=== PATIENT | female | born 1985 | race Caucasian/White ===

== ENCOUNTER 2020-10-04 19:51 | Inpatient (IN) | payer OTHER, SELFPAY ==
[2020-10-04 19:56] VITALS: BP 145/83; PULSE 101; RESP 18; TEMP 37.3; O2SAT 97; BMI 39.3
--- NOTE | 2020-10-04 22:40 | ED.ANIMALBIT ---
HPI - Animal Bite General Chief Complaint: Animal Bite Stated Complaint: cat scratch Time Seen by Provider: 10/04/20 22:01 History of Present Illness HPI narrative: 34-year-old female who presents emergency department for evaluation left hand swelling and redness after getting a cat bite. 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 She states that she was at work yesterday around 2:30 p.m. when a cat bit her left hand. She states that she immediately cleaned the wound with Hibiclens. She is then seen at an urgent care clinic and started on Ceftin 500 mg twice a day. The patient states she has taken 3 doses of Ceftin. She states that the redness over her left hand has spread outside of the marked area and is now traveling upper arm to her elbow. She also has systemic symptoms which include headache, shaking chills, weakness and fatigue. The patient states that she had a cat bite and August 2019 and required hospitalization for that cat bite. She states that her tetanus status is up-to-date. The cat's rabies shots are also up-to-date. Related Data Home Medications Medication Instructions Recorded Confirmed cetirizine 10 mg tablet 10 mg PO DAILY 10/03/20 10/03/20 lactobacillus combination no.8 PO DAILY 10/03/20 10/03/20 lisinopril PO DAILY 10/03/20 10/03/20 montelukast PO DAILY 10/03/20 10/03/20 multivitamin 1 tab PO DAILY 10/03/20 10/03/20 venlafaxine 150 mg 150 mg PO DAILY 10/03/20 10/03/20 capsule,extended release 24 hr Previous Rx's Medication Instructions Recorded cefuroxime axetil 500 mg tablet 500 mg PO BID 10 Days #20 tab 10/03/20 Allergies Allergy/AdvReac Type Severity Reaction Status Date / Time codeine [CODEINE] Allergy Unknown NAUSEA & Unverified 07/21/20 17:32 VOMITING fish derived [FISH] Allergy Unknown UNKNOWN Unverified 07/21/20 17:32 latex [LATEX] Allergy Unknown RASH Unverified 07/21/20 17:32 penicillin G Allergy Unknown Verified 01/27/20 00:00 Penicillins [PENICILLINS] Allergy Unknown AGITATION Unverified 07/21/20 17:32 shellfish derived Allergy Unknown UNKNOWN Unverified 07/21/20 17:32 [SHELLFISH DERIVED] Sulfa (Sulfonamide Allergy Unknown ANAPHYLAXIS Unverified 07/21/20 17:32 Antibiotics) [SULFA (SULFONAMIDE ANTIBIOTICS)] AVOCADO Allergy Unknown Uncoded 01/27/20 00:00 Codeine Sulfate Allergy Unknown Uncoded 01/27/20 00:00 ENVIROMENTAL/ TREE Allergy Unknown Uncoded 01/27/20 00:00 FISH Allergy Unknown Uncoded 01/27/20 00:00 KIWI Allergy Unknown Uncoded 01/27/20 00:00 LATEX Allergy Unknown Uncoded 01/27/20 00:00 Lisinopril Allergy Unknown Uncoded 01/27/20 00:00 SHELLFISH Allergy Unknown Uncoded 01/27/20 00:00 Review of Systems Review of Systems: Yes all other systems are reviewed and are negative Constitutional: Constitutional: Reports as per HPI Eyes: Eyes: Reports as per HPI ENT: Reports as per HPI Cardiovascular: Cardiovascular: Reports as per HPI Respiratory: Respiratory: Reports as per HPI Gastrointestinal: Gastrointestinal: Reports as per HPI Genitourinary: Genitourinary: Reports as per HPI Musculoskeletal: Musculoskeletal: Reports as per HPI Integumentary/Breasts: Skin/Breast: Reports as per HPI Neurologic: Reports as per HPI and Reports Abnormal speech present Psychiatric: Psychiatric: Reports as per HPI Allergic/Immunologic: Allergic/Immunologic: Reports as per HPI [facility] Social History Social History Alcohol intake: current Alcohol intake frequency: holidays/special occasions only Smoking Status: Never smoker Advance Directives: No Advance Directives Information Provided: Yes Physical Exam Vital Signs: Vital Signs: Last Vital Signs Temp 99.2 F 10/04/20 19:56 Pulse 86 10/05/20 00:23 Resp 16 10/05/20 00:23 BP 138/83 10/05/20 00:23 Pulse Ox 98 10/05/20 00:23 Body Mass Index 39.3 Const: General: cooperative, no acute distress, alert and awake Nutritional Appearance: overweight Orientation/consciousness: oriented to person and oriented to place Limitations: no limitations HENMT: Head: Yes normal to inspection, Yes normocephalic and Yes atraumatic Ears: external ears normal General nose exam: Normal external nose present Face and sinus: Yes normal facial exam Mouth: Normal oral and palatal mucosa present Throat: Yes posterior oropharynx normal Eyes: General: appearance normal, both eyes and all related structures Periorbital: periorbital findings normal Eyelids: Yes eyelids normal Conjunctivae: conjunctivae normal Sclerae: sclerae normal Corneas: corneas normal Pupils: Equal, round and reactive pupils present Direct Ophthalmoscopy: normal light reflex Neck: Neck: Yes normal visual inspection and Yes supple Lymphatic: no lymphadenopathy noted Chest: Chest palpation & inspection: normal inspection of the chest and normal palpation of entire chest wall Resp: Effort & Inspection: normal respiratory effort, abnormal respiratory pattern, no audible wheezes and no respiratory distress Auscultation: clear to auscultation bilaterally, no crackles, no rales, no rhonchi and no wheezes Cardio: Rate: regular rate Rhythm: regular rhythm Heart sounds: S1 normal heart sound present, S2 normal heart sound present and Murmur heart sound present GI: Inspection: No distended Palpation (GI): Soft to palpation, nontender, no guarding and No hepatosplenomegaly present Auscultation: normal bowel sounds : General: Yes no CVA tenderness Back/Spine/Pelvis: Back: no CVA tenderness Skin: General skin exam: turgor normal Lesions: no lesions Neuro: General: oriented to person and oriented to place Cranial nerves: Yes CN's II-XII intact bilaterally and Yes Equal, round and reactive pupils present Cognition (Neuro): normal cognition Speech: Abnormal speech present Motor exam (neuro): 5/5 motor strength present throughout Extrem: Other: The patient has a flocculent area over the left hand over the hypothenar eminence, there is healing puncture wounds noted over the mid lateral aspect of the 5th metacarpal area, there is erythema that extends from the base of the 5th finger involving the 4th and 5th metacarpal area extending up the patient's forearm to her elbow, there is tenderness to palpation over the hypothenar eminence, no purulent discharge noted Psych: Appearance: grossly normal Mental Status: mental status grossly normal Speech and movement: Clear speech present Affect: normal affect Thought process: Normal thought process present Course Course Course Narrative: 34-year-old female with history of hypertension asthma and penicillin allergy who presents to the emergency department for evaluation of cellulitis from a cat bite that occurred yesterday around 2:30 p.m. The patient has been on Ceftin is taking 3 doses with worsening of her cellulitis. She also has systemic symptoms which include fever, chills, headache and fatigue. I am concerned that the patient may be bacteremic. I am also concerned that the patient may have an abscess in the hypothenar region of her hand. I did discuss the patient's presentation with the physician assistant professor of radiology covering the orthopedic service. She stated that the hand surgeon, Dr. Amber Loomis is available to consult on the patient tomorrow. I did order a septic workup on this patient. Patient was also ordered to get ceftriaxone 2 g IV. The patient was given ibuprofen 600 mg orally for her headache. 0054: The patient had no improvement of her headache from the ibuprofen therefore she was ordered to get Dilaudid 0.5 mg IV and Zofran 4 mg IV. I also ordered a 2nd L of normal saline IV. The patient's laboratory evaluation was unremarkable with a normal lactic acid, therefore I do not think that she has sepsis however am still concerned that she is bacteremic. I will discuss the patient's presentation with the covering hospitalist. 0253: The patient was evaluated by the hospitalist and the patient will be admitted for further treatment and observation. The hospitalist requested that the patient get Flagyl as well to give her anaerobic coverage. MDM - Animal Bite Lab Data Result diagrams: 10/04/20 22:50 10/04/20 22:50 Labs: Lab Results 10/04/20 10/04/20 10/04/20 Range/Units 22:50 22:50 22:50 WBC 8.3 (4.8-10.8) X10*3/uL RBC 4.11 L (4.20-5.50) X10*6/uL Hgb 12.4 (12.0-16.0) g/dl Hct 35.9 L (37-47) % MCV 87.3 (80-98) fL MCH 30.2 (27.0-33.0) pg MCHC 34.5 (31.0-35.0) g/dl RDW 11.8 (11.0-16.0) % Plt Count 174 (160-400) X10*3/uL MPV 11.7 (9.4-12.3) fL Immature Gran % (Auto) 0.2 (0.0-0.4) % Neut % (Auto) 57.3 (45-73) % Lymph % (Auto) 32.9 (20-40) % [place] % (Auto) 6.7 (2-11) % Eos % (Auto) 2.5 (0-4) % Baso % (Auto) 0.4 (0-2) % Lymph # (Auto) 2.7 (1.2-4.9) X10*3/uL [place] # (Auto) 0.6 (0.1-1.2) X10*3/uL Eos # (Auto) 0.2 (0.0-0.4) X10*3/uL Baso # (Auto) 0.0 (0.0-0.2) X10*3/uL Abs Immat Gran (auto) 0.02 (0.00-0.03) X10*3/uL Absolute Neuts (auto) 4.8 (2.0-8.3) X10*3/uL Absolute Nucleated RBC 0.000 (0.0-0.012) X10*3/uL Nucleated RBC % (auto) 0.0 (0.0-0.2) /100WBC PT 12.2 (10.8-13.0) SEC INR 1.0 (0.9-1.1) APTT 29.2 (24.1-38.0) SEC Sodium 137 (135-145) mmol/L Potassium 4.7 (3.3-5.1) mmol/l Chloride 104 (96-108) mmol/L Carbon Dioxide 24 (22-29) mmol/L Anion Gap 14 (12-20) BUN 11 (9-16) mg/dL Creatinine 0.68 (0.5-1.4) mg/dL Estim Creat Clear Calc 125.9 Estimated GFR > 60 Random Glucose 97 (60-115) mg/dL Lactic Acid (0.5-2.0) mmol/L Calcium 8.6 (8.4-10.2) mg/dL 10/04/20 Range/Units 22:50 WBC (4.8-10.8) X10*3/uL RBC (4.20-5.50) X10*6/uL Hgb (12.0-16.0) g/dl Hct (37-47) % MCV (80-98) fL MCH (27.0-33.0) pg MCHC (31.0-35.0) g/dl RDW (11.0-16.0) % Plt Count (160-400) X10*3/uL MPV (9.4-12.3) fL Immature Gran % (Auto) (0.0-0.4) % Neut % (Auto) (45-73) % Lymph % (Auto) (20-40) % [place] % (Auto) (2-11) % Eos % (Auto) (0-4) % Baso % (Auto) (0-2) % Lymph # (Auto) (1.2-4.9) X10*3/uL [place] # (Auto) (0.1-1.2) X10*3/uL Eos # (Auto) (0.0-0.4) X10*3/uL Baso # (Auto) (0.0-0.2) X10*3/uL Abs Immat Gran (auto) (0.00-0.03) X10*3/uL Absolute Neuts (auto) (2.0-8.3) X10*3/uL Absolute Nucleated RBC (0.0-0.012) X10*3/uL Nucleated RBC % (auto) (0.0-0.2) /100WBC PT (10.8-13.0) SEC INR (0.9-1.1) APTT (24.1-38.0) SEC Sodium (135-145) mmol/L Potassium (3.3-5.1) mmol/l Chloride (96-108) mmol/L Carbon Dioxide (22-29) mmol/L Anion Gap (12-20) BUN (9-16) mg/dL Creatinine (0.5-1.4) mg/dL Estim Creat Clear Calc Estimated GFR Random Glucose (60-115) mg/dL Lactic Acid 1.0 (0.5-2.0) mmol/L Calcium (8.4-10.2) mg/dL Discharge Plan Discharge Prescriptions: No Action lisinopril PO DAILY RF: 0 venlafaxine [Effexor XR] 150 mg capsule,extended release 24hr 150 mg PO DAILY RF: 0 cetirizine [Zyrtec] 10 mg tablet 10 mg PO DAILY RF: 0 montelukast PO DAILY RF: 0 multivitamin [Daily Multi-Vitamin] Tablet 1 tab PO DAILY RF: 0 lactobacillus combination no.8 PO DAILY RF: 0 cefuroxime axetil 500 mg tablet 500 mg PO BID 10 Days Qty: 20 RF: 0
[2020-10-04 22:58] LABS: Basophils Percent Auto 0.4 % (0-2); Eosinophils Absolute Auto 0.2 X10*3/uL (0.0-0.4); Eosinophils Percent Auto 2.5 % (0-4); Hematocrit 35.9 % (37-47); Hemoglobin 12.4 g/dl (12.0-16.0); Imm Gran Abs Auto 0.02 X10*3/uL (0.00-0.03); Imm Gran Pct Auto 0.2 % (0.0-0.4); Lymphocytes Absolute Auto 2.7 X10*3/uL (1.2-4.9); Lymphocytes Percent Auto 32.9 % (20-40); MANUAL DIFF FLAG NO; Mean Corpuscular HGB Conc 34.5 g/dl (31.0-35.0); Mean Corpuscular Hemoglobin 30.2 pg (27.0-33.0); Mean Corpuscular Volume 87.3 fL (80-98); Mean Platelet Volume 11.7 fL (9.4-12.3); Monocytes Absolute Auto 0.6 X10*3/uL (0.1-1.2); Monocytes Percent Auto 6.7 % (2-11); Neutrophils Absolute Auto 4.8 X10*3/uL (2.0-8.3); Neutrophils Percent Auto 57.3 % (45-73); Platelet Count 174 X10*3/uL (160-400); Red Blood Count 4.11 X10*6/uL (4.20-5.50); Red Cell Distribution Width 11.8 % (11.0-16.0); White Blood Count 8.3 X10*3/uL (4.8-10.8)
[2020-10-04 23:06] LABS: Prothrombin Time 12.2 SEC (10.8-13.0)
[2020-10-04 23:09] LABS: Partial Thromboplastin Time 29.2 SEC (24.1-38.0)
[2020-10-04 23:23] VITALS: BP 140/82; PULSE 88; RESP 16; O2SAT 98
[2020-10-04 23:27] LABS: Anion Gap 14 (12-20); Blood Urea Nitrogen 11 mg/dL (9-16); Calcium 8.6 mg/dL (8.4-10.2); Carbon Dioxide 24 mmol/L (22-29); Chloride 104 mmol/L (96-108); Creatinine Clr Calc Pharmacy 125.9; Estimated Glomerular Filt Rate > 60; Glucose Random 97 mg/dL (60-115); Potassium 4.7 mmol/l (3.3-5.1); Sodium 137 mmol/L (135-145)
[2020-10-04] MEDS: cefTRIAXone sodium 2 GM in 0.9 % Sodium Chloride 50 ML IV (23:33)
[2020-10-04] MEDS: Ibuprofen 600 MG TABLET PO (23:33)
[2020-10-05] VITALS (13 sets, daily range): BP systolic 124–148; BP diastolic 7–91; PULSE 77–88; RESP 16–20; TEMP 35.9–36.8; O2SAT 97–100
[2020-10-05] MEDS: HYDROmorphone HCl 0.5 MG/0.5 ML SYRINGE IVPUSH (01:12)
[2020-10-05] MEDS: ondansetron HCL 4 MG/2 ML VIAL IVPUSH ×2 (01:12→09:29)
[2020-10-05] MEDS: 0.9 % Sodium Chloride 1,000 ML 999 ML IVCONT (01:13)
[2020-10-05] MEDS: metroNIDAZOLE/NS 500 MG/100 ML PIGGYBACK 100 MG IV ×4 (03:10→19:38)
--- NOTE | 2020-10-05 03:11 | PM.IMHP ---
History of Present Illness Date of Service: 10/05/20 Chief Complaint: left hand cat bite 34 y/o female with PMHX of HTN and Depression who presented to the ED due to left hand swelling. 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 Patient washed her hands carefully and went to the urgent care were was prescribed ceftin as anbibiotic therapy. Patient reports that since yesterday has noted a worsening swelling and erythema of the left hand progessing towards the left elbow. Denies any fever, chest pain, SOB, nausea, vomiting, diarrhea, sick contacts or recent travel. Patient reported to the ED that the cat has a complete immunization including rabies. Patient was given one dose of Rocephin given hx of penicillin allergy and decision for admission was given. Patient was seen and examined in the ED, laying down in bed in no acute distress. ROS as above otherwise negative. Physical exam showing 2 small superficial laceration in the left hand around the 4th and 5th phalanges. No drainage is evident. Swelling that occupies her entire left hand with erythema extending to the wrist. Tenderness extending to the left elbow. PMHX: HTN, Depression PSx: none Toxic habits: No hx of alcohol abuse, smoking or IVDA Review of Systems Musculoskeletal: Musculoskeletal: Reports other (left hand swelling / erythema ) Neurologic: Reports as per HPI and Reports Abnormal speech present PMFSH Functional capacity: independent ambulation Social History Alcohol intake: current Alcohol intake frequency: holidays/special occasions only Smoking Status: Never smoker Advance Directives: No Advance Directives Information Provided: Yes Meds Allergies Allergy/AdvReac Type Severity Reaction Status Date / Time codeine [CODEINE] Allergy Unknown NAUSEA & Unverified 07/21/20 17:32 VOMITING fish derived [FISH] Allergy Unknown UNKNOWN Unverified 07/21/20 17:32 latex [LATEX] Allergy Unknown RASH Unverified 07/21/20 17:32 penicillin G Allergy Unknown Verified 01/27/20 00:00 Penicillins [PENICILLINS] Allergy Unknown AGITATION Unverified 07/21/20 17:32 shellfish derived Allergy Unknown UNKNOWN Unverified 07/21/20 17:32 [SHELLFISH DERIVED] Sulfa (Sulfonamide Allergy Unknown ANAPHYLAXIS Unverified 07/21/20 17:32 Antibiotics) [SULFA (SULFONAMIDE ANTIBIOTICS)] AVOCADO Allergy Unknown Uncoded 01/27/20 00:00 Codeine Sulfate Allergy Unknown Uncoded 01/27/20 00:00 ENVIROMENTAL/ TREE Allergy Unknown Uncoded 01/27/20 00:00 FISH Allergy Unknown Uncoded 01/27/20 00:00 KIWI Allergy Unknown Uncoded 01/27/20 00:00 LATEX Allergy Unknown Uncoded 01/27/20 00:00 Lisinopril Allergy Unknown Uncoded 01/27/20 00:00 SHELLFISH Allergy Unknown Uncoded 01/27/20 00:00 Home Medications Medication Instructions Recorded Confirmed Type amlodipine 1 tab PO DAILY 10/05/20 10/05/20 History venlafaxine 1 cap PO DAILY 10/05/20 10/05/20 History Physical Exam Vital Signs and Narrative: Vital Signs: Last Vital Signs Temp 99.2 F 10/04/20 19:56 Pulse 86 10/05/20 00:23 Resp 16 10/05/20 00:23 BP 138/83 10/05/20 00:23 Pulse Ox 98 10/05/20 00:23 Body Mass Index 39.3 Const: General: cooperative, comfortable and no acute distress Orientation/consciousness: oriented to person, oriented to place and oriented to time HENMT: Head: Yes normal to inspection Eyes: General: appearance normal, both eyes and all related structures Neck: Yes normal visual inspection Chest: Chest palpation & inspection: normal inspection of the chest Resp: Effort & Inspection: normal respiratory effort Auscultation: clear to auscultation bilaterally Cardio: Jugular venous distension: no JVD Rate: regular rate Rhythm: regular rhythm Heart sounds: S1 normal heart sound present and S2 normal heart sound present GI: Inspection: Yes normal to inspection Skin: General skin exam: other (left hand 2 lacerations at the 4th and 5th phalanges ) Neuro: General: oriented to person, oriented to place and oriented to time Cognition (Neuro): normal cognition Speech: Abnormal speech present Extrem: General: Yes other (left hand edema, erythema, hot to touch and tenderness extending to elbow ) Psych: Appearance: grossly normal Affect: normal affect Results Labs CBC and Chem 7: 10/04/20 22:50 10/04/20 22:50 Labs: Laboratory Results - last 24 hr 10/04/20 10/04/2020 22:50 22:50 22:50 MCV 87.3 MCH 30.2 MCHC 34.5 RDW 11.8 Plt Count 174 MPV 11.7 Immature Gran % (Auto) 0.2 Neut % (Auto) 57.3 Lymph % (Auto) 32.9 [place] % (Auto) 6.7 Eos % (Auto) 2.5 Baso % (Auto) 0.4 Lymph # (Auto) 2.7 [place] # (Auto) 0.6 Eos # (Auto) 0.2 Baso # (Auto) 0.0 Abs Immat Gran (auto) 0.02 Absolute Neuts (auto) 4.8 Absolute Nucleated RBC 0.000 Nucleated RBC % (auto) 0.0 PT 12.2 INR 1.0 APTT 29.2 Anion Gap 14 Estim Creat Clear Calc 125.9 Estimated GFR > 60 Random Glucose 97 Lactic Acid Calcium 8.6 10/04/20 22:50 MCV MCH MCHC RDW Plt Count MPV Immature Gran % (Auto) Neut % (Auto) Lymph % (Auto) [place] % (Auto) Eos % (Auto) Baso % (Auto) Lymph # (Auto) [place] # (Auto) Eos # (Auto) Baso # (Auto) Abs Immat Gran (auto) Absolute Neuts (auto) Absolute Nucleated RBC Nucleated RBC % (auto) PT INR APTT Anion Gap Estim Creat Clear Calc Estimated GFR Random Glucose Lactic Acid 1.0 Calcium Assessment and Plan (1) Cellulitis of left hand: Status: Acute S/p one dose of Rocephin in the ED Continue with Rocephin and start flagyl for gram neg and anaerobic coverage given penicllin allergy Follow up Bcx collected in the ED Infectious disease consult in the am Hand surgery consulted per ED, to follow up in the am (2) Cat bite: Qualifiers: Encounter type: subsequent encounter Qualified Code(s): W55.01XD - Bitten by cat, subsequent encounter Status: Acute plan as above (3) Hypertension: Status: Acute continue with home BP med (4) Depression: Status: Acute continue with venlafaxine home dose
[2020-10-05] MEDS: Morphine Sulfate 2 MG/ML CARTRIDGE 1 MG IVPUSH (06:46)
--- NOTE | 2020-10-05 07:02 | PC.NURSE ---
PT CRYING IN PAIN. DR GRIDER AWARE AND PT MEDICATED PER EMAR FOR PAIN AND NAUSEA.
--- NOTE | 2020-10-05 07:15 | PC.NURSE ---
Report given to WILBERT Toscano
[2020-10-05 07:44] LABS: COVID-19 Test Negative (Negative); IDNOW Serial# 9DD0AD1C
[2020-10-05] MEDS: amLODIPine Besylate 5 MG TABLET PO (09:22)
[2020-10-05] MEDS: Acetaminophen 325 MG TABLET 650 MG PO ×2 (09:23→21:18)
[2020-10-05] MEDS: Venlafaxine HCl ER 150 MG CAP.ER.24H PO (09:24)
--- NOTE | 2020-10-05 09:44 | PC.NURSE ---
Report received from WILBERT Olivarez. Pt is alert, rr even, speaks in full sentences. She has a cat bite to her right hand, with noted redness. Pt denies c/o regarding the bite, but has nausea and a 9/10. Medicated with Zofran and Tylenol. Will monitor for efficacy. Plan is to admit for observation. Pt agrees. Awaiting bed assignment.
--- NOTE | 2020-10-05 12:11 | PM.EVENT ---
Event Note Date of Service: 10/05/20 Event Note: Patient already seen by hospitalist team this morning Cvs: rrr, [id number] , no murmur res: clear to auscultation ,no rhonchii or wheezing abd: no rebound or guarding ,nt, bs present. ext pulses present , no cyanosis , left hand seems cellulitis villeda improving, still has mild stiffness in 5th finger neuro: axo3 , nonfocal. Assessment and plan: Seen by Ortho: Cellulitis area improving, recommended to continue IV antibiotics Will continue to monitor, id Eval pending
--- NOTE | 2020-10-05 12:22 | PC.NURSE ---
Pt nausea now resolved. States h/a still present. Pt has hx of migraines. Lights dimmed and curtain closed for comfort. Pt offers no other c/o at this time. Seen by Dr Ferguson this morning. Awaiting bed placement.
[2020-10-05] MEDS: Heparin Sodium,Porcine 5,000 UNIT/ML VIAL 5000 UNIT SUBCUT ×2 (12:41→21:19)
--- NOTE | 2020-10-05 12:52 | PC.NURSE ---
Lunch provided. Pt has bed assignment. Awaiting inpt RN callback for report.
--- NOTE | 2020-10-05 13:48 | PC.NURSE ---
REPORT GIVEN TO WILBERT RIVERA.
[2020-10-05] MEDS: 0.9 % Sodium Chloride Flush 3 ML SYRINGE IVFLUSH ×3 (14:25→23:35)
--- NOTE | 2020-10-05 15:13 | PM.CNOR ---
History of Present Illness HPI Consult date: 10/05/20 Chief complaint: left hand pain/swelling Narrative: Ms. Edward is a 34-year-old female who presented to the emergency department with worsening pain and swelling of the left hand after sustaining a cat bite just a day prior. She states she initially went to urgent care and received antibiotic p.o. and was advised that if her symptoms begin to worsen to go to the emergency department. While in the emergency department she was started on IV antibiotics and admission was placed for the hospital service and Orthopedics was consulted for further evaluation. Review of Systems Review of Systems: Yes all other systems are reviewed and are negative Neurologic: Reports as per HPI and Reports Abnormal speech present PMFSH Past Medical History Functional capacity: independent ambulation Social History Social History Household Members: Spouse Housing: House Alcohol intake: current Alcohol intake frequency: does not drink Smoking Status: Never smoker Smoked in Last 30 Days: No Second Hand Smoke Exposure: No Use of substances other than those prescribed or required for medical reasons: No Currently Displaying Signs/Symptoms of Drug Intoxication Withdrawal: No Any prior treatment program specific to substance use: No Have you been hit, kicked, punched, or otherwise hurt by someone within the past year? If so, by whom?: No Do you feel safe in your current relationship?: No Is there a partner from a previous relationship who is making you feel unsafe now?: No Are you made to feel afraid or neglected: No Spiritual Healthcare Practices: none Evangelical Healthcare Practices: none Cultural Healthcare Practices: none Advance Directives: No Advance Directives Information Provided: Yes Advance Directives on File: Yes Do you have thoughts of harming others: None Do you have a plan to hurt others: No Plan Recently lost weight without trying: No Meds Allergies Allergy/AdvReac Type Severity Reaction Status Date / Time codeine [CODEINE] Allergy Unknown NAUSEA & Unverified 07/21/20 17:32 VOMITING fish derived [FISH] Allergy Unknown UNKNOWN Unverified 07/21/20 17:32 latex [LATEX] Allergy Unknown RASH Unverified 07/21/20 17:32 penicillin G Allergy Unknown Verified 01/27/20 00:00 Penicillins [PENICILLINS] Allergy Unknown AGITATION Unverified 07/21/20 17:32 shellfish derived Allergy Unknown UNKNOWN Unverified 07/21/20 17:32 [SHELLFISH DERIVED] Sulfa (Sulfonamide Allergy Unknown ANAPHYLAXIS Unverified 07/21/20 17:32 Antibiotics) [SULFA (SULFONAMIDE ANTIBIOTICS)] AVOCADO Allergy Unknown Uncoded 01/27/20 00:00 Codeine Sulfate Allergy Unknown Uncoded 01/27/20 00:00 ENVIROMENTAL/ TREE Allergy Unknown Uncoded 01/27/20 00:00 FISH Allergy Unknown Uncoded 01/27/20 00:00 KIWI Allergy Unknown Uncoded 01/27/20 00:00 LATEX Allergy Unknown Uncoded 01/27/20 00:00 Lisinopril Allergy Unknown Uncoded 01/27/20 00:00 SHELLFISH Allergy Unknown Uncoded 01/27/20 00:00 Home Medications Medication Instructions Recorded Confirmed Type amlodipine 1 tab PO DAILY 10/05/20 10/05/20 History cetirizine [Zyrtec] 5 mg 10/05/20 History montelukast [Singulair] 10 mg PO BEDTIME 10/05/20 10/05/20 History venlafaxine 1 cap PO DAILY 10/05/20 10/05/20 History Physical Exam Vital Signs: Vital Signs: Last Vital Signs Temp 97.3 F 10/05/20 14:40 Pulse 82 10/05/20 14:40 Resp 18 10/05/20 14:40 BP 139/91 H 10/05/20 14:40 Pulse Ox 97 10/05/20 14:40 Body Mass Index 39.3 Const: General: cooperative, healthy appearing, comfortable and no acute distress Neuro: Speech: Abnormal speech present Extrem: Other: Left hand cat bite present on the ulnar aspect of the hand along the lateral edge of the hand and the palmar aspect. Very minimal swelling no significant erythema. Minor tenderness but no fluctuance or abscess appreciable. She is able to make a full fist and fully extend the hands passively and actively. She has full radial median and ulnar nerve motor and sensory intact. Pulses present. Results Labs Result Diagrams: 10/04/20 22:50 10/04/20 22:50 Labs: Abnormal lab results 10/04/20 Range/Units 22:50 RBC 4.11 L (4.20-5.50) X10*6/uL Hct 35.9 L (37-47) % H & H 10/04/20 Range/Units 22:50 Hgb 12.4 (12.0-16.0) g/dl Hct 35.9 L (37-47) % Coagulation 10/04/20 Range/Units 22:50 INR 1.0 (0.9-1.1) All other labs normal. Assessment and Plan (1) Cellulitis of left hand: Status: Acute I discussed the case with Dr. Valladares. At this time I recommend she continue IV antibiotics to see the continues to improve. No further surgical intervention at this time. At this time we will continue to follow patient while she is in the hospital. It may be beneficial to do warm water soaks of the left hand for 20 minutes about 3 to 4 times a day.
[2020-10-05] MEDS: cefTRIAXone sodium 1 GM in 0.9 % Sodium Chloride 50 ML IV (17:21)
[2020-10-05] MEDS: Flu Vacc QS2020-21(6mos up)/PF 0.5 ML SYRINGE IM (18:46)
[2020-10-05] MEDS: Montelukast Sodium 10 MG TABLET PO (21:18)
[2020-10-06] VITALS: BP 129/79; PULSE 85; RESP 16; TEMP 36.4; O2SAT 96
[2020-10-06] MEDS: cefTRIAXone sodium 1 GM in 0.9 % Sodium Chloride 50 ML IV (03:14)
[2020-10-06 03:38] VITALS: BP 135/84; PULSE 78; RESP 16; TEMP 36.3; O2SAT 97
[2020-10-06] MEDS: metroNIDAZOLE/NS 500 MG/100 ML PIGGYBACK 100 MG IV ×2 (03:48→10:22)
[2020-10-06] MEDS: Heparin Sodium,Porcine 5,000 UNIT/ML VIAL 5000 UNIT SUBCUT ×2 (06:05→13:29)
[2020-10-06 06:23] LABS: MANUAL DIFF FLAG NO
[2020-10-06 06:28] LABS: Basophils Percent Auto 0.2 % (0-2); Eosinophils Absolute Auto 0.2 X10*3/uL (0.0-0.4); Eosinophils Percent Auto 3.3 % (0-4); Hematocrit 35.5 % (37-47); Hemoglobin 11.9 g/dl (12.0-16.0); Imm Gran Abs Auto 0.01 X10*3/uL (0.00-0.03); Imm Gran Pct Auto 0.2 % (0.0-0.4); Lymphocytes Absolute Auto 2.2 X10*3/uL (1.2-4.9); Lymphocytes Percent Auto 34.2 % (20-40); Mean Corpuscular HGB Conc 33.5 g/dl (31.0-35.0); Mean Corpuscular Hemoglobin 29.8 pg (27.0-33.0); Mean Platelet Volume 11.5 fL (9.4-12.3); Monocytes Absolute Auto 0.5 X10*3/uL (0.1-1.2); Monocytes Percent Auto 7.2 % (2-11); Neutrophils Absolute Auto 3.5 X10*3/uL (2.0-8.3); Neutrophils Percent Auto 54.9 % (45-73); Platelet Count 149 X10*3/uL (160-400); Red Blood Count 3.99 X10*6/uL (4.20-5.50); Red Cell Distribution Width 11.7 % (11.0-16.0); White Blood Count 6.3 X10*3/uL (4.8-10.8)
[2020-10-06 07:12] LABS: Anion Gap 9 (12-20); Blood Urea Nitrogen 11 mg/dL (9-16); Carbon Dioxide 26 mmol/L (22-29); Chloride 108 mmol/L (96-108); Creatinine Clr Calc Pharmacy 125.9; Estimated Glomerular Filt Rate > 60; Glucose Random 86 mg/dL (60-115); Potassium 4.2 mmol/l (3.3-5.1); Sodium 139 mmol/L (135-145)
[2020-10-06 07:13] VITALS: BP 144/76; PULSE 85; RESP 18; TEMP 36.7; O2SAT 96
[2020-10-06] MEDS: 0.9 % Sodium Chloride Flush 3 ML SYRINGE IVFLUSH ×2 (08:52→16:30)
[2020-10-06] MEDS: Venlafaxine HCl ER 150 MG CAP.ER.24H PO (08:52)
[2020-10-06] MEDS: amLODIPine Besylate 5 MG TABLET PO (08:52)
[2020-10-06] MEDS: Acetaminophen 325 MG TABLET 650 MG PO (10:21)
[2020-10-06 11:37] VITALS: BP 151/93; PULSE 109; RESP 18; TEMP 36.9; O2SAT 97
--- NOTE | 2020-10-06 12:32 | MHC.CM.PN ---
NURSE VAULT MAKER NOTE ELECTRONIC MEDICAL RECORD REVIEWED ALONG WITH CASE DISCUSSED WITH STAFF NURSE , MET WITH PATIENT AND EXPLAINED THE ROLE OF THE NURSE VAULT MAKER IN THE TRANSITION FROM HOSPITAL TO HOME, PATIENT LOVELY WITH SIGNIFICANT OTHER , SHE IS ACTIVE ,INDEPENDENT IN ALL ADLS AND MOBILITY WITH OUT ANY DEVICE . PATIENT IS EMPLOYED F[employer] TIME [employer] IN [facility] [place]. SHE HAS NO VNA /NO DM SERVICES IN THE HOME,AND AT THIS TIME DOES NT FWLWL THAT SHE WILL NEED ANY . DISCHARGE PLAN 1/ HOME WITH NO SERVICES PCP PATIENT TO CALL FOR POST HOSPITAL DISCHARGE FOLLOW UP TRANSP FAMILY
[2020-10-06] MEDS: Clindamycin Phosphate/D5W 600 MG/50 ML PIGGYBACK 100 MG IV ×2 (13:04→20:53)
[2020-10-06] MEDS: levoFLOXacin 750 MG TABLET PO (13:26)
--- NOTE | 2020-10-06 13:37 | HO.PM.IMPN ---
Subjective Subjective Date of Service: 10/06/20 Interval History: hand cellulitis Review of Systems Denies any chest pain or shortness of breath or abdominal pain or fever or chills Hand erythema area is improving Physical Exam Vital Signs: Vital Signs: Last Vital Signs Temp 98.4 F 10/06/20 11:37 Pulse 109 H 10/06/20 11:37 Resp 18 10/06/20 11:37 BP 151/93 H 10/06/20 11:37 Pulse Ox 97 10/06/20 11:37 Body Mass Index 39.3 Physical exam: Cvs: rrr, [id number] , no murmur res: clear to auscultation ,no rhonchii or wheezing abd: no rebound or guarding ,nt, bs present. ext pulses present , no cyanosis She able to be move both wrist more independently now, has still mild erythema affected hand area. neuro: axo3 , nonfocal. Objective Data Current Medications Generic Name Dose Route Start Last Admin Trade Name Freq PRN Reason Stop Dose Admin Acetaminophen 650 mg 10/06/20 10:14 10/06/20 10:21 Acetaminophen 325 Mg Tablet PO 650 mg Q6H PRN Administration Headache Amlodipine Besylate 5 mg 10/05/20 09:00 10/06/20 08:52 Amlodipine Besylate 5 Mg Tablet PO 5 mg DAILY MARILY Administration Protocol Heparin Sodium (Porcine) 5,000 unit 10/05/20 05:32 10/06/20 13:29 Heparin Sodium,Porcine 5,000 Unit/Ml Vial SUBCUT 5,000 unit Q8H MARILY Administration Clindamycin Phosphate 600 mg in 50 mls @ 100 mls/hr 10/06/20 12:15 10/06/20 13:31 Cleocin IV Infused Q8H MARILY Infusion Levofloxacin 750 mg 10/06/20 12:15 10/06/20 13:26 Levofloxacin 750 Mg Tablet PO 750 mg Q24H MARILY Administration Montelukast Sodium 10 mg 10/05/20 21:00 10/05/20 21:18 Montelukast Sodium 10 Mg Tablet PO 10 mg BEDTIME MARILY Administration Pharmacy Consult 1 each 10/05/20 02:56 Consult Rx Perform Med Rec MISCELLANE ONCE PRN Consult order Sodium Chloride 3 ml 10/05/20 14:11 10/06/20 08:52 0.9 % Sodium Chloride Flush 3 Ml Syringe IVFLUSH 3 ml QSHIFT MARILY Administration Venlafaxine HCl 150 mg 10/05/20 09:00 10/06/20 08:52 Venlafaxine Hcl Er 150 Mg Cap.Er.24h PO 150 mg DAILY MARILY Administration Labs CBC & Chem 7: 10/06/20 06:07 10/06/20 06:07 Microbiology Microbiology Results: Microbiology 10/04/20 22:50 Blood - Arterial Blood Culture - Preliminary No growth after 24 hours. 10/04/20 22:50 Blood - Arterial Blood Culture - Preliminary No growth after 24 hours. Assessment and Plan (1) Cellulitis of left hand: Status: Acute Assessment and Plan: Cellulitis of left hand: Continue with Rocephin and start flagyl day2. Follow up Bcx pending And movement and cellulitis area is improving Infectious disease consult pending Discuss surgery: Continue IV antibiotic
[2020-10-06 13:38] VITALS: BMI 39.3
[2020-10-06 15:11] VITALS: BP 137/83; PULSE 90; RESP 18; TEMP 36.1; O2SAT 100
[2020-10-06 19:28] VITALS: BP 153/87; PULSE 92; RESP 18; TEMP 36; O2SAT 100
[2020-10-06] MEDS: Montelukast Sodium 10 MG TABLET PO (20:53)
--- NOTE | 2020-10-06 21:43 | P.CNID_ITS ---
History of Present Illness Data of Consult Service Date: 10/06/20 Requesting physician: Jennifer Hartman Primary Care Provider: Xochitl Camargo MD HPI Reason for consult: left hand cat bite She presents to hospital with discomfort left hand. 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 She left work to go to walkin clinic and received antibiotics Area became more red and swollen and came to ER She was seen by Hand Surgery. She has streaking going up arm Review of Systems Musculoskeletal: Musculoskeletal: Reports limited range of motion Neurologic: Reports as per HPI and Reports Abnormal speech present [facility] Past Medical History Functional capacity: independent ambulation Social History Social History Household Members: Spouse Housing: House Alcohol intake: current Alcohol intake frequency: does not drink Smoking Status: Never smoker Smoked in Last 30 Days: No Second Hand Smoke Exposure: No Use of substances other than those prescribed or required for medical reasons: No Currently Displaying Signs/Symptoms of Drug Intoxication Withdrawal: No Any prior treatment program specific to substance use: No Have you been hit, kicked, punched, or otherwise hurt by someone within the past year? If so, by whom?: No Do you feel safe in your current relationship?: No Is there a partner from a previous relationship who is making you feel unsafe now?: No Are you made to feel afraid or neglected: No Spiritual Healthcare Practices: none Yazdanism Healthcare Practices: none Cultural Healthcare Practices: none Advance Directives: No Advance Directives Information Provided: Yes Advance Directives on File: Yes Do you have thoughts of harming others: None Do you have a plan to hurt others: No Plan Recently lost weight without trying: No service: No Current occupational status: employed Meds Allergies Allergy/AdvReac Type Severity Reaction Status Date / Time avocado Allergy Stomach Verified 10/05/20 19:59 Upset codeine Allergy Vomiting Verified 10/05/20 19:54 fish derived Allergy Anaphylaxis Verified 10/05/20 19:54 kiwi Allergy Rash Verified 10/05/20 20:01 Latex, Natural Rubber Allergy Rash Verified 10/05/20 19:55 penicillin G Allergy Hallucinati Verified 10/05/20 19:56 ons shellfish derived Allergy Anaphylaxis Verified 10/05/20 19:57 Sulfa (Sulfonamide Allergy Unknown Verified 10/05/20 19:58 Antibiotics) tree and shrub pollen Allergy Watery Eye Verified 10/05/20 20:05 SHELLFISH Allergy Unknown Anaphylaxis Uncoded 10/05/20 19:51 Home Medications Medication Instructions Recorded Confirmed Type amlodipine 1 tab PO DAILY 10/05/20 10/05/20 History cetirizine [Zyrtec] 5 mg 10/05/20 History montelukast [Singulair] 10 mg PO BEDTIME 10/05/20 10/05/20 History venlafaxine 1 cap PO DAILY 10/05/20 10/05/20 History Physical Exam Vital Signs: Vital Signs: Last Vital Signs Temp 96.8 F 10/06/20 19:28 Pulse 92 10/06/20 19:28 Resp 18 10/06/20 19:28 BP 153/87 H 10/06/20 19:28 Pulse Ox 100 10/06/20 19:28 Body Mass Index 39.3 Const: General: cooperative HENMT: Head: Yes normal to inspection Mouth: Normal oral and palatal mucosa present Resp: Effort & Inspection: normal respiratory effort Cardio: Rate: regular rate Rhythm: regular rhythm GI: Inspection: Yes normal to inspection Skin: General skin exam: no rashes or lesions noted Neuro: Speech: Abnormal speech present Extrem: Other: swelling/discomfort left hand in snuffbox area Assessment and Plan (1) Cat bite: Qualifiers: Encounter type: subsequent encounter Qualified Code(s): W55.01XD - Bitten by cat, subsequent encounter Problem details: She has possible Pasterella,possible staph aureus,possible anerobes Status: Acute Clindamycin 600 mg every 8 hours and Levaquin Po Clindamycin and Levaquin for total 7 days Continue Hand followup Results Labs CBC & Chem 7: 10/06/20 06:07 10/06/20 06:07 Labs: Short CBC 10/06/20 Range/Units 06:07 WBC 6.3 (4.8-10.8) X10*3/uL Hgb 11.9 L (12.0-16.0) g/dl Hct 35.5 L (37-47) % Plt Count 149 L (160-400) X10*3/uL BMP 10/06/20 06:07 Sodium 139 Potassium 4.2 Chloride 108 Carbon Dioxide 26 BUN 11 Creatinine 0.68 Calcium 8.0 L D Microbiology Microbiology Results: Microbiology 10/04/20 22:50 Blood - Arterial Blood Culture - Preliminary No growth after 24 hours. 10/04/20 22:50 Blood - Arterial Blood Culture - Preliminary No growth after 24 hours.
[2020-10-07] VITALS: BP 138/87; PULSE 86; RESP 18; TEMP 36.4; O2SAT 99
[2020-10-07] MEDS: 0.9 % Sodium Chloride Flush 3 ML SYRINGE IVFLUSH ×2 (00:44→08:25)
[2020-10-07 04:00] VITALS: BP 142/92; PULSE 65; RESP 18; TEMP 36.2; O2SAT 98
[2020-10-07] MEDS: Clindamycin Phosphate/D5W 600 MG/50 ML PIGGYBACK 100 MG IV ×2 (04:12→12:09)
[2020-10-07 06:45] VITALS: BP 117/58; PULSE 75; RESP 14; TEMP 36.6; O2SAT 96
[2020-10-07 06:49] LABS: Anion Gap 13 (12-20); Blood Urea Nitrogen 10 mg/dL (9-16); Calcium 8.3 mg/dL (8.4-10.2); Carbon Dioxide 24 mmol/L (22-29); Chloride 106 mmol/L (96-108); Estimated Glomerular Filt Rate > 60; Glucose Random 88 mg/dL (60-115); Potassium 3.8 mmol/l (3.3-5.1); Sodium 139 mmol/L (135-145)
[2020-10-07] MEDS: Venlafaxine HCl ER 150 MG CAP.ER.24H PO (08:24)
[2020-10-07] MEDS: amLODIPine Besylate 5 MG TABLET PO (08:24)
[2020-10-07 12:00] VITALS: BP 135/89; PULSE 104; RESP 18; TEMP 36.9; O2SAT 100
[2020-10-07] MEDS: levoFLOXacin 750 MG TABLET PO (12:09)
--- NOTE | 2020-10-07 14:52 | P.DS_ITS ---
DS: Providers Provider Date of admission: 10/05/20 03:50 Primary care physician: Xochitl Camargo MD Consults: 10/05/20 05:32 Consult to Infectious Diseases Routine Consulting Provider: Peyton Everett Reason for consultation: cat bite Has provider been notified: No DS: Diagnosis Discharge Diagnosis (1) Cat bite: Status: Acute Problem details: She has possible Pasterella,possible staph aureus,possible anerobes DS: Medications Discharge Medications Home Medications: Home Medications Medication Instructions Recorded Confirmed amlodipine 1 tab PO DAILY 10/05/20 10/05/20 cetirizine 5 mg 10/05/20 montelukast [Singulair] 10 mg PO BEDTIME 10/05/20 10/05/20 venlafaxine 1 cap PO DAILY 10/05/20 10/05/20 Previous Rx's Medication Instructions Recorded clindamycin HCl 600 mg PO TID 7 Days #42 cap 10/07/20 levofloxacin 500 mg PO DAILY 7 Days #7 tab 10/07/20 DS: Summary Hospital Course Hospital Course: HPI from admission 34 y/o female with PMHX of HTN and Depression who presented to the ED due to left hand swelling. 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 Patient washed her hands carefully and went to the urgent care were was prescribed ceftin as anbibiotic therapy. Patient reports that since yesterday has noted a worsening swelling and erythema of the left hand progessing towards the left elbow. Denies any fever, chest pain, SOB, nausea, vomiting, diarrhea, sick contacts or recent travel. Patient reported to the ED that the cat has a complete immunization including rabies. Patient was given one dose of Rocephin given hx of penicillin allergy and decision for admission was given. Patient was seen and examined in the ED, laying down in bed in no acute distress. ROS as above otherwise negative. Physical exam showing 2 small superficial laceration in the left hand around the 4th and 5th phalanges. No drainage is evident. Swelling that occupies her entire left hand with erythema extending to the wrist. Tenderness extending to the left elbow. hospital course 34 y old female admitted with cellulitis of the left hand after cat bite, patient was initially started on Rocephin and Flagyl given penicillin allergy, cultures were sent, patient was seen by Hand surgery recommended medical management and no surgical interventionl, cultures remain negative, , patient was seen by ID antibiotics were switched to Levaquin and clindamycin, erythema and swelling improved, patient was stable discharged home on p.o. Levaquin and clindamycin per ID Time Spent with Patient Time attestation: Total time spent providing and/or coordinating discharge services: Physical Exam Vital Signs: Vital Signs: Last Vital Signs Temp 98.5 F 10/07/20 12:00 Pulse 104 H 10/07/20 12:00 Resp 18 10/07/20 12:00 BP 135/89 10/07/20 12:00 Pulse Ox 100 10/07/20 12:00 Body Mass Index 39.3 Const: General: cooperative, comfortable and no acute distress Orientation/consciousness: oriented to person, oriented to place and oriented to time HENMT: Head: Yes normal to inspection Eyes: General: appearance normal, both eyes and all related structures Neck: Neck: Yes normal visual inspection Chest: Chest palpation & inspection: normal inspection of the chest Resp: Effort & Inspection: normal respiratory effort Auscultation: clear to auscultation bilaterally Cardio: Jugular venous distension: no JVD Rate: regular rate Rhythm: regular rhythm Heart sounds: S1 normal heart sound present and S2 normal heart sound present GI: Inspection: Yes normal to inspection Skin: General skin exam: other (left hand 2 lacerations at the 4th and 5th phalanges ) Neuro: General: oriented to person, oriented to place and oriented to time Cognition (Neuro): normal cognition Speech: Abnormal speech present Extrem: General: Yes other (left hand edema, erythema, hot to touch and tenderness extending to elbow ) Psych: Appearance: grossly normal Affect: normal affect DS: Data Data Completed and Pending Labs on day of discharge: 10/04/20 22:34 cefTRIAXone sodium [Rocephin] 2 gm 0.9 % Sodium Chloride [Ns] 50 ml IV ONCE 10/04/20 22:42 Ibuprofen [Motrin] 600 mg PO ONCE ONE cefTRIAXone sodium [Rocephin] 2 gm .ROUTE .STK-MED ONE 10/04/20 22:50 Basic Metabolic Panel Stat Complete Blood Count Auto Diff Stat Lactic Acid Stat Partial Thromboplastin Time Stat Prothrombin Time INR Stat 10/05/20 00:51 HYDROmorphone HCl [Dilaudid] 0.5 mg IVPUSH ONCE ONE ondansetron HCL [Zofran] 4 mg IVPUSH ONCE ONE 10/05/20 01:00 0.9 % Sodium Chloride [Ns] 1,000 ml IVCONT 999 mls/hr 10/05/20 02:53 metroNIDAZOLE/NS [Flagyl] 500 mg in 100 ml IV ONCE 10/05/20 03:00 metroNIDAZOLE/NS [Flagyl] 500 mg in 100 ml IV Q8H 10/05/20 03:47 Transfer Order Routine 10/05/20 06:32 Morphine Sulfate 1 mg IVPUSH ONCE ONE 10/05/20 06:36 Promethazine HCL [Phenergan] 6.25 mg 0.9 % Sodium Chloride [Ns] 50 ml IV ONCE 10/05/20 06:44 Promethazine HCL [Phenergan] 25 mg IV .STK-MED ONE 10/05/20 07:11 COVID-19 ID NOW (Clemente) Stat 10/05/20 09:16 Acetaminophen [Tylenol] 650 mg PO ONCE ONE 10/05/20 09:26 ondansetron HCL [Zofran] 4 mg IVPUSH ONCE ONE 10/05/20 Breakfast Low Sodium Diet 10/05/20 14:11 cefTRIAXone sodium [Rocephin] 1 gm 0.9 % Sodium Chloride [Ns] 50 ml IV Q12H 10/05/20 15:00 Flu Vacc [id number](6mos up)/PF [Fluarix Quad [id number]] 0.5 ml IM .ONCE ONE cefTRIAXone sodium [Rocephin] 1 gm 0.9 % Sodium Chloride [Ns] 50 ml IV Q12H 10/05/20 17:14 cefTRIAXone sodium [Rocephin] 1 gm .ROUTE .STK-MED ONE 10/05/20 21:07 Acetaminophen [Tylenol] 650 mg PO ONCE ONE 10/06/20 03:12 cefTRIAXone sodium [Rocephin] 1 gm .ROUTE .STK-MED ONE 10/06/20 06:07 Basic Metabolic Panel Routine Complete Blood Count Auto Diff Routine 10/07/20 05:55 Basic Metabolic Panel DAILY@0600 Laboratory Last Values WBC 6.3 X10*3/uL (4.8-10.8) 10/06/20 06:07 RBC 3.99 X10*6/uL (4.20-5.50) L 10/06/20 06:07 Hgb 11.9 g/dl (12.0-16.0) L 10/06/20 06:07 Hct 35.5 % (37-47) L 10/06/20 06:07 MCV 89.0 fL (80-98) 10/06/20 06:07 MCH 29.8 pg (27.0-33.0) 10/06/20 06:07 MCHC 33.5 g/dl (31.0-35.0) 10/06/20 06:07 RDW 11.7 % (11.0-16.0) 10/06/20 06:07 Plt Count 149 X10*3/uL (160-400) L 10/06/20 06:07 MPV 11.5 fL (9.4-12.3) 10/06/20 06:07 Immature Gran % (Auto) 0.2 % (0.0-0.4) 10/06/20 06:07 Neut % (Auto) 54.9 % (45-73) 10/06/20 06:07 Lymph % (Auto) 34.2 % (20-40) 10/06/20 06:07 [place] % (Auto) 7.2 % (2-11) 10/06/20 06:07 Eos % (Auto) 3.3 % (0-4) 10/06/20 06:07 Baso % (Auto) 0.2 % (0-2) 10/06/20 06:07 Lymph # (Auto) 2.2 X10*3/uL (1.2-4.9) 10/06/20 06:07 [place] # (Auto) 0.5 X10*3/uL (0.1-1.2) 10/06/20 06:07 Eos # (Auto) 0.2 X10*3/uL (0.0-0.4) 10/06/20 06:07 Baso # (Auto) 0.0 X10*3/uL (0.0-0.2) 10/06/20 06:07 Abs Immat Gran (auto) 0.01 X10*3/uL (0.00-0.03) 10/06/20 06:07 Absolute Neuts (auto) 3.5 X10*3/uL (2.0-8.3) 10/06/20 06:07 Absolute Nucleated RBC 0.000 X10*3/uL (0.0-0.012) 10/06/20 06:07 Nucleated RBC % (auto) 0.0 /100WBC (0.0-0.2) 10/06/20 06:07 PT 12.2 SEC (10.8-13.0) 10/04/20 22:50 INR 1.0 (0.9-1.1) 10/04/20 22:50 APTT 29.2 SEC (24.1-38.0) 10/04/20 22:50 Sodium 139 mmol/L (135-145) 10/07/20 05:55 Potassium 3.8 mmol/l (3.3-5.1) 10/07/20 05:55 Chloride 106 mmol/L (96-108) 10/07/20 05:55 Carbon Dioxide 24 mmol/L (22-29) 10/07/20 05:55 Anion Gap 13 (-20) 10/07/20 05:55 BUN 10 mg/dL (9-16) 10/07/20 05:55 Creatinine 0.69 mg/dL (0.5-1.4) 10/07/20 05:55 Estim Creat Clear Calc 124.0 10/07/20 05:55 Estimated GFR > 60 10/07/20 05:55 Random Glucose 88 mg/dL (60-115) 10/07/20 05:55 Lactic Acid 1.0 mmol/L (0.5-2.0) 10/04/20 22:50 Calcium 8.3 mg/dL (8.4-10.2) L 10/07/20 05:55 COVID-19 (LY) Negative (Negative) 10/05/20 07:11 COVID-19 Clin Com See Note 10/05/20 07:11 Preliminary micro results at discharge 10/04/20 22:50 Blood Culture - Preliminary Blood - Arterial No growth after 48 hours. 10/04/20 22:50 Blood Culture - Preliminary Blood - Arterial No growth after 48 hours. Discharge Plan Discharge Anticipated Discharge Date/Time: 10/07/20 14:44 Patient Disposition: Home, Self-Care Referrals: Xochitl Camargo MD [Primary Care Provider] - Discharge Medications: New levofloxacin 500 mg tablet 500 mg PO DAILY 7 Days Qty: 7 RF: 0 clindamycin HCl 300 mg capsule 600 mg PO TID 7 Days Qty: 42 RF: 0 Continued venlafaxine 150 mg capsule,extended release 24hr 1 cap PO DAILY RF: 0 amlodipine 5 mg tablet 1 tab PO DAILY RF: 0 cetirizine 5 mg Tablet 5 mg RF: 0 montelukast [Singulair] 10 mg Tablet 10 mg PO BEDTIME RF: 0 Discharge Orders: Discharge Order (Routine); Ordered 10/07/20 Ordered By: Antwan Erickson Activity on Discharge: As tolerated Discharge Date/Time: 10/07/20 15:45 Visit Report Forms: Patient Portal Discharge page Care Plan Goals: treat cat bite Health Concerns: cat bite Plan of Treatment: po antibiotics
== END 2020-10-07 15:45 | disposition home or self-care (01) | DRG 383 ==
LOC: HO.ED 10-05 02:55 → HO.S3 10-05 13:02
PROVIDERS: Internal Medicine; Admitting Provider Internal Medicine; Emergency Provider Emergency Medicine Emergency Medical Services; PCP Internal Medicine; Visit Provider Internal Medicine
DX: L03.114 Cellulitis of left upper limb (principal); S61.432A Puncture wound without foreign body of left hand, initial encounter; W55.01XA Bitten by cat, initial encounter; Y93.9 Activity, unspecified; Y92.239 Unspecified place in hospital as the place of occurrence of the external cause; Y99.0 Civilian activity done for income or pay; Z20.828 Contact with and (suspected) exposure to other viral communicable diseases; Z88.0 Allergy status to penicillin; Z23 Encounter for immunization; Z88.2 Allergy status to sulfonamides; Z88.5 Allergy status to narcotic agent
CPT/HCPCS: 36415; 80048; 83605; 85025; 85610; 85730; 87040; 87635; 90686; 96361; 96365; 96367; 96375; 99285; J0696; J1170; J2270; J2405

== ENCOUNTER 2021-11-28 09:13 | Outpatient (REF) | payer OTHER, SELFPAY ==
[2021-11-28 11:23] LABS: MANUAL DIFF FLAG NO
[2021-11-28 11:34] LABS: Basophils Percent Auto 0.4 % (0-2); Eosinophils Absolute Auto 0.2 X10*3/uL (0.0-0.4); Eosinophils Percent Auto 4.4 % (0-4); Hematocrit 37.8 % (37.0-47.0); Lymphocytes Percent Auto 37.5 % (20-40); Mean Corpuscular HGB Conc 34.4 g/dl (31.0-35.0); Mean Corpuscular Hemoglobin 29.7 pg (27.0-33.0); Mean Corpuscular Volume 86.3 fL (80.0-98.0); Mean Platelet Volume 11.9 fL (9.4-12.3); Monocytes Absolute Auto 0.4 X10*3/uL (0.1-1.2); Monocytes Percent Auto 7.3 % (2-11); Neutrophils Absolute Auto 2.6 x10*3/uL (2.0-8.3); Neutrophils Percent Auto 50.4 % (45-73); Platelet Count 187 X10*3/uL (160-400); Red Blood Count 4.38 X10*6/uL (4.20-5.50); Red Cell Distribution Width 11.8 % (11.0-16.0); White Blood Count 5.2 X10*3/uL (4.8-10.8)
[2021-11-28 11:57] LABS: Estimated Average Glucose 91 mg/dL; Hemoglobin A1c % 4.8 %
[2021-11-28 12:04] LABS: Alanine Aminotransferase 16 U/L (0-31); Albumin Level 4.3 g/dL (3.5-5.0); Alkaline Phosphatase 68 U/L (39-117); Anion Gap 10 (12-20); Aspartate Amino Transferase 14 U/L (5-31); Bilirubin Total 1.1 mg/dL (0.0-1.0); Blood Urea Nitrogen 9 mg/dL (9-16); Calcium 9.3 mg/dL (8.4-10.2); Carbon Dioxide 29 mmol/L (22-29); Chloride 105 mmol/L (96-108); Cholesterol 188 mg/dL; Estimated Glomerular Filt Rate > 60; Glucose Fasting 92 mg/dL (60-99); HDL Cholesterol 61 mg/dL; LDL Cholesterol Calculated 111 mg/dl; Potassium 4.1 mmol/L (3.3-5.1); Sodium 140 mmol/L (135-145); Total Protein 6.7 g/dL (6.5-8.0); Triglycerides 84 mg/dL
[2021-11-28 12:07] LABS: TSH reflex Free T4 0.63 uIU/mL (0.32-4.0)
== END 2021-11-28 09:14 | disposition home or self-care (01) ==
LOC: HO.HMGCLDS 09:13
PROVIDERS: Visit Provider Internal Medicine
DX: F33.9 Major depressive disorder, recurrent, unspecified (principal); I10 Essential (primary) hypertension; R53.1 Weakness; Z91.09 Other allergy status, other than to drugs and biological substances
CPT/HCPCS: 36415; 80053; 80061; 83036; 84443; 85025

== ENCOUNTER 2021-12-26 15:08 | Outpatient (REF) | payer OTHER, SELFPAY ==
--- NOTE | ~2021-12-26 | XR_ITS ---
EXAMINATION: XR HAND, RIGHT CLINICAL INFORMATION: Sprain COMPARISON: None TECHNIQUE: PA, lateral, and oblique views of the right hand. FINDINGS: The bones and soft tissues are normal. No fracture. Alignment is anatomic. Joint spaces are maintained. No erosions or soft tissue calcifications. XR/XR hand RT min 3V IMPRESSION: Normal right hand.
== END 2021-12-26 15:09 | disposition home or self-care (01) ==
LOC: HO.HMGCX 15:08
PROVIDERS: PCP Internal Medicine; Visit Provider Internal Medicine
DX: S63.91XD Sprain of unspecified part of right wrist and hand, subsequent encounter (principal)
CPT/HCPCS: 73130

== ENCOUNTER 2022-03-01 08:17 | Emergency (ER) | payer OTHER, SELFPAY ==
[2022-03-01 08:34] VITALS: BP 129/87; PULSE 90; RESP 20; TEMP 36.6; O2SAT 97; BMI 40.2
--- NOTE | 2022-03-01 08:56 | ED.GENADULT ---
HPI - General Adult General Chief complaint: Extremity Injury, Lower Stated complaint: back pain leg weakness in both legs spasms Time Seen by Provider: 03/01/22 08:56 Source: patient Mode of arrival: ambulatory Limitations: no limitations History of Present Illness HPI narrative: Patient is a 36 year old female presenting to the emergency department today with back pain. Patient states that she has a chronic low back injury that she has battled with for years. Patient states that this started like every other flare but now she is having spasms in her back. Patient denies any dizziness, lightheadedness, abdominal pain, nausea, vomiting, fever, chills, blurry vision, double vision, loss of vision, chest pain, difficulty breathing, shortness of breath, night sweats, pain with urination, increased urinary frequency, increased urinary urgency, blood in her urine or stool, syncope or a near syncopal episode, recent trauma or falls, bowel incontinence, bladder incontinence, bowel retention, bladder retention, or any other complaints at this time. Onset (ago): day(s) Location: back Severity: mild Severity scale (1-10): 3 Quality: dull Pain Consistency: intermittent Relieving factors: none Exacerbating factors: none Associated symptoms: denies other symptoms Treatments prior to arrival: none Related Data Home Medications Medication Instructions Recorded Confirmed cetirizine 5 mg tablet 5 mg 10/05/20 12/15/21 Lactobacillus acidophilus PO DAILY 11/07/21 12/15/21 [Probiotic] coenzyme Q10 10 mg capsule (Co 20 mg PO ONCE cap 11/07/21 12/15/21 Q-10) meclizine 25 mg tablet 25 mg PO DAILY PRN 11/07/21 12/15/21 multivitamin (Daily Multi-Vitamin) 1 tab PO DAILY 11/07/21 12/15/21 Previous Rx's Medication Instructions Recorded montelukast 10 mg tablet 10 mg PO DAILY 90 Days #90 tab 10/13/21 epinephrine 0.3 mg/0.3 mL 0.3 mg (0.3 mL) IM Q10M PRN 90 11/07/21 injection, auto-injector (EpiPen) Days #1 ea buspirone 5 mg tablet 5 mg PO TID PRN 90 Days #270 tab 11/29/21 meloxicam 15 mg tablet 15 mg PO DAILY #14 tab 12/29/21 amlodipine 10 mg tablet 10 mg PO DAILY 90 Days #90 tab 01/08/22 venlafaxine 150 mg 150 mg PO DAILY 90 Days #90 cap 01/08/22 capsule,extended release 24 hr cyclobenzaprine 10 mg tablet 10 mg PO TID PRN 7 Days #21 tab 03/01/22 Allergies Allergy/AdvReac Type Severity Reaction Status Date / Time lisinopril Allergy Unknown unknown Verified 12/26/21 14:45 avocado Allergy Stomach Verified 12/26/21 14:45 Upset codeine Allergy Vomiting Verified 12/26/21 14:45 fish derived Allergy Anaphylaxis Verified 12/26/21 14:45 kiwi Allergy Rash Verified 12/26/21 14:45 Latex, Natural Rubber Allergy Rash Verified 12/26/21 14:45 penicillin G Allergy Hallucinati Verified 12/26/21 14:45 ons shellfish derived Allergy Anaphylaxis Verified 12/26/21 14:45 Sulfa (Sulfonamide Allergy Unknown Verified 12/26/21 14:45 Antibiotics) tree and shrub pollen Allergy Watery Eye Verified 12/26/21 14:45 Review of Systems Constitutional: Constitutional: Reports no additional constitutional complaints, Denies chills, Denies fever(s) and Denies night sweats Eyes: Eyes: Reports no additional eye complaints, Denies blurry vision, Denies change in vision, Denies diplopia, Denies eye discharge, Denies loss of vision and Denies eye pain ENT: Denies dizziness Cardiovascular: Cardiovascular: Reports no additional cardiovascular complaints, Denies chest pain, Denies lightheadedness, Denies Loss of Consciousness and Denies dyspnea Respiratory: Respiratory: Reports no additional respiratory complaints and Denies dyspnea Gastrointestinal: Gastrointestinal: Reports no additional gastrointestinal complaints, Denies abdominal pain, Denies melena, Denies hematochezia, Denies change in bowel habits and Denies change in stool character Genitourinary: Genitourinary: Denies hematuria, Denies urinary frequency, Denies dysuria, Denies urinary incontinence, Denies urinary hesitancy and Denies urinary urgency Musculoskeletal: Musculoskeletal: Reports no additional musculoskeletal complaints, Reports back pain, Denies numbness and Denies tingling Neurologic: Denies dizziness, Denies loss of vision, Denies numbness and Denies tingling Psychiatric: Psychiatric: Reports no additional psychiatric complaints Endocrine: Endocrine: Reports no additional endocrine complaints Hematologic/Lymphatic: Hematologic/Lymphatic: Reports no additional hematologic/lymphatic complaints Allergic/Immunologic: Allergic/Immunologic: Reports no additional allergic/immunologic complaints PMFSH Past Medical History Attestation statement: The following information was validated with the patient. Source: old records reviewed Surgical History History of wisdom tooth extraction Family History Family History Father No problems noted. Mother No problems noted. Brother No problems noted. Sister No problems noted. Other Mental health disorder Substance use disorder Social History Social History Household Members: Spouse Housing: House Alcohol intake: current Alcohol intake frequency: does not drink Patient Tobacco Use Status: Never used Tobacco Second Hand Smoke Exposure: No Advance Directives: Yes Advance Directives Information Provided: Yes Advance Directives on File: No Advance Directives Date on File: 10/05/20 Patient : No service: No Current occupational status: employed Physical Exam ED Vital Signs: Vital Signs - 24 hr 03/01/22 08:34 Temperature 97.8 F Pulse Rate 90 Respiratory Rate 20 Blood Pressure 129/87 Pulse Oximetry 97 BMI result Body Mass Index 40.2 Const General: cooperative, no acute distress, alert and awake Nutritional Appearance: well nourished Orientation/consciousness: patient oriented x3 Limitations: no limitations HENWA Head: Yes normal to inspection and Yes atraumatic Ears: hearing grossly normal bilaterally and external ears normal General nose exam: Normal external nose present, no nasal discharge noted and no epistaxis Face and sinus: Yes normal facial exam, No abrasion and No laceration Mouth: Normal oral and palatal mucosa present, no drooling and no muffled voice Eyes General: appearance normal, both eyes and all related structures Periorbital: periorbital findings normal Eyelids: Yes eyelids normal Conjunctivae: conjunctivae normal Pupils: Equal, round and reactive pupils present EOM: EOMs intact bilaterally Neck Neck: Yes normal visual inspection, Yes full ROM and Yes no lymphadenopathy Chest Chest palpation & inspection: normal inspection of the chest Resp Effort & Inspection: normal respiratory effort and able to speak in complete sentences Auscultation: clear to auscultation bilaterally Cardio Rate: regular rate Rhythm: regular rhythm GI Inspection: Yes normal to inspection General: Yes no CVA tenderness Back/Spine/Pelvis Back: no CVA tenderness Cervical Spine: normal cervical lordosis and cervical ROM normal Thoracic/Lumbar Spine: thoracic and lumbar spine normal to inspection and thoraco-lumbar ROM normal Pelvis: no pain with anterior-posterior compression Neuro General: patient oriented x3 and moves all extremities Cranial nerves: Yes Equal, round and reactive pupils present Cognition (Neuro): normal cognition Motor exam (neuro): 5/5 motor strength present throughout Sensory Exam: Normal double simultaneous stimulation for sensation Coordination: [id number] test normal Extrem General: Yes normal to inspection, Yes full ROM and Yes capillary refill normal Psych Appearance: grossly normal Mental Status: mental status grossly normal Affect: normal affect Attitude: cooperative Thought process: Normal thought process present Thought content: Normal thought content present Insight: Good insight present (Psych) Medical Decision Making MDM Narrative Medical decision making narrative: Patient is a 36 year old female presenting to the emergency department today with low back pain. Patient's physical exam was unremarkable. I explained my physical exam findings to the patient. I answered all questions asked by the patient. Patient received IM Toradol and PO Flexeril which she stated helped her symptoms significantly. I stressed the importance of the patient taking her medication as prescribed. I stressed the importance of the patient following up with her primary care provider. I stressed the importance of the patient returning to the emergency department immediately if her symptoms were to worsen or if she were to develop any dizziness, shortness of breath, difficulty breathing, chest pain, blurry vision, loss of vision, nausea, vomiting, abdominal pain, fever, chills, back pain, or any other complaints. Patient verbalized agreement and understanding with this treatment plan and discharge. Differential Diagnosis Differential Diagnosis: low back pain, back spasm Medical Records Medical records reviewed: Yes I reviewed the patient's medical records. Discharge Plan Discharge Clinical Impression: Back spasm Patient Disposition: Home, Self-Care Instructions: Back Pain (ED) Additional Instructions: Follow up with your primary care provider. Return to the emergency department immediately if your symptoms worsen or if you develop any dizziness, shortness of breath, difficulty breathing, chest pain, blurry vision, loss of vision, nausea, vomiting, abdominal pain, fever, chills, back pain, or any other complaints. Prescriptions: New cyclobenzaprine 10 mg tablet 10 mg PO TID PRN (Reason: back pain) 7 Days Qty: 21 0RF No Action montelukast 10 mg tablet 10 mg PO DAILY 90 Days Qty: 90 2RF buspirone 5 mg tablet 5 mg PO TID PRN (Reason: anxiety) 90 Days Qty: 270 0RF meloxicam 15 mg tablet 15 mg PO DAILY Qty: 14 0RF venlafaxine 150 mg capsule,extended release 24hr 150 mg PO DAILY 90 Days Qty: 90 0RF amlodipine 10 mg tablet 10 mg PO DAILY 90 Days Qty: 90 0RF cetirizine 5 mg Tablet 5 mg 0RF multivitamin [Daily Multi-Vitamin] Tablet 1 tab PO DAILY 0RF coenzyme Q10 [Co Q-10] 10 mg capsule 20 mg PO ONCE 0RF Lactobacillus acidophilus [Probiotic] PO DAILY 0RF meclizine 25 mg tablet 25 mg PO DAILY PRN0RF epinephrine [EpiPen] 0.3 mg/0.3 mL auto-injector 0.3 mg IM Q10M PRN (Reason: anaphylaxis) 90 Days Qty: 1 0RF Referrals: [facility] [Provider Group] (Follow up with orthopedics if pain persists. ) Xochitl Camargo MD [Primary Care Provider] - (Follow up with your PCP. ) Stand Alone Forms: Work/School Release Print Language: Portuguese
[2022-03-01] MEDS: Ketorolac Tromethamine 15 MG/ML VIAL IM (09:43)
[2022-03-01] MEDS: Cyclobenzaprine HCl 10 MG TABLET PO (09:43)
== END 2022-03-01 09:52 | disposition home or self-care (01) ==
PROVIDERS: Emergency Provider Emergency Medicine; PCP Internal Medicine
DX: M62.830 Muscle spasm of back (principal)
CPT/HCPCS: 96372; 99283; 99284; J1885

== ENCOUNTER 2022-03-05 10:26 | Emergency (ER) | payer OTHER, SELFPAY ==
--- NOTE | ~2022-03-05 | XR_ITS ---
EXAMINATION: XR HIP, LEFT CLINICAL INFORMATION: Groin pain COMPARISON: None TECHNIQUE: Two views of the left hip. FINDINGS: Visualized portion of the proximal left femur demonstrate no fracture. Left femoral head is well-seated within the abdomen. Femoral acetabular joint space is maintained. There is a small osteophyte along the superolateral acetabular margin. The pelvic ring is intact. Small calcifications within the pelvis are likely vascular in nature. XR/XR hip LT w PEL1V IMPRESSION: Mild degenerative changes of the left hip.
[2022-03-05 10:58] VITALS: BP 148/92; PULSE 99; RESP 16; TEMP 36.4; O2SAT 100; BMI 40.2
[2022-03-05] MEDS: Ketorolac Tromethamine 30 MG/ML VIAL IM (12:33)
--- NOTE | 2022-03-05 12:50 | ED_ITS ---
HPI - Extremity Injury (Lower) General Chief Complaint: Extremity Injury, Lower Stated Complaint: no control of left leg Time Seen by Provider: 03/05/22 11:35 Source: patient Mode of arrival: ambulatory History of Present Illness HPI Narrative: 36-year-old female with a past medical history of chronic back pain presenting to the ED complaining of acute on chronic low back/left buttock pain radiating to left groin x 5 days. Reports left leg feels weaker than contralateral side secondary to pain with difficulty ambulating. Admits fell down flight of stairs today, denies head trauma or LOC. denies numbness, tingling, urinary incontin ence/retention, fever complaint: leg injury Onset (ago): day(s) Related Data Home Medications Medication Instructions Recorded Confirmed cetirizine 5 mg tablet 5 mg 10/05/20 12/15/21 Lactobacillus acidophilus PO DAILY 11/07/21 12/15/21 [Probiotic] coenzyme Q10 10 mg capsule (Co 20 mg PO ONCE cap 11/07/21 12/15/21 Q-10) meclizine 25 mg tablet 25 mg PO DAILY PRN 11/07/21 12/15/21 multivitamin (Daily Multi-Vitamin) 1 tab PO DAILY 11/07/21 12/15/21 Previous Rx's Medication Instructions Recorded montelukast 10 mg tablet 10 mg PO DAILY 90 Days #90 tab 10/13/21 epinephrine 0.3 mg/0.3 mL 0.3 mg (0.3 mL) IM Q10M PRN 90 11/07/21 injection, auto-injector (EpiPen) Days #1 ea buspirone 5 mg tablet 5 mg PO TID PRN 90 Days #270 tab 11/29/21 meloxicam 15 mg tablet 15 mg PO DAILY #14 tab 12/29/21 venlafaxine 150 mg 150 mg PO DAILY 90 Days #90 cap 01/08/22 capsule,extended release 24 hr amlodipine 10 mg tablet 10 mg PO DAILY 90 Days #90 tab 03/01/22 cyclobenzaprine 10 mg tablet 10 mg PO TID PRN 7 Days #21 tab 03/01/22 acetaminophen 500 mg capsule 500 mg PO Q6H PRN #14 cap 03/05/22 (Tylophen) ketorolac 10 mg tablet 10 mg PO TID PRN 5 Days #15 tab 03/05/22 lidocaine 5 % topical patch 1 patch TOPICAL DAILY PRN #30 ea 03/05/22 (Lidoderm) MDD remove after 12 hours Allergies Allergy/AdvReac Type Severity Reaction Status Date / Time lisinopril Allergy Unknown unknown Verified 12/26/21 14:45 avocado Allergy Stomach Verified 12/26/21 14:45 Upset codeine Allergy Vomiting Verified 12/26/21 14:45 fish derived Allergy Anaphylaxis Verified 12/26/21 14:45 kiwi Allergy Rash Verified 12/26/21 14:45 Latex, Natural Rubber Allergy Rash Verified 12/26/21 14:45 penicillin G Allergy Hallucinati Verified 12/26/21 14:45 ons shellfish derived Allergy Anaphylaxis Verified 12/26/21 14:45 Sulfa (Sulfonamide Allergy Unknown Verified 12/26/21 14:45 Antibiotics) tree and shrub pollen Allergy Watery Eye Verified 12/26/21 14:45 Review of Systems Review of Systems: Constitutional: No Fever, No Chills, No Night Sweats, No Fatigue, No Malaise ENT/Mouth: No Ear Pain, No Nasal Congestion, No sore throat, No Rhinorrhea, No Swallowing Difficulty Eyes: No Eye Pain, No Swelling, No Redness Cardiovascular: No Chest Pain, No SOB, No Edema, No Palpitations Respiratory: No Cough, No Sputum, No Dyspnea Gastrointestinal: No Nausea, No Vomiting, No Diarrhea, No Constipation, No Abdominal pain Genitourinary: No Dysuria, No Urinary Frequency, No Hematuria, No Urinary Incontinence/retention,No Flank Pain, No Urinary Flow Changes Musculoskeletal: + joint pain, No Myalgias, No Joint Swelling Skin: No Skin Lesions, No rash Neuro: + Weakness, No Numbness, No Paresthesias, No Headache Yes all other systems are reviewed and are negative Neurologic: Denies Sensory deficit (Neuro) [facility] Past Medical History Attestation statement: The following information was validated with the patient. Surgical History History of wisdom tooth extraction Family History Family History Father No problems noted. Mother No problems noted. Brother No problems noted. Sister No problems noted. Other Mental health disorder Substance use disorder Social History Social History Household Members: Spouse Housing: House Alcohol intake: current Alcohol intake frequency: does not drink Patient Tobacco Use Status: Never used Tobacco Second Hand Smoke Exposure: No Advance Directives: No Advance Directives Information Provided: No Advance Directives Date on File: 10/05/20 Patient : No service: No Current occupational status: employed Physical Exam Vital Signs: Vital Signs: Last Vital Signs Temp 97.5 F 03/05/22 10:58 Pulse 99 03/05/22 10:58 Resp 16 03/05/22 10:58 BP 148/92 H 03/05/22 10:58 Pulse Ox 100 03/05/22 10:58 BMI result Body Mass Index 40.2 Const: General: cooperative, healthy appearing and no acute distress Orientation/consciousness: patient oriented x3 Limitations: no limitations HEENT: Head: Yes normal to inspection and Yes atraumatic Ears: hearing grossly normal bilaterally General nose exam: Normal external nose present Face and sinus: Yes normal facial exam Eyes: General: appearance normal, both eyes and all related structures EOM: EOMs intact bilaterally Neck: Neck: Yes normal visual inspection and Yes no meningeal signs Resp: Effort & Inspection: normal respiratory effort and no respiratory distress Cardio: Rate: regular rate Heart sounds: S1 normal heart sound present and S2 normal heart sound present Peripheral pulses: dorsalis pedis present GI: Inspection: Yes normal to inspection Palpation (GI): Soft to palpation, nontender, no guarding and not rigid Back/Spine/Pelvis: Other: No midline thoracic/lumbar spinous tenderness/step-off or deformity Skin: Rashes: no rashes Wounds: no wounds Neuro: Other: No saddle anesthesia. Ambulating with limping gait General: patient oriented x3, tone normal, moves all extremities and no meningeal signs Sensory Exam: No Sensory deficit (Neuro) Extrem: Other: Left hip and groin with tenderness to palpation. No appreciable deformity/ecchymosis or erythema. Pain elicited on external rotation of hip. LLE decreased flexion secondary to pain. General: Yes normal to inspection Course Course Course Narrative: XR hip LT w PEL1V IMPRESSION: Mild degenerative changes of the left hip. > results discussed with patient including worrisome signs and symptoms and strict return precautions. 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 On exam vital signs stable, NAD/nontoxic appearing, physical exam as above, no red flag symptoms, ambulating with limping gait. No footdrop. No saddle anesthesia. No midline spinous tenderness throughout. Concern for groin strain vs hip or pelvic fracture. Low concern for demyelinating process, cauda equina or cord compression. Pain: X-rays Medical Records Attestation: I reviewed the patient's medical records. Lab Data Attestation: I reviewed the patient's lab results. Discharge Plan Discharge Clinical Impression: Groin strain Patient Disposition: Home, Self-Care Instructions: Groin Strain (ED) Additional Instructions: Your x-ray showed degenerative changes, no fracture Ketorolac is an anti-inflammatory/pain medication, please take with food. In addition take Tylenol and Lidoderm patches or numbing patches, apply to painful area Rest. Alternate heat and ice. Please follow-up with her doctor and Orthopedics. If symptoms persist or worsen/pain becomes unbearable you have urinary incontinence or retention please return to the ED Prescriptions: New ketorolac 10 mg tablet 10 mg PO TID PRN (Reason: pain) 5 Days Qty: 15 0RF acetaminophen [Tylophen] 500 mg capsule 500 mg PO Q6H PRN (Reason: fever) Qty: 14 0RF lidocaine [Lidoderm] 5 % adhesive patch,medicated 1 patch topical DAILY MDD remove after 12 hours PRN (Reason: pain) Qty: 30 0R F Rx Instructions: leave on most painful area for up to 12 hrs No Action montelukast 10 mg tablet 10 mg PO DAILY 90 Days Qty: 90 2RF buspirone 5 mg tablet 5 mg PO TID PRN (Reason: anxiety) 90 Days Qty: 270 0RF meloxicam 15 mg tablet 15 mg PO DAILY Qty: 14 0RF venlafaxine 150 mg capsule,extended release 24hr 150 mg PO DAILY 90 Days Qty: 90 0RF amlodipine 10 mg tablet 10 mg PO DAILY 90 Days Qty: 90 0RF cetirizine 5 mg Tablet 5 mg 0RF cyclobenzaprine 10 mg tablet 10 mg PO TID PRN (Reason: back pain) 7 Days Qty: 21 0RF multivitamin [Daily Multi-Vitamin] Tablet 1 tab PO DAILY 0RF coenzyme Q10 [Co Q-10] 10 mg capsule 20 mg PO ONCE 0RF Lactobacillus acidophilus [Probiotic] PO DAILY 0RF meclizine 25 mg tablet 25 mg PO DAILY PRN0RF epinephrine [EpiPen] 0.3 mg/0.3 mL auto-injector 0.3 mg IM Q10M PRN (Reason: anaphylaxis) 90 Days Qty: 1 0RF Referrals: Selvin Salcedo MD [Physician] - 1 week Stand Alone Forms: Work/School Release
== END 2022-03-05 14:04 | disposition home or self-care (01) ==
PROVIDERS: Emergency Provider Emergency Medicine; PCP Internal Medicine
DX: S39.011A Strain of muscle, fascia and tendon of abdomen, initial encounter (principal); M25.552 Pain in left hip; M54.50 Low back pain, unspecified; X58.XXXA Exposure to other specified factors, initial encounter; Y93.9 Activity, unspecified; Y92.9 Unspecified place or not applicable; Y99.9 Unspecified external cause status; Z79.899 Other long term (current) drug therapy
CPT/HCPCS: 73502; 96372; 99283; 99284; J1885

== ENCOUNTER 2022-08-31 10:32 | Outpatient (REF) | payer OTHER, SELFPAY ==
[2022-08-31 11:25] LABS: MANUAL DIFF FLAG NO
[2022-08-31 11:30] LABS: Basophils Percent Auto 0.4 % (0-2); Eosinophils Absolute Auto 0.2 X10*3/uL (0.0-0.4); Hematocrit 39.8 % (37.0-47.0); Hemoglobin 13.4 g/dl (12.0-16.0); Imm Gran Abs Auto 0.01 X10*3/uL (0.00-0.03); Imm Gran Pct Auto 0.1 % (0.0-0.4); Lymphocytes Absolute Auto 2.2 X10*3/uL (1.2-4.9); Lymphocytes Percent Auto 32.2 % (20-40); Mean Corpuscular HGB Conc 33.7 g/dl (31.0-35.0); Mean Corpuscular Volume 86.1 fL (80.0-98.0); Mean Platelet Volume 11.7 fL (9.4-12.3); Monocytes Absolute Auto 0.5 X10*3/uL (0.1-1.2); Monocytes Percent Auto 7.6 % (2-11); Neutrophils Absolute Auto 3.9 x10*3/uL (2.0-8.3); Neutrophils Percent Auto 56.7 % (45-73); Platelet Count 198 X10*3/uL (160-400); Red Blood Count 4.62 X10*6/uL (4.20-5.50); Red Cell Distribution Width 12.1 % (11.0-16.0); White Blood Count 6.9 X10*3/uL (4.8-10.8)
[2022-08-31 12:17] LABS: Alanine Aminotransferase 22 U/L (0-31); Albumin Level 4.7 g/dL (3.5-5.0); Alkaline Phosphatase 78 U/L (39-117); Anion Gap 14 (12-20); Aspartate Amino Transferase 20 U/L (5-31); Bilirubin Total 0.7 mg/dL (0.0-1.0); Blood Urea Nitrogen 8 mg/dL (9-16); Calcium 9.4 mg/dL (8.4-10.2); Carbon Dioxide 29 mmol/L (22-29); Chloride 101 mmol/L (96-108); Estimated Glomerular Filt Rate > 60; Glucose Random 76 mg/dL (60-115); Potassium 4.3 mmol/L (3.3-5.1); Sodium 140 mmol/L (135-145)
[2022-08-31 12:19] LABS: TSH reflex Free T4 0.75 uIU/mL (0.32-4.0)
== END 2022-08-31 10:33 | disposition home or self-care (01) ==
LOC: HO.HMGCLDS 10:32
PROVIDERS: PCP Internal Medicine; Visit Provider Internal Medicine
DX: F33.9 Major depressive disorder, recurrent, unspecified (principal); F41.1 Generalized anxiety disorder; I10 Essential (primary) hypertension; K58.9 Irritable bowel syndrome, unspecified; Z91.09 Other allergy status, other than to drugs and biological substances
CPT/HCPCS: 36415; 80053; 84443; 85025

== ENCOUNTER 2023-02-22 09:14 | Outpatient (REF) | payer OTHER, SELFPAY ==
--- NOTE | ~2023-02-22 | XR_ITS ---
EXAMINATION: XR SHOULDER, LEFT CLINICAL INFORMATION: Pain COMPARISON: None available. TECHNIQUE: Three views of the left shoulder. FINDINGS: No fracture or dislocation. Upper normal-size acromioclavicular joint. Small osteophyte or soft tissue calcification adjacent to the distal clavicle questionable for old trauma. Normal soft tissues. There are old left anterior lateral fourth and fifth healed rib fractures. XR/XR shoulder LT min 2V IMPRESSION: Upper normal-size left acromioclavicular joint. Weightbearing views could be performed if there is clinical suspicion of AC separation.
== END 2023-02-22 09:15 | disposition home or self-care (01) ==
LOC: HO.HOSX 09:14
PROVIDERS: Visit Provider Physician Assistant
DX: M75.102 Unspecified rotator cuff tear or rupture of left shoulder, not specified as traumatic (principal)
CPT/HCPCS: 73030; 99202

== ENCOUNTER 2023-03-26 07:11 | Outpatient (REF) | payer OTHER, SELFPAY ==
--- NOTE | ~2023-03-26 | MR_ITS ---
EXAMINATION: MRI LEFT SHOULDER WITHOUT CONTRAST CLINICAL INFORMATION: Left shoulder decreased range of motion. Constant pain. Weakness. Symptoms x6-7 years. COMPARISON: Radiographs dated 02/25/2023 TECHNIQUE: MR images of the shoulder were obtained on a 1.5 [employer] high-field strength scanner without intravenous contrast material. FINDINGS: ROTATOR CUFF: Intact. No muscle atrophy or fatty infiltration. BICEPS: Normal CORACOACROMIAL ARCH: The undersurface of the acromion is flat with no subacromial spur. The acromioclavicular joint is normal. No significant subacromial subdeltoid bursal fluid. LABRUM/CAPSULE: A type II tear of the superior labrum propagates from the anterosuperior 2 o'clock position through the posterosuperior 10 o'clock position without involvement of the biceps. Labrum is otherwise normal. Joint capsule is normal. GLENOHUMERAL JOINT/MARROW: Bone marrow signal is normal. No fracture. Mild posterior subluxation of the humeral head. MR/MR shoulder LT wo con IMPRESSION: 1. Type II SLAP tear. 2. Mild posterior subluxation of the humeral head. 3. Intact rotator cuff. Normal joint capsule.
== END 2023-03-26 07:12 | disposition home or self-care (01) ==
LOC: HO.MRI 07:11
PROVIDERS: PCP Internal Medicine; Visit Provider Physician Assistant
DX: M75.102 Unspecified rotator cuff tear or rupture of left shoulder, not specified as traumatic (principal)
CPT/HCPCS: 73221

== ENCOUNTER → 2023-04-29 10:30 | Outpatient (BNVA) | payer OTHER, SELFPAY | PROVIDERS: PCP Internal Medicine; Visit Provider Orthopaedic Surgery | DX: S43.439A Superior glenoid labrum lesion of unspecified shoulder, initial encounter (principal); M75.52 Bursitis of left shoulder | CPT/HCPCS: 20610; 99212; J1100 ==

== ENCOUNTER 2023-05-27 10:51 | Outpatient (RCR) | payer OTHER, SELFPAY ==
[2023-05-27 11:05] VITALS: BP 160/91; PULSE 95
--- NOTE | 2023-05-27 15:28 | MHC.PT.EP ---
[facility] [place] Office [place] Office [place] Office [address] [phone] F: [phone] F: [phone] F: [phone] F: [phone] Physical Therapy Plan of Care Date of Evaluation: Date of Surgery: NA Diagnosis: Bursitis of L shoulder, unspecified RTC tear of L shoulder, scapular stabilization Assessment: Sary is a 37 yo female referred to PT for Bursitis of L shoulder, unspecified RTC tear of L shoulder, scapular stabilization . On PT examination signs and symptoms suggestive of biceps tendinopathy, GH labral involvement, and general shoulder instability. Impairments include L shoulder weakness d/t pain, decreased L shoulder ROM, TTP/pain along pec major to anterior L shoulder, pins/needles traveling to L fingers, and hypermobile GH joint. 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 PT needed to address aforementioned impairments and functional limitations. PT to include L UE strengthening, scapular stabilization, gentle ROM, pt education, and HEP. Frequency and Duration: The patient will be seen 1x a week for 8 weeks Short Term Goals: In 4 weeks... 1. Pt will be I with HEP 2. 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 1. 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 Pt will improve L shoulder stability in order to decrease L shoulder subluxation while sleeping in order to sleep throughout the night Treatment Plan: Modalities to reduce pain, spasms and effusion. Manual therapy to restore motion and function. Therapeutic exercise to improve strength and flexibility. Neuromuscular re-education for posture and balance. Therapeutic activities to return to functional activities of daily living. Electronically signed by: Liane Freeman PT DPT Please sign and return to therapist. Thank you for your referral.
--- NOTE | 2023-06-21 14:03 | MHC.PT.DC ---
[facility] [place] [facility] [place] [facility] [place] [facility] [address] Louis Cannon [address] [phone] F: [phone] F: [phone] F: [phone] F: [phone] Physical Therapy Discharge Report Diagnosis: Bursitis of L shoulder, unspecified RTC tear of L shoulder, scapular stabilization Date of Surgery: NA Date of Evaluation: 05/27/23 Date of Discharge: 06/21/23 Treatments to Date: 1 Cancellations to Date: No Shows to Date: 2 Discharge Status: Visit Non-compliance Discharge Summary: Sary peres showed for 2 appointments after her evaluation. She is therefore being d/c from PT for non compliance. Electronically signed by: Liane Freeman PT DPT Please sign and return to therapist. Thank you for your referral.
== END 2023-06-21 14:04 | disposition home or self-care (01) ==
LOC: HO.PT 10:51
PROVIDERS: PCP Internal Medicine; Visit Provider Orthopaedic Surgery
DX: M75.52 Bursitis of left shoulder (principal); M75.102 Unspecified rotator cuff tear or rupture of left shoulder, not specified as traumatic
CPT/HCPCS: 97110; 97162

== ENCOUNTER 2023-06-03 11:24 | Outpatient (AMB) | payer OTHER, SELFPAY ==
--- NOTE | 2023-06-03 11:35 | A.OFFVIS_ITS ---
Intake Intake Visit Reasons: OV-Left shoulder pain Intake Note: Sary is a 37 year old hand dominant female who presents today for a follow up of her left shoulder pain. Patient reports that the last injection did not help, She has been working with PT and reports that her pain has gotten worse. Allergies lisinopril Allergy (Unknown, Verified 04/29/23 10:40) unknown avocado Allergy (Verified 04/29/23 10:40) Stomach Upset codeine Allergy (Verified 04/29/23 10:40) Vomiting fish derived Allergy (Verified 04/29/23 10:40) Anaphylaxis kiwi Allergy (Verified 04/29/23 10:40) Rash Latex, Natural Rubber Allergy (Verified 04/29/23 10:40) Rash penicillin G Allergy (Verified 04/29/23 10:40) Hallucinations shellfish derived Allergy (Verified 04/29/23 10:40) Anaphylaxis Sulfa (Sulfonamide Antibiotics) Allergy (Verified 04/29/23 10:40) Unknown tree and shrub pollen Allergy (Verified 04/29/23 10:40) Watery Eye HPI OV-Left shoulder pain HPI Details Sary is a 37 year old woman here for a follow-up of her left shoulder Bursitis & SLAP tear. She was last seen, and injected on 04/29/23 with no relief. She has been working with PT and doing at-home PT exercises. She says her pain has gotten worse since her last appointment. It is constant, and she has not slept through the night in years . 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 She takes Naproxen with some relief, and denies any other treatment. She says she has been experiencing shoulder subluxation occasionally since she was a child. She last dislocated several weeks go while washing her hair. The method of shoulder dislocation is always with overhead or behind reaching She has a hx of bilateral subluxing patella. [facility] Medical History (Updated 06/03/23 @ 12:37 by Justin Porter) SLAP (superior labrum from anterior to posterior) tear Surgical History History of wisdom tooth extraction Family History Father No problems noted. Mother No problems noted. Brother No problems noted. Sister No problems noted. 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 Type II SLAP tear. 2.? Mild posterior subluxation of the humeral head. 3.? Intact rotator cuff. Normal joint capsule. Assessment & Plan Assessment & Plan (1) Instability of left shoulder joint: Code(s): M25.312 - Other instability, left shoulder Plan: This is a 37 year old woman with an unstable left shoulder, with multiple subluxation events that occur regularly with daily activities. This has been occurring since she was a child. I had a long discussion about treatment options, including surgery. SHe likely has MDI and a SLAP tear. I recommend a capsular plication, with possible labral repair & possible biceps tenodesis. I explained there was a risk of multidirectional instability but clinically her exam and description of subluxations is consistent with anterior instability, and she feels her QOL is diminished. I discussed the risks, benefits, and alternatives including, but not limited to, the risk of pain, infection, sti ffness, need for further surgery as well as potential medical complications such as blood clots, pulmonary embolism and cardiac complications. I discussed the recovery timeline and process as well as the importance of PT. aSry is a good candidate for this surgery, and she wishes to proceed with this decision. She will speak with Esme to schedule this procedure. (2) Bursitis of left shoulder: Code(s): M75.52 - Bursitis of left shoulder (3) SLAP (superior labrum from anterior to posterior) tear: Code(s): S43.439A - Superior glenoid labrum lesion of unspecified shoulder, initial encounter Plan Scribed for Selvin Salcedo MD by Justin Porter, medical field representative, on 06/03/23 at 11:50 AM, EST. Coding Level of Care Code Est Pt Level 4 (72730) Diagnoses Instability of left shoulder joint M25.312 Bursitis of left shoulder M75.52 SLAP (superior labrum from anterior to posterior) tear S43.439A
== END 2023-06-03 12:05 | disposition home or self-care (01) ==
PROVIDERS: PCP Internal Medicine; Visit Provider Orthopaedic Surgery
DX: M25.312 Other instability, left shoulder (principal); M75.52 Bursitis of left shoulder; S43.432A Superior glenoid labrum lesion of left shoulder, initial encounter
CPT/HCPCS: 99214

== ENCOUNTER → 2023-06-03 11:24 | Outpatient (BNVA) | payer OTHER, SELFPAY | PROVIDERS: PCP Internal Medicine; Visit Provider Orthopaedic Surgery | DX: S43.439D Superior glenoid labrum lesion of unspecified shoulder, subsequent encounter (principal); M25.312 Other instability, left shoulder; M75.52 Bursitis of left shoulder | CPT/HCPCS: 99212 ==

== ENCOUNTER 2023-07-03 06:05 | Day surgery (SDC) | payer OTHER, SELFPAY ==
[2023-06-28 15:56] VITALS: BMI 42.7
--- NOTE | 2023-07-02 08:42 | P.CONAN_ITS ---
Documented by User: Manuela Laws NP 07/02/23 08:43 HPI - Anesthesia Eval Consult details Narrative: 37yo F for Left Shoulder Arthroscopy with capsular plication,poss bicep tenodesis,poss labral repair PMFSH Active Problems Active Problems: All Active Problems (Updated 06/03/23 @ 12:37 by Justin Porter) Instability of left shoulder joint (Acute) SLAP (superior labrum from anterior to posterior) tear (Acute) Bursitis of left shoulder (Acute) Painful arc syndrome of left shoulder (Acute) Shoulder pain, left (Acute) Encounter for general adult medical examination with abnormal findings (Acute) Morbid obesity due to excess calories (Acute) IBS (irritable bowel syndrome) (Acute) Anxiety, generalized (Acute) Sprain of hand, right (Acute) Obesity due to excess calories (Acute) Generalized anxiety disorder with panic attacks (Acute) Weakness (Acute) Major depression, recurrent (Acute) Environmental allergies (Acute) Hypertension, essential (Acute) Vertigo (Acute) Nausea & vomiting (Acute) Low grade fever (Acute) Earache, left (Acute) Depression (Acute) Hypertension (Acute) Cat bite (Acute) Past Medical History Medical History (Updated 07/03/23 @ 06:59 by Kathleen Banuelos RN) Anxiety, generalized Hypertension, essential IBS (irritable bowel syndrome) Medullary sponge kidney Morbid obesity due to excess calories SLAP (superior labrum from anterior to posterior) tear Vertigo Family History Family History Father No problems noted. Mother No problems noted. Brother No problems noted. Sister No problems noted. Other Mental health disorder Substance use disorder Surgical History Surgical History History of wisdom tooth extraction Social History Social History Household Members: Spouse Housing: House Alcohol intake: current Alcohol intake frequency: does not drink Patient Tobacco Use Status: Never used Tobacco e-Cigarette/Vaping Use: Never Used Second Hand Smoke Exposure: No Use of substances other than those prescribed or required for medical reasons: Yes Advance Directives: No Advance Directives Information Provided: Yes Advance Directives Date on File: 10/05/20 service: No Current occupational status: employed Current occupation: [employer]. rt hand Cognitive needs: No Hearing needs: No Vision needs: Yes (contacts) Meds Allergies Allergy/AdvReac Type Severity Reaction Status Date / Time lisinopril Allergy Unknown unknown Verified 04/29/23 10:40 avocado Allergy Stomach Verified 04/29/23 10:40 Upset codeine Allergy Vomiting Verified 04/29/23 10:40 fish derived Allergy Anaphylaxis Verified 04/29/23 10:40 kiwi Allergy Rash Verified 04/29/23 10:40 Latex, Natural Rubber Allergy Rash Verified 04/29/23 10:40 penicillin G Allergy Hallucinati Verified 04/29/23 10:40 ons shellfish derived Allergy Anaphylaxis Verified 04/29/23 10:40 Sulfa (Sulfonamide Allergy Unknown Verified 04/29/23 10:40 Antibiotics) tree and shrub pollen Allergy Watery Eye Verified 04/29/23 10:40 morphine AdvReac Nausea and Verified 07/03/23 06:54 Vomiting Home Medications Medication Instructions Recorded Confirmed Last Taken Type cetirizine 5 mg tablet 5 mg 10/05/20 01/18/23 Unknown History Lactobacillus acidophilus PO DAILY 11/07/21 01/18/23 Unknown History [Probiotic] coenzyme Q10 10 mg capsule (Co 20 mg PO ONCE 11/07/21 01/18/23 Unknown History Q-10) multivitamin (Daily Multi-Vitamin 1 tab PO DAILY 11/07/21 01/18/23 Unknown History tablet) CBD buccal 01/18/23 01/18/23 Unknown History bupropion HCl 150 mg tablet,12 hr 150 mg PO BID 07/03/23 07/03/23 Unknown History sustained-release (Wellbutrin SR) buspirone 5 mg tablet 5 mg PO TID PRN anxiety 07/03/23 Unknown History Exam Exam Date and Time: July 02, 2023 0842 Height,Weight and Vital Signs: Height 5 ft 2 in Weight 105.914 kg Assessment and Plan Assessment Anesthesia Assessment: Chart Reviewed Documented by User: Anthony Skinner MD 07/03/23 07:28 [facility] Past Medical History Medical History (Updated 07/03/23 @ 06:59 by Kathleen Banuelos RN) Anxiety, generalized Hypertension, essential IBS (irritable bowel syndrome) Medullary sponge kidney Morbid obesity due to excess calories SLAP (superior labrum from anterior to posterior) tear Vertigo Family History Family History Father No problems noted. Mother No problems noted. Brother No problems noted. Sister No problems noted. Other Mental health disorder Substance use disorder Surgical History Surgical History History of wisdom tooth extraction History of Problems with Anesthesia: No Social History Social History Household Members: Spouse Housing: House Alcohol intake: current Alcohol intake frequency: does not drink Patient Tobacco Use Status: Never used Tobacco e-Cigarette/Vaping Use: Never Used Second Hand Smoke Exposure: No Use of substances other than those prescribed or required for medical reasons: Yes Advance Directives: No Advance Directives Information Provided: Yes Advance Directives Date on File: 10/05/20 service: No Current occupational status: employed 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 Cognitive needs: No Hearing needs: No Vision needs: Yes (contacts) Meds Allergies Allergy/AdvReac Type Severity Reaction Status Date / Time lisinopril Allergy Unknown unknown Verified 04/29/23 10:40 avocado Allergy Stomach Verified 04/29/23 10:40 Upset codeine Allergy Vomiting Verified 04/29/23 10:40 fish derived Allergy Anaphylaxis Verified 04/29/23 10:40 kiwi Allergy Rash Verified 04/29/23 10:40 Latex, Natural Rubber Allergy Rash Verified 04/29/23 10:40 penicillin G Allergy Hallucinati Verified 04/29/23 10:40 ons shellfish derived Allergy Anaphylaxis Verified 04/29/23 10:40 Sulfa (Sulfonamide Allergy Unknown Verified 04/29/23 10:40 Antibiotics) tree and shrub pollen Allergy Watery Eye Verified 04/29/23 10:40 morphine AdvReac Nausea and Verified 07/03/23 06:54 Vomiting Home Medications Medication Instructions Recorded Confirmed Last Taken Type cetirizine 5 mg tablet 5 mg 12/02/20 03/17/23 Unknown History Lactobacillus acidophilus PO DAILY 11/07/21 01/18/23 Unknown History [Probiotic] coenzyme Q10 10 mg capsule (Co 20 mg PO ONCE 11/07/21 01/18/23 Unknown History Q-10) multivitamin (Daily Multi-Vitamin 1 tab PO DAILY 11/07/21 01/18/23 Unknown History tablet) CBD buccal 01/18/23 01/18/23 Unknown History bupropion HCl 150 mg tablet,12 hr 150 mg PO BID 07/03/23 07/03/23 Unknown History sustained-release (Wellbutrin SR) buspirone 5 mg tablet 5 mg PO TID PRN anxiety 07/03/23 Unknown History Exam Airway Mallampati Class: II TM Dist: >3cm Neck ROM: Limited Heart: rrr Lungs: cta Assessment and Plan Assessment Anesthesia Assessment: Anesthesia Plan Discussed Final Anesthetic Review History of Problems with Anesthesia: No NPO: Yes ASA Class: III Final Preanesthetic Review: No Changes in Pt Med Stat, Meds/Allgs Chart Reviewed, Consent Obtained/Reviewed and Anes Risks/Benef Reviewed Patient Risk: Intermediate Procedure Risk: Intermediate Anesthetic Plan Anesthetic Plan: GA and Regional Block Disposition: Standard PACU
[2023-07-03] VITALS (28 sets, daily range): BP systolic 94–135; BP diastolic 50–93; PULSE 84–107; RESP 14–18; TEMP 36.1–36.6; O2SAT 93–99
[2023-07-03] MEDS: Lactated Ringers 1,000 ML 100 ML IVCONT (07:19)
[2023-07-03 07:38] LABS: UPreg QC Valid YES; Urine Pregnancy NEGATIVE (NEGATIVE)
--- NOTE | 2023-07-03 08:19 | MHC.SHP ---
Pre-Procedural Eval Section A Date of Service: 07/03/23 The patient is an INPATIENT: No Changes since office visit: No Cold of Flu in the past 2 weeks, No New Medical Problems, No Changes in Medication and No Patient answered all questions The History & Physical has been completed within 30 days and I have reviewed it.: Yes Section B Chief Complaint: Other instability, left shoulder Allergies: Allergies Allergy/AdvReac Type Severity Reaction Status Date / Time lisinopril Allergy Unknown unknown Verified 04/29/23 10:40 avocado Allergy Stomach Verified 04/29/23 10:40 Upset codeine Allergy Vomiting Verified 04/29/23 10:40 fish derived Allergy Anaphylaxis Verified 04/29/23 10:40 kiwi Allergy Rash Verified 04/29/23 10:40 Latex, Natural Rubber Allergy Rash Verified 04/29/23 10:40 penicillin G Allergy Hallucinati Verified 04/29/23 10:40 ons shellfish derived Allergy Anaphylaxis Verified 04/29/23 10:40 Sulfa (Sulfonamide Allergy Unknown Verified 04/29/23 10:40 Antibiotics) tree and shrub pollen Allergy Watery Eye Verified 04/29/23 10:40 morphine AdvReac Nausea and Verified 07/03/23 06:54 Vomiting Plan I have reviewed the history and physical and performed a pertinent physical examination on my patient. No changes have occurred unless specified. Time Spent With Patient Time: Total time managing care of this patient today ____ minutes.
--- NOTE | 2023-07-03 10:18 | PM.OP ---
Brief Operative Note Date of Service: 07/03/23 Pre-op diagnosis: Left shoulder instability Post-op diagnosis: other (1) same 2) left shoulder SLAP tear) Procedure: Left shoulder capsular plication with sub pectoral biceps tenodesis Implants: Shelton and Nephew micro raptor x 2 Arthrex biceps suture button Surgeon: Selvin Salcedo MD Anesthesia: GETA and regional Was an Sole Conforming Machine Operator used for this Procedure?: Yes Sole Conforming Machine Operator: Amber Pan Estimated blood loss (mL): 25 IV fluids (mL): 800 Pathology: none sent Condition: stable Disposition: PACU
--- NOTE | 2023-07-03 10:24 | P.OP_ITS ---
Operative Note Operative Note Date of Service: 07/03/23 Narrative: Date of Service: 07/03/23 Pre-op diagnosis: Left shoulder instability Post-op diagnosis: other (1) same 2) left shoulder SLAP tear) Procedure: Left shoulder capsular plication with sub pectoral biceps tenodesis Implants: Shelton [employer] Nephew micro raptor x 2 Arthrex biceps suture button Surgeon: Selvin Salcedo MD Anesthesia: GETA and regional Was an Tar Kettle Runner used for this Procedure?: Yes Tar Kettle Runner: Amber Pan Estimated blood loss (mL): 25 IV fluids (mL): 800 Pathology: none sent Condition: stable Disposition: PACU Procedure in detail: Patient was brought to the operating room and placed the the beach chair p osition. All bony prominences were well padded and the limb was prepped and draped in standard sterile fashion. A time out was called to identify proper site, proper procedure and proper surgeon. IV antibiotics per weight were administered. I began by making a posterolateral stab incision with a 15 blade. A blunt trochar was placed into the glenohumeral joint and I insufflated the joint with saline and a 30 degree arthroscope was placed. I established an outside- in anterior portal just distal to the biceps tendon. I then began my inspection of the glenohumeral joint. There was min G 1 cartilage changes of the miguel-inferior glenoid. The subscapularis was intact and there was no under- surface RTC tearing. There was a large type 2 SLAP tear with degenerative tearing of the superior and anterior labrum. I tagged and cut the biceps. I debrided the labrum. Posteriorly the labrum was intact and the undersurface of the RTC was normal. I then passed 2 suture through the miguel-inferior capsule and labrum at the 6-7 o'clock position. I placed a 2.7 mm micro-raptor at the anterior glenoid rim and tightened the miguel-inferior capsule and labrum creating a nice bumper effect. I then repeated this process at 8 and 9 o'clock positions. I was satisfied with the plication. There was no longer a + drive though. I then removed all instrumentation and took my final pictures. i then made a 3 cm incision at the axillary crease and digitally dissected the tissue down the bicipital groove. I used a right-angle clamp to extract the biceps. I then whip stitched the biceps and drilles a bicortical beefpin at the base of the groove and over-drilled iwth a 6.5mm reamer. I then threaded the suture button and passed it through both cortices. I cinched down the biceps and was satisfied with the tension. I then tied and cut the suture. Portals were closed with nylon. Axillary incision with absorbable 3.0 Vicryl, skin glue and steri- strips. Patient was placed in an abduction sling, extubated and brought to the recovery room in stable condition. There were no known complications.
[2023-07-03] MEDS: fentaNYL citrate/PF 100 MCG/2 ML VIAL 25 MCG IVPUSH (11:51)
--- NOTE | 2023-07-03 17:57 | PC.NURSE ---
1740 OOB AMBULATED STEADY GAIT TO BATHROOM TO VOIDX1. NO REPORTS OF DIZZINESS OR NAUSEA WITH MOVEMENT OR POSITION CHANGES. ASSISTED TO DRESS AT BEDSIDE.
== END 2023-07-03 17:58 | disposition home or self-care (01) ==
PROVIDERS: Nurse Practitioner; PCP Internal Medicine; Visit Provider Orthopaedic Surgery
PROC: (CPT 29805; principal; 2023-07-03 08:30)
DX: M25.312 Other instability, left shoulder (principal); M25.512 Pain in left shoulder; M75.52 Bursitis of left shoulder; S43.439A Superior glenoid labrum lesion of unspecified shoulder, initial encounter; X58.XXXA Exposure to other specified factors, initial encounter; Y93.9 Activity, unspecified; Y92.9 Unspecified place or not applicable; Y99.8 Other external cause status; Z88.0 Allergy status to penicillin; Z88.2 Allergy status to sulfonamides; Z88.5 Allergy status to narcotic agent; Z91.040 Latex allergy status; Z79.1 Long term (current) use of non-steroidal anti-inflammatories (NSAID)
CPT/HCPCS: 29806; 29828; 81025; C1713; J0131; J0171; J2371; J2405; J2550; J3010

== ENCOUNTER → 2023-07-03 06:05 | Outpatient (BNV) | payer OTHER, SELFPAY | PROVIDERS: PCP Internal Medicine; Visit Provider Orthopaedic Surgery | DX: S43.432A Superior glenoid labrum lesion of left shoulder, initial encounter (principal); M25.312 Other instability, left shoulder | CPT/HCPCS: 29806; 29828; 29999 ==

== ENCOUNTER 2023-07-05 14:23 | Outpatient (AMB) | payer OTHER, SELFPAY ==
--- NOTE | 2023-07-05 14:23 | A.OFFPC_ITS ---
Vital Signs 07/05/23 14:40 Height 5 ft 2 in Weight 231 lb BMI 42.2 Intake Visit Reasons: Medications Allergies lisinopril Allergy (Unknown, Verified 07/05/23 14:24) unknown avocado Allergy (Verified 07/05/23 14:24) Stomach Upset codeine Allergy (Verified 07/05/23 14:24) Vomiting fish derived Allergy (Verified 07/05/23 14:24) Anaphylaxis kiwi Allergy (Verified 07/05/23 14:24) Rash Latex, Natural Rubber Allergy (Verified 07/05/23 14:24) Rash penicillin G Allergy (Verified 07/05/23 14:24) Hallucinations shellfish derived Allergy (Verified 07/05/23 14:24) Anaphylaxis Sulfa (Sulfonamide Antibiotics) Allergy (Verified 07/05/23 14:24) Unknown tree and shrub pollen Allergy (Verified 07/05/23 14:24) Watery Eye morphine Adverse Reaction (Verified 07/05/23 14:24) Nausea and Vomiting Medication List - Last Reconciled 07/05/23 by Xochitl Camargo MD acetaminophen (Tylophen) 500 mg PO Q6H PRN amlodipine 10 mg PO DAILY 90 days bupropion HCl (Wellbutrin SR) 150 mg PO BID buspirone 5 mg PO TID PRN [CBD buccal] cetirizine 5 mg coenzyme Q10 (Co Q-10) 20 mg PO ONCE epinephrine (EpiPen) 0.3 mg (0.3 mL) IM Q10M PRN 90 days Lactobacillus acidophilus (Probiotic) PO DAILY meclizine 25 mg PO DAILY PRN montelukast 10 mg PO DAILY 90 days multivitamin (Daily Multi-Vitamin tablet) 1 tab PO DAILY oxycodone-acetaminophen 5-325 mg (Percocet) 1 tab PO Q4-6H PRN 7 days venlafaxine ER 150 mg PO DAILY 90 days Tobacco use date assessed: 07/05/23 Dental Screening Dental Screen Date: 07/05/23 Did you have a dental visit in the last 12 months?: No Did you have a dental problem in the last 6 months where you did not have access to dental care?: No Was dental information given to patient?: No HPI Medications HPI Details Patient is 37-year-old female this is a telemedicine video conference Patient was last seen January of this year There was some misunderstanding patient said that she did not know she need to come in for follow-up She is taking venlafaxine 150 mg along with buspirone 5 mg up to 3 times a day for anxiety and depression controlled Patient is doing well with this regimen. Hypertension: Stable with amlodipine 10 mg daily patient is tolerating medication no side effects Patient says that she had labs done in January but I do not see it in the chart we will call the lab She recently had a shoulder surgery through Dr. Salcedo [facility] orthopedic and is recovering from it Morbid obesity: Patient's weight is 231 lb and her height is 5 ft 2 in BMI 42.3. Patient is trying to lose weight Follow-up 3 months [facility] Medical History Anxiety, generalized Hypertension, essential IBS (irritable bowel syndrome) Medullary sponge kidney Morbid obesity due to excess calories SLAP (superior labrum from anterior to posterior) tear Vertigo Surgical History History of wisdom tooth extraction Family History Father No problems noted. Mother No problems noted. Brother No problems noted. Sister No problems noted. 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 How often do you have a drink containing alcohol?: Monthly or less 2. How many drinks containing alcohol do you have on a typical day when you are drinking?: 1 or 2 3. How often do you have six or more drinks on one occasion?: Never Total Score: 1 YELENA-7 AMB Questionnaire YELENA-7 Date YELENA - 7 assessed: 03/17/23 Feeling nervous, anxious, or on edge: 3 = Nearly every day Not being able to stop or control worryin = More than half the days Worrying too much about different things: 1 = Several days Trouble relaxin = More than half the days Being so restless that it is hard to sit still: 1 = Several days Becoming easily annoyed or irritable: 3 = Nearly every day Feeling afraid as if something awful might happen: 1 = Several days Total YELENA-7 score (0-4 normal; 5-9 mild; 10-14 moderate; 15-21 severe): 13 Source: Developed by Drs. Dev Wylie, Asia Max, Bernard Cornelius and colleagues, with an educational angela from [employer]. YELENA-7 Assessment Billing YELENA-7 Assessment Tool: YELENA-7 Assessment 57592 Review of Systems Const Denies chills and Denies fever(s) ENT Denies epistaxis and Denies nasal discharge Card Denies chest pain Resp Denies chest congestion, Denies cough and Denies hemoptysis GI Denies diarrhea and Denies nausea Skin/Breast Denies rash Neuro Reports no additional complaints Psych Reports no additional complaints Endo Reports no additional complaints Physical exam (Primary Care) BMI result Body Mass Index 42.2 Tobacco/Smoking Status: Tobacco use Status Tobacco use date assessed 07/05/23 07/05/23 14:24 Patient Tobacco Use Status Never used Tobacco 07/05/23 14:24 e-Cigarette/Vaping Use Never Used 07/05/23 14:24 Thrive Assessment: Date of Thrive Assessment Date Thrive assessed 01/18/23 07/05/23 14:24 Const General: cooperative, comfortable and no acute distress Orientation/consciousness: patient oriented x3 HENMT Head: Yes normocephalic Eyes General: appearance normal, both eyes and all related structures Neck Neck: Yes supple Resp Effort & Inspection: normal respiratory effort, no cough and no stridor Cardio Rhythm: regular rhythm Heart sounds: S1 normal heart sound present and S2 normal heart sound present Skin General skin exam: turgor normal Neuro General: patient oriented x3, tone normal and moves all extremities Extrem Right lower extremity: no edema Left lower extremity: no edema Telehealth Telehealth Location of provider rendering services: practice address Location of patient: address on file Patient Identification confirmed using: Name, : Yes Telehealth method: video Patient verbally consented to treatment: Yes Patient verbally consented to billing insurance company: Yes Patient informed of any privacy concerns related to visit: Yes Minutes spent on Phone/Video with Pt.: 16 Assessment and Plan Assessment & Plan (1) Generalized anxiety disorder with panic attacks: Code(s): F41.1 - Generalized anxiety disorder; F41.0 - Panic disorder [episodic paroxysmal anxiety] (2) Morbid obesity due to excess calories: Code(s): E66.01 - Morbid (severe) obesity due to excess calories (3) Hypertension, essential: Code(s): I10 - Essential (primary) hypertension (4) Major depression, recurrent: Code(s): F33.9 - Major depressive disorder, recurrent, unspecified Qualifiers: Active/Remission status: in full remission Qualified Code(s): F33.42 - Major depressive disorder, recurrent, in full remission Plan Patient is 37-year-old female this is a telemedicine video conference Patient was last seen January of this year There was some misunderstanding patient said that she did not know she need to come in for follow-up She is taking venlafaxine 150 mg along with buspirone 5 mg up to 3 times a day for anxiety and depression controlled Patient is doing well with this regimen. Hypertension: Stable with amlodipine 10 mg daily patient is tolerating medication no side effects Patient says that she had labs done in January but I do not see it in the chart we will call the lab She recently had a shoulder surgery through Dr. Salcedo [facility] orthopedic and is recovering from it Morbid obesity: Patient's weight is 231 lb and her height is 5 ft 2 in BMI 42.3. Patient is trying to lose weight Follow-up 3 months Medications: Discontinued bupropion HCl 150 mg PO QAM 90 tabs 0RF buspirone 5 mg PO BID 90 days PRN 180 tabs 0RF anxiety Coding Level of Care Code Tele Est Pt Level 4 (81448) Diagnoses Generalized anxiety disorder with panic attacks F41.1; F41.0 Morbid obesity due to excess calories E66.01 Hypertension, essential I10 Major depression, recurrent F33.42 Active/Remission status: in full remission Additional Codes YELENA-7 Assessment Billing - YELENA-7 Assessment Tool: YELENA-7 Assessment 02786 ([id number])
[2023-07-05 14:40] VITALS: BMI 42.2
== END 2023-07-05 16:03 | disposition home or self-care (01) ==
LOC: HO.HMGC 14:23
PROVIDERS: PCP Internal Medicine; Visit Provider Internal Medicine
DX: I10 Essential (primary) hypertension (principal); E66.01 Morbid (severe) obesity due to excess calories; F33.42 Major depressive disorder, recurrent, in full remission; Z68.41 Body mass index [BMI] 40.0-44.9, adult; F41.1 Generalized anxiety disorder; F41.0 Panic disorder [episodic paroxysmal anxiety]
CPT/HCPCS: 99214

== ENCOUNTER 2023-07-11 10:38 | Outpatient (AMB) | payer OTHER, SELFPAY ==
--- NOTE | 2023-07-11 11:07 | A.OFFVIS_ITS ---
Intake Intake Visit Reasons: PO LT SHLD CAP.Plication 07/03/23NE Intake Note: Sary a 37 year old female who presents today for a post operative left shoulder capsular plication with sub pectoral biceps tenodesis. Patient reports that yesterday she fell forward on the stairs and is now having an increase in pain. Allergies lisinopril Allergy (Unknown, Verified 07/05/23 14:24) unknown avocado Allergy (Verified 07/05/23 14:24) Stomach Upset codeine Allergy (Verified 07/05/23 14:24) Vomiting fish derived Allergy (Verified 07/05/23 14:24) Anaphylaxis kiwi Allergy (Verified 07/05/23 14:24) Rash Latex, Natural Rubber Allergy (Verified 07/05/23 14:24) Rash penicillin G Allergy (Verified 07/05/23 14:24) Hallucinations shellfish derived Allergy (Verified 07/05/23 14:24) Anaphylaxis Sulfa (Sulfonamide Antibiotics) Allergy (Verified 07/05/23 14:24) Unknown tree and shrub pollen Allergy (Verified 07/05/23 14:24) Watery Eye morphine Adverse Reaction (Verified 07/05/23 14:24) Nausea and Vomiting HPI PO LT SHLD CAP.Plication 07/03/23NE HPI Details 37-year-old female who returns to the [facility] today for post-op left shoulder capsular plication with sub pectoral bicep tenodesis, 07/03/[address] Salcedo. She states she sustained a forward fall on the stairs yesterday which has worsened her pain. She is doing well otherwise and has no concerns today. She continues to use her sling and will begin PT on 07/12/23. [facility] Medical History Anxiety, generalized Hypertension, essential IBS (irritable bowel syndrome) Medullary sponge kidney Morbid obesity due to excess calories SLAP (superior labrum from anterior to posterior) tear Vertigo Surgical History History of wisdom tooth extraction Family History Father No problems noted. Mother No problems noted. Brother No problems noted. Sister No problems noted. 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 No erythema or drainage. Sensation intact. Assessment & Plan Assessment & Plan (1) Instability of left shoulder joint: Code(s): M25.312 - Other instability, left shoulder (2) Bursitis of left shoulder: Code(s): M75.52 - Bursitis of left shoulder Plan Sutures removed today, steri strips applied. I explained the use of the sling. She can remove it for hygiene and therapy exercises. She will begin a course of physical therapy to work on ROM and periscapular stabilization, no RTC strengthening at this time. She will see us back in 4 weeks for routine post-op appointment, sooner if needed. Patient Instructions: Scribed for Jennifer Hartman PA-C, by Maurice Mares medical lead, on 07/11/2023 at 10:45 AM EST. I, Jennifer Hartman PA-C, have personally reviewed and agree with the information entered by the scribe. Coding Level of Care Code Global (88698) Diagnoses Instability of left shoulder joint M25.312 Bursitis of left shoulder M75.52
== END 2023-07-11 12:20 | disposition home or self-care (01) ==
PROVIDERS: PCP Internal Medicine; Visit Provider Physician Assistant
DX: M25.312 Other instability, left shoulder (principal); M75.52 Bursitis of left shoulder
CPT/HCPCS: 99024

== ENCOUNTER → 2023-07-11 10:38 | Outpatient (BNVA) | payer OTHER, SELFPAY | PROVIDERS: PCP Internal Medicine; Visit Provider Physician Assistant ==

== ENCOUNTER 2023-08-08 13:51 | Outpatient (AMB) | payer OTHER, SELFPAY ==
--- NOTE | 2023-08-08 14:00 | MHC.OFFVIS ---
Intake Intake Visit Reasons: PO-LT SHLD CAP.Plication 07/03/23NE Intake Note: Sary a 37 year old female who presents today for a post operative left shoulder capsular plication with sub pectoral biceps tenodesis, DOS 07/03/23. Patient reports she is doing very well, her pain varies depending on PT. States having a lot of muscle spasms in shoulder and was suggested by PT to mention at todays visit. She has a rash in her armpit that she believes is a yeast infection and has been using an nystatin topical cream that is an old rx. Allergies lisinopril Allergy (Unknown, Verified 07/05/23 14:24) unknown avocado Allergy (Verified 07/05/23 14:24) Stomach Upset codeine Allergy (Verified 07/05/23 14:24) Vomiting fish derived Allergy (Verified 07/05/23 14:24) Anaphylaxis kiwi Allergy (Verified 07/05/23 14:24) Rash Latex, Natural Rubber Allergy (Verified 07/05/23 14:24) Rash penicillin G Allergy (Verified 07/05/23 14:24) Hallucinations shellfish derived Allergy (Verified 07/05/23 14:24) Anaphylaxis Sulfa (Sulfonamide Antibiotics) Allergy (Verified 07/05/23 14:24) Unknown tree and shrub pollen Allergy (Verified 07/05/23 14:24) Watery Eye morphine Adverse Reaction (Verified 07/05/23 14:24) Nausea and Vomiting HPI PO-LT SHLD CAP.Plication 07/03/23NE HPI Details 37-year-old female who returns to the office today for post-op left shoulder capsular plication with sub pectoral bicep tenodesis, 07/03/[address] Salcedo. She states she is doing well but continues to have pain which varies with physical therapy. She c/o muscle spasm in her shoulder with physical therapy. She also reports she has a rash in her armpit which she believes to be a yeast infection and has been using an nystatin topical cream. She has no other concerns today. [facility] Medical History Anxiety, generalized Hypertension, essential IBS (irritable bowel syndrome) Medullary sponge kidney Morbid obesity due to excess calories SLAP (superior labrum from anterior to posterior) tear Vertigo Surgical History History of wisdom tooth extraction Family History Father No problems noted. Mother No problems noted. Brother No problems noted. Sister No problems noted. 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 No erythema or drainage. Sensation intact. Assessment & Plan Assessment & Plan (1) Painful arc syndrome of left shoulder: Code(s): M75.102 - Unspecified rotator cuff tear or rupture of left shoulder, not specified as traumatic (2) Bursitis of left shoulder: Code(s): M75.52 - Bursitis of left shoulder (3) Instability of left shoulder joint: Code(s): M25.312 - Other instability, left shoulder Plan She will continue to work with physical therapy. She can begin weening from the sling once she reaches 6 weeks post-op. She will also begin driving once she is weaned from the sling. She is due to return to work on August 28. 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 I would anticipate her to return to work with no lifting of left upper extremity. She will see us back in 6 weeks. Patient Instructions: Scribed for Jennifer Hartman PA-C, by Maurice Mares medical payment poster, on 08/08/2023 at 2:00 PM EST. IJennifer PA-C, have personally reviewed and agree with the information entered by the scribe. Coding Level of Care Code Global (11515) Diagnoses Painful arc syndrome of left shoulder M75.102 Bursitis of left shoulder M75.52 Instability of left shoulder joint M25.312
== END 2023-08-08 14:49 | disposition home or self-care (01) ==
PROVIDERS: PCP Internal Medicine; Visit Provider Physician Assistant
DX: M75.102 Unspecified rotator cuff tear or rupture of left shoulder, not specified as traumatic (principal); M75.52 Bursitis of left shoulder; M25.312 Other instability, left shoulder
CPT/HCPCS: 99024

== ENCOUNTER → 2023-08-08 13:51 | Outpatient (BNVA) | payer OTHER, SELFPAY | PROVIDERS: PCP Internal Medicine; Visit Provider Physician Assistant ==

== ENCOUNTER 2023-09-05 11:19 | Outpatient (AMB) | payer OTHER, SELFPAY ==
--- NOTE | 2023-09-05 11:31 | MHC.OFFVIS ---
Intake Intake Visit Reasons: PO-LT SHLD CAP.Plication 07/03/23NE Intake Note: Sary is a 37 year old right hand dominant female who presents today for a post operative appointment s/p RT SHLD CAP.Plication 07/03/23.Patient reports that she is having significant increase of pain. She was doing very well after surgery, minimal pain and doing well in PT but particularly struggling with external rotation. She was working on her home exercises doing external rotation exercises and she felt & heard a pop in the shoulder which was followed by significant pain that made her nauseated. She expains that the shoulder feels extremely stiff and tight where it just wont relax. The pain she is now feeling more painful than it was post operatively. She has switched to taken Naproxen as Ibuprofen has upset her stomach. Allergies lisinopril Allergy (Unknown, Verified 07/05/23 14:24) unknown avocado Allergy (Verified 07/05/23 14:24) Stomach Upset codeine Allergy (Verified 07/05/23 14:24) Vomiting fish derived Allergy (Verified 07/05/23 14:24) Anaphylaxis kiwi Allergy (Verified 07/05/23 14:24) Rash Latex, Natural Rubber Allergy (Verified 07/05/23 14:24) Rash penicillin G Allergy (Verified 07/05/23 14:24) Hallucinations shellfish derived Allergy (Verified 07/05/23 14:24) Anaphylaxis Sulfa (Sulfonamide Antibiotics) Allergy (Verified 07/05/23 14:24) Unknown tree and shrub pollen Allergy (Verified 07/05/23 14:24) Watery Eye morphine Adverse Reaction (Verified 07/05/23 14:24) Nausea and Vomiting HPI PO-LT SHLD CAP.Plication 07/03/23NE HPI Details Sary is a 37 year old woman who presents ~2 months S/P left shoulder capsular plication with sub pectoral biceps tenodesis. She complains of increased pain in her shoulder since 08/31/23. She says she was doing very well post-operatively in regards to her shoulder, but when she was performing PT exercises at home, specifically working on ER, she felt & heard a painful pop in her shoulder, followed by pain. She now feels her pain is severe and she feels her shoulder is tight & stiff. She says her supposedly heard the pop from across the room. She has switched from Ibuprofen to naproxen due to GI upset. [facility] Medical History Anxiety, generalized Hypertension, essential IBS (irritable bowel syndrome) Medullary sponge kidney Morbid obesity due to excess calories SLAP (superior labrum from anterior to posterior) tear Vertigo Surgical History History of wisdom tooth extraction Family History Father No problems noted. Mother No problems noted. Brother No problems noted. Sister No problems noted. Other Mental health disorder Substance use disorder Social History Household Members: Spouse Housing: House Alcohol intake: current Alcohol intake frequency: does not drink Patient Tobacco Use Status: Never used Tobacco e-Cigarette/Vaping Use: Never Used Second Hand Smoke Exposure: No Advance Directives Date on File: 10/05/20 service: No Current occupational status: employed Current occupation: [employer]. rt hand Cognitive needs: No Hearing needs: No Vision needs: Yes (contacts) Review of Systems Const All systems reviewed & are unremarkable except as noted in HPI and below Physical Exam Const General: no acute distress, alert and awake Orientation/consciousness: patient oriented x3 HEENT Head: Yes normocephalic and Yes atraumatic Eyes EOM: EOMs intact bilaterally Resp Effort & Inspection: normal respiratory effort and able to speak in complete sentences Cardio Jugular venous distension: no JVD Skin General skin exam: turgor normal Rashes: no rashes Neuro General: patient oriented x3 Extrem Other: Left Shoulder: Well-healed portals ER to 10 degrees Psych Appearance: grossly normal Affect: normal affect Attitude: cooperative Assessment & Plan Assessment & Plan (1) Status post arthroscopy of left shoulder: Code(s): Z98.890 - Other specified postprocedural states Plan: This is a 37 year old woman S/P left shoulder capsular plication with sub pectoral biceps tenodesis, DOS: 07/03/23. She has increased shoulder pain and more limited ER ROM since 08/31/23, after performing ER exercises at home. Exam is benign and her ROM is limited by her worsening pain. I recommend she continue with PT, christiano-scapular strengthening exercises, and activity as tolerated. She should avoid any overhead or heavy lifting activities and be mindful to not push through pain. She will follow up 2 months. Plan Scribed for Selvin Salcedo MD by Justin Porter, medical records custodian, on 09/05/23 at 11:55 AM, EST. Coding Level of Care Code Global (97525) Diagnoses Status post arthroscopy of left shoulder Z98.890
== END 2023-09-05 12:03 | disposition home or self-care (01) ==
PROVIDERS: PCP Internal Medicine; Visit Provider Orthopaedic Surgery
DX: Z98.890 Other specified postprocedural states (principal)
CPT/HCPCS: 99024

== ENCOUNTER → 2023-09-05 11:19 | Outpatient (BNVA) | payer OTHER, SELFPAY | PROVIDERS: PCP Internal Medicine; Visit Provider Orthopaedic Surgery ==

== ENCOUNTER 2023-10-18 12:32 | Outpatient (AMB) | payer OTHER, SELFPAY ==
[2023-10-18 12:34] VITALS: BP 112/78; PULSE 105; TEMP 36.8; O2SAT 98
--- NOTE | 2023-10-18 12:34 | MHC.PC.OV ---
Vital Signs 10/18/23 12:34 Height 5 ft 2 in BP 112/78 Blood Pressure Location Rt brachial Position Sitting Pulse 105 H Pulse Source Pulse Oximeter Temp 98.3 F Temp Source Oral Pulse Oximetry (%) 98 Oxygen Delivery Method Room Air Intake Visit Reasons: 3 month follow up (Medications) Allergies banana Allergy (Mild, Verified 10/18/23 12:44) Anaphylaxis lisinopril Allergy (Unknown, Verified 10/18/23 12:34) unknown avocado Allergy (Verified 10/18/23 12:34) Stomach Upset codeine Allergy (Verified 10/18/23 12:34) Vomiting fish derived Allergy (Verified 10/18/23 12:34) Anaphylaxis kiwi Allergy (Verified 10/18/23 12:34) Rash Latex, Natural Rubber Allergy (Verified 10/18/23 12:34) Rash penicillin G Allergy (Verified 10/18/23 12:34) Hallucinations shellfish derived Allergy (Verified 10/18/23 12:34) Anaphylaxis Sulfa (Sulfonamide Antibiotics) Allergy (Verified 10/18/23 12:34) Unknown tree and shrub pollen Allergy (Verified 10/18/23 12:34) Watery Eye morphine Adverse Reaction (Verified 10/18/23 12:34) Nausea and Vomiting Medication List - Last Reconciled 10/18/23 by Xochitl Camargo MD acetaminophen (Tylophen) 500 mg PO Q6H PRN amlodipine 10 mg PO DAILY 90 days buspirone 5 mg PO TID PRN [CBD buccal] cetirizine 5 mg coenzyme Q10 (Co Q-10) 20 mg PO ONCE epinephrine (EpiPen) 0.3 mg (0.3 mL) IM Q10M PRN 90 days Lactobacillus acidophilus (Probiotic) PO DAILY meclizine 25 mg PO DAILY PRN montelukast 10 mg PO DAILY 90 days multivitamin (Daily Multi-Vitamin tablet) 1 tab PO DAILY venlafaxine ER 150 mg PO DAILY 90 days Tobacco use date assessed: 10/18/23 Dental Screening Dental Screen Date: 10/18/23 Did you have a dental visit in the last 12 months?: Yes Did you have a dental problem in the last 6 months where you did not have access to dental care?: No Was dental information given to patient?: Patient has dentist HPI 3 month follow up (Medications) HPI Details Patient is a 37-year-old female came in today for a sick visit Patient has been feeling sick the past few days with sore throat body aches and pains and feels as if glands are swollen Have taken strep test which is negative COVID RSV and flu test taken as well on Exam her left ear is inflamed, she is complaining of pain in left ear radiating to her neck [facility] Medical History Medullary sponge kidney SLAP (superior labrum from anterior to posterior) tear Morbid obesity due to excess calories IBS (irritable bowel syndrome) Anxiety, generalized Hypertension, essential Vertigo Surgical History History of wisdom tooth extraction Family History Father No problems noted. Mother No problems noted. Brother No problems noted. Sister No problems noted. 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 1. Little interest or pleasure in doing things: more than half the days 2. Feeling down, depressed, or hopeless: more than half the days 3. Trouble falling or staying asleep, or sleeping too much: nearly every day 4. Feeling tired or having little energy: more than half the days 5. Poor appetite or overeating: nearly every day 6. Feeling bad about yourself - or that you are a failure or have let yourself or your family down: more than half the days 7. Trouble concentrating on things, such as reading the newspaper or watching television: several days 8. Moving or speaking so slowly that other people could have noticed. Or the opposite - being so fidgety or restless that you have been moving around a lot more than usual: nearly every day 9. Thoughts that you would be better off or of hurting yourself in some way: not at all Total score: 18 Depression Screening Interpretation: Positive Depression Screening Done: Yes 44466 - PHQ-9 Billing: Yes Source: Developed by Drs. Dev Wylie, Bernard Chavez and colleagues, with an educational angela from [employer]. Thrive Questionnaire Date Thrive assessed: 01/18/23 YELENA-7 AMB Questionnaire YEELNA-7 Date YELENA - 7 assessed: 01/18/23 Source: Developed by Drs. Dev Wylie, Asia Max, Bernard Cornelius and colleagues, with an educational angela from [employer]. Review of Systems Const Denies chills and Denies fever(s) ENT Denies epistaxis and Denies nasal discharge Card Denies chest pain Resp Denies chest congestion, Denies cough and Denies hemoptysis GI Denies diarrhea and Denies nausea Skin/Breast Denies rash Neuro Reports no additional complaints Psych Reports no additional complaints Endo Reports no additional complaints Physical exam (Primary Care) Vital Signs: Last Vital Signs Temp 98.3 F 10/18/23 12:34 Pulse 105 H 10/18/23 12:34 BP 112/78 10/18/23 12:34 Pulse Ox 98 10/18/23 12:34 Oxygen Delivery Method Room Air 10/18/23 12:34 Tobacco/Smoking Status: Tobacco use Status Tobacco use date assessed 10/18/23 10/18/23 12:34 Patient Tobacco Use Status Never used Tobacco 10/18/23 12:34 e-Cigarette/Vaping Use Never Used 10/18/23 12:34 Depression Screening Interpretation: Positive Thrive Assessment: Date of Thrive Assessment Date Thrive assessed 01/18/23 10/18/23 12:34 Const General: cooperative, comfortable and no acute distress Orientation/consciousness: patient oriented x3 HENMT Other: Left ear erythematous ear canal dull light reflex Head: Yes normocephalic Eyes General: appearance normal, both eyes and all related structures Neck Neck: Yes supple Resp Effort & Inspection: normal respiratory effort, no cough and no stridor Skin General skin exam: turgor normal Neuro General: patient oriented x3, tone normal and moves all extremities Extrem Right lower extremity: no edema Left lower extremity: no edema Results AMB Rapid Strep AMB Rapid Strep Negative Last Edit by Josué Freeman CMA on 10/18/23 13:01 Assessment and Plan Assessment & Plan (1) Feeling sick: Code(s): R68.89 - Other general symptoms and signs (2) Infection of left ear: Code(s): H66.92 - Otitis media, unspecified, left ear Plan Patient is a 37-year-old female came in today for a sick visit Patient has been feeling sick the past few days with sore throat body aches and pains and feels as if glands are swollen Have taken strep test which is negative COVID RSV and flu test taken as well on Exam her left ear is inflamed, she is complaining of pain in left ear radiating to her neck Orders: Orders AMB Rapid Strep Screen Today Z13.9 - Encounter for screening, unspecified SARS-CoV2/FLU/RSV Today R09.89 - Other specified symptoms and signs involving the circulatory and respiratory systems Medications: New azithromycin Take 2 tablets today then 1 daily 250 mg PO ONCE 6 tabs 0RF 5 days J06.9 - Acute upper respiratory infection, unspecified Coding Level of Care Code Est Pt Level 3 (30465) Diagnoses Feeling sick R68.89 Infection of left ear H66.92
== END 2023-10-18 15:32 | disposition home or self-care (01) ==
PROVIDERS: PCP Internal Medicine; Visit Provider Internal Medicine
DX: R68.89 Other general symptoms and signs (principal); H66.92 Otitis media, unspecified, left ear; J02.9 Acute pharyngitis, unspecified
CPT/HCPCS: 87880; 99213

== ENCOUNTER 2023-10-18 18:19 | Outpatient (REF) | payer OTHER, SELFPAY ==
[2023-10-18 19:01] LABS: Influenza A PCR NEGATIVE (Negative); Influenza B PCR NEGATIVE (Negative); Resp Syncy Virus RNA Qual PCR NEGATIVE (Negative); SARS COV2 PCR INHOUSE NEGATIVE (Negative)
== END 2023-10-18 18:20 | disposition home or self-care (01) ==
LOC: HO.HMGCLNP 18:19
PROVIDERS: Visit Provider Internal Medicine
DX: Z11.52 Encounter for screening for COVID-19 (principal); Z20.822 Contact with and (suspected) exposure to COVID-19; R09.89 Other specified symptoms and signs involving the circulatory and respiratory systems
CPT/HCPCS: 0241U

== ENCOUNTER 2023-11-08 10:42 | Outpatient (AMB) | payer OTHER, SELFPAY ==
--- NOTE | 2023-11-08 10:43 | MHC.OFFVIS ---
Intake Vital Signs 11/08/23 10:45 Height 5 ft 2 in Weight 231 lb BMI 42.2 Intake Visit Reasons: OV S/p -LT SHLD CAP.Plication 07/03/23NE Intake Note: Sary is a 37 year old right hand dominant female who presents today for a post operative appointment s/p LT SHLD CAP.Plication 07/03/23 Patient reports that she feeling a burning at the anterior aspect of the shoulder. Currently she is back to work and avoiding any triggering movements. Allergies banana Allergy (Mild, Verified 11/08/23 10:53) Anaphylaxis lisinopril Allergy (Unknown, Verified 11/08/23 10:53) unknown avocado Allergy (Verified 11/08/23 10:53) Stomach Upset codeine Allergy (Verified 11/08/23 10:53) Vomiting fish derived Allergy (Verified 11/08/23 10:53) Anaphylaxis kiwi Allergy (Verified 11/08/23 10:53) Rash Latex, Natural Rubber Allergy (Verified 11/08/23 10:53) Rash penicillin G Allergy (Verified 11/08/23 10:53) Hallucinations shellfish derived Allergy (Verified 11/08/23 10:53) Anaphylaxis Sulfa (Sulfonamide Antibiotics) Allergy (Verified 11/08/23 10:53) Unknown tree and shrub pollen Allergy (Verified 11/08/23 10:53) Watery Eye morphine Adverse Reaction (Verified 11/08/23 10:53) Nausea and Vomiting HPI OV S/p -LT SHLD CAP.Plication 07/03/23NE HPI Details Sary is a 37 year old woman who presents ~4 months S/P left shoulder capsular plication with sub pectoral biceps tenodesis She reports feeling a burning sensation in the anterior of her shoulder, but her pain has improved since her last appointment. She has returned to work and has been modifying her activities & duties accordingly to not cause her pain. [facility] Medical History Medullary sponge kidney SLAP (superior labrum from anterior to posterior) tear Morbid obesity due to excess calories IBS (irritable bowel syndrome) Anxiety, generalized Hypertension, essential Vertigo Surgical History History of wisdom tooth extraction Family History Father No problems noted. Mother No problems noted. Brother No problems noted. Sister No problems noted. Other Mental health disorder Substance use disorder Social History Household Members: Spouse Housing: House Alcohol intake: current Alcohol intake frequency: does not drink Patient Tobacco Use Status: Never used Tobacco e-Cigarette/Vaping Use: Never Used Second Hand Smoke Exposure: No Advance Directives Date on File: 10/05/20 service: No Current occupational status: employed Current occupation: [employer]. rt hand Cognitive needs: No Hearing needs: No Vision needs: Yes (contacts) Review of Systems Const All systems reviewed & are unremarkable except as noted in HPI and below Physical Exam Vital Signs: BMI result Body Mass Index 42.2 Const General: no acute distress, alert and awake Orientation/consciousness: patient oriented x3 HEENT Head: Yes normocephalic and Yes atraumatic Eyes EOM: EOMs intact bilaterally Resp Effort & Inspection: normal respiratory effort and able to speak in complete sentences Cardio Jugular venous distension: no JVD Skin General skin exam: turgor normal Rashes: no rashes Neuro General: patient oriented x3 Extrem Other: ER to 35 vs 65 on c/l shoulder inc c/d/i Psych Appearance: grossly normal Affect: normal affect Attitude: cooperative Assessment & Plan Assessment & Plan (1) Status post arthroscopy of left shoulder: Code(s): Z98.890 - Other specified postprocedural states Plan: Capsular plication and sub pectoral tenodesis 4 months ago. Doing well. No restrictions. She should continue strengthening and caution with stretching type exercise. i.e. yoga... (2) Instability of left shoulder joint: Code(s): M25.312 - Other instability, left shoulder Plan Scribed for Selvin Salcedo MD by Justin Porter, medical sales associate, on 11/08/23 at 11:00 AM, EST. Coding Level of Care Code Est Pt Level 3 (95520) Diagnoses Status post arthroscopy of left shoulder Z98.890 Instability of left shoulder joint M25.312
[2023-11-08 10:45] VITALS: BMI 42.2
== END 2023-11-08 11:10 | disposition home or self-care (01) ==
PROVIDERS: PCP Internal Medicine; Visit Provider Orthopaedic Surgery
DX: M25.312 Other instability, left shoulder (principal)
CPT/HCPCS: 99213

== ENCOUNTER → 2023-11-08 10:42 | Outpatient (BNVA) | payer OTHER, SELFPAY | PROVIDERS: PCP Internal Medicine; Visit Provider Orthopaedic Surgery ==

== ENCOUNTER 2023-11-08 14:00 | Outpatient (RCR) | payer OTHER, SELFPAY ==
--- NOTE | 2023-07-12 15:05 | MHC.PT.EP ---
[facility] [place] Office [place] Office [place] Office [address] Louis Cannon [address] [phone] F: [phone] F: [phone] F: [phone] F: [phone] Physical Therapy Plan of Care Date of Evaluation: 07/12/23 Date of Surgery: 07/03/23 Diagnosis: L shoulder anterior plication w/ subpectoral biceps tenodesis (RL) Assessment: pt is a 37 y/o female presenting to physical therapy w/ referring diagnosis of L shoulder anterior plication and subpectoral biceps tenodesis on 07/03/23. Impairments include pain, decreased range of motion, decreased strength, impaired functional mobility, impaired postural awareness, and altered ambulation mechanics. pt is a good candidate for skilled PT due to age, potential remediation of impairments, typical disease/condition progression and prognosis, comorbidities, and motivation. pt would benefit from skilled PT intervention to provide a tailored strengthening and stretching exercise program, functional training, gait training, postural re-training, neuromuscular re-education, modalities as needed for pain, equipment safety demonstration. Frequency and Duration: The patient will be seen 2x/wk for 8 wks Short Term Goals: pt will be I w/ HEP to promote self-management of condition. pt will improve L shoulder flexion AAROM by at least 30 degrees to promote per protocol. pt will be I w/ donning/doffing the sling for protection of post-operative status. Java Web Developer Goals: pt will improve L shoulder flexion strength to at least 3+/5 to promote ease in elevation. pt will report a statistically significant improvement in self-reported outcome measure, SPADI, to promote return to PLOF. Treatment Plan: Modalities to reduce pain, spasms and effusion. Manual therapy to restore motion and function. Therapeutic exercise to improve strength and flexibility. Neuromuscular re-education for posture and balance. Therapeutic activities to return to functional activities of daily living. Electronically signed by: Jacque Jones PT, DPT Please sign and return to therapist. Thank you for your referral.
--- NOTE | 2023-12-03 11:15 | MHC.PT.DC ---
[facility] [place] Office [place] Office [place] [facility] [address] Louis Cannon [address] [phone] F: [phone] F: [phone] F: [phone] F: [phone] Physical Therapy Discharge Report Diagnosis: L shoulder anterior plication w/ subpectoral biceps tenodesis (RL) Date of Surgery: 07/03/23 Date of Evaluation: 07/12/23 Date of Discharge: 12/03/23 Treatments to Date: 24 Cancellations to Date: 5 No Shows to Date: 1 Discharge Status: Visit Non-compliance Discharge Summary: The patient has not been seen in over three weeks. She has not called to follow-up with any additional appointments at this time. When she was last seen she had returned to work but with restrictions. Her current status is unknown. She is discharged from this physical therapy plan of care. Electronically signed by: Jacque Jones PT, DPT Please sign and return to therapist. Thank you for your referral.
== END 2023-12-03 11:15 | disposition home or self-care (01) ==
LOC: HO.PT 14:00
PROVIDERS: PCP Internal Medicine; Visit Provider Physician Assistant
DX: M75.102 Unspecified rotator cuff tear or rupture of left shoulder, not specified as traumatic (principal); M75.52 Bursitis of left shoulder; S43.432D Superior glenoid labrum lesion of left shoulder, subsequent encounter
CPT/HCPCS: 97014; 97033; 97110; 97140; 97162; 97164; 97530

== ENCOUNTER 2024-02-20 08:42 | Outpatient (AMB) | payer OTHER, SELFPAY ==
[2024-02-20 09:10] VITALS: BP 130/80; PULSE 92; TEMP 36.4; O2SAT 98; BMI 43.7
--- NOTE | 2024-02-20 09:10 | MHC.OFFWIV ---
Intake Vital Signs 02/20/24 09:10 Height 5 ft 2 in Weight 239 lb BMI 43.7 BP 130/80 Blood Pressure Location Lt brachial Position Sitting Pulse 92 Pulse Source Pulse Oximeter Temp 97.6 F Temp Source Temporal Artery Scan Pulse Oximetry (%) 98 Oxygen Delivery Method Room Air Intake Visit Reasons: EP ?Injury to ring finger RT Intake Note: pt is here today for injury to ring finger rt started yesterday Patient Tobacco Use Status: Never used Tobacco Allergies banana Allergy (Mild, Verified 02/20/24 09:43) Anaphylaxis lisinopril Allergy (Unknown, Verified 02/20/24 09:43) unknown avocado Allergy (Verified 02/20/24 09:43) Stomach Upset codeine Allergy (Verified 02/20/24 09:43) Vomiting fish derived Allergy (Verified 02/20/24 09:43) Anaphylaxis kiwi Allergy (Verified 02/20/24 09:43) Rash Latex, Natural Rubber Allergy (Verified 02/20/24 09:43) Rash penicillin G Allergy (Verified 02/20/24 09:43) Hallucinations shellfish derived Allergy (Verified 02/20/24 09:43) Anaphylaxis Sulfa (Sulfonamide Antibiotics) Allergy (Verified 02/20/24 09:43) Unknown tree and shrub pollen Allergy (Verified 02/20/24 09:43) Watery Eye morphine Adverse Reaction (Verified 02/20/24 09:43) Nausea and Vomiting Do you need a note to return to daycare/school/sports/work: Yes HPI EP ?Injury to ring finger RT HPI Details 38 year old female patient who presents today with right ring finger injury. She reports that last night she was walking her three dogs and the leases were wrapped around that finger. The dogs pulled to one side, and she felt a pull and a pop in her finger. Today her finger is starting to bruise, and the swelling/pain is increasing. She has also noticed reduced ROM in that finger. [facility] Medical History Medullary sponge kidney SLAP (superior labrum from anterior to posterior) tear Morbid obesity due to excess calories IBS (irritable bowel syndrome) Anxiety, generalized Hypertension, essential Vertigo Surgical History History of wisdom tooth extraction Family History Father No problems noted. Mother No problems noted. Brother No problems noted. Sister No problems noted. 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 Cognitive needs: No Hearing needs: No Vision needs: Yes (contacts) Review of Systems Const All systems reviewed & are unremarkable except as noted in HPI and below Physical Exam Vital Signs: Last Vital Signs Temp 97.6 F 02/20/24 09:10 Pulse 92 02/20/24 09:10 BP 130/80 02/20/24 09:10 Pulse Ox 98 02/20/24 09:10 Oxygen Delivery Method Room Air 02/20/24 09:10 BMI result Body Mass Index 43.7 Const General: cooperative, healthy appearing and no acute distress Resp Effort & Inspection: normal respiratory effort Skin General skin exam: no rashes or lesions noted Extrem Right upper extremity: Extremity exam: right hand Details: abnormal to inspection (bruising), normal capillary refill, abnormal ROM of finger Details: pain with active ROM Location: of the 4th digit and unable to flex Location: of the 4th digit and swelling Location: of the 4th digit Location: at the MCP joint, at the distal phalanx and at the DIP joint Psych Appearance: grossly normal Mental Status: mental status grossly normal Speech and movement: Normal speech and movement present Assessment & Plan Assessment & Plan (1) Injury of right ring finger: Code(s): S69.91XA - Unspecified injury of right wrist, hand and finger(s), initial encounter Qualifiers: Encounter type: initial encounter Qualified Code(s): S69.91XA - Unspecified injury of right wrist, hand and finger(s), initial encounter Plan: XR obtained in the office did not reveal any fracture or dislocation. Finger splinted and wrapped today in the office. I advised Tylenol/Motrin and ice/elevation for any ongoing pain or swelling. Work note provided. All questions were answered and patient agrees to plan. She can f/u with us or PCP as needed. Coding Level of Care Code Est Pt Level 4 (07584) Diagnoses Injury of right ring finger, initial encounter S69.91XA Encounter type: initial encounter
== END 2024-02-20 10:27 | disposition home or self-care (01) ==
PROVIDERS: PCP Internal Medicine; Visit Provider Nurse Practitioner Family
DX: S69.91XA Unspecified injury of right wrist, hand and finger(s), initial encounter (principal)
CPT/HCPCS: 99214

== ENCOUNTER 2024-02-20 09:58 | Outpatient (REF) | payer OTHER, SELFPAY ==
--- NOTE | ~2024-02-20 | XR_ITS ---
EXAMINATION: XR FINGER, RIGHT CLINICAL INFORMATION: Fourth finger injury. COMPARISON: Right hand radiographs dated 12/26/2021. TECHNIQUE: PA view of the right hand as well as oblique and lateral views of the right ring finger. FINDINGS: No displaced fracture. No dislocation. No joint space narrowing or marginal osteophytes. No osseous erosion. No periarticular osteopenia. No abnormal soft tissue calcification. Fourth digit soft tissue swelling. XR/XR finger RT min 2V IMPRESSION: Fourth digit soft tissue swelling without displaced fracture.
== END 2024-02-20 09:59 | disposition home or self-care (01) ==
LOC: HO.HMGCX 09:58
PROVIDERS: PCP Internal Medicine; Visit Provider Nurse Practitioner Family
DX: S69.91XD Unspecified injury of right wrist, hand and finger(s), subsequent encounter (principal)
CPT/HCPCS: 73140

== ENCOUNTER 2024-04-07 08:25 | Outpatient (AMB) | payer OTHER, SELFPAY ==
[2024-04-07 08:29] VITALS: BP 130/82; PULSE 94; O2SAT 98; BMI 42.9
--- NOTE | 2024-04-07 08:29 | MHC.PC.OV ---
Vital Signs 04/07/24 08:29 Height 5 ft 2 in Weight 234 lb 8 oz BMI 42.9 BP 130/82 Blood Pressure Location Rt brachial Position Sitting Pulse 94 Pulse Source Pulse Oximeter Pulse Oximetry (%) 98 Oxygen Delivery Method Room Air Intake Visit Reasons: 9 month Follow up Allergies banana Allergy (Mild, Verified 04/07/24 08:31) Anaphylaxis lisinopril Allergy (Unknown, Verified 04/07/24 08:31) unknown avocado Allergy (Verified 04/07/24 08:31) Stomach Upset codeine Allergy (Verified 04/07/24 08:31) Vomiting fish derived Allergy (Verified 04/07/24 08:31) Anaphylaxis kiwi Allergy (Verified 04/07/24 08:31) Rash Latex, Natural Rubber Allergy (Verified 04/07/24 08:31) Rash penicillin G Allergy (Verified 04/07/24 08:31) Hallucinations shellfish derived Allergy (Verified 04/07/24 08:31) Anaphylaxis Sulfa (Sulfonamide Antibiotics) Allergy (Verified 04/07/24 08:31) Unknown tree and shrub pollen Allergy (Verified 04/07/24 08:31) Watery Eye morphine Adverse Reaction (Verified 04/07/24 08:31) Nausea and Vomiting Medication List - Last Reconciled 04/07/24 by Xochitl Camargo MD acetaminophen (Tylophen) 500 mg PO Q6H PRN amlodipine 10 mg PO DAILY 90 days buspirone 5 mg PO TID 90 days [CBD buccal] cetirizine 5 mg coenzyme Q10 (Co Q-10) 20 mg PO ONCE epinephrine (EpiPen) 0.3 mg (0.3 mL) IM Q10M PRN 90 days Lactobacillus acidophilus (Probiotic) PO DAILY meclizine 25 mg PO DAILY PRN montelukast 10 mg PO DAILY 90 days multivitamin (Daily Multi-Vitamin tablet) 1 tab PO DAILY venlafaxine ER 150 mg PO DAILY 90 days Tobacco use date assessed: 04/07/24 Dental Screening Dental Screen Date: 04/07/24 Did you have a dental visit in the last 12 months?: Yes Did you have a dental problem in the last 6 months where you did not have access to dental care?: No Was dental information given to patient?: Patient has dentist HPI 9 month Follow up HPI Details Patient is a 38-year-old female came in for regular follow-up last time seen was July of last year Patient is complaining of feeling heaviness in her legs and at time her ankle swells up She is questioning peripheral vascular disease. She does have a family history of peripheral vascular disease Her blood pressure is 130/82 At time it crosses over 140 as per patient with associated symptoms of pressure-like feeling in head and headache I am changing the medication to atenolol 25 mg Due to her leg symptoms and uncontrolled blood pressure. She will return in 3 weeks for follow-up Lab order placed Allergies are stable Anxiety stable Patient is morbidly obese need to lose weight that will also help with blood circulation in her legs. [facility] Medical History (Updated 04/07/24 @ 09:31 by Xochitl Camargo MD) Morbid obesity due to excess calories Medullary sponge kidney SLAP (superior labrum from anterior to posterior) tear IBS (irritable bowel syndrome) Anxiety, generalized Hypertension, essential Vertigo Surgical History History of wisdom tooth extraction Family History Father No problems noted. Mother No problems noted. Brother No problems noted. Sister No problems noted. 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 1. Little interest or pleasure in doing things: several days 2. Feeling down, depressed, or hopeless: several days 3. Trouble falling or staying asleep, or sleeping too much: nearly every day 4. Feeling tired or having little energy: more than half the days 5. Poor appetite or overeating: more than half the days 6. Feeling bad about yourself - or that you are a failure or have let yourself or your family down: several days 7. Trouble concentrating on things, such as reading the newspaper or watching television: several days 8. Moving or speaking so slowly that other people could have noticed. Or the opposite - being so fidgety or restless that you have been moving around a lot more than usual: several days 9. Thoughts that you would be better off or of hurting yourself in some way: not at all Total score: 12 Depression Screening Interpretation: Positive Depression Screening Follow-up: Existing condition and In treatment Depression Screening Done: Yes 02802 - PHQ-9 Billing: Yes Source: Developed by Drs. Dev Wylie, Asia Max, Bernard Cornelius and colleagues, with an educational angela from [employer]. Thrive Questionnaire Date Thrive assessed: 04/07/24 I am a: Patient What is your living situation today?: I have a steady place to live Within the past 12 months, did the food you bought not last and you didn't have the money to get more?: Never true Within the past 12 months, did you worry whether your food would run out before you got money to buy more?: Never true Do you have trouble paying for medicines?: No Do you have trouble getting transportation to medical appointments?: No Do you have trouble paying your heating and electricity bill?: No Do you have trouble taking care of your child, family member or friend?: No Do you have trouble with day-to-day activities such as bathing, preparing meals, shopping, managing finances, etc.?: No Are you currently unemployed and looking for a job?: No Are you interested in more education?: No Please select the resources that you would like help with: None Currently or been in a relationship where the following occur: no concerns reported THRIVE Score: 0 AUDIT C Alcohol Use Questionnaire (AUDIT-C) 1. How often do you have a drink containing alcohol?: Monthly or less 2. How many drinks containing alcohol do you have on a typical day when you are drinking?: 1 or 2 3. How often do you have six or more drinks on one occasion?: Never Total Score: 1 Score Reviewed/Action Taken: Yes YELENA-7 AMB Questionnaire YELENA-7 Date YELENA - 7 assessed: 04/07/24 Feeling nervous, anxious, or on edge: 2 = More than half the days Not being able to stop or control worryin = More than half the days Worrying too much about different things: 2 = More than half the days Trouble relaxin = More than half the days Being so restless that it is hard to sit still: 2 = More than half the days Becoming easily annoyed or irritable: 2 = More than half the days Feeling afraid as if something awful might happen: 1 = Several days Total YELENA-7 score (0-4 normal; 5-9 mild; 10-14 moderate; 15-21 severe): 13 Source: Developed by Drs. Dev Wylie, Asia Max, Bernard Cornelius and colleagues, with an educational angela from [employer]. YELENA-7 Assessment Billing YELENA-7 Assessment Tool: YELENA-7 Assessment 03745 Review of Systems Const Denies chills and Denies fever(s) ENT Denies epistaxis and Denies nasal discharge Card Denies chest pain Resp Denies chest congestion, Denies cough and Denies hemoptysis GI Denies diarrhea and Denies nausea Skin/Breast Denies rash Neuro Reports no additional complaints Psych Reports no additional complaints Endo Reports no additional complaints Physical exam (Primary Care) Vital Signs: Last Vital Signs Pulse 94 04/07/24 08:29 BP 130/82 04/07/24 08:29 Pulse Ox 98 04/07/24 08:29 Oxygen Delivery Method Room Air 04/07/24 08:29 BMI result Body Mass Index 42.9 Tobacco/Smoking Status: Tobacco use Status Tobacco use date assessed 04/07/24 04/07/24 08:32 Patient Tobacco Use Status Never used Tobacco 04/07/24 08:32 e-Cigarette/Vaping Use Never Used 04/07/24 08:32 PHQ-9: PHQ-9 Score PHQ-9: Total score 12 04/07/24 08:46 Depression Screening Interpretation: Positive Depression Screening Follow-up: Existing condition and In treatment Thrive Assessment: Date of Thrive Assessment Date Thrive assessed 04/07/24 04/07/24 08:35 Currently or been in a relationship where the following occur: no concerns reported Const General: cooperative, comfortable and no acute distress Orientation/consciousness: patient oriented x3 HENMT Head: Yes normocephalic Eyes General: appearance normal, both eyes and all related structures Neck Neck: Yes supple Resp Effort & Inspection: normal respiratory effort, no cough and no stridor Cardio Rhythm: regular rhythm Heart sounds: S1 normal heart sound present and S2 normal heart sound present Skin General skin exam: turgor normal Neuro General: patient oriented x3, tone normal and moves all extremities Extrem Right lower extremity: no edema Left lower extremity: no edema Assessment and Plan Assessment & Plan (1) Hypertension: Code(s): I10 - Essential (primary) hypertension Qualifiers: Hypertension type: primary hypertension Qualified Code(s): I10 - Essential (primary) hypertension (2) Environmental allergies: Code(s): Z91.09 - Other allergy status, other than to drugs and biological substances (3) Major depression, recurrent: Code(s): F33.9 - Major depressive disorder, recurrent, unspecified Qualifiers: Active/Remission status: in full remission Qualified Code(s): F33.42 - Major depressive disorder, recurrent, in full remission (4) Generalized anxiety disorder with panic attacks: Code(s): F41.1 - Generalized anxiety disorder; F41.0 - Panic disorder [episodic paroxysmal anxiety] (5) Morbid obesity due to excess calories: Comment: If your BMI is between 25 and 29.9, you are overweight. If your BMI is 30 or greater, you are obese. ___ Being obese is a problem, because it increases the risks of many different health problems. It can also make it hard for you to move, breathe, and do other things that people who are at a healthy weight can do easily. Plus, being obese can be hard emotionally. ___ What are the health risks of being obese? Being obese increases a persons risk of developing many health problems. Here are just a few examples: __ Diabetes High blood pressure, High cholesterol, Heart disease (including heart attacks) Stroke, Sleep apnea (a disorder in which you stop breathing for short periods while asleep) Asthma, Cancer __ Does being obese shorten a persons life? Yes. Studies show that people who are obese younger than people who are a healthy weight. They also show that the risk of goes up the heavier a person is. The degree of increased risk depends on how long the person has been obese, and on what other medical problems he or she has. , Reduce your carbohydrate intake and choose carbs that are complex. Remember as a general rule of thumb, avoid highly processed foods. If it's white and soft, it's probably been stripped of its nutritional value. Change white bread to whole wheat bread, white rice to brown rice, white potatoes to sweet potatoes, white pasta to whole wheat pasta. Monitor portion sizes too: protein should be no bigger than your fist. Limit your red meat intake to only once or twice a wk. Eat more white meat but make sure to avoid creamy sauces etc. Broiling, baking or grilling is best. Increase dark, green leafy vegetables and fruits. Code(s): E66.01 - Morbid (severe) obesity due to excess calories Plan Patient is a 38-year-old female came in for regular follow-up last time seen was July of last year Patient is complaining of feeling heaviness in her legs and at time her ankle swells up She is questioning peripheral vascular disease. She does have a family history of peripheral vascular disease Her blood pressure is 130/82 At time it crosses over 140 as per patient with associated symptoms of pressure-like feeling in head and headache I am changing the medication to atenolol 25 mg Due to her leg symptoms and uncontrolled blood pressure. She will return in 3 weeks for follow-up Lab order placed Allergies are stable Anxiety stable Patient is morbidly obese need to lose weight that will also help with blood circulation in her legs. Orders: Orders TSH reflex Free T4 Today E66.09 - Other obesity due to excess calories, F33.42 - Major depressive disorder, recurrent, in full remission, F41.0 - Panic disorder [episodic paroxysmal anxiety], F41.1 - Generalized anxiety disorder, I10 - Essential (primary) hypertension, Z91.09 - Other allergy status, other than to drugs and biological substances Lipid Panel Today E66.09 - Other obesity due to excess calories, F33.42 - Major depressive disorder, recurrent, in full remission, F41.0 - Panic disorder [episodic paroxysmal anxiety], F41.1 - Generalized anxiety disorder, I10 - Essential (primary) hypertension, Z91.09 - Other allergy status, other than to drugs and biological substances Complete Blood Count Auto Diff Today E66.09 - Other obesity due to excess calories, F33.42 - Major depressive disorder, recurrent, in full remission, F41.0 - Panic disorder [episodic paroxysmal anxiety], F41.1 - Generalized anxiety disorder, I10 - Essential (primary) hypertension, Z91.09 - Other allergy status, other than to drugs and biological substances Comprehensive [place]. Panel Fast Today E66.09 - Other obesity due to excess calories, F33.42 - Major depressive disorder, recurrent, in full remission, F41.0 - Panic disorder [episodic paroxysmal anxiety], F41.1 - Generalized anxiety disorder, I10 - Essential (primary) hypertension, Z91.09 - Other allergy status, other than to drugs and biological substances Medications: New atenolol 25 mg PO DAILY 30 tabs 0RF Refilled epinephrine (EpiPen) 0.3 mg (0.3 mL) IM Q10M PRN 1 ea 0RF anaphylaxis 90 days Discontinued amlodipine Discontinued Reason: Doctor's Order 10 mg PO DAILY 90 days 90 tabs 0RF Coding Level of Care Code Est Pt Level 4 (13605) Diagnoses Primary hypertension I10 Hypertension type: primary hypertension Environmental allergies Z91.09 Recurrent major depressive disorder, in full remission F33.42 Active/Remission status: in full remission Generalized anxiety disorder with panic attacks F41.1; F41.0 Morbid obesity due to excess calories E66.01 Additional Codes YELENA-7 Assessment Billing - YELENA-7 Assessment Tool: YELENA-7 Assessment 72072 ([id number])
== END 2024-04-07 08:52 | disposition home or self-care (01) ==
PROVIDERS: PCP Internal Medicine; Visit Provider Internal Medicine
DX: I10 Essential (primary) hypertension (principal); F33.42 Major depressive disorder, recurrent, in full remission; E66.01 Morbid (severe) obesity due to excess calories; Z68.41 Body mass index [BMI] 40.0-44.9, adult; Z91.09 Other allergy status, other than to drugs and biological substances; F41.1 Generalized anxiety disorder; F41.0 Panic disorder [episodic paroxysmal anxiety]
CPT/HCPCS: 99214

== ENCOUNTER 2024-04-07 08:52 | Outpatient (REF) | payer OTHER, SELFPAY ==
[2024-04-07 10:28] LABS: MANUAL DIFF FLAG NO
[2024-04-07 10:48] LABS: Basophils Percent Auto 0.5 % (0-2); Eosinophils Absolute Auto 0.2 X10*3/uL (0.0-0.4); Eosinophils Percent Auto 2.5 % (0-4); Hemoglobin 13.2 g/dl (12.0-16.0); Imm Gran Abs Auto 0.01 X10*3/uL (0.00-0.03); Imm Gran Pct Auto 0.2 % (0.0-0.4); Lymphocytes Absolute Auto 1.9 X10*3/uL (1.2-4.9); Lymphocytes Percent Auto 31.3 % (20-40); Mean Corpuscular HGB Conc 33.8 g/dl (31.0-35.0); Mean Corpuscular Hemoglobin 28.6 pg (27.0-33.0); Mean Corpuscular Volume 84.6 fL (80.0-98.0); Mean Platelet Volume 11.9 fL (9.4-12.3); Monocytes Absolute Auto 0.5 X10*3/uL (0.1-1.2); Monocytes Percent Auto 7.8 % (2-11); Neutrophils Absolute Auto 3.5 x10*3/uL (2.0-8.3); Neutrophils Percent Auto 57.7 % (45-73); Platelet Count 208 X10*3/uL (160-400); Red Blood Count 4.61 X10*6/uL (4.20-5.50); Red Cell Distribution Width 12.6 % (11.0-16.0)
[2024-04-07 11:36] LABS: Alanine Aminotransferase 14 U/L (0-31); Albumin Level 4.3 g/dL (3.5-5.0); Alkaline Phosphatase 78 U/L (39-117); Anion Gap 15 (12-20); Aspartate Amino Transferase 12 U/L (5-31); Bilirubin Total 0.7 mg/dL (0.0-1.0); Blood Urea Nitrogen 12 mg/dL (9-16); Calcium 9.1 mg/dL (8.4-10.2); Carbon Dioxide 25 mmol/L (22-29); Chloride 104 mmol/L (96-108); Cholesterol 182 mg/dL (<200); Estimated Glomerular Filt Rate > 60; Glucose Fasting 85 mg/dL (60-99); HDL Cholesterol 62 mg/dL (>40); LDL Cholesterol Calculated 89 mg/dL (<100); Potassium 3.5 mmol/L (3.3-5.1); Sodium 140 mmol/L (135-145); TSH reflex Free T4 0.58 uIU/mL (0.32-4.0); Total Protein 6.7 g/dL (6.5-8.0); Triglycerides 155 mg/dL (<150)
== END 2024-04-07 08:53 | disposition home or self-care (01) ==
LOC: HO.HMGCLDS 08:52
PROVIDERS: PCP Internal Medicine; Visit Provider Internal Medicine
DX: E66.09 Other obesity due to excess calories (principal); I10 Essential (primary) hypertension; F41.1 Generalized anxiety disorder; F41.0 Panic disorder [episodic paroxysmal anxiety]; F33.42 Major depressive disorder, recurrent, in full remission; Z91.09 Other allergy status, other than to drugs and biological substances
CPT/HCPCS: 36415; 80053; 80061; 84443; 85025

== ENCOUNTER 2024-04-10 09:58 | Emergency (ER) | payer OTHER, SELFPAY ==
[2024-04-10 10:29] VITALS: BP 162/107; PULSE 81; RESP 16; TEMP 36.8; O2SAT 99; BMI 43.2
[2024-04-10 11:12] LABS: COVID-19 Test Negative (Negative); IDNOW Serial# 08D9AD1C; IDNOW Serial# 152EDE1D; Influenza A Negative (Negative); Influenza B2 Negative (Negative)
== END 2024-04-10 15:13 | disposition left against medical advice (07) ==
PROVIDERS: Emergency Provider Emergency Medicine; PCP Internal Medicine
DX: R42 Dizziness and giddiness (principal); Z11.52 Encounter for screening for COVID-19
CPT/HCPCS: 87502; 87635; 99281; 99283

== ENCOUNTER 2024-04-16 08:51 | Outpatient (AMB) | payer OTHER, SELFPAY ==
--- NOTE | 2024-04-16 09:09 | A.OFFPC_ITS ---
Intake Visit Reasons: med reaction Allergies banana Allergy (Mild, Verified 04/16/24 09:10) Anaphylaxis lisinopril Allergy (Unknown, Verified 04/16/24 09:10) unknown atenolol Allergy (Verified 04/16/24 10:23) Dizziness avocado Allergy (Verified 04/16/24 09:10) Stomach Upset codeine Allergy (Verified 04/16/24 09:10) Vomiting fish derived Allergy (Verified 04/16/24 09:10) Anaphylaxis kiwi Allergy (Verified 04/16/24 09:10) Rash Latex, Natural Rubber Allergy (Verified 04/16/24 09:10) Rash penicillin G Allergy (Verified 04/16/24 09:10) Hallucinations shellfish derived Allergy (Verified 04/16/24 09:10) Anaphylaxis Sulfa (Sulfonamide Antibiotics) Allergy (Verified 04/16/24 09:10) Unknown tree and shrub pollen Allergy (Verified 04/16/24 09:10) Watery Eye morphine Adverse Reaction (Verified 04/16/24 09:10) Nausea and Vomiting Medication List - Last Reconciled 04/16/24 by Xochitl Camargo MD acetaminophen (Tylophen) 500 mg PO Q6H PRN buspirone 5 mg PO TID 90 days [CBD buccal] cetirizine 5 mg coenzyme Q10 (Co Q-10) 20 mg PO ONCE epinephrine (EpiPen) 0.3 mg (0.3 mL) IM Q10M PRN 90 days Lactobacillus acidophilus (Probiotic) PO DAILY meclizine 25 mg PO DAILY PRN montelukast 10 mg PO DAILY 90 days multivitamin (Daily Multi-Vitamin tablet) 1 tab PO DAILY venlafaxine ER 150 mg PO DAILY 90 days Tobacco use date assessed: 04/16/24 Dental Screening Dental Screen Date: 04/16/24 Did you have a dental visit in the last 12 months?: Yes Did you have a dental problem in the last 6 months where you did not have access to dental care?: No Was dental information given to patient?: Patient has dentist HPI med reaction HPI Details Patient is a 38-year-old female this is a telemedicine visit She was started on atenolol 25 mg, and amlodipine 10 mg was stopped Patient is having lower extremity pain and swelling I have created a referral for her to be seen by vascular specialist However patient could not tolerate atenolol as it started causing dizziness and lightheadedness. She had to stop the medication and she restarted taking amlodipine Our usual blood pressure runs around 130s systolic with the medicine. I am sending spironolactone 25 mg, she is to start taking that and stop amlodipine We will have a follow-up appointment in 2 weeks for blood pressure. Labs done recently reviewed with the patient as well. [facility] Medical History Morbid obesity due to excess calories Medullary sponge kidney SLAP (superior labrum from anterior to posterior) tear IBS (irritable bowel syndrome) Anxiety, generalized Hypertension, essential Vertigo Surgical History History of wisdom tooth extraction Family History Father No problems noted. Mother No problems noted. Brother No problems noted. Sister No problems noted. 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 How often do you have a drink containing alcohol?: Monthly or less 2. How many drinks containing alcohol do you have on a typical day when you are drinking?: 1 or 2 3. How often do you have six or more drinks on one occasion?: Never Total Score: 1 Score Reviewed/Action Taken: Yes YELENA-7 AMB Questionnaire YELENA-7 Date YELENA - 7 assessed: 04/07/24 Source: Developed by Drs. Dev Wylie, Asia Max, Bernard Cornelius and colleagues, with an educational angela from [employer]. Review of Systems Const Denies chills and Denies fever(s) ENT Denies epistaxis and Denies nasal discharge Card Denies chest pain Resp Denies chest congestion, Denies cough and Denies hemoptysis GI Denies diarrhea and Denies nausea Skin/Breast Denies rash Neuro Reports no additional complaints Psych Reports no additional complaints Endo Reports no additional complaints Physical exam (Primary Care) Tobacco/Smoking Status: Tobacco use Status Tobacco use date assessed 04/16/24 04/16/24 09:11 Patient Tobacco Use Status Never used Tobacco 04/16/24 09:11 e-Cigarette/Vaping Use Never Used 04/16/24 09:11 Thrive Assessment: Date of Thrive Assessment Date Thrive assessed 04/07/24 04/16/24 09:11 Telehealth Telehealth Telehealth Platform: [employer] Location of provider rendering services: practice address Location of patient: address on file Patient Identification confirmed using: Name, : Yes Telehealth method: voice only Patient verbally consented to treatment: Yes Patient verbally consented to billing insurance company: Yes Patient informed of any privacy concerns related to visit: Yes Minutes spent on Phone/Video with Pt.: 13 Assessment and Plan Assessment & Plan (1) Bilateral lower extremity pain: Code(s): M79.604 - Pain in right leg; M79.605 - Pain in left leg (2) Hypertension: Code(s): I10 - Essential (primary) hypertension Qualifiers: Hypertension type: primary hypertension Qualified Code(s): I10 - Essential (primary) hypertension Plan Patient is a 38-year-old female this is a telemedicine visit She was started on atenolol 25 mg, and amlodipine 10 mg was stopped Patient is having lower extremity pain and swelling I have created a referral for her to be seen by vascular specialist However patient could not tolerate atenolol as it started causing dizziness and lightheadedness. She had to stop the medication and she restarted taking amlodipine Our usual blood pressure runs around 130s systolic with the medicine. I am sending spironolactone 25 mg, she is to start taking that and stop amlodipine We will have a follow-up appointment in 2 weeks for blood pressure. Labs done recently reviewed with the patient as well. Orders: Referrals Vascular Surgery Referral M79.604 - Pain in right leg, M79.605 - Pain in left leg Medications: New spironolactone 25 mg PO DAILY 30 tabs 0RF Coding Level of Care Code Tele Est Pt Level 3 (15827) Diagnoses Bilateral lower extremity pain M79.604; M79.605 Primary hypertension I10 Hypertension type: primary hypertension
== END 2024-04-16 12:24 | disposition home or self-care (01) ==
LOC: HO.HMGC 08:51
PROVIDERS: PCP Internal Medicine; Visit Provider Internal Medicine
DX: M79.604 Pain in right leg (principal); M79.605 Pain in left leg; I10 Essential (primary) hypertension
CPT/HCPCS: 99213

== ENCOUNTER 2024-05-01 09:43 | Outpatient (AMB) | payer OTHER, SELFPAY ==
--- NOTE | 2024-05-01 09:45 | MHC.PC.OV ---
Vital Signs 05/01/24 09:47 Height 5 ft 2 in Weight 236 lb BMI 43.2 BP 118/76 Blood Pressure Location Lt brachial Position Sitting Pulse 84 Pulse Source Pulse Oximeter Pulse Oximetry (%) 97 Oxygen Delivery Method Room Air Intake Visit Reasons: 6WK F/U Allergies banana Allergy (Mild, Verified 05/01/24 09:47) Anaphylaxis lisinopril Allergy (Unknown, Verified 05/01/24 09:47) unknown atenolol Allergy (Verified 05/01/24 09:47) Dizziness avocado Allergy (Verified 05/01/24 09:47) Stomach Upset codeine Allergy (Verified 05/01/24 09:47) Vomiting fish derived Allergy (Verified 05/01/24 09:47) Anaphylaxis kiwi Allergy (Verified 05/01/24 09:47) Rash Latex, Natural Rubber Allergy (Verified 05/01/24 09:47) Rash penicillin G Allergy (Verified 05/01/24 09:47) Hallucinations shellfish derived Allergy (Verified 05/01/24 09:47) Anaphylaxis Sulfa (Sulfonamide Antibiotics) Allergy (Verified 05/01/24 09:47) Unknown tree and shrub pollen Allergy (Verified 05/01/24 09:47) Watery Eye morphine Adverse Reaction (Verified 05/01/24 09:47) Nausea and Vomiting Medication List - Last Reconciled 05/01/24 by Xochitl Camargo MD acetaminophen (Tylophen) 500 mg PO Q6H PRN buspirone 5 mg PO TID 90 days [CBD buccal] cetirizine 5 mg coenzyme Q10 (Co Q-10) 20 mg PO ONCE epinephrine (EpiPen) 0.3 mg (0.3 mL) IM Q10M PRN 90 days Lactobacillus acidophilus (Probiotic) PO DAILY meclizine 25 mg PO DAILY PRN montelukast 10 mg PO DAILY 90 days multivitamin (Daily Multi-Vitamin tablet) 1 tab PO DAILY spironolactone 25 mg PO DAILY venlafaxine ER 150 mg PO DAILY 90 days Tobacco use date assessed: 04/16/24 Dental Screening Dental Screen Date: 04/16/24 HPI 6WK F/U HPI Details Patient is a 38-year-old female came today to be evaluated for hypertension We have been trying different medication for her She could not take atenolol and amlodipine due to side effects Currently she is taking spironolactone 25 mg, patient says that she takes it in morning She is fine all day but in the evening her blood pressure started to get high again around 150 systolic I am increasing the dose to b.i.d., medication refills sent continued 25 mg tablets He is also complaining of paresthesia left foot which has been happening for a while I have ordered nerve conduction study to further evaluate that Anxiety stable patient is on buspirone up to 3 times a day , she is also on venlafaxine 150 mg daily Allergies are stable with cetirizine 5 mg and montelukast 10 mg She will return in 3 months for follow-up appointment labs are needed before visit Patient is also morbidly obese and in need to lose weight [facility] Medical History Morbid obesity due to excess calories Medullary sponge kidney SLAP (superior labrum from anterior to posterior) tear IBS (irritable bowel syndrome) Anxiety, generalized Hypertension, essential Vertigo Surgical History History of wisdom tooth extraction Family History Father No problems noted. Mother No problems noted. Brother No problems noted. Sister No problems noted. 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 Dev Wylie, Asia Max, Bernard Cornelius and colleagues, with an educational angela from [employer]. Review of Systems Const Denies chills and Denies fever(s) ENT Denies epistaxis and Denies nasal discharge Card Denies chest pain Resp Denies chest congestion, Denies cough and Denies hemoptysis GI Denies diarrhea and Denies nausea Skin/Breast Denies rash Neuro Reports no additional complaints Psych Reports no additional complaints Endo Reports no additional complaints Physical exam (Primary Care) Vital Signs: Last Vital Signs Pulse 84 05/01/24 09:47 BP 118/76 05/01/24 09:47 Pulse Ox 97 05/01/24 09:47 Oxygen Delivery Method Room Air 05/01/24 09:47 BMI result Body Mass Index 43.2 Tobacco/Smoking Status: Tobacco use Status Tobacco use date assessed 04/16/24 05/01/24 09:50 Patient Tobacco Use Status Never used Tobacco 05/01/24 09:50 e-Cigarette/Vaping Use Never Used 05/01/24 09:50 Thrive Assessment: Date of Thrive Assessment Date Thrive assessed 04/07/24 05/01/24 09:50 Const General: cooperative, comfortable and no acute distress Orientation/consciousness: patient oriented x3 HENMT Head: Yes normocephalic Eyes General: appearance normal, both eyes and all related structures Neck Neck: Yes supple Resp Effort & Inspection: normal respiratory effort, no cough and no stridor Cardio Rhythm: regular rhythm Heart sounds: S1 normal heart sound present and S2 normal heart sound present Skin General skin exam: turgor normal Neuro General: patient oriented x3, tone normal and moves all extremities Extrem Right lower extremity: no edema Left lower extremity: no edema Assessment and Plan Assessment & Plan (1) Hypertension: Code(s): I10 - Essential (primary) hypertension Qualifiers: Hypertension type: primary hypertension Qualified Code(s): I10 - Essential (primary) hypertension (2) Major depression, recurrent: Code(s): F33.9 - Major depressive disorder, recurrent, unspecified Qualifiers: Active/Remission status: in full remission Qualified Code(s): F33.42 - Major depressive disorder, recurrent, in full remission (3) Paresthesia of left foot: Code(s): R20.2 - Paresthesia of skin (4) Environmental allergies: Code(s): Z91.09 - Other allergy status, other than to drugs and biological substances (5) Generalized anxiety disorder with panic attacks: Code(s): F41.1 - Generalized anxiety disorder; F41.0 - Panic disorder [episodic paroxysmal anxiety] (6) Morbid obesity due to excess calories: Comment: If your BMI is between 25 and 29.9, you are overweight. If your BMI is 30 or greater, you are obese. ___ Being obese is a problem, because it increases the risks of many different health problems. It can also make it hard for you to move, breathe, and do other things that people who are at a healthy weight can do easily. Plus, being obese can be hard emotionally. ___ What are the health risks of being obese? Being obese increases a persons risk of developing many health problems. Here are just a few examples: __ Diabetes High blood pressure, High cholesterol, Heart disease (including heart attacks) Stroke, Sleep apnea (a disorder in which you stop breathing for short periods while asleep) Asthma, Cancer __ Does being obese shorten a persons life? Yes. Studies show that people who are obese younger than people who are a healthy weight. They also show that the risk of goes up the heavier a person is. The degree of increased risk depends on how long the person has been obese, and on what other medical problems he or she has. , Reduce your carbohydrate intake and choose carbs that are complex. Remember as a general rule of thumb, avoid highly processed foods. If it's white and soft, it's probably been stripped of its nutritional value. Change white bread to whole wheat bread, white rice to brown rice, white potatoes to sweet potatoes, white pasta to whole wheat pasta. Monitor portion sizes too: protein should be no bigger than your fist. Limit your red meat intake to only once or twice a wk. Eat more white meat but make sure to avoid creamy sauces etc. Broiling, baking or grilling is best. Increase dark, green leafy vegetables and fruits. Code(s): E66.01 - Morbid (severe) obesity due to excess calories Plan Patient is a 38-year-old female came today to be evaluated for hypertension We have been trying different medication for her She could not take atenolol and amlodipine due to side effects Currently she is taking spironolactone 25 mg, patient says that she takes it in morning She is fine all day but in the evening her blood pressure started to get high again around 150 systolic I am increasing the dose to b.i.d., medication refills sent continued 25 mg tablets He is also complaining of paresthesia left foot which has been happening for a while I have ordered nerve conduction study to further evaluate that Anxiety stable patient is on buspirone up to 3 times a day , she is also on venlafaxine 150 mg daily Allergies are stable with cetirizine 5 mg and montelukast 10 mg She will return in 3 months for follow-up appointment labs are needed before visit Patient is also morbidly obese and in need to lose weight She is still waiting for vascular appointment Orders: Orders Comprehensive Met. Panel Today F33.42 - Major depressive disorder, recurrent, in full remission, I10 - Essential (primary) hypertension LDL Cholesterol Direct Today F3.42 - Major depressive disorder, recurrent, in full remission, I10 - Essential (primary) hypertension Complete Blood Count Auto Diff Today F3.42 - Major depressive disorder, recurrent, in full remission, I10 - Essential (primary) hypertension NE nerve conduction velocity Today R20.2 - Paresthesia of skin NE electromyogram (EMG) Today R20.2 - Paresthesia of skin Medications: Changed From spironolactone 25 mg PO DAILY 30 tabs 0RF To spironolactone 25 mg PO BID 180 tabs 1RF 90 days Coding Level of Care Code Est Pt Level 4 (06657) Diagnoses Primary hypertension I10 Hypertension type: primary hypertension Recurrent major depressive disorder, in full remission F33.42 Active/Remission status: in full remission Paresthesia of left foot R20.2 Environmental allergies Z91.09 Generalized anxiety disorder with panic attacks F41.1; F41.0 Morbid obesity due to excess calories E66.01
[2024-05-01 09:47] VITALS: BP 118/76; PULSE 84; O2SAT 97; BMI 43.2
== END 2024-05-01 10:04 | disposition home or self-care (01) ==
PROVIDERS: PCP Internal Medicine; Visit Provider Internal Medicine
DX: I10 Essential (primary) hypertension (principal); F33.42 Major depressive disorder, recurrent, in full remission; E66.01 Morbid (severe) obesity due to excess calories; Z68.41 Body mass index [BMI] 40.0-44.9, adult; R20.2 Paresthesia of skin; Z91.09 Other allergy status, other than to drugs and biological substances; F41.1 Generalized anxiety disorder; F41.0 Panic disorder [episodic paroxysmal anxiety]
CPT/HCPCS: 99214

== ENCOUNTER 2024-05-04 09:53 | Outpatient (AMB) | payer OTHER, SELFPAY ==
--- NOTE | 2024-05-04 10:30 | AM.OFFWIN_ITS ---
Intake Vital Signs 05/04/24 10:31 Height 5 ft 2 in Weight 234 lb 5 oz BMI 42.9 BP 138/90 H Blood Pressure Location Rt brachial Position Sitting Pulse 94 Pulse Source Pulse Oximeter Temp 97.8 F Temp Source Oral Pulse Oximetry (%) 97 Oxygen Delivery Method Room Air Intake Visit Reasons: EP migraine 7 days Intake Note: pt is here for migraine for 7 days Patient Tobacco Use Status: Never used Tobacco Allergies banana Allergy (Mild, Verified 05/04/24 10:31) Anaphylaxis lisinopril Allergy (Unknown, Verified 05/04/24 10:31) unknown atenolol Allergy (Verified 05/04/24 10:31) Dizziness avocado Allergy (Verified 05/04/24 10:31) Stomach Upset codeine Allergy (Verified 05/04/24 10:31) Vomiting fish derived Allergy (Verified 05/04/24 10:31) Anaphylaxis kiwi Allergy (Verified 05/04/24 10:31) Rash Latex, Natural Rubber Allergy (Verified 05/04/24 10:31) Rash penicillin G Allergy (Verified 05/04/24 10:31) Hallucinations shellfish derived Allergy (Verified 05/04/24 10:31) Anaphylaxis Sulfa (Sulfonamide Antibiotics) Allergy (Verified 05/04/24 10:31) Unknown tree and shrub pollen Allergy (Verified 05/04/24 10:31) Watery Eye morphine Adverse Reaction (Verified 05/04/24 10:31) Nausea and Vomiting Do you need a note to return to daycare/school/sports/work: No HPI HPI Comments History of Present Illness Details Patient is a 38-year-old female complaining of 1 week of a migraine she describes as relentless. She states she has tried Tylenol, ibuprofen, Benadryl and staying hydrated. She states she was vomiting for the 1st 4 days but that has stopped. She states nothing seems to make it better, not rest not caffeine or any medications. She describes it as the ?worst headache of her life . She does endorse photophobia and phonophobia and denies fevers. [facility] Medical History Morbid obesity due to excess calories Medullary sponge kidney SLAP (superior labrum from anterior to posterior) tear IBS (irritable bowel syndrome) Anxiety, generalized Hypertension, essential Vertigo Surgical History History of wisdom tooth extraction Family History Father No problems noted. Mother No problems noted. Brother No problems noted. Sister No problems noted. 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 Cognitive needs: No Hearing needs: No Vision needs: Yes (contacts) Review of Systems Const All systems reviewed & are unremarkable except as noted in HPI and below Physical Exam Vital Signs: Last Vital Signs Temp 97.8 F 05/04/24 10:31 Pulse 94 05/04/24 10:31 BP 138/90 H 05/04/24 10:31 Pulse Ox 97 05/04/24 10:31 Oxygen Delivery Method Room Air 05/04/24 10:31 BMI result Body Mass Index 42.9 Const General: cooperative, healthy appearing, comfortable, no acute distress and well developed Orientation/consciousness: patient oriented x3 Limitations: no limitations HEENT Head: Yes normal to inspection, Yes No palpable skull fracture present and Yes normocephalic Ears: hearing grossly normal bilaterally General nose exam: Normal external nose present Face and sinus: Yes normal facial exam Mouth: Normal oral and palatal mucosa present Eyes General: appearance normal, both eyes and all related structures Pupils: Equal, round and reactive pupils present EOM: EOMs intact bilaterally Neck Neck: Yes normal visual inspection, Yes full ROM, Yes no lymphadenopathy, Yes no meningeal signs and Yes trachea midline Resp Effort & Inspection: normal respiratory effort and able to speak in complete sentences Back/Spine/Pelvis Cervical Spine: cervical ROM normal, No cervical muscular tenderness and No Cervical spine tenderness Skin General skin exam: no rashes or lesions noted Neuro General: patient oriented x3 and no meningeal signs Cranial nerves: Yes Equal, round and reactive pupils present Extrem General: Yes normal to inspection Assessment & Plan Assessment & Plan (1) Migraine: Code(s): G43.909 - Migraine, unspecified, not intractable, without status migrainosus Qualifiers: Intractability: intractable Migraine type: unspecified Status migrainosus presence: without status migrainosus Qualified Code(s): G43.919 - Migraine, unspecified, intractable, without status migrainosus Plan: As patient has 7 days of the ?worst headache of her life? that is not resolving with medications, hydration and rest, sent patient to emergency department, called expect had to [facility] ED. Plan see above Coding Level of Care Code Est Pt Level 5 (96112) Diagnoses Intractable migraine without status migrainosus, unspecified migraine type G43.919 Intractability: intractable Migraine type: unspecified Status migrainosus presence: without status migrainosus
[2024-05-04 10:31] VITALS: BP 138/90; PULSE 94; TEMP 36.6; O2SAT 97; BMI 42.9
== END 2024-05-04 12:34 | disposition home or self-care (01) ==
PROVIDERS: PCP Internal Medicine; Visit Provider Physician Assistant
DX: G43.919 Migraine, unspecified, intractable, without status migrainosus (principal)
CPT/HCPCS: 99215

== ENCOUNTER 2024-05-04 11:43 | Emergency (ER) | payer OTHER, SELFPAY ==
--- NOTE | ~2024-05-04 | CT_ITS ---
EXAMINATION: CT HEAD WITHOUT CONTRAST CLINICAL INFORMATION: Severe headache. COMPARISON: Head CT dated 05/27/2008. TECHNIQUE: Contiguous axial imaging was performed from the skullbase to vertex without intravenous administration of contrast. This CT examination was performed using dose optimization techniques as appropriate, variously including the following: *Automated exposure control *Adjustment of mA and/or kV according to patient size (this includes techniques or standardized protocols for targeted exams where dose is matched to indication/reason for exam; i.e. extremities or head) *Use of iterative reconstruction technique DLP: 584 mGy-cm. FINDINGS: There is no evidence of acute intracranial hemorrhage or territorial infarction. No abnormal mass effect or midline shift is seen. Hazel to white matter differentiation is well preserved. No extra-axial fluid collections are identified. The ventricles are normal in size. There is no abnormal attenuation within the brain parenchyma. The osseous structures and soft tissues are normal. The mastoid air cells and visualized portions of the paranasal sinuses are well aerated. CT/CT head/brain wo IV con IMPRESSION: No acute intracranial pathology.
[2024-05-04 11:57] VITALS: BP 153/102; PULSE 84; RESP 18; TEMP 36.4; O2SAT 100; BMI 43.0
--- NOTE | 2024-05-04 11:57 | ED.GENADULT ---
HPI - General Adult General Chief complaint: Headache Stated complaint: migraine Time Seen by Provider: 05/04/24 20:36 Related Data Home Medications ?Medication ?Instructions ?Recorded ?Confirmed cetirizine 5 mg tablet 5 mg 10/05/20 05/01/24 Lactobacillus acidophilus PO DAILY 11/07/21 05/01/24 [Probiotic] coenzyme Q10 10 mg capsule (Co 20 mg PO ONCE 11/07/21 05/01/24 Q-10) multivitamin (Daily Multi-Vitamin 1 tab PO DAILY 11/07/21 05/01/24 tablet) CBD buccal 01/18/23 05/01/24 Previous Rx's ?Medication ?Instructions ?Recorded acetaminophen 500 mg capsule 500 mg PO Q6H PRN fever #14 caps 03/05/22 (Tylophen) meclizine 25 mg tablet 25 mg PO DAILY PRN dizziness #90 07/10/23 tabs montelukast 10 mg tablet 10 mg PO DAILY 90 days #90 tabs 07/28/23 venlafaxine 150 mg 150 mg PO DAILY 90 days #90 caps 01/29/24 capsule,extended release 24 hr epinephrine 0.3 mg/0.3 mL 0.3 mg (0.3 mL) IM Q10M PRN 04/07/24 injection, auto-injector (EpiPen) anaphylaxis 90 days #1 ea buspirone 5 mg tablet 5 mg PO TID anxiety 90 days #270 04/17/24 tabs spironolactone 25 mg tablet 25 mg PO BID 90 days #180 tabs 05/01/24 [id number]-vfpqxeklxsoze-[id number] 1 tab PO Q6H PRN haeadace #20 tabs 05/04/24 50 mg-325 mg-40 mg tablet ondansetron 4 mg disintegrating 4 mg PO Q6-8H PRN nausea and 05/04/24 tablet vomiting #7 tabs sumatriptan succinate 50 mg tablet 50 mg PO Q2H PRN migraine headache 05/04/24 (Imitrex) #10 tabs Allergies Allergy/AdvReac Type Severity Reaction Status Date / Time banana Allergy Mild Anaphylaxis Verified 05/04/24 11:59 lisinopril Allergy Unknown unknown Verified 05/04/24 11:59 atenolol Allergy Dizziness Verified 05/04/24 11:59 avocado Allergy Stomach Verified 05/04/24 11:59 Upset codeine Allergy Vomiting Verified 05/04/24 11:59 fish derived Allergy Anaphylaxis Verified 05/04/24 11:59 kiwi Allergy Rash Verified 05/04/24 11:59 Latex, Natural Rubber Allergy Rash Verified 05/04/24 11:59 penicillin G Allergy Hallucinati Verified 05/04/24 11:59 ons shellfish derived Allergy Anaphylaxis Verified 05/04/24 11:59 Sulfa (Sulfonamide Allergy Unknown Verified 05/04/24 11:59 Antibiotics) tree and shrub pollen Allergy Watery Eye Verified 05/04/24 11:59 morphine AdvReac Nausea and Verified 05/04/24 11:59 Vomiting PMFSH Past Medical History Medical History Morbid obesity due to excess calories Medullary sponge kidney SLAP (superior labrum from anterior to posterior) tear IBS (irritable bowel syndrome) Anxiety, generalized Hypertension, essential Vertigo Surgical History History of wisdom tooth extraction Family History Family History Father No problems noted. Mother No problems noted. Brother No problems noted. Sister No problems noted. Other Mental health disorder Substance use disorder Social History Social History Household Members: Spouse Housing: House Alcohol intake: current Alcohol intake frequency: does not drink Patient Tobacco Use Status: Never used Tobacco Smoked in Last 30 Days: No e-Cigarette/Vaping Use: Never Used Second Hand Smoke Exposure: No Use of substances other than those prescribed or required for medical reasons: No Advance Directives: No Advance Directives Information Provided: No Advance Directives Date on File: 10/05/20 Do you have a plan to hurt others: No Plan Patient : No service: No Current occupational status: employed 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 Patient is a 38 year old assigned female at presenting to the emergency department with a week long intractable headache. Patient states she has had a headache for 7 days that has not gotten better and nothing is helping with it. Patient describes it as the worst headache she's ever had. Detailed physical exam and review of systems are deferred to the rn ante partum. Labs and imaging ordered. Patient placed back in the waiting room pending room availability and results. Patient seen and evaluated and discharged by Dr. Saini. Please see his note from 05/04/2024. Medications Administered Discontinued Medications Generic Name Dose Route Start Last Admin Trade Name Lilibeth PRN Reason Stop Dose Admin Acetaminophen/Butalbital/Caffeine 1 tab 05/04/24 23:40 05/04/24 23:50 Butalb/Acetamin/Caff 50/325/40 Tablet PO 05/04/24 23:41 1 tab ONCE ONE Administration Dexamethasone Sodium Phosphate 10 mg 05/04/24 22:11 05/04/24 22:31 Dexamethasone Sod Phosphate 10 Mg/Ml Vial IVPUSH 05/04/24 22:12 10 mg ONCE ONE Administration Diphenhydramine HCl 25 mg 05/04/24 22:11 05/04/24 22:28 Diphenhydramine Hcl 50 Mg/Ml Vial IVPUSH 05/04/24 22:12 25 mg ONCE ONE Administration Sodium Chloride 1,000 mls @ 999 mls/hr 05/04/24 22:11 05/04/24 23:45 Ns IV 05/04/24 23:11 Infused .Q1H1M ONE Infusion Ketorolac Tromethamine 30 mg 05/04/24 22:11 05/04/24 22:26 Ketorolac Tromethamine 30 Mg/Ml Vial IVPUSH 05/04/24 22:12 30 mg ONCE ONE Administration Ondansetron HCl 4 mg 05/04/24 20:57 05/04/24 21:06 Ondansetron Odt 4 Mg Tab.Rapdis TRANSLINGU 05/04/24 20:58 4 mg ONCE ONE Administration Sumatriptan Succinate 6 mg 05/04/24 20:57 05/04/24 21:06 Sumatriptan Succinate 6 Mg/0.5 Ml Vial SUBCUT 05/04/24 20:58 6 mg ONCE ONE Administration Medical Decision Making Lab Data 05/04/24 12:09 05/04/24 12:09 Labs: Lab Results 07/01/24 Range/Units 12:09 WBC 6.3 (4.8-10.8) X10*3/uL RBC 4.56 (4.20-5.50) X10*6/uL Hgb 13.2 (12.0-16.0) g/dl Hct 39.3 (37.0-47.0) % MCV 86.2 (80.0-98.0) fL MCH 28.9 (27.0-33.0) pg MCHC 33.6 (31.0-35.0) g/dl RDW 12.4 (11.0-16.0) % Plt Count 170 (160-400) X10*3/uL MPV 11.3 (9.4-12.3) fL Immature Gran % (Auto) 0.3 (0.0-0.4) % Neut % (Auto) 59.9 (45-73) % Lymph % (Auto) 30.8 (20-40) % [place] % (Auto) 6.0 (2-11) % Eos % (Auto) 2.4 (0-4) % Baso % (Auto) 0.6 (0-2) % Lymph # (Auto) 2.0 (1.2-4.9) X10*3/uL [place] # (Auto) 0.4 (0.1-1.2) X10*3/uL Eos # (Auto) 0.2 (0.0-0.4) X10*3/uL Baso # (Auto) 0.0 (0.0-0.2) X10*3/uL Abs Immat Gran (auto) 0.02 (0.00-0.03) X10*3/uL Absolute Neuts (auto) 3.8 (2.0-8.3) x10*3/uL Absolute Nucleated RBC 0.000 (0.0-0.012) X10*3/uL Nucleated RBC % (auto) 0.0 (0.0-0.2) /100WBC Sodium 138 (135-145) mmol/L Potassium 4.3 D (3.3-5.1) mmol/L Chloride 106 (96-108) mmol/L Carbon Dioxide 25 (22-29) mmol/L Anion Gap 11 L (12-20) BUN 11 (9-16) mg/dL Creatinine 0.84 (0.5-1.4) mg/dL Estim Creat Clear Calc 103.2 Estimated GFR > 60 Random Glucose 116 H (60-115) mg/dL Calcium 9.3 (8.4-10.2) mg/dL Magnesium 2.1 (1.6-2.6) mg/dL Total Bilirubin 0.8 (0.0-1.0) mg/dL AST 13 (5-31) U/L ALT 13 (0-31) U/L Alkaline Phosphatase 74 (39-117) U/L Total Protein 6.8 (6.5-8.0) g/dL Albumin 4.3 (3.5-5.0) g/dL Beta HCG, Quant < 2 mIU/mL Influenza Type A (PCR) NEGATIVE (Negative) Influenza Type B (PCR) NEGATIVE (Negative) RSV RNA Qual (PCR) NEGATIVE (Negative) SARS-CoV-2 RNA (RT-PCR) NEGATIVE (Negative) Discharge Plan Discharge Clinical Impression: Migraine Patient Disposition: Home, Self-Care Instructions: Migraine Headache (ED) Additional Instructions: Drink plenty of fluids Medication as advised Prescriptions: New sumatriptan succinate [Imitrex] 50 mg tablet 50 mg PO Q2H PRN (Reason: migraine headache) Qty: 10 0RF Rx Instructions: do not exceed 2 doses per 24 hrs [id number]-[id number]-kamt 50-325-40 mg tablet 1 tab PO Q6H PRN (Reason: haeadace) Qty: 20 0RF ondansetron 4 mg tablet,disintegrating 4 mg PO Q6-8H PRN (Reason: nausea and vomiting) Qty: 7 0RF No Action meclizine 25 mg tablet 25 mg PO DAILY PRN (Reason: dizziness) Qty: 90 1RF montelukast 10 mg tablet 10 mg PO DAILY 90 Days Qty: 90 2RF venlafaxine 150 mg capsule,extended release 24hr 150 mg PO DAILY 90 Days Qty: 90 1RF buspirone 5 mg tablet 5 mg PO TID 90 Days Qty: 270 0RF cetirizine 5 mg Tablet 5 mg acetaminophen [Tylophen] 500 mg capsule 500 mg PO Q6H PRN (Reason: fever) Qty: 14 0RF multivitamin [Daily Multi-Vitamin] Tablet 1 tab PO DAILY coenzyme Q10 [Co Q-10] 10 mg capsule 20 mg PO ONCE Lactobacillus acidophilus [Probiotic] PO DAILY CBD buccal epinephrine [EpiPen] 0.3 mg/0.3 mL auto-injector 0.3 mg IM Q10M PRN (Reason: anaphylaxis) 90 Days Qty: 1 0RF spironolactone 25 mg tablet 25 mg PO BID 90 Days Qty: 180 1RF Stand Alone Forms: Work/School Release Interventions: ED Discharge Assessment Last Done: 05/04/24 23:55 Discharge Date/Time: 05/04/24 23:57 Print Language: Lithuanian
[2024-05-04 12:13] LABS: MANUAL DIFF FLAG NO
[2024-05-04 12:16] LABS: Basophils Percent Auto 0.6 % (0-2); Eosinophils Absolute Auto 0.2 X10*3/uL (0.0-0.4); Eosinophils Percent Auto 2.4 % (0-4); Hematocrit 39.3 % (37.0-47.0); Hemoglobin 13.2 g/dl (12.0-16.0); Imm Gran Abs Auto 0.02 X10*3/uL (0.00-0.03); Imm Gran Pct Auto 0.3 % (0.0-0.4); Lymphocytes Percent Auto 30.8 % (20-40); Mean Corpuscular HGB Conc 33.6 g/dl (31.0-35.0); Mean Corpuscular Hemoglobin 28.9 pg (27.0-33.0); Mean Corpuscular Volume 86.2 fL (80.0-98.0); Mean Platelet Volume 11.3 fL (9.4-12.3); Monocytes Absolute Auto 0.4 X10*3/uL (0.1-1.2); Neutrophils Absolute Auto 3.8 x10*3/uL (2.0-8.3); Neutrophils Percent Auto 59.9 % (45-73); Platelet Count 170 X10*3/uL (160-400); Red Blood Count 4.56 X10*6/uL (4.20-5.50); Red Cell Distribution Width 12.4 % (11.0-16.0); White Blood Count 6.3 X10*3/uL (4.8-10.8)
[2024-05-04 12:37] LABS: Alanine Aminotransferase 13 U/L (0-31); Albumin Level 4.3 g/dL (3.5-5.0); Alkaline Phosphatase 74 U/L (39-117); Anion Gap 11 (12-20); Aspartate Amino Transferase 13 U/L (5-31); Bilirubin Total 0.8 mg/dL (0.0-1.0); Blood Urea Nitrogen 11 mg/dL (9-16); Calcium 9.3 mg/dL (8.4-10.2); Carbon Dioxide 25 mmol/L (22-29); Chloride 106 mmol/L (96-108); Creatinine Clr Calc Pharmacy 103.2; Estimated Glomerular Filt Rate > 60; Glucose Random 116 mg/dL (60-115); HCG Quantitative < 2 mIU/mL; Magnesium 2.1 mg/dL (1.6-2.6); Potassium 4.3 mmol/L (3.3-5.1); Sodium 138 mmol/L (135-145); Total Protein 6.8 g/dL (6.5-8.0)
[2024-05-04 13:27] LABS: Influenza A PCR NEGATIVE (Negative); Influenza B PCR NEGATIVE (Negative); Resp Syncy Virus RNA Qual PCR NEGATIVE (Negative); SARS COV2 PCR INHOUSE NEGATIVE (Negative)
[2024-05-04 17:02] VITALS: BP 158/100; PULSE 89; RESP 16; TEMP 37; O2SAT 100
[2024-05-04 20:27] VITALS: BP 164/109; PULSE 81; RESP 16; TEMP 36.6; O2SAT 100
--- NOTE | 2024-05-04 20:58 | ED.HA ---
HPI - Headache General Chief Complaint: Headache Stated Complaint: migraine Time Seen by Provider: 05/04/24 20:36 Source: patient Mode of arrival: ambulatory Limitations: no limitations History of Present Illness ED Provider: angely DAVIS Narrative: Patient with history of migraine headaches complaining of 1 week of left-sided headache with photosensitivity and nausea no fever no chills patient usually does get migraine chest time and she had migraine couple of years ago usually stable this time headache is not going away in spite of taking ibuprofen and Tylenol Related Data Home Medications ?Medication ?Instructions ?Recorded ?Confirmed cetirizine 5 mg tablet 5 mg 10/05/20 05/01/24 Lactobacillus acidophilus PO DAILY 11/07/21 05/01/24 [Probiotic] coenzyme Q10 10 mg capsule (Co 20 mg PO ONCE 11/07/21 05/01/24 Q-10) multivitamin (Daily Multi-Vitamin 1 tab PO DAILY 11/07/21 05/01/24 tablet) CBD buccal 01/18/23 05/01/24 Previous Rx's ?Medication ?Instructions ?Recorded acetaminophen 500 mg capsule 500 mg PO Q6H PRN fever #14 caps 03/05/22 (Tylophen) meclizine 25 mg tablet 25 mg PO DAILY PRN dizziness #90 07/10/23 tabs montelukast 10 mg tablet 10 mg PO DAILY 90 days #90 tabs 07/28/23 venlafaxine 150 mg 150 mg PO DAILY 90 days #90 caps 01/29/24 capsule,extended release 24 hr epinephrine 0.3 mg/0.3 mL 0.3 mg (0.3 mL) IM Q10M PRN 04/07/24 injection, auto-injector (EpiPen) anaphylaxis 90 days #1 ea buspirone 5 mg tablet 5 mg PO TID anxiety 90 days #270 04/17/24 tabs spironolactone 25 mg tablet 25 mg PO BID 90 days #180 tabs 05/01/24 ngfianufrm-ctrsbxsgougje-[id number] 1 tab PO Q6H PRN haeadace #20 tabs 05/04/24 50 mg-325 mg-40 mg tablet ondansetron 4 mg disintegrating 4 mg PO Q6-8H PRN nausea and 05/04/24 tablet vomiting #7 tabs sumatriptan succinate 50 mg tablet 50 mg PO Q2H PRN migraine headache 05/04/24 (Imitrex) #10 tabs Allergies Allergy/AdvReac Type Severity Reaction Status Date / Time banana Allergy Mild Anaphylaxis Verified 05/04/24 11:59 lisinopril Allergy Unknown unknown Verified 05/04/24 11:59 atenolol Allergy Dizziness Verified 05/04/24 11:59 avocado Allergy Stomach Verified 05/04/24 11:59 Upset codeine Allergy Vomiting Verified 05/04/24 11:59 fish derived Allergy Anaphylaxis Verified 05/04/24 11:59 kiwi Allergy Rash Verified 05/04/24 11:59 Latex, Natural Rubber Allergy Rash Verified 05/04/24 11:59 penicillin G Allergy Hallucinati Verified 05/04/24 11:59 ons shellfish derived Allergy Anaphylaxis Verified 05/04/24 11:59 Sulfa (Sulfonamide Allergy Unknown Verified 05/04/24 11:59 Antibiotics) tree and shrub pollen Allergy Watery Eye Verified 05/04/24 11:59 morphine AdvReac Nausea and Verified 05/04/24 11:59 Vomiting Review of Systems Review of Systems: Yes all other systems are reviewed and are negative PMFSH Past Medical History Medical History Morbid obesity due to excess calories Medullary sponge kidney SLAP (superior labrum from anterior to posterior) tear IBS (irritable bowel syndrome) Anxiety, generalized Hypertension, essential Vertigo Surgical History History of wisdom tooth extraction Family History Family History Father No problems noted. Mother No problems noted. Brother No problems noted. Sister No problems noted. Other Mental health disorder Substance use disorder Social History Social History Household Members: Spouse Housing: House Alcohol intake: current Alcohol intake frequency: does not drink Patient Tobacco Use Status: Never used Tobacco Smoked in Last 30 Days: No e-Cigarette/Vaping Use: Never Used Second Hand Smoke Exposure: No Use of substances other than those prescribed or required for medical reasons: No Advance Directives: No Advance Directives Information Provided: No Advance Directives Date on File: 12/02/20 Do you have a plan to hurt others: No Plan Patient : No service: No Current occupational status: employed 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 Oriented X3. No acute distress. Eyes: PERRLA, No Nystagmus ENT: Pharynx normal. Oral Mucosa moist nontender temporal artery Neck: Normal inspection. Neck supple. CVS: Normal heart rate and rhythm. Pulses normal. Respiratory: No respiratory distress. Equal air entry bilateral, no wheezing/rales/rhonchi Abdomen: Soft and nontender. Bowel sounds are present, Skin: Skin warm and dry. Normal skin color. Normal skin turgor. Extremities: No lower extremity edema. No calf tenderness Neuro: Oriented X 3. No motor deficit. No sensory deficit.No cerebellar signs , cranial nerves II-XII intact Medications Administered Discontinued Medications Generic Name Dose Route Start Last Admin Trade Name Lilibeth PRN Reason Stop Dose Admin Acetaminophen/Butalbital/Caffeine 1 tab 05/04/24 23:40 05/04/24 23:50 Butalb/Acetamin/Caff 50/325/40 Tablet PO 05/04/24 23:41 1 tab ONCE ONE Administration Dexamethasone Sodium Phosphate 10 mg 05/04/24 22:11 05/04/24 22:31 Dexamethasone Sod Phosphate 10 Mg/Ml Vial IVPUSH 05/04/24 22:12 10 mg ONCE ONE Administration Diphenhydramine HCl 25 mg 05/04/24 22:11 05/04/24 22:28 Diphenhydramine Hcl 50 Mg/Ml Vial IVPUSH 05/04/24 22:12 25 mg ONCE ONE Administration Sodium Chloride 1,000 mls @ 999 mls/hr 05/04/24 22:11 05/04/24 23:45 Ns IV 05/04/24 23:11 Infused .Q1H1M ONE Infusion Ketorolac Tromethamine 30 mg 05/04/24 22:11 05/04/24 22:26 Ketorolac Tromethamine 30 Mg/Ml Vial IVPUSH 05/04/24 22:12 30 mg ONCE ONE Administration Ondansetron HCl 4 mg 05/04/24 20:57 05/04/24 21:06 Ondansetron Odt 4 Mg Tab.Rapdis TRANSLINGU 05/04/24 20:58 4 mg ONCE ONE Administration Sumatriptan Succinate 6 mg 05/04/24 20:57 05/04/24 21:06 Sumatriptan Succinate 6 Mg/0.5 Ml Vial SUBCUT 05/04/24 20:58 6 mg ONCE ONE Administration Medical Decision Making Medical Decision Making [facility] Narrative: Patient clinically with a complex migraine did not respond to Imitrex responded to IV Benadryl and Toradol CT scan negative for acute will discharge patient home Differential Diagnosis Differential Diagnoses: The differential diagnosis associated with the presentation includes Complex migraine/tension headache/brain lesion Admission/Observation Consideration of admission/observation: Escalation of care including admission/observation considered Lab Data [facility] Lab Attestation statement: I reviewed the patient's lab results. 05/04/24 12:09 05/04/24 12:09 Labs: Lab Results 05/04/24 Range/Units 12:09 WBC 6.3 (4.8-10.8) X10*3/uL RBC 4.56 (4.20-5.50) X10*6/uL Hgb 13.2 (12.0-16.0) g/dl Hct 39.3 (37.0-47.0) % MCV 86.2 (80.0-98.0) fL MCH 28.9 (27.0-33.0) pg MCHC 33.6 (31.0-35.0) g/dl RDW 12.4 (11.0-16.0) % Plt Count 170 (160-400) X10*3/uL MPV 11.3 (9.4-12.3) fL Immature Gran % (Auto) 0.3 (0.0-0.4) % Neut % (Auto) 59.9 (45-73) % Lymph % (Auto) 30.8 (20-40) % [place] % (Auto) 6.0 (2-11) % Eos % (Auto) 2.4 (0-4) % Baso % (Auto) 0.6 (0-2) % Lymph # (Auto) 2.0 (1.2-4.9) X10*3/uL [place] # (Auto) 0.4 (0.1-1.2) X10*3/uL Eos # (Auto) 0.2 (0.0-0.4) X10*3/uL Baso # (Auto) 0.0 (0.0-0.2) X10*3/uL Abs Immat Gran (auto) 0.02 (0.00-0.03) X10*3/uL Absolute Neuts (auto) 3.8 (2.0-8.3) x10*3/uL Absolute Nucleated RBC 0.000 (0.0-0.012) X10*3/uL Nucleated RBC % (auto) 0.0 (0.0-0.2) /100WBC Sodium 138 (135-145) mmol/L Potassium 4.3 D (3.3-5.1) mmol/L Chloride 106 (96-108) mmol/L Carbon Dioxide 25 (22-29) mmol/L Anion Gap 11 L (12-20) BUN 11 (9-16) mg/dL Creatinine 0.84 (0.5-1.4) mg/dL Estim Creat Clear Calc 103.2 Estimated GFR > 60 Random Glucose 116 H (60-115) mg/dL Calcium 9.3 (8.4-10.2) mg/dL Magnesium 2.1 (1.6-2.6) mg/dL Total Bilirubin 0.8 (0.0-1.0) mg/dL AST 13 (5-31) U/L ALT 13 (0-31) U/L Alkaline Phosphatase 74 (39-117) U/L Total Protein 6.8 (6.5-8.0) g/dL Albumin 4.3 (3.5-5.0) g/dL Beta HCG, Quant < 2 mIU/mL Influenza Type A (PCR) NEGATIVE (Negative) Influenza Type B (PCR) NEGATIVE (Negative) RSV RNA Qual (PCR) NEGATIVE (Negative) SARS-CoV-2 RNA (RT-PCR) NEGATIVE (Negative) Independent Interpretation I performed an independent interpretation of an: CT Scan Radiology Impression Discussion of test interpretation with radiology: I have reviewed the radiologist's reading. Discharge Plan Discharge Clinical Impression: Migraine Qualifiers: Migraine type: unspecified Status migrainosus presence: without status migrainosus Intractability: intractable Qualified Code(s): G43.919 - Migraine, unspecified, intractable, without status migrainosus Patient Disposition: Home, Self-Care Instructions: Migraine Headache (ED) Additional Instructions: Drink plenty of fluids Medication as advised Prescriptions: New sumatriptan succinate [Imitrex] 50 mg tablet 50 mg PO Q2H PRN (Reason: migraine headache) Qty: 10 0RF Rx Instructions: do not exceed 2 doses per 24 hrs gmbdsjfjjd-tknfftjmglzuu-oiik 50-325-40 mg tablet 1 tab PO Q6H PRN (Reason: haeadace) Qty: 20 0RF ondansetron 4 mg tablet,disintegrating 4 mg PO Q6-8H PRN (Reason: nausea and vomiting) Qty: 7 0RF No Action meclizine 25 mg tablet 25 mg PO DAILY PRN (Reason: dizziness) Qty: 90 1RF montelukast 10 mg tablet 10 mg PO DAILY 90 Days Qty: 90 2RF venlafaxine 150 mg capsule,extended release 24hr 150 mg PO DAILY 90 Days Qty: 90 1RF buspirone 5 mg tablet 5 mg PO TID 90 Days Qty: 270 0RF cetirizine 5 mg Tablet 5 mg acetaminophen [Tylophen] 500 mg capsule 500 mg PO Q6H PRN (Reason: fever) Qty: 14 0RF multivitamin [Daily Multi-Vitamin] Tablet 1 tab PO DAILY coenzyme Q10 [Co Q-10] 10 mg capsule 20 mg PO ONCE Lactobacillus acidophilus [Probiotic] PO DAILY CBD buccal epinephrine [EpiPen] 0.3 mg/0.3 mL auto-injector 0.3 mg IM Q10M PRN (Reason: anaphylaxis) 90 Days Qty: 1 0RF spironolactone 25 mg tablet 25 mg PO BID 90 Days Qty: 180 1RF Stand Alone Forms: Work/School Release Interventions: ED Discharge Assessment Last Done: 05/04/24 23:55 Discharge Date/Time: 05/04/24 23:57 Print Language: Luxembourgish
[2024-05-04] MEDS: SUMAtriptan succinate 6 MG/0.5 ML VIAL SUBCUT (21:06)
[2024-05-04] MEDS: Ondansetron ODT 4 MG TAB.RAPDIS TRANSLINGU (21:06)
[2024-05-04] MEDS: Ketorolac Tromethamine 30 MG/ML VIAL IVPUSH (22:26)
[2024-05-04] MEDS: diphenhydrAMINE HCL 50 MG/ML VIAL 25 MG IVPUSH (22:28)
[2024-05-04] MEDS: 0.9 % Sodium Chloride 1,000 ML 999 ML IV (22:31)
[2024-05-04] MEDS: dexAMETHasone sod phosphate 10 MG/ML VIAL IVPUSH (22:31)
[2024-05-04 22:52] VITALS: BP 171/105; PULSE 74; RESP 16; TEMP 36.9; O2SAT 100
[2024-05-04] MEDS: Butalb/Acetamin/Caff 50/325/40 TABLET 1 TAB PO (23:50)
[2024-05-04 23:55] VITALS: BP 164/98; PULSE 70; RESP 16; TEMP 36.8; O2SAT 100
== END 2024-05-04 23:57 | disposition home or self-care (01) ==
PROVIDERS: Physician Assistant Medical; Emergency Provider Internal Medicine; PCP Internal Medicine
DX: G43.919 Migraine, unspecified, intractable, without status migrainosus (principal); R11.2 Nausea with vomiting, unspecified; R10.2 Pelvic and perineal pain; L56.8 Other specified acute skin changes due to ultraviolet radiation; Z03.818 Encounter for observation for suspected exposure to other biological agents ruled out; Z79.899 Other long term (current) drug therapy
CPT/HCPCS: 0241U; 70450; 80053; 83735; 84702; 85025; 96361; 96372; 96374; 96375; 99284; 99285; J1100; J1200; J1885; J3030

== ENCOUNTER 2024-05-08 14:41 | Outpatient (AMB) | payer OTHER, SELFPAY ==
--- NOTE | 2024-05-08 14:43 | MHC.PC.OV ---
Vital Signs 05/08/24 14:44 Height 5 ft 2 in Weight 234 lb BMI 42.8 BP 128/80 Blood Pressure Location Rt brachial Position Sitting Pulse 97 Pulse Source Pulse Oximeter Pulse Oximetry (%) 97 Oxygen Delivery Method Room Air Intake Visit Reasons: Migraine Allergies banana Allergy (Mild, Verified 05/08/24 14:44) Anaphylaxis lisinopril Allergy (Unknown, Verified 05/08/24 14:44) unknown atenolol Allergy (Verified 05/08/24 14:44) Dizziness avocado Allergy (Verified 05/08/24 14:44) Stomach Upset codeine Allergy (Verified 05/08/24 14:44) Vomiting fish derived Allergy (Verified 05/08/24 14:44) Anaphylaxis kiwi Allergy (Verified 05/08/24 14:44) Rash Latex, Natural Rubber Allergy (Verified 05/08/24 14:44) Rash penicillin G Allergy (Verified 05/08/24 14:44) Hallucinations shellfish derived Allergy (Verified 05/08/24 14:44) Anaphylaxis Sulfa (Sulfonamide Antibiotics) Allergy (Verified 05/08/24 14:44) Unknown tree and shrub pollen Allergy (Verified 05/08/24 14:44) Watery Eye morphine Adverse Reaction (Verified 05/08/24 14:44) Nausea and Vomiting Medication List - Last Reconciled 05/08/24 by Xochitl Camargo MD acetaminophen (Tylophen) 500 mg PO Q6H PRN buspirone 5 mg PO TID 90 days bcioukehsr-cnothbehtggdv-hbrw 50-325-40 mg 1 tab PO Q6H PRN [CBD buccal] cetirizine 5 mg coenzyme Q10 (Co Q-10) 20 mg PO ONCE epinephrine (EpiPen) 0.3 mg (0.3 mL) IM Q10M PRN 90 days Lactobacillus acidophilus (Probiotic) PO DAILY meclizine 25 mg PO DAILY PRN montelukast 10 mg PO DAILY 90 days multivitamin (Daily Multi-Vitamin tablet) 1 tab PO DAILY ondansetron 4 mg PO Q6-8H PRN spironolactone 25 mg PO BID 90 days sumatriptan succinate (Imitrex) 50 mg PO Q2H PRN venlafaxine ER 150 mg PO DAILY 90 days Tobacco use date assessed: 04/16/24 Dental Screening Dental Screen Date: 04/16/24 HPI Migraine HPI Details Patient is a 38-year-old female with a history of migraine But was doing well for years until recently she started having headaches again She was seen in our walk-in clinic when she presented with severe headache Patient was in emergency room to rule out subarachnoid hemorrhage CT scan of head done which was within normal limit In emergency room patient was given script for Imitrex and Fioricet Patient says that both medication taken together does help but does not relieve the headache She is taking Fioricet 2 times a day she was given 20 tablets I have sent more Imitrex for the patient Years ago she used to take amitriptyline at night as a prevention I have sent 25 mg tablets, patient is to start with half a tablet and then full tablet. Referral placed to Neurology She does not have any neurological deficit Light is bothering but not do much anymore, no nausea We talked about certain foods as triggers, patient is to keep a food diary for that Also to keep herself hydrated and stay away from heat. [facility] Medical History Morbid obesity due to excess calories Medullary sponge kidney SLAP (superior labrum from anterior to posterior) tear IBS (irritable bowel syndrome) Anxiety, generalized Hypertension, essential Vertigo Surgical History History of wisdom tooth extraction Family History Father No problems noted. Mother No problems noted. Brother No problems noted. Sister No problems noted. 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 Dev Wylie, Asia Max, Bernard Cornelius and colleagues, with an educational angela from [employer]. Review of Systems Const Denies chills and Denies fever(s) ENT Denies epistaxis and Denies nasal discharge Card Denies chest pain Resp Denies chest congestion, Denies cough and Denies hemoptysis GI Denies diarrhea and Denies nausea Skin/Breast Denies rash Neuro Reports no additional complaints Psych Reports no additional complaints Endo Reports no additional complaints Physical exam (Primary Care) Vital Signs: Last Vital Signs Pulse 97 05/08/24 14:44 BP 128/80 05/08/24 14:44 Pulse Ox 97 05/08/24 14:44 Oxygen Delivery Method Room Air 05/08/24 14:44 BMI result Body Mass Index 42.8 Tobacco/Smoking Status: Tobacco use Status Tobacco use date assessed 04/16/24 05/08/24 14:43 Patient Tobacco Use Status Never used Tobacco 05/08/24 14:43 e-Cigarette/Vaping Use Never Used 05/08/24 14:43 Thrive Assessment: Date of Thrive Assessment Date Thrive assessed 04/07/24 05/08/24 14:43 Const General: cooperative, comfortable and no acute distress Orientation/consciousness: patient oriented x3 HENMT Head: Yes normocephalic Eyes General: appearance normal, both eyes and all related structures Neck Neck: Yes supple Resp Effort & Inspection: normal respiratory effort, no cough and no stridor Cardio Rhythm: regular rhythm Heart sounds: S1 normal heart sound present and S2 normal heart sound present Skin General skin exam: turgor normal Neuro General: patient oriented x3, tone normal and moves all extremities Extrem Right lower extremity: no edema Left lower extremity: no edema Assessment and Plan Assessment & Plan (1) Migraine: Code(s): G43.909 - Migraine, unspecified, not intractable, without status migrainosus Qualifiers: Intractability: intractable Migraine type: unspecified Status migrainosus presence: with status migrainosus Qualified Code(s): G43.911 - Migraine, unspecified, intractable, with status migrainosus Plan Patient is a 38-year-old female with a history of migraine But was doing well for years until recently she started having headaches again She was seen in our walk-in clinic when she presented with severe headache Patient was in emergency room to rule out subarachnoid hemorrhage CT scan of head done which was within normal limit In emergency room patient was given script for Imitrex and Fioricet Patient says that both medication taken together does help but does not relieve the headache She is taking Fioricet 2 times a day she was given 20 tablets I have sent more Imitrex for the patient Years ago she used to take amitriptyline at night as a prevention I have sent 25 mg tablets, patient is to start with half a tablet and then full tablet. Referral placed to Neurology She does not have any neurological deficit Light is bothering but not do much anymore, no nausea We talked about certain foods as triggers, patient is to keep a food diary for that Also to keep herself hydrated and stay away from heat. Orders: Referrals Neurology Referral G43.919 - Migraine, unspecified, intractable, without status migrainosus Medications: New amitriptyline 25 mg PO BEDTIME 30 tabs 0RF 30 days Changed From sumatriptan succinate (Imitrex) do not exceed 2 doses per 24 hrs 50 mg PO Q2H PRN 10 tabs 0RF migraine headache To sumatriptan succinate (Imitrex) 50 mg PO ONCE PRN 14 tabs 0RF migraine headache 30 days Coding Level of Care Code Est Pt Level 4 (59565) Diagnoses Intractable migraine with status migrainosus, unspecified migraine type G43.911 Intractability: intractable Migraine type: unspecified Status migrainosus presence: with status migrainosus
[2024-05-08 14:44] VITALS: BP 128/80; PULSE 97; O2SAT 97; BMI 42.8
== END 2024-05-08 15:38 | disposition home or self-care (01) ==
PROVIDERS: PCP Internal Medicine; Visit Provider Internal Medicine
DX: G43.911 Migraine, unspecified, intractable, with status migrainosus (principal)
CPT/HCPCS: 99214

== ENCOUNTER 2024-06-30 15:04 | Outpatient (AMB) | payer OTHER, SELFPAY ==
[2024-06-30 15:06] VITALS: BP 128/82; PULSE 93; O2SAT 97; BMI 43.4
--- NOTE | 2024-06-30 15:06 | MHC.PC.OV ---
Vital Signs 06/30/24 15:06 Height 5 ft 2 in Weight 237 lb 8 oz BMI 43.4 BP 128/82 Blood Pressure Location Rt brachial Position Sitting Pulse 93 Pulse Source Pulse Oximeter Pulse Oximetry (%) 97 Oxygen Delivery Method Room Air Intake Visit Reasons: Neck pain Allergies banana Allergy (Mild, Verified 06/30/24 15:06) Anaphylaxis lisinopril Allergy (Unknown, Verified 06/30/24 15:06) unknown atenolol Allergy (Verified 06/30/24 15:06) Dizziness avocado Allergy (Verified 06/30/24 15:06) Stomach Upset codeine Allergy (Verified 06/30/24 15:06) Vomiting fish derived Allergy (Verified 06/30/24 15:06) Anaphylaxis kiwi Allergy (Verified 06/30/24 15:06) Rash Latex, Natural Rubber Allergy (Verified 06/30/24 15:06) Rash penicillin G Allergy (Verified 06/30/24 15:06) Hallucinations shellfish derived Allergy (Verified 06/30/24 15:06) Anaphylaxis Sulfa (Sulfonamide Antibiotics) Allergy (Verified 06/30/24 15:06) Unknown tree and shrub pollen Allergy (Verified 06/30/24 15:06) Watery Eye morphine Adverse Reaction (Verified 06/30/24 15:06) Nausea and Vomiting Medication List - Last Reconciled 06/30/24 by Xochitl Camargo MD acetaminophen (Tylophen) 500 mg PO Q6H PRN buspirone 5 mg PO TID 90 days ylvzbmsinl-bubosezxkznsf-xsmn 50-325-40 mg 1 tab PO Q6H PRN [CBD buccal] cetirizine 5 mg coenzyme Q10 (Co Q-10) 20 mg PO ONCE epinephrine (EpiPen) 0.3 mg (0.3 mL) IM Q10M PRN 90 days Lactobacillus acidophilus (Probiotic) PO DAILY meclizine 25 mg PO DAILY PRN montelukast 10 mg PO DAILY 90 days multivitamin (Daily Multi-Vitamin tablet) 1 tab PO DAILY ondansetron 4 mg PO Q6-8H PRN spironolactone 25 mg PO BID 90 days sumatriptan succinate (Imitrex) 50 mg PO ONCE PRN 30 days venlafaxine ER 150 mg PO DAILY 90 days Tobacco use date assessed: 06/30/24 Dental Screening Dental Screen Date: 06/30/24 Did you have a dental visit in the last 12 months?: Yes Did you have a dental problem in the last 6 months where you did not have access to dental care?: No Was dental information given to patient?: Patient has dentist HPI Neck pain HPI Details Patient is a 38-year-old female came in today to be evaluated for acute neck pain Patient says that she was taking a shower the other day and she had to sneeze suddenly She felt sharp pain left side upper back neck area but it was not that bad But in the morning she woke up and she could not move her neck On examination she is tender over left trapezius muscle There is no radiation of pain to arms there is no paresthesia or weakness in hands I am treating her with muscle relaxer Note given to be off work for today and tomorrow [facility] Medical History Morbid obesity due to excess calories Medullary sponge kidney SLAP (superior labrum from anterior to posterior) tear IBS (irritable bowel syndrome) Anxiety, generalized Hypertension, essential Vertigo Surgical History History of wisdom tooth extraction Family History Father No problems noted. Mother No problems noted. Brother No problems noted. Sister No problems noted. 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 Cognitive needs: No Hearing needs: No Vision needs: Yes (contacts) Questionnaire Thrive Questionnaire Date Thrive assessed: 04/07/24 I am a: Patient What is your living situation today?: I have a steady place to live Within the past 12 months, did the food you bought not last and you didn't have the money to get more?: Never true Within the past 12 months, did you worry whether your food would run out before you got money to buy more?: Never true Do you have trouble paying for medicines?: No Do you have trouble getting transportation to medical appointments?: No Do you have trouble paying your heating and electricity bill?: No Do you have trouble taking care of your child, family member or friend?: No Do you have trouble with day-to-day activities such as bathing, preparing meals, shopping, managing finances, etc.?: No Are you currently unemployed and looking for a job?: No Are you interested in more education?: No Please select the resources that you would like help with: None Currently or been in a relationship where the following occur: No concerns reported THRIVE Score: 0 AUDIT C Alcohol Use Questionnaire (AUDIT-C) 1. How often do you have a drink containing alcohol?: Monthly or less 2. How many drinks containing alcohol do you have on a typical day when you are drinking?: 1 or 2 3. How often do you have six or more drinks on one occasion?: Never Total Score: 1 YELENA-7 AMB Questionnaire YELENA-7 Date YELENA - 7 assessed: 04/07/24 Feeling nervous, anxious, or on edge: 3 = Nearly every day Not being able to stop or control worryin = Nearly every day Worrying too much about different things: 3 = Nearly every day Trouble relaxin = Nearly every day Being so restless that it is hard to sit still: 3 = Nearly every day Becoming easily annoyed or irritable: 3 = Nearly every day Feeling afraid as if something awful might happen: 1 = Several days Total YELENA-7 score (0-4 normal; 5-9 mild; 10-14 moderate; 15-21 severe): 19 Source: Developed by Drs. Dev Wylie, Asia Max, Bernard Cornelius and colleagues, with an educational angela from [employer]. Review of Systems Const Denies chills and Denies fever(s) ENT Denies epistaxis and Denies nasal discharge Card Denies chest pain Resp Denies chest congestion, Denies cough and Denies hemoptysis GI Denies diarrhea and Denies nausea Skin/Breast Denies rash Neuro Reports no additional complaints Psych Reports no additional complaints Endo Reports no additional complaints Physical exam (Primary Care) Vital Signs: Last Vital Signs Pulse 93 06/30/24 15:06 BP 128/82 06/30/24 15:06 Pulse Ox 97 06/30/24 15:06 Oxygen Delivery Method Room Air 06/30/24 15:06 BMI result Body Mass Index 43.4 Tobacco/Smoking Status: Tobacco use Status Tobacco use date assessed 06/30/24 06/30/24 15:12 Patient Tobacco Use Status Never used Tobacco 06/30/24 15:12 e-Cigarette/Vaping Use Never Used 06/30/24 15:12 Thrive Assessment: Date of Thrive Assessment Date Thrive assessed 04/07/24 06/30/24 15:12 Currently or been in a relationship where the following occur: No concerns reported Const General: cooperative, comfortable and no acute distress Orientation/consciousness: patient oriented x3 HENMT Head: Yes normocephalic Eyes General: appearance normal, both eyes and all related structures Neck Neck images: 1. Tender to palpation with limited range of motion neck Resp Effort & Inspection: normal respiratory effort, no cough and no stridor Skin General skin exam: turgor normal Neuro General: patient oriented x3, tone normal and moves all extremities Extrem Right lower extremity: no edema Left lower extremity: no edema Assessment and Plan Assessment & Plan (1) Strain of left trapezius muscle: Code(s): S46.812A - Strain of other muscles, fascia and tendons at shoulder and upper arm level, left arm, initial encounter Qualifiers: Encounter type: initial encounter Qualified Code(s): S46.812A - Strain of other muscles, fascia and tendons at shoulder and upper arm level, left arm, initial encounter Plan Patient is a 38-year-old female came in today to be evaluated for acute neck pain Patient says that she was taking a shower the other day and she had to sneeze suddenly She felt sharp pain left side upper back neck area but it was not that bad But in the morning she woke up and she could not move her neck On examination she is tender over left trapezius muscle There is no radiation of pain to arms there is no paresthesia or weakness in hands I am treating her with muscle relaxer Note given to be off work for today and tomorro Medications: New baclofen 10 mg PO BEDTIME 14 tabs 0RF Muscle spasm Coding Level of Care Code Est Pt Level 3 (04460) Diagnoses Strain of left trapezius muscle, initial encounter S46.210G Encounter type: initial encounter
== END 2024-06-30 15:25 | disposition home or self-care (01) ==
PROVIDERS: PCP Internal Medicine; Visit Provider Internal Medicine
DX: S46.812A Strain of other muscles, fascia and tendons at shoulder and upper arm level, left arm, initial encounter (principal)
CPT/HCPCS: 99213

== ENCOUNTER 2024-08-20 09:28 | Outpatient (AMB) | payer OTHER, SELFPAY ==
--- NOTE | 2024-08-20 09:32 | A.OFFVIS_ITS ---
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 States it has been happening for about 2 years. Diagnosed with Lyme Disease and thought that was the reason for the swelling. States she has discoloration of her legs. Accompanied by: Self / Same As Patient Allergies banana Allergy (Mild, Verified 08/20/24 09:35) Anaphylaxis lisinopril Allergy (Unknown, Verified 08/20/24 09:35) unknown atenolol Allergy (Verified 08/20/24 09:35) Dizziness avocado Allergy (Verified 08/20/24 09:35) Stomach Upset codeine Allergy (Verified 08/20/24 09:35) Vomiting fish derived Allergy (Verified 08/20/24 09:35) Anaphylaxis kiwi Allergy (Verified 08/20/24 09:35) Rash Latex, Natural Rubber Allergy (Verified 08/20/24 09:35) Rash penicillin G Allergy (Verified 08/20/24 09:35) Hallucinations shellfish derived Allergy (Verified 08/20/24 09:35) Anaphylaxis Sulfa (Sulfonamide Antibiotics) Allergy (Verified 08/20/24 09:35) Unknown tree and shrub pollen Allergy (Verified 08/20/24 09:35) Watery Eye morphine Adverse Reaction (Verified 08/20/24 09:35) Nausea and Vomiting HPI HPI 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 She has been having intermittent swelling as well as pain and discomfort and discoloration. She states she was diagnosed with Lyme disease 2 years ago and that is when extremity swelling started; she states that the swelling has persisted however. She also has a history of fibromyalgia, which may be contributing to some of the pain as well. 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 She denies any recent animal bites. She denies any recent travel. There is no hx of DVT. She is a nonsmoker and does not have diabetes. There is a significant family history on the maternal side with varicose vein issues, including phlebectomies and other procedures. She was trialed on Amlodipine for blood pressure and the swelling worsened, so her PCP discontinued it. She states the discoloration has been most recent. She states the pain is worse when her legs are most swollen. She is active, using the treadmill most nights and riding horses. [facility] Medical History Morbid obesity due to excess calories Medullary sponge kidney SLAP (superior labrum from anterior to posterior) tear IBS (irritable bowel syndrome) Anxiety, generalized Hypertension, essential Vertigo Surgical History History of wisdom tooth extraction Family History Father No problems noted. Mother No problems noted. Brother No problems noted. Sister No problems noted. Other Mental health disorder Substance use disorder Social History Household Members: Spouse Housing: House Alcohol intake: current Alcohol intake frequency: does not drink Patient Tobacco Use Status: Never used Tobacco e-Cigarette/Vaping Use: Never Used Second Hand Smoke Exposure: No Advance Directives Date on File: 10/05/20 service: No Current occupational status: employed Current occupation: [employer]. rt hand Cognitive needs: No Hearing needs: No Vision needs: Yes (contacts) Review of Systems Const Reports as per HPI and Denies weakness ENT Reports Normal hearing present and Denies dizziness Card Reports as per HPI, Denies chest pain, Denies chest pain at rest, Denies chest pain with activity, Denies dyspnea and Denies dyspnea on exertion Resp Reports as per HPI, Denies cough, Denies dyspnea and Denies dyspnea on exertion GI Reports as per HPI, Denies abdominal pain, Denies nausea and Denies vomiting Musc Denies numbness Skin/Breast Reports as per HPI, Denies erythema and Denies wounds Neuro Reports Normal hearing present, Denies dizziness, Denies numbness, Denies Sensory deficit (Neuro) and Denies weakness Psych Reports no additional complaints Endo Reports no additional complaints Physical Exam Const General: healthy appearing and no acute distress Orientation/consciousness: patient oriented x3 HEENT Head: Yes normal to inspection Ears: hearing grossly normal bilaterally Mouth: Normal oral and palatal mucosa present Resp Effort & Inspection: normal respiratory effort and able to speak in complete sentences Auscultation: clear to auscultation bilaterally Cardio Jugular venous distension: no JVD Rate: regular rate Rhythm: regular rhythm Heart sounds: S1 normal heart sound present and S2 normal heart sound present Bruits: no abdominal aortic bruits, no carotid bruits, no femoral bruits and no renal bruits Peripheral pulses: Peripheral pulses 2+ throughout GI Inspection: Yes normal to inspection Palpation (GI): No Abdominal aortic bruit present Skin Other: Bilateral lower extremity nonpitting edema. Slight darker discoloration bilaterally in the ankle area. Positive palpable DP and PT pulses. Several telangiectasias noted around the knee area posteriorly, not tender to palpation CEAP C: 3 edema E: primary etiology A: superficial veins P: reflux General skin exam: no rashes or lesions noted Wounds: no wounds Hair: normal Neuro General: patient oriented x3 Cranial nerves: Yes Normal hearing present Cognition (Neuro): normal cognition Gait exam (Neuro): Normal gait present Motor exam (neuro): 5/5 motor strength present throughout Sensory Exam: No Sensory deficit (Neuro) Extrem General: Yes normal to inspection, Yes full ROM, Yes capillary refill normal and Yes normal gait Assessment & Plan Assessment & Plan (1) Varicose veins of both lower extremities with inflammation: Code(s): I83.11 - Varicose veins of right lower extremity with inflammation; I83.12 - Varicose veins of left lower extremity with inflammation Category: Medical Plan: Sary presents today with an approximate 2 year history total of bilateral lower extremity swelling. She does have discomfort when the swelling is i ncreased. She has been using conservative measures with continued swelling. She states the compression stockings help when she is at work with the swelling but she does note that the swelling continues. In short, the patient has evidence of venous insufficiency, due to the length of time if symptoms and trials of conservative management. We also discussed the possibility of a lymphedema; I discussed with her that we will r/o venous insufficiency first with the US. I have discussed the pathophysiology with the patient. In addition I have provided informational material regarding venous disease to the patient. We have discussed continuing conservative measures including compression, elevation, and exercise. I have taken the liberty of ordering venous insufficiency testing with the patient. They will follow up with me after testing. The patient had an opportunity to ask questions regarding the treatment plan. All questions were answered. No major barriers to understanding were identified. The patient expressed understanding and agreement with the above treatment plan. The patient is aware they should contact our office by phone for worsening of the current condition or the appearance of new symptoms. Thank you for allowing me to participate in the vascular care of this patient. If you have any questions or concerns regarding the treatment for the above condition please do not hesitate to contact me. The office telephone contact is [phone]. This note is constructed using voice recognition software. While every effort has been made to ensure accuracy, air director errors may have been included. Thank you for allowing me to participate in the care of your patient. Yours sincerely, ARNOLDO Boo Orders: Orders US venous duplex LE BI 1 Week I83.11 - Varicose veins of right lower extremity with inflammation, I83.12 - Varicose veins of left lower extremity with inflammation Coding Level of Care Code New Pt New Pt Level 4 (67076) Patient Type New Diagnoses Varicose veins of both lower extremities with inflammation I83.11; I83.12
== END 2024-08-20 09:52 | disposition home or self-care (01) ==
PROVIDERS: PCP Internal Medicine; Visit Provider Physician Assistant Surgical
DX: I83.11 Varicose veins of right lower extremity with inflammation (principal); I83.12 Varicose veins of left lower extremity with inflammation
CPT/HCPCS: 99204

== ENCOUNTER → 2024-08-20 09:28 | Outpatient (BNVA) | payer OTHER, SELFPAY | PROVIDERS: PCP Internal Medicine; Visit Provider Physician Assistant Surgical ==

== ENCOUNTER 2024-10-09 15:18 | Outpatient (AMB) | payer OTHER, SELFPAY ==
--- NOTE | 2024-10-09 15:31 | A.OFFPC_ITS ---
Vital Signs 10/09/24 15:33 Height 5 ft 2 in Weight 239 lb BMI 43.7 BP 132/92 H Blood Pressure Location Lt brachial Position Sitting Pulse 99 Pulse Source Pulse Oximeter Pulse Oximetry (%) 97 Oxygen Delivery Method Room Air Intake Visit Reasons: Annual PE Allergies banana Allergy (Mild, Verified 10/09/24 15:31) Anaphylaxis lisinopril Allergy (Unknown, Verified 10/09/24 15:31) unknown atenolol Allergy (Verified 10/09/24 15:31) Dizziness avocado Allergy (Verified 10/09/24 15:31) Stomach Upset codeine Allergy (Verified 10/09/24 15:31) Vomiting fish derived Allergy (Verified 10/09/24 15:31) Anaphylaxis kiwi Allergy (Verified 10/09/24 15:31) Rash Latex, Natural Rubber Allergy (Verified 10/09/24 15:31) Rash penicillin G Allergy (Verified 10/09/24 15:31) Hallucinations shellfish derived Allergy (Verified 10/09/24 15:31) Anaphylaxis Sulfa (Sulfonamide Antibiotics) Allergy (Verified 10/09/24 15:31) Unknown tree and shrub pollen Allergy (Verified 10/09/24 15:31) Watery Eye morphine Adverse Reaction (Verified 10/09/24 15:31) Nausea and Vomiting Medication List - Last Reconciled 10/09/24 by Xochitl Camargo MD acetaminophen (Tylophen) 500 mg PO Q6H PRN buspirone 5 mg PO TID 90 days pydelrbsjh-umtjkqiburkzs-uuge 50-325-40 mg 1 tab PO Q6H PRN cetirizine 5 mg coenzyme Q10 (Co Q-10) 20 mg PO ONCE epinephrine (EpiPen) 0.3 mg (0.3 mL) IM Q10M PRN 90 days Lactobacillus acidophilus (Probiotic) PO DAILY meclizine 25 mg PO DAILY PRN montelukast 10 mg PO DAILY 90 days multivitamin (Daily Multi-Vitamin tablet) 1 tab PO DAILY spironolactone 25 mg PO BID 90 days sumatriptan succinate (Imitrex) 50 mg PO ONCE PRN 30 days venlafaxine ER 150 mg PO DAILY 90 days Tobacco use date assessed: 10/09/24 Dental Screening Dental Screen Date: 10/09/24 Did you have a dental visit in the last 12 months?: No Did you have a dental problem in the last 6 months where you did not have access to dental care?: No Was dental information given to patient?: Patient has dentist HPI Annual PE HPI Details Physical exam appointment Assessment and Plan 38-year-old female with a history of hyp ertension and anxiety presenting with a persistent cough and elevated blood pressure. The patient reports a three-week history of upper respiratory symptoms, primarily manifesting as postnasal drip and nocturnal coughing, which has shown slight improvement during daytime. The patient has noticed elevated blood pressure readings correlated with her sick state and noted the use of wapi-idf-zfdjuwj medications, which may be contributing factors. The patient also reports chronic nerve pain in her left foot, anxiety treatment management, and ongoing migraine headaches controlled by current medications. 1. Migraine Headaches Managed with sumatriptan as needed, verapamil for preventive control. No recent changes in frequency or severity reported. Current management appears effective. Treatment through Dr. Kobe Camargo neurology 2. Anxiety Disorder Managed with buspirone and venlafaxine. Encouraged continued engagement with current therapy regimen and monitoring for any changes in anxiety levels, especially related to her current health concerns. 3. Allergic Rhinitis The patient has been managing symptoms with cetirizine for allergies. Continued postnasal drip and nocturnal cough suggest ongoing rhinitis that may benefit from a review of allergy management strategies. Discussed the importance of monitoring symptoms and advised continuation of cetirizine. 4. Peripheral Neuropathy Chronic nerve pain in left foot managed with gabapentin, taken as 600 mg nightly. The medication appeared effective with the patient reporting reduced pain at night. No additional intervention needed currently but will monitor for effectiveness and need for dosage adjustments. Managed by nylon machine operator Karla cristina 6. Hypertension Patient reports elevated blood pressure since onset of current illness, possibly due to medication such as Sudafed. Regular antihypertensive medication includes spironolactone, with verapamil prescribed by a neurologist, though the precise dose was clarified as 40 mg twice daily. Advised the patient to continue monitoring blood pressure at home and review after resolution of the acute illness. Diagnostic results - Labs (May results): - CBC: Normal - Metabolic Profile: Normal electrolytes , kidney functions form - Liver function: Normal enzymes - Lipid Profile: LDL 89 - TSH: Normal [place] [facility] - Neurologist: Dr. Solomon - Director Of Web Marketing: Krala Cristina - OBGYN: Based at [facility] [place], standing order for mammogram - Counselor (not a psychiatrist) Psychiatric medications and blood pressure medication through PCP office Only along with montelukast for allergies Patient Instructions - Continue current allergy and hypertens ion medications. - Monitor blood pressure regularly and r eport any significant changes. - Follow up with a lab test tomorrow, en suring a fasting state. - Pursue dermatological consultation for skin changes on the face. - Book a yearly dermatology check-up due to fair skin. - Return for scheduled follow-up in four months or sooner if symptoms worsen. - Maintain counseling for anxiety and re port any changes in symptoms. - Annual checks with specialists involve d in ongoing care. Follow-up 4 months physical exam 1 year Referral placed to Dermatology for skin cancer screening [facility] Medical History (Updated 10/09/24 @ 16:02 by Xochitl Camargo MD) Hypertension, essential Morbid obesity due to excess calories Medullary sponge kidney SLAP (superior labrum from anterior to posterior) tear IBS (irritable bowel syndrome) Anxiety, generalized Vertigo Surgical History History of wisdom tooth extraction Family History Father No problems noted. Mother No problems noted. Brother No problems noted. Sister No problems noted. 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 1. Little interest or pleasure in doing things: several days 2. Feeling down, depressed, or hopeless: several days 3. Trouble falling or staying asleep, or sleeping too much: nearly every day 4. Feeling tired or having little energy: more than half the days 5. Poor appetite or overeating: more than half the days 6. Feeling bad about yourself - or that you are a failure or have let yourself or your family down: several days 7. Trouble concentrating on things, such as reading the newspaper or watching television: several days 8. Moving or speaking so slowly that other people could have noticed. Or the opposite - being so fidgety or restless that you have been moving around a lot more than usual: several days 9. Thoughts that you would be better off or of hurting yourself in some way: not at all Total score: 12 Depression Screening Interpretation: Positive Depression Screening Follow-up: Existing condition and In treatment Depression Screening Done: Yes 03026 - PHQ-9 Billing: Yes Source: Developed by Drs. Dev Wylie, Asia Max, Bernard Cornelius and colleagues, with an educational angela from [employer]. Thrive Questionnaire Date Thrive assessed: 06/30/24 I am a: Patient What is your living situation today?: I have a steady place to live Within the past 12 months, did the food you bought not last and you didn't have the money to get more?: Never true Within the past 12 months, did you worry whether your food would run out before you got money to buy more?: Never true Do you have trouble paying for medicines?: No Do you have trouble getting transportation to medical appointments?: No Do you have trouble paying your heating and electricity bill?: No Do you have trouble taking care of your child, family member or friend?: No Do you have trouble with day-to-day activities such as bathing, preparing meals, shopping, managing finances, etc.?: No Are you currently unemployed and looking for a job?: No Are you interested in more education?: No Please select the resources that you would like help with: None Currently or been in a relationship where the following occur: No concerns reported THRIVE Score: 0 YELENA-7 AMB Questionnaire YELENA-7 Date YELENA - 7 assessed: 04/07/24 Source: Developed by Drs. Dev Wylie, Asia Max, Bernard Cornelius and colleagues, with an educational angela from [employer]. Review of Systems Const Denies chills, Denies fever(s) and Denies headache(s) Eyes Denies blurry vision ENT Denies headache(s), Denies nasal obstruction and Denies odynophagia Card Denies chest pain at rest and Denies chest pain with activity Resp Denies hemoptysis GI Denies diarrhea, Denies odynophagia, Denies vomiting and Denies hematemesis Reports as per HPI Musc Denies abnormal gait Skin/Breast Reports as per HPI Neuro Denies Neuro-related abnormal movements, Denies Abnormal speech present, Denies abnormal gait, Denies headache(s) and Denies Sensory deficit (Neuro) Psych Denies mood swings and Denies paranoia Endo Reports as per HPI Renaldo/Lymph Reports as per HPI Aller/Immun Reports as per HPI Physical exam (Primary Care) Vital Signs: Last Vital Signs Pulse 99 10/09/24 15:33 BP 132/92 H 10/09/24 15:33 Pulse Ox 97 10/09/24 15:33 Oxygen Delivery Method Room Air 10/09/24 15:33 BMI result Body Mass Index 43.7 Tobacco/Smoking Status: Tobacco use Status Tobacco use date assessed 10/09/24 10/09/24 15:35 Patient Tobacco Use Status Never used Tobacco 10/09/24 15:35 e-Cigarette/Vaping Use Never Used 10/09/24 15:35 Depression Screening Interpretation: Positive Depression Screening Follow-up: Existing condition and In treatment Thrive Assessment: Date of Thrive Assessment Date Thrive assessed 06/30/24 10/09/24 15:35 Currently or been in a relationship where the following occur: No concerns reported Const General: cooperative, comfortable and no acute distress Orientation/consciousness: patient oriented x3 HENMT Other: Ears slight inflammation without any infection Head: Yes normocephalic and Yes atraumatic Eyes General: appearance normal, both eyes and all related structures Pupils: Equal, round and reactive pupils present EOM: EOMs intact bilaterally Neck Neck: Yes supple and No lymphadenopathy Thyroid: Thyroid normal Lymphatic: no lymphadenopathy noted Resp Effort & Inspection: normal respiratory effort and able to speak in complete sentences Auscultation: clear to auscultation bilaterally Cardio Heart sounds: S1 normal heart sound present and S2 normal heart sound present GI Palpation (GI): Soft to palpation and nontender Auscultation: normal bowel sounds General: Yes no CVA tenderness Back/Spine/Pelvis Back: no CVA tenderness Skin General skin exam: elasticity normal and turgor normal Neuro General: patient oriented x3 and gait normal Cranial nerves: Yes Equal, round and reactive pupils present Speech: No Abnormal speech present Sensory Exam: No Sensory deficit (Neuro) Coordination: tandem gait normal and Romberg test negative Extrem General: Yes normal exam except as noted and No edema Coding Level of Care Code Est Pt Level 3 (46519) Est Pt Prev Care 18-39y(19751) Diagnoses Encounter for general adult medical examination with abnormal findings Z00.01 Generalized anxiety disorder with panic attacks F41.1; F41.0 Class 3 severe obesity due to excess calories with serious comorbidity and body mass index (BMI) of 40.0 to 44.9 in adult E66.813; E66.01; Z68.41 Obesity classification: adult class 3 (BMI >= 40) Serious obesity comorbidity presence: with serious comorbidity Body mass index: BMI 40.0-44.9 Environmental allergies Z91.09 Hypertension, essential I10 Migraine without aura and without status migrainosus, not intractable G43.009 Status migrainosus presence: without status migrainosus Intractability: not intractable 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 Laterality: left Skin cancer screening Z12.83 Additional Codes PHQ-9 - 35854 - PHQ-9 Billing: Yes ([id number]) Assessment & Plan Assessment & Plan (1) Encounter for general adult medical examination with abnormal findings: Code(s): Z00.01 - Encounter for general adult medical examination with abnormal findings Category: Medical (2) Generalized anxiety disorder with panic attacks: Code(s): F41.1 - Generalized anxiety disorder; F41.0 - Panic disorder [episodic paroxysmal anxiety] Category: Medical (3) Obesity due to excess calories: Code(s): E66.09 - Other obesity due to excess calories Category: Medical Qualifiers: Obesity classification: adult class 3 (BMI >= 40) Serious obesity comorbidity presence: with serious comorbidity Body mass index: BMI 40.0-44.9 Qualified Code(s): E66.813 - Obesity, class 3; E66.01 - Morbid (severe) obesity due to excess calories; Z68.41 - Body mass index [BMI] 40.0-44.9, adult (4) Environmental allergies: Code(s): Z91.09 - Other allergy status, other than to drugs and biological substances Category: Medical (5) Hypertension, essential: Code(s): I10 - Essential (primary) hypertension Category: Medical (6) Migraine headache without aura: Code(s): G43.009 - Migraine without aura, not intractable, without status migrainosus Category: Medical Qualifiers: Status migrainosus presence: without status migrainosus Intractability: not intractable Qualified Code(s): G43.009 - Migraine without aura, not intractable, without status migrainosus (7) Neuropathy of foot: Code(s): G57.90 - Unspecified mononeuropathy of unspecified lower limb Category: Medical Qualifiers: Laterality: left Qualified Code(s): G57.92 - Unspecified mononeuropathy of left lower limb (8) Skin cancer screening: Code(s): Z12.83 - Encounter for screening for malignant neoplasm of skin Category: Medical Plan Physical exam appointment Assessment and Plan 38-year-old female with a history of hypertension and anxiety presenting with a persistent cough and elevated blood pressure. The patient reports a three-week history of upper respiratory symptoms, primarily manifesting as postnasal drip and nocturnal coughing, which has shown slight improvement during daytime. The patient has noticed elevated blood pressure readings correlated with her sick state and noted the use of mjqv-osj-ghaxbvs medications, which may be contributing factors. The patient also reports chronic nerve pain in her left foot, anxiety treatment management, and ongoing migraine headaches controlled by current medications. 1. Migraine Headaches Managed with sumatriptan as needed, verapamil for preventive control. No recent changes in frequency or severity reported. Current management appears effective. Treatment through Dr. Kobe Camargo neurology 2. Anxiety Disorder Managed with buspirone and venlafaxine. Encouraged continued engagement with current therapy regimen and monitoring for any changes in anxiety levels, especially related to her current health concerns. 3. Allergic Rhinitis The patient has been managing symptoms with cetirizine for allergies. Continued postnasal drip and nocturnal cough suggest ongoing rhinitis that may benefit from a review of allergy management strategies. Discussed the importance of monitoring symptoms and advised continuation of cetirizine. 4. Peripheral Neuropathy Chronic nerve pain in left foot managed with gabapentin, taken as 600 mg nightly. The medication appeared effective with the patient reporting reduced pain at night. No additional intervention needed currently but will monitor for effectiveness and need for dosage adjustments. Managed by nylon machine operator Karla cristina 6. Hypertension Patient reports elevated blood pressure since onset of current illness, possibly due to medication such as Sudafed. Regular antihypertensive medication includes spironolactone, with verapamil prescribed by a neurologist, though the precise dose was clarified as 40 mg twice daily. Advised the patient to continue monitoring blood pressure at home and review after resolution of the acute illness. Diagnostic results - Labs (May results): - CBC: Normal - Metabolic Profile: Normal electrolytes, kidney functions form - Liver function: Normal enzymes - Lipid Profile: LDL 89 - TSH: Normal [place] - Neurologist: Dr. Solomon - Director Of Web Marketing: Karla Cristina - OBGYN: Based at [facility], standing order for mammogram - Counselor (not a psychiatrist) Psychiatric medications and blood pressure medication through PCP office Only along with montelukast for allergies Patient Instructions - Continue current allergy and hypertension medications. - Monitor blood pressure regularly and report any significant changes. - Follow up with a lab test tomorrow, ensuring a fasting state. - Pursue dermatological consultation for skin changes on the face. - Book a yearly dermatology check-up due to fair skin. - Return for scheduled follow-up in four months or sooner if symptoms worsen. - Maintain counseling for anxiety and report any changes in symptoms. - Annual checks with specialists involved in ongoing care. Follow-up 4 months physical exam 1 year Referral placed to Dermatology for skin cancer screening Orders: Orders Complete Blood Count Auto Diff Today E66.01 - Morbid (severe) obesity due to excess calories, E66.813 - Obesity, class 3, F41.0 - Panic disorder [episodic paroxysmal anxiety], F41.1 - Generalized anxiety disorder, G43.009 - Migraine without aura, not intractable, without status migrainosus, G57.92 - Unspecified mononeuropathy of left lower limb, I10 - Essential (primary) hypertension, Z68.41 - Body mass index [BMI] 40.0-44.9, adult Comprehensive [place]. Panel Fast Today E66.01 - Morbid (severe) obesity due to excess calories, E66.813 - Obesity, class 3, F41.0 - Panic disorder [episodic paroxysmal anxiety], F41.1 - Generalized anxiety disorder, G43.009 - Migraine without aura, not intractable, without status migrainosus, G57.92 - Unspecified mononeuropathy of left lower limb, I10 - Essential (primary) hypertension, Z68.41 - Body mass index [BMI] 40.0-44.9, adult Lipid Panel Today E66.01 - Morbid (severe) obesity due to excess calories, E66.813 - Obesity, class 3, F41.0 - Panic disorder [episodic paroxysmal anxiety], F41.1 - Generalized anxiety disorder, G43.009 - Migraine without aura, not intractable, without status migrainosus, G57.92 - Unspecified mononeuropathy of left lower limb, I10 - Essential (primary) hypertension, Z68.41 - Body mass index [BMI] 40.0-44.9, adult Referrals Dermatology Referral Z12.83 - Encounter for screening for malignant neoplasm of skin Medications: New verapamil 40 mg PO BID gabapentin 300 mg PO BEDTIME
[2024-10-09 15:33] VITALS: BP 132/92; PULSE 99; O2SAT 97; BMI 43.7
== END 2024-10-09 15:57 | disposition home or self-care (01) ==
PROVIDERS: PCP Internal Medicine; Visit Provider Internal Medicine
DX: Z00.00 Encounter for general adult medical examination without abnormal findings (principal); F41.1 Generalized anxiety disorder; E66.01 Morbid (severe) obesity due to excess calories; Z68.41 Body mass index [BMI] 40.0-44.9, adult; F41.0 Panic disorder [episodic paroxysmal anxiety]; Z91.09 Other allergy status, other than to drugs and biological substances; I10 Essential (primary) hypertension; G43.009 Migraine without aura, not intractable, without status migrainosus; G57.92 Unspecified mononeuropathy of left lower limb; Z12.83 Encounter for screening for malignant neoplasm of skin

== ENCOUNTER → 2024-10-09 15:18 | Outpatient (BNVA) | payer OTHER, SELFPAY | PROVIDERS: PCP Internal Medicine; Visit Provider Internal Medicine | DX: Z00.01 Encounter for general adult medical examination with abnormal findings (principal); F41.1 Generalized anxiety disorder; F41.0 Panic disorder [episodic paroxysmal anxiety]; E66.813 Obesity, class 3; Z68.41 Body mass index [BMI] 40.0-44.9, adult; I10 Essential (primary) hypertension; G43.009 Migraine without aura, not intractable, without status migrainosus; G57.92 Unspecified mononeuropathy of left lower limb; J30.9 Allergic rhinitis, unspecified; Z91.09 Other allergy status, other than to drugs and biological substances | CPT/HCPCS: 96127 ==

== ENCOUNTER 2024-12-28 15:03 | Outpatient (AMB) | payer OTHER, SELFPAY ==
--- NOTE | 2024-12-28 15:09 | MHC.OFFVIS ---
Vital Signs 12/28/24 15:13 Height 5 ft 2 in Weight 239 lb BMI 43.7 Intake Visit Reasons: OV - LT RTC pain, caps plication 07/03/23 NE Intake Note: Sary is a 39 year old right hand dominant female who presents today for a follow up of left shoulder, s/p capsular plication with sub pectoral biceps tenodesis, DOS 07/03/23. Patient reports ongoing pain after her surgery that has been getting worse. Limited ROM. Discomfort with sleeping. Numbness and tingling. States having muscle spams causing her left side to lock up and making it difficult to move her arm. States dx with an ulcer earlier this year from taking too many NSAID's to cope with her pain. Allergies banana Allergy (Mild, Verified 12/28/24 15:09) Anaphylaxis lisinopril Allergy (Unknown, Verified 12/28/24 15:09) unknown atenolol Allergy (Verified 12/28/24 15:09) Dizziness avocado Allergy (Verified 12/28/24 15:09) Stomach Upset codeine Allergy (Verified 12/28/24 15:09) Vomiting fish derived Allergy (Verified 12/28/24 15:09) Anaphylaxis kiwi Allergy (Verified 12/28/24 15:09) Rash Latex, Natural Rubber Allergy (Verified 12/28/24 15:09) Rash penicillin G Allergy (Verified 12/28/24 15:09) Hallucinations shellfish derived Allergy (Verified 12/28/24 15:09) Anaphylaxis Sulfa (Sulfonamide Antibiotics) Allergy (Verified 12/28/24 15:09) Unknown tree and shrub pollen Allergy (Verified 12/28/24 15:09) Watery Eye morphine Adverse Reaction (Verified 12/28/24 15:09) Nausea and Vomiting HPI HPI OV - LT RTC pain, caps plication 07/03/23 NE: Details: 39-year-old female returns to the office today for continued left shoulder pain and stiffness status post left shoulder capsular plication on 07/03/[address] Salcedo. She was doing well however there are times when she feels her shoulder is worsening with pain and stiffness. She does recall an episode soon after her surgery when she felt a snap and a pain deep in the joint of the shoulder. She feels as though she never fully recovered from that incident. She is mainly doing sedentary work only at work. PFS Medical History (Updated 10/09/24 @ 16:02 by Xochitl Camargo MD) Hypertension, essential Morbid obesity due to excess calories Medullary sponge kidney SLAP (superior labrum from anterior to posterior) tear IBS (irritable bowel syndrome) Anxiety, generalized Vertigo Surgical History History of wisdom tooth extraction Family History Father No problems noted. Mother No problems noted. Brother No problems noted. Sister No problems noted. Other Mental health disorder Substance use disorder Social History Household Members: Spouse Housing: House Alcohol intake: current Alcohol intake frequency: does not drink Patient Tobacco Use Status: Never used Tobacco e-Cigarette/Vaping Use: Never Used Second Hand Smoke Exposure: No Advance Directives Date on File: 10/05/20 service: No Current occupational status: employed Current occupation: [employer]. rt hand Cognitive needs: No Hearing needs: No Vision needs: Yes (contacts) Review of Systems Const All systems reviewed & are unremarkable except as noted in HPI and below Physical Exam Vital Signs: BMI result Body Mass Index 43.7 Extrem Other: Left shoulder normal to inspection. Forward flexion to 90 degrees. External rotation to 40 degrees. Internal rotation to back pocket. Assessment & Plan Assessment & Plan (1) Instability of left shoulder joint: Code(s): M25.312 - Other instability, left shoulder Category: Medical (2) Status post arthroscopy of left shoulder: Code(s): Z98.890 - Other specified postprocedural states Category: Surgical Plan We discussed options which include returning to physical therapy which she is hesitant to proceed with due to her significant pain and limitations with motion. An MRI arthrogram of the left shoulder has been ordered to further evaluate the repair and if this has been injured since her surgery. Once the scan is complete I will contact her to discuss the next step in her treatment. Orders: Orders MR shoulder LT w con Today M25.312 - Other instability, left shoulder FL Guided Asp Inj Major Jt LT Today M25.312 - Other instability, left shoulder, Z98.890 - Other specified postprocedural states Coding Level of Care Code Est Pt Level 3 (73415) Complex EM visit Add On G2211 Diagnoses Instability of left shoulder joint M25.312 Status post arthroscopy of left shoulder Z98.890
[2024-12-28 15:13] VITALS: BMI 43.7
== END 2024-12-28 15:37 | disposition home or self-care (01) ==
PROVIDERS: PCP Internal Medicine; Visit Provider Physician Assistant
DX: M25.312 Other instability, left shoulder (principal)
CPT/HCPCS: 99213; G2211

== ENCOUNTER 2025-02-03 06:58 | Outpatient (REF) | payer OTHER, SELFPAY ==
[2025-02-03 10:18] LABS: MANUAL DIFF FLAG NO
[2025-02-03 10:24] LABS: Basophils Percent Auto 0.6 % (0-2); Eosinophils Absolute Auto 0.2 X10*3/uL (0.0-0.4); Eosinophils Percent Auto 3.1 % (0-4); Hematocrit 37.2 % (37.0-47.0); Hemoglobin 12.6 g/dl (12.0-16.0); Imm Gran Abs Auto 0.02 X10*3/uL (0.00-0.03); Imm Gran Pct Auto 0.3 % (0.0-0.4); Lymphocytes Absolute Auto 1.9 X10*3/uL (1.2-4.9); Lymphocytes Percent Auto 29.4 % (20-40); Mean Corpuscular HGB Conc 33.9 g/dl (31.0-35.0); Mean Corpuscular Hemoglobin 29.4 pg (27.0-33.0); Mean Corpuscular Volume 86.9 fL (80.0-98.0); Mean Platelet Volume 11.9 fL (9.4-12.3); Monocytes Absolute Auto 0.5 X10*3/uL (0.1-1.2); Monocytes Percent Auto 7.3 % (2-11); Neutrophils Absolute Auto 3.8 x10*3/uL (2.0-8.3); Neutrophils Percent Auto 59.3 % (45-73); Platelet Count 180 X10*3/uL (160-400); Red Blood Count 4.28 X10*6/uL (4.20-5.50); Red Cell Distribution Width 12.1 % (11.0-16.0); White Blood Count 6.4 X10*3/uL (4.8-10.8)
[2025-02-03 11:25] LABS: Alanine Aminotransferase 15 U/L (0-31); Albumin Level 4.2 g/dL (3.5-5.0); Alkaline Phosphatase 56 U/L (39-117); Anion Gap 9 (12-20); Aspartate Amino Transferase 17 U/L (5-31); Blood Urea Nitrogen 13 mg/dL (9-16); Carbon Dioxide 26 mmol/L (22-29); Chloride 108 mmol/L (96-108); Cholesterol 176 mg/dL (<200); Estimated Glomerular Filt Rate > 60; Glucose Fasting 83 mg/dL (60-99); HDL Cholesterol 53 mg/dL (>40); LDL Cholesterol Calculated 101 mg/dL (<100); Potassium 4.4 mmol/L (3.3-5.1); Sodium 139 mmol/L (135-145); Total Protein 6.6 g/dL (6.5-8.0); Triglycerides 113 mg/dL (<150)
[2025-02-04 08:13] LABS: LDL Cholesterol Direct 117 mg/dL (<100)
== END 2025-02-03 06:59 | disposition home or self-care (01) ==
LOC: HO.HMGCLDS 06:58
PROVIDERS: PCP Internal Medicine; Visit Provider Internal Medicine
DX: G57.92 Unspecified mononeuropathy of left lower limb (principal); G43.009 Migraine without aura, not intractable, without status migrainosus; I10 Essential (primary) hypertension; E66.813 Obesity, class 3; E66.01 Morbid (severe) obesity due to excess calories; Z68.41 Body mass index [BMI] 40.0-44.9, adult; F41.1 Generalized anxiety disorder; F41.0 Panic disorder [episodic paroxysmal anxiety]; F33.42 Major depressive disorder, recurrent, in full remission
CPT/HCPCS: 36415; 80053; 80061; 83721; 85025

== ENCOUNTER 2025-02-05 15:30 | Outpatient (AMB) | payer OTHER, SELFPAY ==
[2025-02-05 15:31] VITALS: BP 134/96; BMI 43.1
--- NOTE | 2025-02-05 15:31 | A.OFFPC_ITS ---
Vital Signs 02/05/25 15:31 Height 5 ft 2 in Weight 235 lb 8 oz BMI 43.1 BP 134/96 H Blood Pressure Location Rt brachial Position Sitting Intake Visit Reasons: 4m follow up Allergies banana Allergy (Mild, Verified 02/05/25 15:31) Anaphylaxis lisinopril Allergy (Unknown, Verified 02/05/25 15:31) unknown atenolol Allergy (Verified 02/05/25 15:31) Dizziness avocado Allergy (Verified 02/05/25 15:31) Stomach Upset codeine Allergy (Verified 02/05/25 15:31) Vomiting fish derived Allergy (Verified 02/05/25 15:31) Anaphylaxis kiwi Allergy (Verified 02/05/25 15:31) Rash Latex, Natural Rubber Allergy (Verified 02/05/25 15:31) Rash penicillin G Allergy (Verified 02/05/25 15:31) Hallucinations shellfish derived Allergy (Verified 02/05/25 15:31) Anaphylaxis Sulfa (Sulfonamide Antibiotics) Allergy (Verified 02/05/25 15:31) Unknown tree and shrub pollen Allergy (Verified 02/05/25 15:31) Watery Eye morphine Adverse Reaction (Verified 02/05/25 15:31) Nausea and Vomiting Medication List - Last Reconciled 02/05/25 by Xochitl Camargo MD acetaminophen (Tylophen) 500 mg PO Q6H PRN buspirone 5 mg PO TID 90 days gsiimsppwu-iaangenoqvkij-nofl 50-325-40 mg 1 tab PO Q6H PRN cetirizine 5 mg coenzyme Q10 (Co Q-10) 20 mg PO ONCE epinephrine (EpiPen) 0.3 mg (0.3 mL) IM Q10M PRN 90 days gabapentin 300 mg PO BEDTIME Lactobacillus acidophilus (Probiotic) PO DAILY meclizine 25 mg PO DAILY PRN montelukast 10 mg PO DAILY 90 days multivitamin (Daily Multi-Vitamin tablet) 1 tab PO DAILY spironolactone 25 mg PO BID 90 days sumatriptan succinate (Imitrex) 50 mg PO ONCE PRN 30 days venlafaxine ER 150 mg PO DAILY 90 days verapamil 40 mg PO BID Tobacco use date assessed: 02/05/25 Dental Screening Dental Screen Date: 02/05/25 Did you have a dental visit in the last 12 months?: No Did you have a dental problem in the last 6 months where you did not have access to dental care?: No Was dental information given to patient?: Patient has dentist HPI 4m follow up HPI Details History - The patient is a 39 year old female pr esenting with anxiety management and medication adjustment. - Reports that anxiety is negatively imp acting her job performance and has been under the care of a therapist. - She currently takes buspirone 5 mg thr ice daily and is considering an increase in dosage. - She has a history of migraines, treate d with sumatriptan and verapamil, but notes poor control over her headaches. Through neurology She is requesting a new referral to Neurology as her current neurologist does not work on Saturday and patient is off on Fridays - For allergic rhinitis, she switched fr om cetirizine to fexofenadine, experiencing improved symptom control. - Gabapentin is used for suspected restl ess legs syndrome, improving her sleep. Prescribed by her quality assurance project manager - Occasional vertigo is managed with mec lizine as needed. - Spironolactone addresses hypertension . Providers patient is seeing Therapist Urologist Fixed Income Manager Problem List - Anxiety - Hypertension - Migraine - Allergic Rhinitis - Restless Legs Syndrome/foot pain - Vertigo Patient Instructions - Increase buspirone to 10 mg, taken thr ee times a day, starting with the current supply by taking 2 tablets as per the doctor's guidance. - Continue taking gabapentin at bedtime and monitor for increased drowsiness if taken in the morning. - If anxiety persists, consider an addit ional dose of gabapentin in the morning. - Ensure prescriptions are aligned with preferred pharmacy arrangements ([facility] and mail order). - Continue attending therapy sessions at least once a week. Review of Systems - General: No fever no chills - Neurological: No headaches no dizziness - Ear nose throat: No sore throat no hearing difficulty no ear pain - Cardiovascular: No syncope, no chest pain, no palpitations - Gastrointestinal: No nausea vomiting or diarrhea - Endocrine: No polyuria polydipsia no heat intolerance - Genitourinary: No dysuria , no blood in urine Physical Exam General: No acute distress HEENT: No acute findings Neck: Supple Respiratory system: Able to talk in full sentences, no audible wheeze Cardiovascular: S1-S2 regular in rate and rhythm, blood pressure is slightly high Gastrointestinal: No pain Extremities: No new findings THIOKOL OPERATOR: Alert awake oriented x3 motor sensory intact Skin: Normal turgor PFSH Medical History Hypertension, essential Morbid obesity due to excess calories Medullary sponge kidney SLAP (superior labrum from anterior to posterior) tear IBS (irritable bowel syndrome) Anxiety, generalized Vertigo Surgical History History of wisdom tooth extraction Family History Father No problems noted. Mother No problems noted. Brother No problems noted. Sister No problems noted. Other Mental health disorder Substance use disorder Social History Household Members: Spouse Housing: House Alcohol intake: current Alcohol intake frequency: does not drink Patient Tobacco Use Status: Never used Tobacco e-Cigarette/Vaping Use: Never Used Second Hand Smoke Exposure: No Advance Directives Date on File: 10/05/20 service: No Current occupational status: employed Current occupation: [employer] Cognitive needs: No Hearing needs: No Vision needs: Yes (contacts) Questionnaire PHQ-9 Over the last 2 weeks, how often have you been bothered by any of the following problems? 1. Little interest or pleasure in doing things: more than half the days 2. Feeling down, depressed, or hopeless: more than half the days 3. Trouble falling or staying asleep, or sleeping too much: nearly every day 4. Feeling tired or having little energy: nearly every day 5. Poor appetite or overeating: more than half the days 6. Feeling bad about yourself - or that you are a failure or have let yourself or your family down: more than half the days 7. Trouble concentrating on things, such as reading the newspaper or watching television: nearly every day 8. Moving or speaking so slowly that other people could have noticed. Or the o pposite - being so fidgety or restless that you have been moving around a lot more than usual: more than half the days 9. Thoughts that you would be better off or of hurting yourself in some way: not at all Total score: 19 Depression Screening Interpretation: Positive Depression Screening Done: Yes 17192 - PHQ-9 Billing: Yes Source: Developed by Drs. Dev Wylie, Asia Max, Bernard Cornelius and colleagues, with an educational angela from [employer]. Thrive Questionnaire Date Thrive assessed: 02/05/25 I am a: Patient What is your living situation today?: I have a steady place to live Within the past 12 months, did the food you bought not last and you didn't have the money to get more?: Never true Within the past 12 months, did you worry whether your food would run out before you got money to buy more?: Never true Do you have trouble paying for medicines?: No Do you have trouble getting transportation to medical appointments?: No Do you have trouble paying your heating and electricity bill?: No Do you have trouble taking care of your child, family member or friend?: No Do you have trouble with day-to-day activities such as bathing, preparing meals, shopping, managing finances, etc.?: Yes Are you currently unemployed and looking for a job?: No Are you interested in more education?: No Please select the resources that you would like help with: None Currently or been in a relationship where the following occur: No concerns reported THRIVE Score: 0 AUDIT C Alcohol Use Questionnaire (AUDIT-C) 1. How often do you have a drink containing alcohol?: Monthly or less 2. How many drinks containing alcohol do you have on a typical day when you are drinking?: 1 or 2 3. How often do you have six or more drinks on one occasion?: Never Total Score: 1 Score Reviewed/Action Taken: Yes YELENA-7 AMB Questionnaire YELENA-7 Date YELENA - 7 assessed: 02/05/25 Feeling nervous, anxious, or on edge: 3 = Nearly every day Not being able to stop or control worryin = Nearly every day Worrying too much about different things: 3 = Nearly every day Trouble relaxin = Nearly every day Being so restless that it is hard to sit still: 3 = Nearly every day Becoming easily annoyed or irritable: 3 = Nearly every day Feeling afraid as if something awful might happen: 3 = Nearly every day Total YELENA-7 score (0-4 normal; 5-9 mild; 10-14 moderate; 15-21 severe): 21 Source: Developed by Drs. Dev Wylie, Asia Max, Bernard Cornelius and colleagues, with an educational angela from [employer] YELENA-7 Assessment Billing YELENA-7 Assessment Tool: YELENA-7 Assessment 88833 Physical exam (Primary Care) Vital Signs: Last Vital Signs BP 134/96 H 02/05/25 15:31 BMI result Body Mass Index 43.1 Tobacco/Smoking Status: Tobacco use Status Tobacco use date assessed 02/05/25 02/05/25 15:36 Patient Tobacco Use Status Never used Tobacco 02/05/25 15:36 e-Cigarette/Vaping Use Never Used 02/05/25 15:36 PHQ-9: PHQ-9 Score PHQ-9: Total score 19 02/05/25 15:36 Depression Screening Interpretation: Positive Thrive Assessment: Date of Thrive Assessment Date Thrive assessed 02/05/25 02/05/25 15:36 Currently or been in a relationship where the following occur: No concerns repo rted Coding Level of Care Code Est Pt Level 4 (83833) Diagnoses Generalized anxiety disorder with panic attacks F41.1; F41.0 Recurrent major depressive disorder, in full remission F33.42 Active/Remission status: in full remission Environmental allergies Z91.09 Hypertension, essential I10 Migraine without aura and without status migrainosus, not intractable G43.009 Status migrainosus presence: without status migrainosus Intractability: not intractable 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 Laterality: left Morbid obesity due to excess calories E66.01 Additional Codes YELENA-7 Assessment Billing - YELENA-7 Assessment Tool: YELENA-7 Assessment 48703 ([id number]) PHQ-9 - 44639 - PHQ-9 Billing: Yes ([id number]) Assessment & Plan Assessment & Plan (1) Generalized anxiety disorder with panic attacks: Code(s): F41.1 - Generalized anxiety disorder; F41.0 - Panic disorder [episodic paroxysmal anxiety] Category: Medical (2) Major depression, recurrent: Code(s): F33.9 - Major depressive disorder, recurrent, unspecified Category: Medical Qualifiers: Active/Remission status: in full remission Qualified Code(s): F33.42 - Major depressive disorder, recurrent, in full remission (3) Environmental allergies: Code(s): Z91.09 - Other allergy status, other than to drugs and biological substances Category: Medical (4) Hypertension, essential: Code(s): I10 - Essential (primary) hypertension Category: Medical (5) Migraine headache without aura: Code(s): G43.009 - Migraine without aura, not intractable, without status migrainosus Category: Medical Qualifiers: Status migrainosus presence: without status migrainosus Intractability: not intractable Qualified Code(s): G43.009 - Migraine without aura, not int ractable, without status migrainosus (6) Neuropathy of foot: Code(s): G57.90 - Unspecified mononeuropathy of unspecified lower limb Category: Medical Qualifiers: Laterality: left Qualified Code(s): G57.92 - Unspecified mononeuropathy of left lower limb (7) Morbid obesity due to excess calories: Comment: If your BMI is between 25 and 29.9, you are overweight. If your BMI is 30 or greater, you are obese. ___ Being obese is a problem, because it increases the risks of many different health problems. It can also make it hard for you to move, breathe, and do other things that people who are at a healthy weight can do easily. Plus, being obese can be hard emotionally. ___ What are the health risks of being obese? Being obese increases a persons risk of developing many health problems. Here are just a few examples: __ Diabetes High blood pressure, High cholesterol, Heart disease (including heart attacks) Stroke, Sleep apnea (a disorder in which you stop breathing for short periods while asleep) Asthma, Cancer __ Does being obese shorten a persons life? Yes. Studies show that people who are obese younger than people who are a healthy weight. They also show that the risk of goes up the heavier a person is. The degree of increased risk depends on how long the person has been obese, and on what other medical problems he or she has. , Reduce your carbohydrate intake and choose carbs that are complex. Remember as a general rule of thumb, avoid highly processed foods. If it's white and soft, it's probably been stripped of its nutritional value. Change white bread to whole wheat bread, white rice to brown rice, white potatoes to sweet potatoes, white pasta to whole wheat pasta. Monitor portion sizes too: protein should be no bigger than your fist. Limit your red meat intake to only once or twice a wk. Eat more white meat but make sure to avoid creamy sauces etc. Broiling, baking or grilling is best. Increase dark, green leafy vegetables and fruits. Code(s): E66.01 - Morbid (severe) obesity due to excess calories Category: Medical Plan History - The patient is a 39 year old female presenting with anxiety management and medication adjustment. - Reports that anxiety is negatively impacting her job performance and has been under the care of a therapist. - She currently takes buspirone 5 mg thrice daily and is considering an increase in dosage. - She has a history of migraines, treated with sumatriptan and verapamil, but notes poor control over her headaches. Through neurology She is requesting a new referral to Neurology as her current neurologist does not work on Saturday and patient is off on Fridays - For allergic rhinitis, she switched from cetirizine to fexofenadine, experiencing improved symptom control. - Gabapentin is used for suspected restless legs syndrome, improving her sleep. Prescribed by her quality assurance project manager - Occasional vertigo is managed with meclizine as needed. - Spironolactone addresses hypertension . Problem List - Anxiety - Hypertension - Migraine - Allergic Rhinitis - Restless Legs Syndrome/foot pain - Vertigo Patient Instructions - Increase buspirone to 10 mg, taken three times a day, starting with the current supply by taking 2 tablets as per the doctor's guidance. - Continue taking gabapentin at bedtime and monitor for increased drowsiness if taken in the morning. - If anxiety persists, consider an additional dose of gabapentin in the morning. - Ensure prescriptions are aligned with preferred pharmacy arrangements ([facility]). - Continue attending therapy sessions at least once a week. Medications: Changed From buspirone 5 mg PO TID 90 days 270 tabs 0RF anxiety To buspirone 10 mg PO TID 90 days 270 tabs 0RF anxiety
== END 2025-02-05 15:53 | disposition home or self-care (01) ==
LOC: HO.HMCC 15:30
PROVIDERS: PCP Internal Medicine; Visit Provider Internal Medicine
DX: F41.1 Generalized anxiety disorder (principal); F41.0 Panic disorder [episodic paroxysmal anxiety]; F33.42 Major depressive disorder, recurrent, in full remission; Z91.09 Other allergy status, other than to drugs and biological substances; I10 Essential (primary) hypertension; G43.009 Migraine without aura, not intractable, without status migrainosus; G57.92 Unspecified mononeuropathy of left lower limb; E66.01 Morbid (severe) obesity due to excess calories

== ENCOUNTER → 2025-02-05 15:30 | Outpatient (BNVA) | payer OTHER, SELFPAY | PROVIDERS: PCP Internal Medicine; Visit Provider Internal Medicine | DX: F41.1 Generalized anxiety disorder (principal); F41.0 Panic disorder [episodic paroxysmal anxiety]; F33.42 Major depressive disorder, recurrent, in full remission; I10 Essential (primary) hypertension; G43.009 Migraine without aura, not intractable, without status migrainosus; G57.92 Unspecified mononeuropathy of left lower limb; E66.01 Morbid (severe) obesity due to excess calories; Z68.41 Body mass index [BMI] 40.0-44.9, adult; Z79.899 Other long term (current) drug therapy; Z91.09 Other allergy status, other than to drugs and biological substances | CPT/HCPCS: 96127 ==

== ENCOUNTER 2025-02-23 12:48 | Outpatient (REF) | payer OTHER, SELFPAY ==
--- NOTE | ~2025-02-23 | MR_ITS ---
EXAMINATION: MR SHOULDER ARTHROGRAM, LEFT CLINICAL INFORMATION: Other instability left shoulder, MR arthrogram. Left shoulder pain, frequent muscle spasms and shooting nerve pain, decreased range of motion. Rotator cuff tear repair 2 years ago. COMPARISON: MRI left shoulder 03/26/2023. RF arthrogram shoulder left 02/23/2025. TECHNIQUE: Multiplanar multisequence MR imaging of the left shoulder was done after the demonstration of dilute intra-articular gadolinium contrast. Examination performed on a 1.5 [employer] Siemens unit utilizing standard sequences. FINDINGS: Rotator Cuff and Biceps Tendon: Supraspinatus: Contrast undermines approximately 50% of the supraspinatus tendon within the critical zone, suggesting partial undersurface tear. This does appear to involve approximately 30% of the medial footplate attachment, measuring 2 mm (series 8, image 13). Remainder of the tendon appears intact there is no atrophy of the muscle belly. Infraspinatus: Tendon appears intact without definite tear. Normal muscle belly. Subscapularis: Tendon appears intact without definite tear. Normal muscle belly. Teres Minor: Intact without definite tear. Normal muscle belly. Biceps Long Head: There is a prior repair of the long head of the biceps tendon, which is anchored into the anterior metaphysis of the proximal humerus. AC Joint and Acromiohumeral Arch: Type IV acromion. No significant undersurface spurring. The AC joint demonstrates minimal superior surface capsular distention and minimal superior spurring. No significant undersurface spurring. Glenohumeral Joint and Labrum: There appears to have been a prior labral repair superior and anterior labrum. Contrast undermines the superior labrum consistent, most likely on the basis of SLAP tear. This could be recurrent. The posterior and inferior labrum appear intact. The anterior labrum is has a somewhat frayed appearance likely torn. There may be a degree of overlap with postsurgical appearance. (Series 5, images 12-14). The glenohumeral joint streaks normal alignment and essentially normal cartilage. No cartilaginous defects evident. Minimal degenerative changes noted. Osseous Structures: There is no bone contusion, gross bone marrow edema, or abnormal bone marrow signal. Spino-glenoid Notch: Normal. Quadrilateral Space: Normal. Other: Minimal hyperintensity in the subacromial/subdeltoid bursa, likely mild bursitis. MR/MR shoulder LT w con IMPRESSION: 1. Prior long head of biceps tendinous repair, which is now anchored into the humeral metaphysis. 2. Suspect prior superior and anterior labral repair. Contrast undermines the entire superior labrum, which may be on the basis of recurrent tear. In addition, there is an irregular appearance to the anterior labrum, which could also represent recurrent tearing and fraying. There is likely some degree of overlap with expected postoperative appearance. 3. There is approximately 50% undersurface tear of the supraspinatus tendon within the critical zone. This extends to the medial footplate attachment. 4. There is no definite infraspinatus or subscapularis tear. 5. There is minimal glenohumeral joint osteoarthritis. 6. There is very mild subacromial/subdeltoid bursitis. Electronically signed by: Marquis Asencio MD 02/24/2025 02:54 PM EDT
--- NOTE | ~2025-02-23 | FL_ITS ---
EXAMINATION: XR ARTHROGRAM SHOULDER, LEFT CLINICAL INFORMATION: S43.439A - Superior glenoid labrum lesion of unspecified shoulder, initi... COMPARISON: None available. TECHNIQUE: Following explaining fluoroscopy guided left shoulder arthrogram arthrogram procedure, benefits and risk, a written consent was obtained. Patient was placed supine on fluoroscopy table and anterior aspect of the left shoulder was cleaned and draped in usual sterile manner. 1 initially a marker was placed along the left ventricular glenohumeral joint space. 1% lidocaine was injected at marked skin site. 20-gauge spinal needle was then inserted from the skin into the joint space and 2 mL of nonionic contrast injected. A single image was obtained. Subsequently 0.1 mL of gadolinium diluted with 8 mL of saline and 2 mL of 1% lidocaine was injected and needle withdrawn. Complete hemostasis achieved at puncture site. Simple Band-Aid was applied postprocedure. Patient tolerated procedure extremely well. Patient was sent to MRI for further imaging. FINDINGS: On images obtained there is contrast opacifying the glenohumeral joint space. The glenohumeral and AC joint space is maintained normal. No fracture, lytic or sclerotic process seen. The soft tissues are normal. FLUOROSCOPY TIME: 18 seconds. DOSE AREA PRODUCT: 509.2 uGy-m2 (microgray-meter squared) FL/FL arthrogram shoulder LT IMPRESSION: Successful fluoroscopy-guided left shoulder arthrogram was performed. Electronically signed by: Jace Gonzalez MD 02/24/2025 01:03 PM EDT
[2025-02-23] MEDS: Lidocaine HCl 1 % MPF 30 ML VIAL 10 ML INTRAARTIC (13:58)
[2025-02-23] MEDS: iohexoL 300 MG/ML 50 ML INFUS..BTL 10 ML INTRAARTIC (13:59)
[2025-02-23] MEDS: gadobutroL 2 ML VIAL IVPUSH (14:33)
== END 2025-02-23 12:49 | disposition home or self-care (01) ==
LOC: HO.XRAY 12:48
PROVIDERS: PCP Internal Medicine; Visit Provider Physician Assistant
DX: S43.439A Superior glenoid labrum lesion of unspecified shoulder, initial encounter (principal); M25.312 Other instability, left shoulder
CPT/HCPCS: 23350; 73040; 73222; A9585; J2003; Q9967

== ENCOUNTER → 2025-02-23 12:54 | Outpatient (BNV) | payer OTHER, SELFPAY | PROVIDERS: PCP Internal Medicine; Visit Provider Radiology Diagnostic Radiology | DX: S43.432A Superior glenoid labrum lesion of left shoulder, initial encounter (principal) | CPT/HCPCS: 23350; 73040; 73222 ==

== ENCOUNTER 2025-03-26 11:07 | Outpatient (AMB) | payer OTHER, SELFPAY ==
--- NOTE | 2025-03-26 11:19 | MHC.OFFVIS ---
Intake Visit Reasons: OV- Left shoulder MRI review Intake Note: Sary is a 39 year old right hand dominant female who presents today for an MRI review of her left shoulder. Hx of Left capsular plication with sub pectoral biceps tenodesis 07/03/23 - She reports ongoing pain since surgery that has not responded to home exercise program Allergies banana Allergy (Mild, Verified 02/05/25 15:31) Anaphylaxis lisinopril Allergy (Unknown, Verified 02/05/25 15:31) unknown atenolol Allergy (Verified 02/05/25 15:31) Dizziness avocado Allergy (Verified 02/05/25 15:31) Stomach Upset codeine Allergy (Verified 02/05/25 15:31) Vomiting fish derived Allergy (Verified 02/05/25 15:31) Anaphylaxis kiwi Allergy (Verified 02/05/25 15:31) Rash Latex, Natural Rubber Allergy (Verified 02/05/25 15:31) Rash penicillin G Allergy (Verified 02/05/25 15:31) Hallucinations shellfish derived Allergy (Verified 02/05/25 15:31) Anaphylaxis Sulfa (Sulfonamide Antibiotics) Allergy (Verified 02/05/25 15:31) Unknown tree and shrub pollen Allergy (Verified 02/05/25 15:31) Watery Eye morphine Adverse Reaction (Verified 02/05/25 15:31) Nausea and Vomiting HPI HPI OV- Left shoulder MRI review: Details: Sary is a 39 year old right hand dominant female who presents today for an MRI review of her left shoulder. Hx of Left capsular plication with sub pectoral biceps tenodesis 07/03/23 - She reports ongoing pain since surgery that has not responded to home exercise program. She had surgery almost 2 years ago. Basically she states that she has had pain for years and thinks it started soon after her prior surgery. She had a capsular plication and she feels the surgery was successful in stabilizing the shoulder joint. She no longer has sensation of dislocation or any actual dislocation events. Now her pain is subdeltoid radiating pain at night and with overhead activity. She has done physical therapy and feels like she can not move on with daily activities and her both employment and personal life have suffered as a result. [facility] Medical History Hypertension, essential Morbid obesity due to excess calories Medullary sponge kidney SLAP (superior labrum from anterior to posterior) tear IBS (irritable bowel syndrome) Anxiety, generalized Vertigo Surgical History History of wisdom tooth extraction Family History Father No problems noted. Mother No problems noted. Brother No problems noted. Sister No problems noted. 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 She does have a 4+/5 empty can and an otherwise unremarkable exam. Negative apprehension. She has some superficial tenderness over the subpectoral tenodesis incision site. Results Reviewed Results Reviewed: IMPRESSION: 1. Prior long head of biceps tendinous repair, which is now anchored into the humeral metaphysis. 2. Suspect prior superior and anterior labral repair. Contrast undermines the entire superior labrum, which may be on the basis of recurrent tear. In addition, there is an irregular appearance to the anterior labrum, which could also represent recurrent tearing and fraying. There is likely some degree of overlap with expected postoperative appearance. 3. There is approximately 50% undersurface tear of the supraspinatus tendon within the critical zone. This extends to the medial footplate attachment. 4. There is no definite infraspinatus or subscapularis tear. 5. There is minimal glenohumeral joint osteoarthritis. 6. There is very mild subacromial/subdeltoid bursitis. Assessment & Plan Assessment & Plan (1) Rotator cuff tear, left: Code(s): M75.102 - Unspecified rotator cuff tear or rupture of left shoulder, not specified as traumatic Category: Medical Plan: This is a 39-year-old woman with a high-grade partial articular surface tear of the supraspinatus. She has done physical therapy and feels like her strength and pain at not improve. I reviewed her MRI with her and her exam and I recommend rotator cuff repair. I have explained the risks, benefits and alternatives of surgery including, but not limited to, the risk of stiffness, infection, continued pain, need for additional surgery, re-injury as well as medical complications associated with surgery. She expressed understanding and we will proceed forward accordingly. Coding Level of Care Code Est Pt Level 4 (85615) Diagnoses Rotator cuff tear, left M75.102
== END 2025-03-26 11:45 | disposition home or self-care (01) ==
LOC: HO.HOS 11:07
PROVIDERS: PCP Internal Medicine; Visit Provider Orthopaedic Surgery
DX: M75.102 Unspecified rotator cuff tear or rupture of left shoulder, not specified as traumatic (principal)
CPT/HCPCS: 99214

== ENCOUNTER → 2025-03-26 11:07 | Outpatient (BNVA) | payer OTHER, SELFPAY | PROVIDERS: PCP Internal Medicine; Visit Provider Orthopaedic Surgery ==

== ENCOUNTER 2025-04-28 08:09 | Day surgery (SDC) | payer OTHER, SELFPAY ==
[2025-04-26 09:50] VITALS: BMI 43.7
--- NOTE | 2025-04-27 08:23 | P.CONAN_ITS ---
Documented by User: Manuela Laws NP 04/27/25 08:24 HPI - Anesthesia Eval Consult details Narrative: 39yo F for Left Arthroscopic Rotator Cuff Repair PMFSH Active Problems Active Problems: All Active Problems Rotator cuff tear, left (Acute) Skin cancer screening (Acute) Neuropathy of foot (Acute) Migraine headache without aura (Acute) Varicose veins of both lower extremities with inflammation (Acute) Strain of left trapezius muscle (Acute) Migraine (Acute) Paresthesia of left foot (Acute) Bilateral lower extremity pain (Acute) Infection of left ear (Acute) Acute pharyngitis (Acute) Feeling sick (Acute) Status post arthroscopy of left shoulder (Acute) Instability of left shoulder joint (Acute) Bursitis of left shoulder (Acute) Painful arc syndrome of left shoulder (Acute) Shoulder pain, left (Acute) Encounter for general adult medical examination with abnormal findings (Acute) Sprain of hand, right (Acute) Obesity due to excess calories (Acute) Generalized anxiety disorder with panic attacks (Acute) Weakness (Acute) Major depression, recurrent (Acute) Environmental allergies (Acute) Nausea & vomiting (Acute) Low grade fever (Acute) Earache, left (Acute) Depression (Acute) Hypertension (Acute) Cat bite (Acute) Hypertension, essential (Acute) Morbid obesity due to excess calories (Acute) SLAP (superior labrum from anterior to posterior) tear (Acute) Past Medical History Medical History Hypertension, essential Morbid obesity due to excess calories Medullary sponge kidney SLAP (superior labrum from anterior to posterior) tear IBS (irritable bowel syndrome) Anxiety, generalized Vertigo Family History Family History Father No problems noted. Mother No problems noted. Brother No problems noted. Sister No problems noted. Other Mental health disorder Substance use disorder Surgical History Surgical History Hx of shoulder surgery History of wisdom tooth extraction History of Problems with Anesthesia: No Social History Social History Household Members: Spouse Housing: House Alcohol intake: current Alcohol intake frequency: holidays/special occasions only Patient Tobacco Use Status: Never used Tobacco e-Cigarette/Vaping Use: Never Used Second Hand Smoke Exposure: No Substance Use Type Other:: gummies Have you been hit, kicked, punched, or otherwise hurt by someone within the past year? 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 Cognitive needs: No Hearing needs: No Vision needs: Yes (contacts) Meds Allergies Allergy/AdvReac Type Severity Reaction Status Date / Time banana Allergy Mild Anaphylaxis Verified 02/05/25 15:31 lisinopril Allergy Unknown unknown Verified 02/05/25 15:31 atenolol Allergy Dizziness Verified 02/05/25 15:31 avocado Allergy Stomach Verified 02/05/25 15:31 Upset codeine Allergy Vomiting Verified 02/05/25 15:31 fish derived Allergy Anaphylaxis Verified 02/05/25 15:31 kiwi Allergy Rash Verified 02/05/25 15:31 Latex, Natural Rubber Allergy Rash Verified 02/05/25 15:31 penicillin G Allergy Hallucinati Verified 02/05/25 15:31 ons shellfish derived Allergy Anaphylaxis Verified 02/05/25 15:31 Sulfa (Sulfonamide Allergy Unknown Verified 02/05/25 15:31 Antibiotics) tree and shrub pollen Allergy Watery Eye Verified 02/05/25 15:31 morphine AdvReac Nausea and Verified 02/05/25 15:31 Vomiting Home Medications ?Medication ?Instructions ?Recorded ?Confirmed ?Last Taken ?Type Lactobacillus acidophilus PO DAILY 11/07/21 02/05/25 U nknown History [Probiotic] coenzyme Q10 10 mg capsule (Co 20 mg PO ONCE 11/07/21 04/26/25 Unknown History Q-10) multivitamin (Daily Multi-Vitamin 1 tab PO DAILY 11/0704/26/25 Unknown History tablet) gabapentin 300 mg capsule 300 mg PO BEDTIME 10/09/24 0 04/26/25 04/28/25 History fluoxetine 10 mg capsule 10 mg PO DAILY 04/28/25 06/2 03/2804/28/25 History Exam Height,Weight and Vital Signs: Height 5 ft 2 in Weight 108.409 kg Pertinent Lab Results Pertinent Lab Results: Laboratory Tests 02/03/25 07:09 WBC 6.4 Hgb 12.6 Hct 37.2 Plt Count 180 Sodium 139 Potassium 4.4 Chloride 108 Carbon Dioxide 26 BUN 13 Creatinine 0.73 Assessment and Plan Assessment Anesthesia Assessment: Chart Reviewed Final Anesthetic Review History of Problems with Anesthesia: No Documented by User: Amando Hall MD 04/28/25 09:29 [facility] Past Medical History Medical History Hypertension, essential Morbid obesity due to excess calories Medullary sponge kidney SLAP (superior labrum from anterior to posterior) tear IBS (irritable bowel syndrome) Anxiety, generalized Vertigo Cognitive capacity: normal cognitive capabilities and oriented Functional capacity: independent ambulation Family History Family History Father No problems noted. Mother No problems noted. Brother No problems noted. Sister No problems noted. Other Mental health disorder Substance use disorder Family history of problems with anesthesia: No Surgical History Surgical History Hx of shoulder surgery History of wisdom tooth extraction Social History Social History Household Members: Spouse Housing: House Alcohol intake: current Alcohol intake frequency: holidays/special occasions only Patient Tobacco Use Status: Never used Tobacco e-Cigarette/Vaping Use: Never Used Second Hand Smoke Exposure: No Substance Use Type Other:: gummies Have you been hit, kicked, punched, or otherwise hurt by someone within the past year? 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 Cognitive needs: No Hearing needs: No Vision needs: Yes (contacts) Meds Allergies Allergy/AdvReac Type Severity Reaction Status Date / Time banana Allergy Mild Anaphylaxis Verified 02/05/25 15:31 lisinopril Allergy Unknown unknown Verified 02/05/25 15:31 atenolol Allergy Dizziness Verified 02/05/25 15:31 avocado Allergy Stomach Verified 02/05/25 15:31 Upset codeine Allergy Vomiting Verified 02/05/25 15:31 fish derived Allergy Anaphylaxis Verified 02/05/25 15:31 kiwi Allergy Rash Verified 02/05/25 15:31 Latex, Natural Rubber Allergy Rash Verified 02/05/25 15:31 penicillin G Allergy Hallucinati Verified 02/05/25 15:31 ons shellfish derived Allergy Anaphylaxis Verified 02/05/25 15:31 Sulfa (Sulfonamide Allergy Unknown Verified 02/05/25 15:31 Antibiotics) tree and shrub pollen Allergy Watery Eye Verified 02/05/25 15:31 morphine AdvReac Nausea and Verified 02/05/25 15:31 Vomiting Home Medications ?Medication ?Instructions ?Recorded ?Confirmed ?Last Taken ?Type Lactobacillus acidophilus PO DAILY 11/07/21 02/05/25 U nknown History [Probiotic] coenzyme Q10 10 mg capsule (Co 20 mg PO ONCE 11/07/21 04/26/25 Unknown History Q-10) multivitamin (Daily Multi-Vitamin 1 tab PO DAILY 11/0704/26/25 Unknown History tablet) gabapentin 300 mg capsule 300 mg PO BEDTIME 10/09/24 0 04/26/25 04/28/25 History fluoxetine 10 mg capsule 10 mg PO DAILY 04/28/25 06/03/2804/28/25 History Exam Exam Date and Time: 04/28/2025 Airway Mallampati Class: I TM Dist: >3cm Neck ROM: Full Heart: rrr Lungs: cta Other: normal Assessment and Plan Assessment Anesthesia Assessment: Anesthesia Plan Discussed Final Anesthetic Review Family History of Problems with Anesthesia: No NPO: Yes ASA Class: II Final Preanesthetic Review: No Changes in Pt Med Stat, Meds/Allgs Chart Reviewed, Consent Obtained/Reviewed and Anes Risks/Benef Reviewed Patient Risk: Intermediate Procedure Risk: Intermediate Anesthetic Plan Anesthetic Plan: GA and Regional Block Disposition: Standard PACU
[2025-04-28] VITALS (8 sets, daily range): BP systolic 119–166; BP diastolic 78–93; PULSE 76–91; RESP 12–20; TEMP 36.4–36.9; O2SAT 93–99; BMI 43.7
--- NOTE | 2025-04-28 08:23 | MHC.SHP ---
Pre-Procedural Eval Section A - 24 Hr Update-Section A only Date of Service: 04/28/25 The patient is an INPATIENT: No Changes since office visit: No Cold of Flu in the past 2 weeks, No New Medical Problems, No Changes in Medication and No Patient answered all questions The patient has been examined within 24 hours of the surgical procedure. The History & Physical has been completed within 30 days and I have reviewed it.: Yes Section B - Complete if H&P > 30 days Chief Complaint: Complete rotator cuff tear or rupture of left shou Allergies: Allergies Allergy/AdvReac Type Severity Reaction Status Date / Time banana Allergy Mild Anaphylaxis Verified 02/05/25 15:31 lisinopril Allergy Unknown unknown Verified 02/05/25 15:31 atenolol Allergy Dizziness Verified 02/05/25 15:31 avocado Allergy Stomach Verified 02/05/25 15:31 Upset codeine Allergy Vomiting Verified 02/05/25 15:31 fish derived Allergy Anaphylaxis Verified 02/05/25 15:31 kiwi Allergy Rash Verified 02/05/25 15:31 Latex, Natural Rubber Allergy Rash Verified 02/05/25 15:31 penicillin G Allergy Hallucinati Verified 02/05/25 15:31 ons shellfish derived Allergy Anaphylaxis Verified 02/05/25 15:31 Sulfa (Sulfonamide Allergy Unknown Verified 02/05/25 15:31 Antibiotics) tree and shrub pollen Allergy Watery Eye Verified 02/05/25 15:31 morphine AdvReac Nausea and Verified 02/05/25 15:31 Vomiting Plan I have reviewed the history and physical and performed a pertinent physical examination on my patient. No changes have occurred unless specified. Time Spent With Patient Time: Total time managing care of this patient today ____ minutes.
[2025-04-28 08:44] LABS: Urine Pregnancy NEGATIVE (NEGATIVE)
[2025-04-28 08:45] LABS: UPreg QC Valid YES
--- NOTE | 2025-04-28 09:29 | HO.ANESPROP2 ---
[facility] Active Problems Active Problems: All Active Problems Rotator cuff tear, left (Acute) Skin cancer screening (Acute) Neuropathy of foot (Acute) Migraine headache without aura (Acute) Varicose veins of both lower extremities with inflammation (Acute) Strain of left trapezius muscle (Acute) Migraine (Acute) Paresthesia of left foot (Acute) Bilateral lower extremity pain (Acute) Infection of left ear (Acute) Acute pharyngitis (Acute) Feeling sick (Acute) Status post arthroscopy of left shoulder (Acute) Instability of left shoulder joint (Acute) Bursitis of left shoulder (Acute) Painful arc syndrome of left shoulder (Acute) Shoulder pain, left (Acute) Encounter for general adult medical examination with abnormal findings (Acute) Sprain of hand, right (Acute) Obesity due to excess calories (Acute) Generalized anxiety disorder with panic attacks (Acute) Weakness (Acute) Major depression, recurrent (Acute) Environmental allergies (Acute) Nausea & vomiting (Acute) Low grade fever (Acute) Earache, left (Acute) Depression (Acute) Hypertension (Acute) Cat bite (Acute) Hypertension, essential (Acute) Morbid obesity due to excess calories (Acute) SLAP (superior labrum from anterior to posterior) tear (Acute) Past Medical History Medical History Hypertension, essential Morbid obesity due to excess calories Medullary sponge kidney SLAP (superior labrum from anterior to posterior) tear IBS (irritable bowel syndrome) Anxiety, generalized Vertigo Functional capacity: independent ambulation Family History Family History Father No problems noted. Mother No problems noted. Brother No problems noted. Sister No problems noted. Other Mental health disorder Substance use disorder Family history of problems with anesthesia: No Surgical History Surgical History Hx of shoulder surgery History of wisdom tooth extraction History of Problems with Anesthesia: No Social History Social History Household Members: Spouse Housing: House Alcohol intake: current Alcohol intake frequency: holidays/special occasions only Patient Tobacco Use Status: Never used Tobacco e-Cigarette/Vaping Use: Never Used Second Hand Smoke Exposure: No Substance Use Type Other:: gummies Have you been hit, kicked, punched, or otherwise hurt by someone within the past year? 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 Cognitive needs: No Hearing needs: No Vision needs: Yes (contacts) Meds Allergies Allergy/AdvReac Type Severity Reaction Status Date / Time banana Allergy Mild Anaphylaxis Verified 02/05/25 15:31 lisinopril Allergy Unknown unknown Verified 02/05/25 15:31 atenolol Allergy Dizziness Verified 02/05/25 15:31 avocado Allergy Stomach Verified 02/05/25 15:31 Upset codeine Allergy Vomiting Verified 02/05/25 15:31 fish derived Allergy Anaphylaxis Verified 02/05/25 15:31 kiwi Allergy Rash Verified 02/05/25 15:31 Latex, Natural Rubber Allergy Rash Verified 02/05/25 15:31 penicillin G Allergy Hallucinati Verified 02/05/25 15:31 ons shellfish derived Allergy Anaphylaxis Verified 02/05/25 15:31 Sulfa (Sulfonamide Allergy Unknown Verified 02/05/25 15:31 Antibiotics) tree and shrub pollen Allergy Watery Eye Verified 02/05/25 15:31 morphine AdvReac Nausea and Verified 02/05/25 15:31 Vomiting Active Medications: Current Medications Lactated Ringer's (Lr) 1,000 mls @ 100 mls/hr IVCONT .Q10H MARILY Home Medications ?Medication ?Instructions ?Recorded ?Confirmed ?Last Taken ?Type Lactobacillus acidophilus PO DAILY 11/07/21 02/05/25 Unknown History [Probiotic] coenzyme Q10 10 mg capsule (Co 20 mg PO ONCE 11/07/21 04/26/25 Unknown History Q-10) multivitamin (Daily Multi-Vitamin 1 tab PO DAILY 11/07/21 04/26/25 Unknown History tablet) gabapentin 300 mg capsule 300 mg PO BEDTIME 10/09/24 04/26/25 04/28/25 History fluoxetine 10 mg capsule 10 mg PO DAILY 04/28/25 04/28/25 04/28/25 History Exam Height,Weight and Vital Signs: Height 5 ft 2 in Weight 108.3 kg Last Vital Signs Temp 98.5 F 04/28/25 08:30 Pulse 87 04/28/25 08:30 Resp 20 04/28/25 08:30 BP 166/93 H 04/28/25 08:30 Pulse Ox 96 04/28/25 08:30 O2 Del Method Room Air 04/28/25 08:30 Pertinent Lab Results Pertinent Lab Results: Laboratory Tests 04/28/25 08:25 Urine Test NEGATIVE Assessment and Plan Final Anesthetic Review Family History of Problems with Anesthesia: No History of Problems with Anesthesia: No
[2025-04-28] MEDS: Clindamycin Phosphate/D5W 600 MG/50 ML PIGGYBACK 100 MG IV (11:35)
[2025-04-28] MEDS: Acetaminophen 1,000 MG/100 ML PIGGYBACK 400 MG IV (11:46)
--- NOTE | 2025-04-28 12:52 | PM.OP ---
Brief Operative Note Date of Service: 04/28/25 Pre-op diagnosis: Left RTC tear Procedure: Left RTC repair and labral debridement Implants: Large Regeneten bioinductive patch Surgeon: Selvin Salcedo MD Anesthesia: GETA and regional Was an Biological Plant Operator used for this Procedure?: Yes Biological Plant Operator: Amber Pan Estimated blood loss (mL): 25 IV fluids (mL): 750 Pathology: none sent Condition: stable Disposition: PACU
[2025-04-28] MEDS: ondansetron HCL 4 MG/2 ML VIAL IVPUSH (13:20)
[2025-04-28] MEDS: SUMAtriptan succinate 50 MG TABLET 150 MG PO (14:01)
--- NOTE | 2025-04-30 11:23 | W.PM.OPN ---
Operative Note Operative Note Date of Service: 04/28/25 Narrative: Date of Service: 04/28/25 Pre-op diagnosis: Left RTC tear Procedure: Left RTC repair and labral debridement Implants: Large Regeneten bioinductive patch Surgeon: Selvin Salcedo MD Anesthesia: GETA and regional Was an Nylon Operator used for this Procedure?: Yes Nylon Operator: Amber Pan Estimated blood loss (mL): 25 IV fluids (mL): 750 Pathology: none sent Condition: stable Disposition: PACU Procedure in detail: Patient was brought to the operating room and placed the the beach chair position. All bony prominences were well padded and the limb was prepped and draped in standard sterile fashion. A time out was called to identify proper site, proper procedure and proper surgeon. IV antibiotics per weight were administered. I began by making a posterolateral stab incision with a 15 blade. A blunt trochar was placed into the glenohumeral joint and I insufflated the joint with saline and a 30 degree arthroscope was placed. I established an outside- in anterior portal just distal to the biceps tendon. I then began my inspection of the glenohumeral joint. Patient had a prior capsular plication in the anterior labrum and capsule continued to be providing an anterior impediment to humeral head translation. The subscapularis was intact. There was fibrotic and scarred tissue in the anterior interval which I did debride. The biceps had previously been tenotomized. The superior labrum was ragged and with degenerative tearing and this was burred debrided from 10:00 to 2 o'clock position. There was thinning of the central portion of the glenoid but otherwise cartilage surfaces appear normal and intact. I debrided some of the anterior labrum but there was nothing to repair or to debride at this point. The glenohumeral joint appeared stable with no evidence of recurrent instability. I then turned to the undersurface of the rotator cuff and this was examined in great detail. There was no full-thickness tearing or evidence of partial-thickness tearing. Images were captured and I turned my attention to the subacromial space. A direct lateral portal was established and I performed a bursectomy. The cuff was then examined. A shaver was used to debride the supraspinatus and infraspinatus and there was moderate grade partial-thickness tearing of the bursal side of the supraspinatus and infraspinatus. There was no full-thickness tearing. I 5 mm subacromial decompression was performed using an oval bur via the lateral portal. Given the patient's complaints and her bursal sided partial-thickness tearing of approximately 50% I elected to place a large Regeneten collagen bio inductive patch ([employer]). I established a 2nd lateral portal and via this portal I shuttled in the patch. This was provisionally kept in place with my trocar and then I placed for soft tissue peek amaris and 2 bone amaris laterally. I covered both the supra and infraspinatus fully and was satisfied with the position of the patch. The final images were captured and I removed all instrumentation. Portals were closed with nylon. Patient was placed in an abduction sling, extubated and brought to the recovery room in stable condition. There were no known complications.
== END 2025-04-28 14:40 | disposition home or self-care (01) ==
LOC: HO.SSS 08:10
PROVIDERS: Nurse Practitioner; PCP Internal Medicine; Visit Provider Orthopaedic Surgery
PROC: (CPT 29827; principal; 2025-04-28 11:30)
DX: M75.102 Unspecified rotator cuff tear or rupture of left shoulder, not specified as traumatic (principal); M25.512 Pain in left shoulder; M25.312 Other instability, left shoulder; Z98.890 Other specified postprocedural states; I10 Essential (primary) hypertension; E66.01 Morbid (severe) obesity due to excess calories; F41.1 Generalized anxiety disorder; R42 Dizziness and giddiness; Q61.5 Medullary cystic kidney; Z79.899 Other long term (current) drug therapy; Z88.0 Allergy status to penicillin; Z88.2 Allergy status to sulfonamides; Z88.8 Allergy status to other drugs, medicaments and biological substances; Z88.5 Allergy status to narcotic agent; Z91.040 Latex allergy status
CPT/HCPCS: 29827; 29823; 29826; 81025; C1713; C1763; J0131; J0171; J0665; J0736; J1100; J2003; J2250; J2405; J2704; J3010

== ENCOUNTER → 2025-04-28 08:09 | Outpatient (BNV) | payer OTHER, SELFPAY | PROVIDERS: PCP Internal Medicine; Visit Provider Orthopaedic Surgery | DX: S46.812A Strain of other muscles, fascia and tendons at shoulder and upper arm level, left arm, initial encounter (principal) | CPT/HCPCS: 29823; 29827 ==

== ENCOUNTER 2025-05-03 13:54 | Outpatient (AMB) | payer OTHER, SELFPAY ==
--- NOTE | 2025-05-03 13:58 | A.OFFVIS_ITS ---
Intake Visit Reasons: PO LT RTC repair 04/28/25 NE Intake Note: Sary is a 39 year old female who presents post operatively after undergoing a left rotator cuff repain on 04/28/[address] Salcedo. Today patient reports she is doing well, having no pain, however she complains of having muscle spasm in her bicep and tricep area. Allergies banana Allergy (Mild, Verified 05/03/25 14:01) Anaphylaxis lisinopril Allergy (Unknown, Verified 05/03/25 14:01) unknown atenolol Allergy (Verified 05/03/25 14:01) Dizziness avocado Allergy (Verified 05/03/25 14:01) Stomach Upset codeine Allergy (Verified 05/03/25 14:01) Vomiting fish derived Allergy (Verified 05/03/25 14:01) Anaphylaxis kiwi Allergy (Verified 05/03/25 14:01) Rash Latex, Natural Rubber Allergy (Verified 05/03/25 14:01) Rash penicillin G Allergy (Verified 05/03/25 14:01) Hallucinations shellfish derived Allergy (Verified 05/03/25 14:01) Anaphylaxis Sulfa (Sulfonamide Antibiotics) Allergy (Verified 05/03/25 14:01) Unknown tree and shrub pollen Allergy (Verified 05/03/25 14:01) Watery Eye morphine Adverse Reaction (Verified 05/03/25 14:01) Nausea and Vomiting HPI HPI PO LT RTC repair 04/28/25 NE: Details: 39-year-old female returns to the office today status post left shoulder rotator cuff repair with a bio inductive patch on 04/28/[address] Salcedo. Patient presents today in a sling and she has been managing her pain well and she has no concerns today. [facility] Medical History Hypertension, essential Morbid obesity due to excess calories Medullary sponge kidney SLAP (superior labrum from anterior to posterior) tear IBS (irritable bowel syndrome) Anxiety, generalized Vertigo Surgical History Hx of shoulder surgery History of wisdom tooth extraction Family History Father No problems noted. Mother No problems noted. Brother No problems noted. Sister No problems noted. Other Mental health disorder Substance use disorder Social History Household Members: Spouse Housing: House Alcohol intake: current Alcohol intake frequency: holidays/special occasions only Comment: medicated Patient Tobacco Use Status: Never used Tobacco e-Cigarette/Vaping Use: Never Used Second Hand Smoke Exposure: No Advance Directives Date on File: 10/05/20 service: No Current occupational status: employed Current occupation: [employer]. rt hand Cognitive needs: No Hearing needs: No Vision needs: Yes (contacts) Review of Systems Const All systems reviewed & are unremarkable except as noted in HPI and below Physical Exam Extrem Other: Left shoulder incisions are clean dry and intact. Forward flexion to 95 degrees. Externally rotates to 40 degrees. Results Reviewed Results Reviewed: Brief Operative Note Date of Service: 04/28/25 Pre-op diagnosis: Left RTC tear Procedure: Left RTC repair and labral debridement Implants: Large Regeneten bioinductive patch Surgeon: Selvin Salcedo MD Assessment & Plan Assessment & Plan (1) Rotator cuff tear, left: Code(s): M75.102 - Unspecified rotator cuff tear or rupture of left shoulder, not specified as traumatic Category: Medical Plan: Sutures removed today Steri-Strips applied. She can discontinue the use of the sling. I did demonstrate some stretching exercises along with pendulums to maintain her motion until she is in with physical therapy. If physical therapy order was placed today to work on range of motion and strengthening exercises along with periscapular stabilization. She will remain out of work until seen back in [address] Salcedo, sooner if needed. Orders: Orders PT Evaluation and Treatment Today M75.102 - Unspecified rotator cuff tear or rupture of left shoulder, not specified as traumatic Coding Level of Care Code Global (24840) Diagnoses Rotator cuff tear, left M75.102
--- OUTSIDE RECORDS SUMMARY | 2025-05-03 14:29 | XMS_ITS | Patient Health Record ---
Author Organization [facility] Address [address] [place] [address] Care Team Providers Care Fund Accounting Manager Name Role Phone Marquita Gonzalez Primary Care Provider Unavailab daniela Phyllis Edwards Unavailable [phone] Allergies Allergen (clinical drug ingredient) Drug/Non Drug Allergy documented on EMR Reaction Allergy Type Onset Date Status amoxicillin Amoxicillin hallucinations, rash Drug Allergy Active sulfamethoxazole / trimethoprim Bactrim rash Drug Allergy Active Lisinopril cough Drug Allergy Active codeine Codeine vomiting Drug Allergy Active morphine Morphine vomiting Drug Allergy Active adhesive tape rash Drug Allergy Act leandro Shrimp/Shell Fish anaphylaxis Drug Allergy Active Latex rash Drug Allergy Active Reason For Referral No Information Medications Medication SIG (Take, Route, Frequency, Duration) Notes Start Date End Date Status Melatonin Not-Taking Acti ve Prednisone Not-Takin g Singulair Active Omeprazole Not-Takin g Ranitidine Active ZyrTEC Not-Taking Albuterol Sulfate (2.5 MG/3ML) 0.083% 3 ml as needed Inhalation Three times a day Active Gabapentin 100 MG 1 capsule Orally Thr ee times a day; Duration: 30 day(s) 03/24/[address]-100 100-100 MG-UNIT as directed Orally Active Nystatin 410005 UNIT/GM 1 application to affected area Externally Twice a day Not-Takin g Qvar Active Effexor Not-Taking Calcium Active Peak Flow Meter Acti ve Cyclobenzaprine HCl Active Effexor XR Active Social History Tobacco Use: Social History Observation Description Date Details (start date - stop date) Never Smoker NA - NA Tobacco Use/Smoking Question Answer Notes Are you a: nonsmoker Additional Findings: Tobacco Non-User Current no n-smoker Alcohol Screen Question Answer Notes Did you have a drink contain ing alcohol in the past year? Yes How often did you have a dri nk containing alcohol in the past year? Monthly or less (1 point) Points 1 Interpretation Negative Tobacco use other than smoking: Question Answer Notes Are you an other tobacco user? 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) Active confirmed Problem Acquired hammer toe of right foot (45676848577804 05) Other hammer toe(s) (acquired), right foot (M20.41) Active confirmed Problem Acquired hammer toe of left foot (55369859772550 03) Other hammer toe(s) (acquired), left foot (M20.42) Active confirmed Problem Neuropathy (654386805) Neuropathy (G62.9) Active confirmed Problem Plantar nerve lesion (634625232) Lesion of plantar nerve, 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
== END 2025-05-03 14:31 | disposition home or self-care (01) ==
LOC: HO.HOS 13:55
PROVIDERS: PCP Internal Medicine; Visit Provider Physician Assistant
DX: M75.102 Unspecified rotator cuff tear or rupture of left shoulder, not specified as traumatic (principal)
CPT/HCPCS: 99024

== ENCOUNTER 2025-06-10 12:44 | Outpatient (AMB) | payer OTHER, SELFPAY ==
--- OUTSIDE RECORDS SUMMARY | 2025-06-10 12:47 | XMS_ITS | Encounter Summary ---
Author Organization [facility] Address [address] [facility] [address] [place] [address] Phone Care Team Providers Care Machine Operator Hop Worker Name Role Phone Donna Lizarraga MD Primary Care Provider + Curt Banks MD Unavailable + Antonella Hinds NP Unavailable [phone] Arlette Gil MD Unavailable Suma Mcdonnell MD Unavailable [phone] Radha Campbell MANAGER MANUFACTURING Unavailable Donna Lizarraga MD Unavailable Xochitl Camargo MD Primary Care Provider Encounter Details Date Type Department Care Team (Late st Contact Info) Description 11/26/2017 Ancillary Orders Virtual Department [address] [place] [address] Magayls Li PA-C [address] [place] [address] [email or web address] Left lower quadrant pain Social History Tobacco Use Types Packs/Day Years Used Date Smoking Tobacco: Never Assessed Comments Unknown Sex and Gender Information Value Date Recorded Sex Assigned at Female 12/01/2017 1:36 PM EST Legal Sex Female 9:15 PM EDT Gender Identity Female 12/01/2017 1:36 PM EST Sexual Orientation Bisexual 12/01/2017 1: 36 PM EST documented as of this encounter Plan of Treatment Not on file documented as of this encounter Results * US PELVIS TRANSABDOMINAL PLUS TRANSVAGINAL (11/28/2017 3:51 PM EST) Anatomical Region Laterality Modality Pelvis, Uterus/Adnexa Ultrasound 11/28/2017 3:52 PM EST Impressions 11/28/2017 4:41 PM EST Pelvic ultrasound is within normal limits. No source of the left-sided pain is detected. POS: [id number] Edited by: Iliana Alegre on 11/28/2017 3:59 PM Narrative 11/28/2017 4:41 PM EST HISTORY: Left pelvic pain. COMPARISON: CT pelvis 11/24/2013. Ultrasonic examination of the pelvis is performed transabdominally and endovaginally. Multiple static images obtained. FINDINGS: Uterus: Uterus measured at 7.4 cm in length with a depth at the fundus of 2.5 cm and a width of 2.9 cm. It is anteverted and near the midline. No fibroids are identified. Endometrial echo complex is within the range of normal at 5 mm. Ovaries: Ovaries are within the range of normal. Right measures 3.2 x 2.1 x 1.9 cm for a volume of 6.7 cc and the left 2.0 x 1.0 x 2.0 cm for a volume of 2.1 cc. Follicular cysts noted. Other: No free fluid. Procedure Note Abby Jean MD - 11/28/2017 HISTORY: Left pelvic pain. COMPARISON: CT pelvis 11/24/2013. Ultrasonic examination of the pelvis is performed transabdominally andendovaginally. Multiple static images obtained. FINDINGS: Uterus: Uterus measured at 7.4 cm in length with a depth at the fundus of2.5 cm and a width of 2.9 cm. It is anteverted and near the midline. Nofibroids are identified. Endometrial echo complex is within the range ofnormal at 5 mm. Ovaries: Ovaries are within the range of normal. Right measures 3.2 x 2.1x 1.9 cm for a volume of 6.7 cc and the left 2.0 x 1.0 x 2.0 cm for avolume of 2.1 cc. Follicular cysts noted. Other: No free fluid. IMPRESSION: Pelvic ultrasound is within normal limits. No source of the left-sidedpain is detected. POS: [id number] Edited by: Iliana Alegre on 11/28/2017 3:59 PM us Hope Guillermo PERDOMO IMG US PELVIS Final Result documented in this encounter Visit Diagnoses Diagnosis Left lower quadrant pain Abdominal pain, left lower quadrant Left lower quadrant pain Abdominal pain, left lower quadrant documented in this encounter Care Teams Machine Operator Hop Worker Relationship Specialty Start Date End Date Donna Lizarraga MD [address] [place] [address] [email or web address] PCP - General 08/19/17 04/20/21 Xochitl Camargo MD [facility] [place] [address] PCP - General Internal Medicine 04/21/21 Curt Banks MD [address] [place] [address] [email or web address] Historical LMR Provider 08/24/17 11/11/21 Antonella Hinds NP [address] [place] [address] Historical LMR Provider 08/24/17 11/11/21 Arlette Gil MD [address] [place] [address] Historical LMR Provider 08/24/17 2 Suma Mcdonnell MD [address] [place] [address] Historical LMR Provider 08/24/17 2 Radha Campbell FNP [address] [place] [address] [email or web address] Historical LMR Provider 08/24/17 11/11/21 Donna Lizarraga MD [address] [place] [address] [email or web address] Insurance Assigned Provider 03/07/19 08/15/19 documented as of this encounter Additional Source Comments The information contained in this document represents components of the legal health record. It is not the complete legal health record.[facility]
--- OUTSIDE RECORDS SUMMARY | 2025-06-10 12:47 | XMS_ITS | Patient Health Record ---
Author Organization [facility] Address [address] [place] [address] Care Team Providers Care Metallurgical Technician Name Role Phone Marquita Gonzalez Primary Care Provider Unavailab daniela Phyllis Edwards Unavailable [phone] Allergies Allergen (clinical drug ingredient) Drug/Non Drug Allergy documented on EMR Reaction Allergy Type Onset Date Status amoxicillin Amoxicillin hallucinations, rash Drug Allergy Active sulfamethoxazole / trimethoprim Bactrim rash Drug Allergy Active lisinopril Lisinopril cough Drug Allergy Activ e codeine Codeine vomiting Drug Allergy Active morphine [...] 100-100 MG-UNIT as directed Orally Active Nystatin 302393 UNIT/GM 1 application to affected area Externally [...] Problem Acquired deformity of right foot (disorder) (185887557) 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) Active confirmed Problem Acquired hammer toe of right foot (99542749939374 05) Other hammer toe(s) (acquired), right foot (M20.41) Active confirmed Problem Acquired hammer toe of left foot (53387987670410 03) Other hammer toe(s) (acquired), left foot (M20.42) Active confirmed Problem Neuropathy (957195835) Neuropathy (G62.9) Active confirmed Problem Plantar nerve lesion (247651503) Lesion of plantar nerve, 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
--- NOTE | 2025-06-10 12:50 | A.OFFVIS_ITS ---
Intake Visit Reasons: PO- Left RTC repair w patch 04/28/25 Intake Note: Sary is a 39 year old right hand dominant female who presents today for a post operative appointment s/p eft rotator cuff repair on 04/28/25. She remains out of work at this time. Patient reports that she is doing well. She is having cramping/royer horse in the bicep at the end of the day, mostly happening on days that she is having physical therapy. She also explains that she has had pain in the posterior aspect of the left shoulder - this was present prior to surgery and had remained present post operatively. This pain is increased with physical therapy and tends to limit anterior and lateral midrange ROM. Mild numbness and tingling that was present prior to surgery ut worsened after PT - this numbness is intermittant. Allergies banana Allergy (Mild, Verified 06/10/25 12:54) Anaphylaxis lisinopril Allergy (Unknown, Verified 06/10/25 12:54) unknown atenolol Allergy (Verified 06/10/25 12:54) Dizziness avocado Allergy (Verified 06/10/25 12:54) Stomach Upset codeine Allergy (Verified 06/10/25 12:54) Vomiting fish derived Allergy (Verified 06/10/25 12:54) Anaphylaxis kiwi Allergy (Verified 06/10/25 12:54) Rash Latex, Natural Rubber Allergy (Verified 06/10/25 12:54) Rash penicillin G Allergy (Verified 06/10/25 12:54) Hallucinations shellfish derived Allergy (Verified 06/10/25 12:54) Anaphylaxis Sulfa (Sulfonamide Antibiotics) Allergy (Verified 06/10/25 12:54) Unknown tree and shrub pollen Allergy (Verified 06/10/25 12:54) Watery Eye morphine Adverse Reaction (Verified 06/10/25 12:54) Nausea and Vomiting HPI HPI PO- Left RTC repair w patch 04/28/25: Details: Sary is a 39 year old right hand dominant female who presents today for a post operative appointment s/p eft rotator cuff repair on 04/28/25. She remains out of work at this time. Patient reports that she is doing well. She is having cramping/royer horse in the bicep at the end of the day, mostly happening on days that she is having physical therapy. She also explains that she has had pain in the posterior aspect of the left shoulder - this was present prior to surgery and had remained present post operatively. This pain is increased with physical therapy and tends to limit anterior and lateral midrange ROM. Mild numbness and tingling that was present prior to surgery ut worsened after PT - this numbness is intermittant. PENDING SALE TO [facility] Medical History Hypertension, essential Morbid obesity due to excess calories Medullary sponge kidney SLAP (superior labrum from anterior to posterior) tear IBS (irritable bowel syndrome) Anxiety, generalized Vertigo Surgical History Hx of shoulder surgery History of wisdom tooth extraction Family History Father No problems noted. Mother No problems noted. Brother No problems noted. Sister No problems noted. 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 She is doing well. Continue PT exercises. No need for improving her range of motion is that is quite good at this point. We will see her back in 6 weeks' time. Coding Level of Care Code Global (78982) Diagnoses S/P left rotator cuff repair Z98.890
== END 2025-06-10 13:30 | disposition home or self-care (01) ==
LOC: HO.HOS 12:45
PROVIDERS: PCP Internal Medicine; Visit Provider Orthopaedic Surgery
DX: Z98.890 Other specified postprocedural states (principal)
CPT/HCPCS: 99024

== ENCOUNTER 2025-06-11 09:00 | Outpatient (RCR) | payer OTHER, SELFPAY ==
--- NOTE | 2025-05-12 09:54 | MHC.PT.EP ---
[employer] [place] Office [place] Office [place] Office [address] Louis Cannon [address] [phone] F: [phone] F: [phone] F: [phone] F: [phone] Physical Therapy Plan of Care Date of Evaluation: 05/12/25 Date of Surgery: 04/28/2025 Diagnosis: s/p L RTC 04/28 Assessment: Patient is a 39 year old female presenting to PT s/p L RTC repair on 04/28/2025. She presents today with impairments in pain, ROM, shoulder strength, posture. 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 Pt expresses continuous churn buttermaker goal of returning to PLOF, and is motivated to work towards this in PT. Clinical presentation today is most consistent with signs and sx associated with s/p L RTC on 04/28/2025 and pt will benefit from skilled PT 2 x week x 6 weeks to address the following problems and impairments noted upon evaluation: pain, ROM, shoulder strength, posture. These problems limit the patient with the following functional activities: pain, ROM, shoulder strength, posture. The prescribed treatment plan of care is medically necessary. Co-morbidities of hx L biceps tenodesis 2 years ago were identified and taken into considerations of plan of care. Pt was educated on HEP, role of PT, prognosis, POC. Frequency and Duration: The patient will be seen 2 x week x 6 weeks Short Term Goals: Pt will demonstrate L shoulder ROM to 130 of flex and abd, 40 of ER in 3 weeks. Pt will demonstrate L shoulder MMT strength at least 3/5 in 3 weeks. Shelter Goals: Pt will demonstrate improved SPADI score by 13 points in 6 weeks for improved functional mobility. Pt will demonstrate improved L shoulder strength to at least 4/5 in 6 weeks for prepare for return to work. Pt will demonstrate ability to reach with no limitations in 6 weeks for return to PLOF. Treatment Plan: Modalities to reduce pain, spasms and effusion. Manual therapy to restore motion and function. Therapeutic exercise to improve strength and flexibility. Neuromuscular re-education for posture and balance. Therapeutic activities to return to functional activities of daily living. Electronically signed by: Maryse Chou, PT, DPT, ATC Please sign and return to therapist. Thank you for your referral.
--- NOTE | 2025-07-20 07:51 | MHC.PT.DC ---
[facility] [place] [facility] [place] [facility] [place] [facility] [address] Louis Cannon [address] [phone] F: [phone] F: [phone] F: [phone] F: [phone] Physical Therapy Discharge Report Diagnosis: s/p L RTC 04/28 Date of Surgery: 04/28/2025 Date of Evaluation: 05/12/25 Date of Discharge: 07/20/25 Treatments to Date: 9 Cancellations to Date: 3 No Shows to Date: 2 Discharge Status: Discharge Summary: Pt has not attended skilled PT in > 30 days. Pt had cancelled an appointment due to blood pressure issues and has not returned since. We will d/c per 30 day policy. Electronically signed by: Maryse Chou, PT, DPT, ATC Please sign and return to therapist. Thank you for your referral.
== END 2025-07-20 07:51 | disposition home or self-care (01) ==
LOC: HO.PTCHIC 09:00
PROVIDERS: PCP Internal Medicine; Visit Provider Physician Assistant
DX: M75.102 Unspecified rotator cuff tear or rupture of left shoulder, not specified as traumatic (principal)
CPT/HCPCS: 97110; 97140; 97161

== ENCOUNTER 2025-06-18 09:23 | Emergency (ER) | payer OTHER, SELFPAY ==
--- NOTE | ~2025-06-18 | XR_ITS ---
EXAMINATION: XR CHEST 2 VIEWS HISTORY: chest tightness sob COMPARISON: Comparison is made with the prior examination dated 04/04/2017. FINDINGS: PA and lateral views of the chest are submitted. The lungs are expanded and clear. There is no pleural effusion, pneumothorax, or pulmonary vascular congestion. The heart is normal in size. The bones are intact. XR/XR chest 2V IMPRESSION: No acute cardiopulmonary abnormality. Electronically signed by: Dev Hurt MD 06/18/2025 10:14 AM EDT
--- NOTE | ~2025-06-18 | CT_ITS ---
EXAMINATION: CT HEAD WITHOUT CONTRAST CLINICAL INFORMATION: dizziness COMPARISON: May 04, 2024. TECHNIQUE: Contiguous axial imaging was performed from the skull base to vertex without intravenous administration of contrast. This CT examination was performed using dose optimization techniques as appropriate, variously including the following: *Automated exposure control *Adjustment of mA and/or kV according to patient size (this includes techniques or standardized protocols for targeted exams where dose is matched to indication/reason for exam; i.e. extremities or head) *Use of iterative reconstruction technique DLP: 615 mGy-cm FINDINGS: No acute intracranial hemorrhage, mass effect, midline shift, hydrocephalus or herniation. Hazel-white matter differentiation is normal. Posterior cranial fossa contents demonstrated no acute hemorrhage or mass effect. Normal position of the cerebellar tonsils. Sellar/percent region demonstrated no gross masses. No acute cortical disruption in the bony calvarium. No air-fluid levels in the paranasal sinuses. Tympanic cavities and mastoid cells are aerated. Metallic piercing in the left nostril and the ears. CT/CT head/brain wo IV con IMPRESSION: No acute or structural brain abnormality by CT. Electronically signed by: Bryan Pelaez MD 06/18/2025 12:47 PM EDT
[2025-06-18 09:28] VITALS: BP 149/85; PULSE 96; RESP 16; TEMP 36.7; O2SAT 100; BMI 43.0
--- NOTE | 2025-06-18 09:34 | ECG_ITS ---
Test Reason : sob,chest tightness Blood Pressure : */* mmHG Vent. Rate : 92 BPM Atrial Rate : 92 BPM P-R Int : 156 ms QRS Dur : 92 ms QT Int : 392 ms P-R-T Axes : 46 6 31 degrees QTcB Int : 484 ms Normal sinus rhythm Possible Inferior infarct , age undetermined Cannot rule out Anterior infarct , age undetermined Abnormal ECG When compared with ECG of 30-Sep-2019 09:38, No significant change was found Referred By: Juventino Adames Electronically Signed By: Silverio Oliver
[2025-06-18 09:56] LABS: MANUAL DIFF FLAG NO
[2025-06-18 09:58] LABS: Hematocrit 38.2 % (37.0-47.0); Hemoglobin 12.8 g/dl (12.0-16.0); Imm Gran Abs Auto 0.01 X10*3/uL (0.00-0.03); Imm Gran Pct Auto 0.2 % (0.0-0.4); Lymphocytes Absolute Auto 1.8 X10*3/uL (1.2-4.9); Mean Corpuscular HGB Conc 33.5 g/dl (31.0-35.0); Mean Corpuscular Hemoglobin 29.8 pg (27.0-33.0); Mean Corpuscular Volume 88.8 fL (80.0-98.0); NRBC Abs Auto 0.000 X10*3/uL (0.0-0.012); NRBC Pct Auto 0.0 /100WBC (0.0-0.2); Platelet Count 175 X10*3/uL (160-400); Red Blood Count 4.30 X10*6/uL (4.20-5.50); White Blood Count 5.5 X10*3/uL (4.8-10.8)
[2025-06-18 10:10] LABS: Anion Gap 13 (12-20); Blood Urea Nitrogen 11 mg/dL (9-16); Calcium 9.3 mg/dL (8.4-10.2); Carbon Dioxide 25 mmol/L (22-29); Chloride 107 mmol/L (96-108); Creatinine Clr Calc Pharmacy 117.6; Estimated Glomerular Filt Rate > 60; Potassium 4.1 mmol/L (3.3-5.1); Sodium 141 mmol/L (135-145)
[2025-06-18 10:18] LABS: D Dimer High Sensitivity < 150 NG/ML
--- OUTSIDE RECORDS SUMMARY | 2025-06-18 10:18 | XMS_ITS | Encounter Summary ---
Author Organization [facility] Address [address] [facility] [address] [place] [address] Phone Care Team Providers Care Home Health Scheduler Name Role Phone Donna Lizarraga MD Primary Care Provider + Curt Banks MD Unavailable + Antonella Hinds NP Unavailable [phone] Arlette Gil MD Unavailable Suma Mcdonnell MD Unavailable [phone] Radha Campbell SNAG GRINDER Unavailable Donna Lizarraga MD Unavailable Xochitl Camargo MD Primary Care Provider Encounter Details Date Type Department Care Team (Late st Contact Info) Description 11/26/2017 Ancillary Orders Virtual Department [address] [place] [address] Magalys Li PA-C [address] [place] [address] [email or web address] Left lower quadrant pain Social History Tobacco [...] of the left-sided pain is detected. POS: [id number] Edited by: Iliana Alegre on 11/28/2017 3:59 [...] source of the left-sidedpain is detected. POS: [id number] Edited by: Iliana Alegre on 11/28/2017 3:59 PM us Hope Guillermo PERDOMO IMG US PELVIS Final Result documented in this encounter Visit Diagnoses Diagnosis Left lower quadrant pain Abdominal pain, left lower quadrant Left lower quadrant pain Abdominal pain, left lower quadrant documented in this encounter Care Teams Home Health Scheduler Relationship Specialty Start Date End Date Donna Lizarraga MD [address] [place] [address] [email or web address] PCP - General 08/19/17 04/20/21 Xochitl Camargo MD [facility] [place] [address] PCP - General Internal Medicine 04/21/21 Curt Banks MD [address] [place] [address] [email or web address] Historical LMR Provider 08/24/17 11/11/21 Antonella Hinds NP [address] [place] [address] Historical LMR Provider 08/24/17 11/11/21 Arlette Gil MD [address] [place] [address] Historical LMR Provider 08/24/17 2 Suma Mcdonnell MD [address] [place] [address] Historical LMR Provider 08/24/17 2 Radha Campbell FNP [address] [place] [address] [email or web address] Historical LMR Provider 08/24/17 11/11/21 Donna Lizarraga MD [address] [place] [address] [email or web address] Insurance Assigned Provider 03/07/19 08/15/19 documented as of this encounter Additional Source Comments The information contained in this document represents components of the legal health record. It is not the complete legal health record.[facility]
[2025-06-18 10:19] LABS: B Type Natriuretic Peptide < 10 pg/mL (<100)
--- OUTSIDE RECORDS SUMMARY | 2025-06-18 10:19 | XMS_ITS | Patient Health Record ---
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) Active confirmed Problem Acquired hammer toe of right foot (38583184530910 05) Other hammer toe(s) (acquired), right foot (M20.41) Active confirmed Problem Acquired hammer toe of left foot (89411252766321 03) Other hammer toe(s) (acquired), left foot (M20.42) Active confirmed Problem Neuropathy (445586120) Neuropathy (G62.9) Active confirmed Problem Plantar nerve lesion (887527294) Lesion of plantar nerve, 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
[2025-06-18 10:20] LABS: Troponin-I High Sensitivity < 2.7 ng/L (<3.5-17.0)
[2025-06-18 10:34] LABS: Resp Syncy Virus RNA Qual PCR NEGATIVE (Negative); SARS COV2 PCR INHOUSE NEGATIVE (Negative)
--- NOTE | 2025-06-18 10:57 | ED.GENADULT ---
HPI - General Adult General Chief complaint: General Medical Stated complaint: elevated BP, tightness on chest, sob Time Seen by Provider: 06/18/25 10:56 Source: patient, RN notes reviewed and old records reviewed Mode of arrival: ambulatory Limitations: no limitations History of Present Illness ED Provider: Sofia HPI narrative: Patient is a 39-year-old female with history of migraines, HTN, obesity, depression presenting to the ED with complaint of shortness of breath, chest tightness and elevated blood pressure readings at home yesterday. States she also had an episode of acute anxiety at the same time, does not know if the elevated BP caused the anxiety or vice versa. Has also been having dizziness which she states feels different than her typical vertigo, states does not feel like near syncope or as though the room is spinning. Took her meclizine without relief. Denies recent cough or fevers but does report being diaphoretic since yesterday, took 5 showers, changed shirt 3 times this morning. Also notes that she started lamictal around 2 weeks ago. MD complaint: elevated blood pressure, shortness of breath Related Data Home Medications ?Medication ?Instructions ?Recorded ?Confirmed Lactobacillus acidophilus PO DAILY 11/07/21 02/05/25 [Probiotic] coenzyme Q10 10 mg capsule (Co 20 mg PO ONCE 11/07/21 04/26/25 Q-10) multivitamin (Daily Multi-Vitamin 1 tab PO DAILY 11/07/21 04/26/25 tablet) gabapentin 300 mg capsule 300 mg PO BEDTIME 10/09/24 04/26/25 fluoxetine 10 mg capsule 10 mg PO DAILY 04/28/25 04/28/25 lamotrigine 25 mg tablet (Lamictal) 50 mg PO DAILY 06/10/25 Previous Rx's ?Medication ?Instructions ?Recorded meclizine 25 mg tablet 25 mg PO DAILY PRN dizziness #90 07/10/23 tabs epinephrine 0.3 mg/0.3 mL 0.3 mg (0.3 mL) IM Q10M PRN 04/07/24 injection, auto-injector (EpiPen) anaphylaxis 90 days #1 ea kidnulhqvk-blkkwqytrxsfe-dlfxupsn 1 tab PO Q6H PRN haeadace #20 tabs 05/04/24 50 mg-325 mg-40 mg tablet sumatriptan succinate 50 mg tablet 50 mg PO ONCE PRN migraine 05/08/24 (Imitrex) headache 30 days #14 tabs spironolactone 25 mg tablet 25 mg PO BID 90 days #180 tabs 02/01/25 buspirone 10 mg tablet 10 mg PO TID anxiety 90 days #270 02/05/25 tabs oxycodone-acetaminophen 5 mg-325 1 tab PO Q4-6H PRN pain (scale 04/26/25 mg tablet (Percocet) score 4-6) 7 days #42 tabs verapamil 40 mg tablet 40 mg PO BID #180 tabs 04/26/25 montelukast 10 mg tablet 10 mg PO DAILY 90 days #90 tabs 06/09/25 Allergies Allergy/AdvReac Type Severity Reaction Status Date / Time banana Allergy Mild Anaphylaxis Verified 06/18/25 09:30 lisinopril Allergy Unknown unknown Verified 06/18/25 09:30 atenolol Allergy Dizziness Verified 06/18/25 09:30 avocado Allergy Stomach Verified 06/18/25 09:30 Upset codeine Allergy Vomiting Verified 06/18/25 09:30 fish derived Allergy Anaphylaxis Verified 06/18/25 09:30 kiwi Allergy Rash Verified 06/18/25 09:30 Latex, Natural Rubber Allergy Rash Verified 06/18/25 09:30 penicillin G Allergy Hallucinati Verified 06/18/25 09:30 ons shellfish derived Allergy Anaphylaxis Verified 06/18/25 09:30 Sulfa (Sulfonamide Allergy Unknown Verified 06/18/25 09:30 Antibiotics) tree and shrub pollen Allergy Watery Eye Verified 06/18/25 09:30 morphine AdvReac Nausea and Verified 06/18/25 09:30 Vomiting Review of Systems Review of Systems: As per HPI Yes all other systems are reviewed and are negative Constitutional: Constitutional: Reports as per HPI [facility] Past Medical History Medical History Hypertension, essential Morbid obesity due to excess calories Medullary sponge kidney SLAP (superior labrum from anterior to posterior) tear IBS (irritable bowel syndrome) Anxiety, generalized Vertigo Surgical History Hx of shoulder surgery History of wisdom tooth extraction Family History Family History Father No problems noted. Mother No problems noted. Brother No problems noted. Sister No problems noted. Other Mental health disorder Substance use disorder Social History Social History Household Members: Spouse Housing: House Alcohol intake: current Alcohol intake frequency: holidays/special occasions only Comment: medicated Patient Tobacco Use Status: Never used Tobacco Smoked in Last 30 Days: No e-Cigarette/Vaping Use: Never Used Second Hand Smoke Exposure: No Use of substances other than those prescribed or required for medical reasons: No Advance Directives: Yes Advance Directives Information Provided: Yes Advance Directives on File: No Advance Directives Date on File: 10/05/20 Do you have a plan to hurt others: No Plan service: No Current occupational status: employed 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 Blood pressure normal. Heart rate normal. Respiratory rate normal. Temperature normal. Oxygen saturation normal. Const General: cooperative, healthy appearing and no acute distress Nutritional Appearance: obese Orientation/consciousness: oriented to person, oriented to place, oriented to time and patient oriented x3 Limitations: no limitations HENMT Head: Yes normocephalic and Yes atraumatic Ears: external ears normal, TM's normal bilaterally and EAC's normal General nose exam: Normal external nose present Face and sinus: Yes face symmetric Mouth: oropharynx normal and moist mucous membranes Throat: Yes uvula midline Eyes Pupils: Equal, round and reactive pupils present EOM: EOMs intact bilaterally and No Nystagmus present Neck Neck: Yes normal visual inspection and Yes supple Resp Effort & Inspection: normal respiratory effort and able to speak in complete sentences Auscultation: clear to auscultation bilaterally Cardio Rate: regular rate Rhythm: regular rhythm Heart sounds: S1 normal heart sound present and S2 normal heart sound present GI Palpation (GI): Soft to palpation and nontender Auscultation: normoactive bowel sounds General: Yes no CVA tenderness Back/Spine/Pelvis Back: no CVA tenderness Skin General skin exam: elasticity normal and turgor normal Neuro General: oriented to person, oriented to place, oriented to time, patient oriented x3, gait normal, tone normal, moves all extremities, Normal light touch and pain sensation, no focal motor deficits, CN's II-XI intact bilaterally and deep tendon reflexes 2+ bilaterally Cranial nerves: Yes Equal, round and reactive pupils present and No Nystagmus present Cognition (Neuro): normal cognition Gait exam (Neuro): Normal gait present Motor exam (neuro): 5/5 motor strength present throughout, Normal motor muscle tone present throughout and Motor abnormalities not present Coordination: plwnyy-xy-ceda test normal, dkba-fv-jiir test normal, tandem gait normal and Romberg test negative Extrem General: Yes full ROM, Yes no pedal edema and Yes no calf tenderness Psych Mental Status: mental status grossly normal Affect: normal affect Thought process: Normal thought process present Medical Decision Making Medical Decision Making MDM Narrative: Patient is a 39-year-old female with history of migraines, HTN, obesity, depression presenting to the ED with complaint of shortness of breath, chest tightness and elevated blood pressure readings at home yesterday. On exam patient is awake, A+Ox3, VS WNL, afebrile, normal neurological exam without focal deficits, physical exam findings as above. Given reported symptoms and physical exam findings, initial differential includes but is not limited to ACS, PE, arrhythmia, anemia, electrolyte abnormality, abnormal thyroid level, adverse reaction to lamotrigine. Unlikely cerebellar stroke as rhomberg negative, heel to stanley normal, finger to nose normal. Labs notable for no leukocytosis, no anemia, negative troponin, no significant electrolyte abnormalities, normal TSH, negative D dimer unlikely PE. Viral serology negative. X-ray chest notable for no evidence of pneumonia pneumothorax. CT head is without evidence of ICH or other acute abnormality My interpretation is in agreement with the radiologist's interpretation. EKG shows normal sinus rhythm, no significant change from prior. Results discussed with patient and all questions answered. Did discuss with patient the possibility that her symptoms are due to starting lamictal, and she should follow up with her psychiatrist regarding this. Strict return precautions discussed at bedside. Patient verbalized understanding of and agreement with plan. Differential Diagnosis Differential Diagnoses: The differential diagnosis associated with the presentation includes as per [facility] Admission/Observation Consideration of admission/observation: Escalation of care including admission/observation considered Patient would have been admitted to the hospital had their clinical presentation warranted hospital admission. Lab Data [facility] Lab Attestation statement: I reviewed the patient's lab results. as per [facility] 06/18/25 09:50 06/18/25 09:50 Labs: Lab Results 06/18/25 Range/Units 09:50 WBC 5.5 (4.8-10.8) X10*3/uL RBC 4.30 (4.20-5.50) X10*6/uL Hgb 12.8 (12.0-16.0) g/dl Hct 38.2 (37.0-47.0) % MCV 88.8 (80.0-98.0) fL MCH 29.8 (27.0-33.0) pg MCHC 33.5 (31.0-35.0) g/dl RDW 12.0 (11.0-16.0) % Plt Count 175 (160-400) X10*3/uL MPV 11.4 (9.4-12.3) fL Immature Gran % (Auto) 0.2 (0.0-0.4) % Neut % (Auto) 55.4 (45-73) % Lymph % (Auto) 32.7 (20-40) % [place] % (Auto) 6.1 (2-11) % Eos % (Auto) 4.9 H (0-4) % Baso % (Auto) 0.7 (0-2) % Lymph # (Auto) 1.8 (1.2-4.9) X10*3/uL [place] # (Auto) 0.3 (0.1-1.2) X10*3/uL Eos # (Auto) 0.3 (0.0-0.4) X10*3/uL Baso # (Auto) 0.0 (0.0-0.2) X10*3/uL Abs Immat Gran (auto) 0.01 (0.00-0.03) X10*3/uL Absolute Neuts (auto) 3.1 (2.0-8.3) x10*3/uL Absolute Nucleated RBC 0.000 (0.0-0.012) X10*3/uL Nucleated RBC % (auto) 0.0 (0.0-0.2) /100WBC D-Dimer High Sensitivty < 150 NG/ML Sodium 141 (135-145) mmol/L Potassium 4.1 (3.3-5.1) mmol/L Chloride 107 (96-108) mmol/L Carbon Dioxide 25 (22-29) mmol/L Anion Gap 13 (12-20) BUN 11 (9-16) mg/dL Creatinine 0.73 (0.5-1.4) mg/dL Estim Creat Clear Calc 117.6 Estimated GFR > 60 Random Glucose 89 (60-115) mg/dL Calcium 9.3 (8.4-10.2) mg/dL Troponin I High Sens < 2.7 (<3.5-17.0) ng/L B-Natriuretic Peptide < 10 (<100) pg/mL TSH 0.92 (0.32-4.0) uIU/mL Influenza Type A (PCR) NEGATIVE (Negative) Influenza Type B (PCR) NEGATIVE (Negative) RSV RNA Qual (PCR) NEGATIVE (Negative) SARS-CoV-2 RNA (RT-PCR) NEGATIVE (Negative) Independent Interpretation I performed an independent interpretation of an: EKG (Normal sinus rhythm, rate 92 beats per minute, normal FL interval, prolonged QTC, no significant change from prior), Plain X-Ray and CT Scan Interpretation: X-ray chest notable for no evidence of pneumonia pneumothorax. CT head is without evidence of ICH or other acute abnormality Radiology Impression Discussion of test interpretation with radiology: I have reviewed the radiologist's reading. Radiologist Impression: XR/XR chest 2V IMPRESSION: No acute cardiopulmonary abnormality. CT/CT head/brain wo IV con IMPRESSION: No acute or structural brain abnormality by CT. External Record Review External record reviewed: Inpatient record, Office record and Outpatient record Discharge Plan Discharge Clinical Impression: Shortness of breath, Dizziness, Diaphoresis Patient Disposition: Home, Self-Care Instructions: Dizziness (ED), Shortness of Breath (ED) Additional Instructions: You were evaluated in the emergency department today for dizziness, shortness of breath and diaphoresis (swelling). Your evaluation did not show evidence of conditions requiring emergent medical treatment at this time. It is possible that some of your symptoms were due to acute anxiety. It is also possible that your symptoms are due to recently starting lamotrigine (Lamictal). We recommend that you discuss these potential side effects with your psychiatrist. Follow up with your primary care provider this week. Return to the emergency department if you develop chest pain, worsening shortness of breath or difficulty breathing, severe headache, difficulty walking, or any other new or concerning symptoms. Prescriptions: No Action meclizine 25 mg tablet 25 mg PO DAILY PRN (Reason: dizziness) Qty: 90 1RF spironolactone 25 mg tablet 25 mg PO BID 90 Days Qty: 180 1RF verapamil 40 mg tablet 40 mg PO BID Qty: 180 0RF montelukast 10 mg tablet 10 mg PO DAILY 90 Days Qty: 90 0RF oxycodone-acetaminophen [Percocet] 5-325 mg tablet 1 tab PO Q4-6H PRN (Reason: pain (scale score 4-6)) 7 Days Qty: 42 0RF Rx Instructions: Partial Fill upon patient request. Please bring to PACU on date of surgery 04/28/25. fluoxetine 10 mg capsule 10 mg PO DAILY esfpvokzgk-fvrtlaymxpkut-stfx 50-325-40 mg tablet 1 tab PO Q6H PRN (Reason: haeadace) Qty: 20 0RF multivitamin [Daily Multi-Vitamin] Tablet 1 tab PO DAILY coenzyme Q10 [Co Q-10] 10 mg capsule 20 mg PO ONCE Lactobacillus acidophilus [Probiotic] PO DAILY epinephrine [EpiPen] 0.3 mg/0.3 mL auto-injector 0.3 mg IM Q10M PRN (Reason: anaphylaxis) 90 Days Qty: 1 0RF sumatriptan succinate [Imitrex] 50 mg tablet 50 mg PO ONCE PRN (Reason: migraine headache) 30 Days Qty: 14 0RF buspirone 10 mg tablet 10 mg PO TID 90 Days Qty: 270 0RF lamotrigine [Lamictal] 25 mg tablet 50 mg PO DAILY gabapentin 300 mg capsule 300 mg PO BEDTIME Print Language: Spanish
--- NOTE | 2025-06-18 11:02 | PC.NURSE ---
Pt states shes had c/o dizziness, sob, and chest tightness x 1 week. Yesterday elevated bp noted at home. Sent here for eval by pcp.
[2025-06-18 11:06] VITALS: BP 138/80; PULSE 89; RESP 16
[2025-06-18 14:12] VITALS: BP 138/80; PULSE 89; RESP 16; TEMP 37.1
== END 2025-06-18 14:23 | disposition home or self-care (01) ==
PROVIDERS: Physician Assistant; Emergency Provider Emergency Medicine; PCP Internal Medicine
DX: R06.02 Shortness of breath (principal); F41.1 Generalized anxiety disorder; R61 Generalized hyperhidrosis; I10 Essential (primary) hypertension; E66.9 Obesity, unspecified; Z68.41 Body mass index [BMI] 40.0-44.9, adult; Z79.899 Other long term (current) drug therapy
CPT/HCPCS: 36415; 70450; 71046; 80048; 83880; 84443; 84484; 85025; 85379; 87637; 93005; 99284

== ENCOUNTER → 2025-06-18 09:34 | Outpatient (BNV) | payer OTHER, SELFPAY | PROVIDERS: Emergency Provider Emergency Medicine; PCP Internal Medicine; Visit Provider Radiology Diagnostic Radiology | DX: R42 Dizziness and giddiness (principal); R07.89 Other chest pain; R06.02 Shortness of breath | CPT/HCPCS: 70450; 71046 ==

== ENCOUNTER → 2025-06-18 09:34 | Outpatient (BNV) | payer OTHER, SELFPAY | PROVIDERS: Emergency Provider Emergency Medicine; PCP Internal Medicine; Visit Provider Internal Medicine Cardiovascular Disease | DX: R94.31 Abnormal electrocardiogram [ECG] [EKG] (principal); R06.02 Shortness of breath; R07.89 Other chest pain | CPT/HCPCS: 93010 ==

== ENCOUNTER 2025-06-30 10:30 | Outpatient (AMB) | payer OTHER, SELFPAY ==
--- NOTE | 2025-06-30 10:32 | A.OFFPC_ITS ---
Vital Signs 06/30/25 10:33 Weight 243 lb BP 128/90 H Blood Pressure Location Rt brachial Position Sitting Respiration 16 Pulse 102 H Pulse Source Pulse Oximeter Pulse Oximetry (%) 96 Oxygen Delivery Method Room Air Intake Visit Reasons: BP concerns Allergies banana Allergy (Mild, Verified 06/30/25 10:34) Anaphylaxis lisinopril Allergy (Unknown, Verified 06/30/25 10:34) unknown atenolol Allergy (Verified 06/30/25 10:34) Dizziness avocado Allergy (Verified 06/30/25 10:34) Stomach Upset codeine Allergy (Verified 06/30/25 10:34) Vomiting fish derived Allergy (Verified 06/30/25 10:34) Anaphylaxis kiwi Allergy (Verified 06/30/25 10:34) Rash Latex, Natural Rubber Allergy (Verified 06/30/25 10:34) Rash penicillin G Allergy (Verified 06/30/25 10:34) Hallucinations shellfish derived Allergy (Verified 06/30/25 10:34) Anaphylaxis Sulfa (Sulfonamide Antibiotics) Allergy (Verified 06/30/25 10:34) Unknown tree and shrub pollen Allergy (Verified 06/30/25 10:34) Watery Eye morphine Adverse Reaction (Verified 06/30/25 10:34) Nausea and Vomiting Medication List - Last Reconciled 06/30/25 by Xochitl Camargo MD buspirone 10 mg PO TID 90 days ppvoxygwex-xkcgzejscqqkn-ncdy 50-325-40 mg 1 tab PO Q6H PRN coenzyme Q10 (Co Q-10) 20 mg PO ONCE epinephrine (EpiPen) 0.3 mg (0.3 mL) IM Q10M PRN 90 days fluoxetine 10 mg PO DAILY gabapentin 300 mg PO BEDTIME Lactobacillus acidophilus (Probiotic) PO DAILY meclizine 25 mg PO DAILY PRN montelukast 10 mg PO DAILY 90 days multivitamin (Daily Multi-Vitamin tablet) 1 tab PO DAILY spironolactone 25 mg PO BID 90 days sumatriptan succinate (Imitrex) 50 mg PO ONCE PRN 30 days verapamil 40 mg PO BID Tobacco use date assessed: 02/05/25 Dental Screening Dental Screen Date: 06/30/25 Did you have a dental visit in the last 12 months?: Yes Did you have a dental problem in the last 6 months where you did not have access to dental care?: No Was dental information given to patient?: Patient has dentist HPI BP concerns HPI Details History The patient is a 39 year old female presenting with blood pressure concerns, dizziness, and anxiety management. Blood pressure concerns and dizziness: - The patient reports experiencing eleva deon blood pressure readings for approximately four to five months, with home readings frequently in the 140s systolic. - She was recently in the emergency room at [facility] three weeks prior for panic attacks and dizziness, where her blood pressure was 149/85 mmHg. - Diagnostic workups, including blood wo rk, CT brain scan, EKG, chest x-ray, and labs, were within normal limits. - The patient reports episodes of dizzin ess, nausea, and sweating, which occur mainly in the morning and are not alleviated with medications like meclizine or dramamine. - These episodes sometimes make driving difficult. Anxiety: - The patient has been experiencing anxi ety and panic attacks, which are worsening. - She has a history of depression and an xiety, for which she has been undergoing therapy and medication trials. - Previous use of Lamictal was discontin ued due to adverse effects that included increased blood pressure and dizziness. - The patient notes that anxiety episode s may have an impact on her blood pressure readings. Medical History: - Asthma, managed with Montelukast. - Migraines, managed with Verapamil. - Depression and anxiety, managed with v arious medications including Buspirone. - Restless leg syndrome. - History of vertigo. Surgical History: - Rotator cuff surgery on the left shoul cheng in April. Medications: - Verapamil 40 mg for migraines and hype rtension. - Spironolactone 25 mg for hypertension. - Buspirone 10 mg three times daily for anxiety. - Gabapentin 300 mg for restless leg syn drome and breakthrough anxiety. - Montelukast for asthma. - Sumatriptan as needed for migraines. - Fioricet (infrequent use, noted but no t recommended). Social History: - The patient is not currently smoking. - Formerly consumed two cups of coffee d aily, now reduced to half a cup daily due to concerns about caffeine's effect on anxiety. - Reports weight gain post-left shoulder surgery and a desire to return to physical activity. - Has a history of asthma but without re cent exacerbations. Problem List - Essential Hypertension - Anxiety disorder uncontrolled - depression - History of Migraine - Asthma - Vertigo - Restless Leg Syndrome Diagnostic results - Labs: Comprehensive blood work within normal limits. - Imaging: Normal CT brain scan, normal chest x-ray. - Tests: Normal EKG with a prolonged QTC interval, negative for influenza, RSV, and COVID. Donalds of Care - The patient has been seen by a psychia trist and engages in therapy and medication management for her anxiety. Patient Instructions - Follow up with psychiatrist for contin ued management of anxiety and medication adjustment. - Begin physical therapy for vertigo. - Book an appointment for a home sleep s tujoey. - continue the medications - reach out to me if symptoms gets worse Review of Systems General: No fever no chills neurological: No headaches no dizziness ear nose throat: No sore throat no hearing difficulty no ear pain cardiovascular: No syncope gastrointestinal: No nausea vomiting or diarrhea endocrine: No polyuria polydipsia no heat intolerance genitourinary: No dysuria skin: No new complaints Physical Exam general: No acute distress HEENT: No acute findings neck: Supple respiratory system: Able to talk in full sentences, no audible wheeze, no stridor cardiovascular: S1-S2 RRR, gastrointestinal: No pain extremities: No new findings CAMPAIGN MANAGEMENT SENIOR MANAGER: Alert, awake, oriented x3, motor sensory intact skin: Normal turgor PFSH Medical History Vertigo Hypertension, essential Morbid obesity due to excess calories Medullary sponge kidney SLAP (superior labrum from anterior to posterior) tear IBS (irritable bowel syndrome) Anxiety, generalized Surgical History Hx of shoulder surgery History of wisdom tooth extraction Family History Father No problems noted. Mother No problems noted. Brother No problems noted. Sister No problems noted. 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 1. Little interest or pleasure in doing things: more than half the days 2. Feeling down, depressed, or hopeless: more than half the days 3. Trouble falling or staying asleep, or sleeping too much: nearly every day 4. Feeling tired or having little energy: nearly every day 5. Poor appetite or overeating: more than half the days 6. Feeling bad about yourself - or that you are a failure or have let yourself or your family down: more than half the days 7. Trouble concentrating on things, such as reading the newspaper or watching television: nearly every day 8. Moving or speaking so slowly that other people could have noticed. Or the opposite - being so fidgety or restless that you have been moving around a lot more than usual: more than half the days 9. Thoughts that you would be better off or of hurting yourself in some way: not at all Total score: 19 Depression Screening Interpretation: Positive Depression Screening Follow-up: Existing condition and In treatment Depression Screening Done: Yes 69455 - PHQ-9 Billing: Yes Source: Developed by Drs. Dev Wylie, Asia Max, Bernard Cornelius and colleagues, with an educational angela from [employer]. Thrive Questionnaire Date Thrive assessed: 02/05/25 I am a: Patient What is your living situation today?: I have a steady place to live Within the past 12 months, did the food you bought not last and you didn't have the money to get more?: Never true Within the past 12 months, did you worry whether your food would run out before you got money to buy more?: Never true Do you have trouble paying for medicines?: No Do you have trouble getting transportation to medical appointments?: No Do you have trouble paying your heating and electricity bill?: No Do you have trouble taking care of your child, family member or friend?: No Do you have trouble with day-to-day activities such as bathing, preparing meals, shopping, managing finances, etc.?: Yes Are you currently unemployed and looking for a job?: No Are you interested in more education?: No Please select the resources that you would like help with: None Currently or been in a relationship where the following occur: No concerns reported THRIVE Score: 0 YELENA-7 AMB Questionnaire YELENA-7 Date YELENA - 7 assessed: 02/05/25 Feeling nervous, anxious, or on edge: 3 = Nearly every day Not being able to stop or control worryin = Nearly every day Worrying too much about different things: 3 = Nearly every day Trouble relaxin = Nearly every day Being so restless that it is hard to sit still: 3 = Nearly every day Becoming easily annoyed or irritable: 3 = Nearly every day Feeling afraid as if something awful might happen: 3 = Nearly every day Total YELENA-7 score (0-4 normal; 5-9 mild; 10-14 moderate; 15-21 severe): 21 Source: Developed by Drs. Dev Wylie, Asia Max, Bernard Cornelius and colleagues, with an educational angela from [employer]. YELENA-7 Assessment Billing YELENA-7 Assessment Tool: YELENA-7 Assessment 89860 Physical exam (Primary Care) Vital Signs: Last Vital Signs Pulse 102 H 06/30/25 10:33 Resp 16 06/30/25 10:33 BP 128/90 H 06/30/25 10:33 Pulse Ox 96 06/30/25 10:33 Oxygen Delivery Method Room Air 06/30/25 10:33 Tobacco/Smoking Status: Tobacco use Status Tobacco use date assessed 02/05/25 06/30/25 10:39 Patient Tobacco Use Status Never used Tobacco 06/30/25 10:39 e-Cigarette/Vaping Use Never Used 06/30/25 10:39 PHQ-9: PHQ-9 Score PHQ-9: Total score 19 06/30/25 10:58 Depression Screening Interpretation: Positive Depression Screening Follow-up: Existing condition and In treatment Thrive Assessment: Date of Thrive Assessment Date Thrive assessed 02/05/25 06/30/25 10:39 Currently or been in a relationship where the following occur: No concerns reported Coding Level of Care Code Est Pt Level 5 (62690) Diagnoses Non-cardiac chest pain R07.89 Labile hypertension R09.89 Vertigo R42 Class 3 severe obesity due to excess calories with serious comorbidity and body mass index (BMI) of 40.0 to 44.9 in adult E66.813; E66.01; Z68.41 Body mass index: BMI 40.0-44.9 Obesity classification: adult class 3 (BMI >= 40) Serious obesity comorbidity presence: with serious comorbidity Daytime somnolence R40.0 Disrupted sleep-wake cycle G47.20; F51.8 Generalized anxiety disorder with panic attacks F41.1; F41.0 Recurrent major depressive disorder, in full remission F33.42 Active/Remission status: in full remission Environmental allergies Z91.09 Hypertension, essential I10 Migraine without aura and without status migrainosus, not intractable G43.009 Status migrainosus presence: without status migrainosus Intractability: not intractable 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 Laterality: left Morbid obesity due to excess calories E66.01 Additional Codes YELENA-7 Assessment Billing - YELENA-7 Assessment Tool: YELENA-7 Assessment 69609 ([id number]) PHQ-9 - 67664 - PHQ-9 Billing: Yes ([id number]) Time Spent (min) 40 Comment Reviewing chart/ER note/labs/izkw-ho-fpcp/coordination of care Assessment & Plan Assessment & Plan (1) Non-cardiac chest pain: Code(s): R07.89 - Other chest pain Category: Medical (2) Labile hypertension: Code(s): R09.89 - Other specified symptoms and signs involving the circulatory and respiratory systems Category: Medical (3) Vertigo: Code(s): R42 - Dizziness and giddiness Category: Medical (4) Obesity due to excess calories: Code(s): E66.09 - Other obesity due to excess calories Category: Medical Qualifiers: Body mass index: BMI 40.0-44.9 Obesity classification: adult class 3 (BMI >= 40) Serious obesity comorbidity presence: with serious comorbidity Qualified Code(s): E66.813 - Obesity, class 3; E66.01 - Morbid (severe) obesity due to excess calories; Z68.41 - Body mass index [BMI] 40.0-44.9, adult (5) Daytime somnolence: Code(s): R40.0 - Somnolence Category: Medical (6) Disrupted sleep-wake cycle: Code(s): G47.20 - Circadian rhythm sleep disorder, unspecified type; F51.8 - Other sleep disorders not due to a substance or known physiological condition Category: Medical (7) Generalized anxiety disorder with panic attacks: Code(s): F41.1 - Generalized anxiety disorder; F41.0 - Panic disorder [episodic paroxysmal anxiety] Category: Medical (8) Major depression, recurrent: Code(s): F33.9 - Major depressive disorder, recurrent, unspecified Category: Medical Qualifiers: Active/Remission status: in full remission Qualified Code(s): F33.42 - Major depressive disorder, recurrent, in full remission (9) Environmental allergies: Code(s): Z91.09 - Other allergy status, other than to drugs and biological substances Category: Medical (10) Hypertension, essential: Code(s): I10 - Essential (primary) hypertension Category: Medical (11) Migraine headache without aura: Code(s): G43.009 - Migraine without aura, not intractable, without status migrainosus Category: Medical Qualifiers: Status migrainosus presence: without status migrainosus Intractability: not intractable Qualified Code(s): G43.009 - Migraine without aura, not intractable, without status migrainosus (12) Neuropathy of foot: Code(s): G57.90 - Unspecified mononeuropathy of unspecified lower limb Category: Medical Qualifiers: Laterality: left Qualified Code(s): G57.92 - Unspecified mononeuropathy of left lower limb (13) Morbid obesity due to excess calories: Comment: If your BMI is between 25 and 29.9, you are overweight. If your BMI is 30 or greater, you are obese. ___ Being obese is a problem, because it increases the risks of many different health problems. It can also make it hard for you to move, breathe, and do other things that people who are at a healthy weight can do easily. Plus, being obese can be hard emotionally. ___ What are the health risks of being obese? Being obese increases a persons risk of developing many health problems. Here are just a few examples: __ Diabetes High blood pressure, High cholesterol, Heart disease (including heart attacks) Stroke, Sleep apnea (a disorder in which you stop breathing for short periods while asl eep) Asthma, Cancer __ Does being obese shorten a persons life? Yes. Studies show that people who are obese younger than people who are a healthy weight. They also show that the risk of goes up the heavier a person is. The degree of increased risk depends on how long the person has been obese, and on what other medical problems he or she has. , Reduce your carbohydrate intake and choose carbs that are complex. Remember as a general rule of thumb, avoid highly processed foods. If it's white and soft, it's probably been stripped of its nutritional value. Change white bread to wh ole wheat bread, white rice to brown rice, white potatoes to sweet potatoes, white pasta to whole wheat pasta. Monitor portion sizes too: protein should be no bigger than your fist. Limit your red meat intake to only once or twice a wk. Eat more white meat but make sure to avoid creamy sauces etc. Broiling, baking or grilling is best. Increase dark, green leafy vegetables and fruits. Code(s): E66.01 - Morbid (severe) obesity due to excess calories Category: Medical Plan History The patient is a 39 year old female presenting with blood pressure concerns, dizziness, and anxiety management. Blood pressure concerns and dizziness: - The patient reports experiencing elevated blood pressure readings for approximately four to five months, with home readings frequently in the 140s systolic. - She was recently in the emergency room at [facility] three weeks prior for panic attacks and dizziness, where her blood pressure was 149/85 mmHg. - Diagnostic workups, including blood work, CT brain scan, EKG, chest x-ray, and labs, were within normal limits. - The patient reports episodes of dizziness, nausea, and sweating, which occur mainly in the morning and are not alleviated with medications like meclizine or dramamine. - These episodes sometimes make driving difficult. Anxiety: - The patient has been experiencing anxiety and panic attacks, which are worsening. - She has a history of depression and anxiety, for which she has been undergoing therapy and medication trials. - Previous use of Lamictal was discontinued due to adverse effects that included increased blood pressure and dizziness. - The patient notes that anxiety episodes may have an impact on her blood pressure readings. Medical History: - Asthma, managed with Montelukast. - Migraines, managed with Verapamil. - Depression and anxiety, managed with various medications including Buspirone. - Restless leg syndrome. - History of vertigo. Surgical History: - Rotator cuff surgery on the left shoulder in April. Medications: - Verapamil 40 mg for migraines and hypertension. - Spironolactone 25 mg for hypertension. - Buspirone 10 mg three times daily for anxiety. - Gabapentin 300 mg for restless leg syndrome and breakthrough anxiety. - Montelukast for asthma. - Sumatriptan as needed for migraines. - Fioricet (infrequent use, noted but not recommended). Social History: - The patient is not currently smoking. - Formerly consumed two cups of coffee daily, now reduced to half a cup daily due to concerns about caffeine's effect on anxiety. - Reports weight gain post-left shoulder surgery and a desire to return to physical activity. - Has a history of asthma but without recent exacerbations. Problem List - Essential Hypertension - Anxiety disorder uncontrolled - depression - History of Migraine - Asthma - Vertigo - Restless Leg Syndrome - difficulty sleeping at night - snoring Diagnostic results - Labs: Comprehensive blood work within normal limits. - Imaging: Normal CT brain scan, normal chest x-ray. - Tests: Normal EKG with a prolonged QTC interval, negative for influenza, RSV, and COVID. Donalds of Care - The patient has been seen by a psychiatrist and engages in therapy and medication management for her anxiety. Patient Instructions - Follow up with psychiatrist for continued management of anxiety and medication adjustment. - Begin physical therapy for vertigo. - Book an appointment for a home sleep study. - continue the medications - reach out to me if symptoms gets worse Orders: Orders PT Evaluation and Treatment Today R42 - Dizziness and giddiness RT home sleep study Today E66.01 - Morbid (severe) obesity due to excess calories, E66.813 - Obesity, class 3, F51.8 - Other sleep disorders not due to a substance or known physiological condition, G47.20 - Circadian rhythm sleep disorder, unspecified type, R40.0 - Somnolence, Z68.41 - Body mass index [BMI] 40.0-44.9, adult Medications: Discontinued wrxgxhggui-xtfzaqsvbcusk-qucu 50-325-40 mg Discontinued Reason: Doctor's Order 1 tab PO Q6H PRN 20 tabs 0RF haeadace
[2025-06-30 10:33] VITALS: BP 128/90; PULSE 102; RESP 16; O2SAT 96
--- OUTSIDE RECORDS SUMMARY | 2025-06-30 11:24 | XMS_ITS | Encounter Summary ---
Author Organization [facility] Address [address] [place] [id number] Phone Care Team Providers Care Director Of Sales And Marketing Name Role Phone Donna Lizarraga MD Primary Care Provider + Curt Banks MD Unavailable + Antonella Hinds NP Unavailable [phone] Arlette Gil MD Unavailable Suma Mcdonnell MD Unavailable [phone] Radha Campbell FINANCIAL SYSTEMS ADMINISTRATOR Unavailable Donna Lizarraga MD Unavailable Xochitl Camargo MD Primary Care Provider Encounter Details Date Type Department Care Team (Late st Contact Info) Description 11/30/2017 Procedure Pass [facility], Ct Scan - [address] [address] Social History Tobacco Use Types Packs/Day Years Used Date Smoking Tobacco: Never Smokeless Tobacco: Never Alcohol Use Standard Drinks/Week Comments No 0 (1 standard drink = 0.6 oz pur e alcohol) Comments No Sex and Gender Information Value Date Recorded Sex Assigned at Female 12/01/2017 1:36 PM EST Legal Sex Female 9:15 PM EDT Gender Identity Female 12/01/2017 1:36 PM EST Sexual Orientation Bisexual 12/01/2017 1: 36 PM EST documented as of this encounter Plan of Treatment Not on file documented as of this encounter Visit Diagnoses Not on filedocumented in this encounter Care Teams Director Of Sales And Marketing Relationship Specialty Start Date End Date Donna Lizarraga MD [address] [place] [id number] PCP - General 08/19/17 04/20/21 Xochitl Camargo MD [facility] [place] [address] PCP - General Internal Medicine 04/21/21 Curt Banks MD [address] [place] [phone] [email or web address] Historical LMR Provider 08/24/17 11/11/21 Antonella Hinds, SOD CUTTER [address] [place] [id number] [email or web address] Historical LMR Provider 08/24/17 11/11/21 Arlette Gil MD [address] [place] [address] Historical LMR Provider 08/24/17 2 Suma Mcdonnell MD [address] [place] [address] Historical LMR Provider 08/24/17 2 Radha Campbell FNP [address] [place] [id number] Historical LMR Provider 08/24/17 11/11/21 Donna Lizarraga MD [address] [place] [phone] [email or web address] Insurance Assigned Provider 03/07/19 08/15/19 documented as of this encounter Additional Source Comments The information contained in this document represents components of the legal health record. It is not the complete legal health record.[facility]
--- OUTSIDE RECORDS SUMMARY | 2025-06-30 11:24 | XMS_ITS | Clinical Summary ---
Author Organization [facility] Address [address] [facility] [address] [place] [address] Phone Care Team Providers Care Labor Contractor Name Role Phone Xochitl Camargo MD Primary Care Provider [phone] Allergies Active Allergy Reactions Criticality Noted Date Comments Codeine Nausea and/or Vomiting 01/12/2016 Iodine 11/30/2017 PT STATES SEVERE CONTRAST REACTION Latex Unknown 01/12/2016 Penicillin Unknown 01/12/2016 Shellfish Containing Products Unknown 01/12/2016 Sulfa (Sulfonamide Antibiotics) Anaphylaxis High 01/12/2016 Medications venlafaxine (EFFEXOR) 75 MG tablet Active loratadine (CLARITIN LIQUI-GEL) 10 mg Cap as directed Active MULTIVITAMIN ORAL Active lisinopril (PRINIVIL,ZESTR IL) 10 MG tablet Take 10 mg by mouth daily. Active amLODIPine (NORVASC) 5 MG tablet Take 5 mg by mouth daily. 03/26/2021 Active montelukast (SINGULAIR) 10 mg tablet 03/26/2021 Active venlafaxine (EFFEXOR-XR) 150 MG 24 hr capsule TAKE 1 CAPSULE BY MOUTH EVERY DAY WITH FOOD 03/20/2021 Active Active Problems No known active problems Family History Medical History Relation Comments Cancer Father 2 Hypertension Father 2 CV disease Maternal Grandfather 2 Cancer Maternal Grandmother 2 Cancer Mother 2 Diabetes mellitus Paternal Grandmother 2 Relation Status Comments Father 1 Alive Father 2 Maternal Grandfather 1 Maternal Grandfather 2 Maternal Grandmother 1 Alive Maternal Grandmother 2 Mother 1 Alive Mother 2 Paternal Grandmother 1 Paternal Grandmother 2 Social History Tobacco Use Types Packs/Day Years Used Date Smoking Tobacco: Never Smokeless Tobacco: Never Alcohol Use Standard Drinks/Week Comments No 0 (1 standard drink = 0.6 oz pur e alcohol) Education Answer Date Recorded Are you interested in more education? Not on clyde e 03/01/2023 Are you concerned about learning? Not on file 03/01/2023 No 03/01/2023 No 03/01/2023 Digital Access Answer Date Recorded No 03/29/2023 No 03/29/2023 Reliable internet access at home? Not on file 03/29/2023 Device with a working camera? Not on file Comments No Sex and Gender Information Value Date Recorded Sex Assigned at Female 12/01/2017 1:36 PM EST Legal Sex Female 9:15 PM EDT Gender Identity Female 12/01/2017 1:36 PM EST Sexual Orientation Bisexual 12/01/2017 1: 36 PM EST Last Filed Vital Signs Vital Sign Reading Time Taken Comments Blood Pressure 139/103 02/05/2018 11:18 PM EDT Pulse 85 02/05/2018 11:18 PM EDT Temperature 36.7 C (98 F) 02/05/2018 7:50 PM EDT Respiratory Rate 16 02/05/2018 11:18 PM EDT Oxygen Saturation 100% 02/05/2018 10:41 PM EDT Inhaled Oxygen Concentration - - Weight 101.2 kg (223 lb) 04/21/2021 1:59 PM EDT Height 157.5 cm (5' 2 ) 04/21/2021 1:59 PM EDT Body Mass Index 40.79 04/21/2021 1:59 PM EDT Plan of Treatment Health Maintenance Due Date Last Done Comments DEPRESSION SCREENING 1996 HEPATITIS C SCREENING 2002 HIV ONE-TIME SCREENING (18-6 5 YEARS) 2002 CREATININE LEVEL 11/30/2018 11/30/2017 POTASSIUM LEVEL 11/30/2018 11/30/2017 PAP SMEAR 01/18/2019 01/19/2016 COVID-19 VACCINE (3 - 4-2 5 season) 2024 02/04/2021, 01/14/2021 MAMMOGRAM 2024 01/19/2011 Adult Td,Tdap Booster 07/22/2029 07/22/2019 SMOKING STATUS SCREENING (On ce After 26 Yrs) Completed 04/21/2021 HEPATITIS A VACCINES Aged Out No long er eligible based on patient's age to complete this topic HIB VACCINES Aged Out No longer eligi ble based on patient's age to complete this topic MENINGOCOCCAL VACCINES (ACWY) Aged Out No longer eligible based on patient's age to complete this topic MENINGOCOCCAL VACCINES (B) Aged Out N o longer eligible based on patient's age to complete this topic PNEUMOCOCCAL VACCINES (0-49 years) Aged Out No longer eligible b ased on patient's age to complete this topic Medical Devices Not on file Procedures Procedure Name Priority Date/Time Associated Diagnosis Comments BASIC METABOLIC PANEL STAT 11/30/2017 12:02 PM EST from Last 3 Months or Most Recently Relevant to Health Maintenance Results * Basic metabolic panel (11/30/2017 12:02 PM EST) SODIUM 139 133 - 146 mmol/L [facility] CHLORIDE 103 96 - 108 mmol/L [facility] POTASSIUM 3.8 3.3 - 5.1 mmol/L [facility] CO2 24 21 - 35 mmol/L [facility] BUN 11 6 - 19 mg/dL [facility] CREATININE 0.60 0.5 - 1.5 mg/dL [facility] GLUCOSE 86 70 - 99 mg/dL [facility] CALCIUM 8.5 8.4 - 10.3 mg/dL [facility] EGFR >60 >60 mL/min/1.7 3m2 [facility] Comment:Abnormal if <60. If patient is -S[place] Arabian, multiply the result by 1.21. ANION GAP 16 10 - 20 mmol/L [facility] Blood 11/30/2017 12:0 2 PM EST 11/30/2017 12:12 PM EST us Agatha Wan PA-C LAB BLOOD ORDERABLES Fi nal Result [facility] [address] [place] [address] from Last 3 Months or Most Recently Relevant to Health Maintenance [place] [address] [place] [address] [place] [address] [place] [address] [place] [address] [place] [address] [place] [address] [place] [address] [place] [address] [place] [address] [place] [address] [employer] Care Teams Labor Contractor Relationship Specialty Start Date End Date Xochitl Camargo MD [address] [facility] [place] [address] PCP - General Internal Medicine 04/21/21 Additional Source Comments The information contained in this document represents components of the legal health record. It is not the complete legal health record.[facility]
--- OUTSIDE RECORDS SUMMARY | 2025-06-30 11:24 | XMS_ITS | Patient Health Record ---
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) Active confirmed Problem Acquired hammer toe of right foot (16085410990397 05) Other hammer toe(s) (acquired), right foot (M20.41) Active confirmed Problem Acquired hammer toe of left foot (83815761544117 03) Other hammer toe(s) (acquired), left foot (M20.42) Active confirmed Problem Neuropathy (286447420) Neuropathy (G62.9) Active confirmed Problem Plantar nerve lesion (183455139) Lesion of plantar nerve, 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
--- OUTSIDE RECORDS SUMMARY | 2025-06-30 11:24 | XMS_ITS | Encounter Summary ---
Author Organization [facility] Address [address] [facility] [address] [place] [address] Phone Care Team Providers Care Communications Marketing Intern Name Role Phone Donna Lizarraga MD Primary Care Provider + Curt Banks MD Unavailable + Antonella Hinds NP Unavailable [phone] Arlette Gil MD Unavailable Suma Mcdonnell MD Unavailable [phone] Radha Campbell ALARM MECHANISM ADJUSTER Unavailable [phone] Donna Lizarraga MD Unavailable [phone] Xochitl Camargo MD Primary Care Provider [phone] Encounter Details Date Type Department Care Team (Late st Contact Info) Description 11/26/2017 Ancillary Orders Virtual Department [address] [place] [address] Magalys Li PA-C [address] [place] [address] [email or web address] Left lower quadrant pain Social History Tobacco [...] of the left-sided pain is detected. POS: [id number] Edited by: Iliana Alegre on 11/28/2017 3:59 [...] source of the left-sidedpain is detected. POS: [id number] Edited by: Iliana Alegre on 11/28/2017 3:59 PM us Hope Guillermo PERDOMO IMG US PELVIS Final Result documented in this encounter Visit Diagnoses Diagnosis Left lower quadrant pain Abdominal pain, left lower quadrant Left lower quadrant pain Abdominal pain, left lower quadrant documented in this encounter Care Teams Communications Marketing Intern Relationship Specialty Start Date End Date Donna Lizarraga MD [address] [place] [address] [email or web address] PCP - General 08/19/17 04/20/21 Xochitl Camargo MD [facility] [place] [address] PCP - General Internal Medicine 04/21/21 Curt Banks MD [address] [place] [address] [email or web address] Historical LMR Provider 08/24/17 11/11/21 Antonella Hinds NP [address] [place] [address] Historical LMR Provider 08/24/17 11/11/21 Arlette Gil MD [address] [place] [address] Historical LMR Provider 08/24/17 2 Suma Mcdonnell MD [address] [place] [address] Historical LMR Provider 08/24/17 2 Radha Campbell FNP [address] [place] [address] [email or web address] Historical LMR Provider 08/24/17 11/11/21 Donna Lizarraga MD [address] [place] [address] [email or web address] Insurance Assigned Provider 03/07/19 08/15/19 documented as of this encounter Additional Source Comments The information contained in this document represents components of the legal health record. It is not the complete legal health record.[facility]
== END 2025-06-30 10:57 | disposition home or self-care (01) ==
LOC: HO.HMCC 10:31
PROVIDERS: PCP Internal Medicine; Visit Provider Internal Medicine
DX: R07.89 Other chest pain (principal); R09.89 Other specified symptoms and signs involving the circulatory and respiratory systems; E66.01 Morbid (severe) obesity due to excess calories; Z68.41 Body mass index [BMI] 40.0-44.9, adult; R42 Dizziness and giddiness; R40.0 Somnolence; G47.20 Circadian rhythm sleep disorder, unspecified type; F51.8 Other sleep disorders not due to a substance or known physiological condition; F41.1 Generalized anxiety disorder; F41.0 Panic disorder [episodic paroxysmal anxiety]; F33.42 Major depressive disorder, recurrent, in full remission; Z91.09 Other allergy status, other than to drugs and biological substances

== ENCOUNTER → 2025-06-30 10:30 | Outpatient (BNVA) | payer OTHER, SELFPAY | PROVIDERS: PCP Internal Medicine; Visit Provider Internal Medicine | DX: R42 Dizziness and giddiness (principal); R07.89 Other chest pain; R09.89 Other specified symptoms and signs involving the circulatory and respiratory systems; E66.813 Obesity, class 3; E66.01 Morbid (severe) obesity due to excess calories; R40.0 Somnolence; G47.20 Circadian rhythm sleep disorder, unspecified type; F51.8 Other sleep disorders not due to a substance or known physiological condition; F41.1 Generalized anxiety disorder; F41.0 Panic disorder [episodic paroxysmal anxiety]; F33.42 Major depressive disorder, recurrent, in full remission; I10 Essential (primary) hypertension; G43.009 Migraine without aura, not intractable, without status migrainosus; G57.92 Unspecified mononeuropathy of left lower limb; Z68.41 Body mass index [BMI] 40.0-44.9, adult; Z91.09 Other allergy status, other than to drugs and biological substances | CPT/HCPCS: 96127 ==

== ENCOUNTER 2025-07-22 11:01 | Outpatient (AMB) | payer OTHER, SELFPAY ==
--- NOTE | 2025-07-22 11:14 | MHC.OFFVIS ---
Intake Visit Reasons: PO- Left RTC repair w patch 04/28/25-6WK f/u Intake Note: Sary is a 39 year old right hand dominant female who presents today for a post operative appointment about 12 weeks s/p Left Rotator Cuff Repair with patch 04/28/25. She has been discharged from [facility]. Patient was last given a note to remain out of work until 07/29/25 and then return to work on light duty with no lifting >20lbs, no overhead lifting and no animal restraining. Patient reports that she is doing well with no concerns of pain, she does however have a reoccouring spasm in her bicep that she is concerned about the spasm is not painful but it is uncomfortable. Allergies banana Allergy (Mild, Verified 06/30/25 10:34) Anaphylaxis lisinopril Allergy (Unknown, Verified 06/30/25 10:34) unknown atenolol Allergy (Verified 06/30/25 10:34) Dizziness avocado Allergy (Verified 06/30/25 10:34) Stomach Upset codeine Allergy (Verified 06/30/25 10:34) Vomiting fish derived Allergy (Verified 06/30/25 10:34) Anaphylaxis kiwi Allergy (Verified 06/30/25 10:34) Rash Latex, Natural Rubber Allergy (Verified 06/30/25 10:34) Rash penicillin G Allergy (Verified 06/30/25 10:34) Hallucinations shellfish derived Allergy (Verified 06/30/25 10:34) Anaphylaxis Sulfa (Sulfonamide Antibiotics) Allergy (Verified 06/30/25 10:34) Unknown tree and shrub pollen Allergy (Verified 06/30/25 10:34) Watery Eye morphine Adverse Reaction (Verified 06/30/25 10:34) Nausea and Vomiting HPI HPI PO- Left RTC repair w patch 04/28/25-6WK f/u: Details: Sary is a 39 year old right hand dominant female who presents today for a post operative appointment about 12 weeks s/p Left Rotator Cuff Repair with patch 04/28/25. She has been discharged from [facility]. Patient was last given a note to remain out of work until 07/29/25 and then return to work on light duty with no lifting >20lbs, no overhead lifting and no animal restraining. Patient reports that she is doing well with no concerns of pain, she does however have a reoccouring spasm in her bicep that she is concerned about the spasm is not painful but it is uncomfortable. [facility] Medical History Vertigo Hypertension, essential Morbid obesity due to excess calories Medullary sponge kidney SLAP (superior labrum from anterior to posterior) tear IBS (irritable bowel syndrome) Anxiety, generalized Surgical History Hx of shoulder surgery History of wisdom tooth extraction Family History Father No problems noted. Mother No problems noted. Brother No problems noted. Sister No problems noted. 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 Doing well but still too soon to un-restrict lifting. Continue current work restrictions. Continue strengthening with HEP. Continue Coding Level of Care Code Global (72971) Diagnoses S/P left rotator cuff repair Z98.890
--- OUTSIDE RECORDS SUMMARY | 2025-07-22 13:10 | XMS_ITS | Encounter Summary ---
Author Organization [facility] Address [address] [facility] [address] [place] [address] Phone Care Team Providers Care Electrician Second Name Role Phone Donna Lizarraga MD Primary Care Provider + Curt Banks MD Unavailable + Antonella Hinds NP Unavailable [phone] Arlette Gil MD Unavailable Suma Mcdonnell MD Unavailable [phone] Radha Campbell MASONRY INSTRUCTOR Unavailable Donna Lizarraga MD Unavailable [phone] Xochitl Camargo MD Primary Care Provider [phone] Encounter Details Date Type Department Care Team (Late st Contact Info) Description 11/26/2017 Ancillary Orders Virtual Department [address] [place] [address] Magalys Li PA-C [address] [place] [address] [email or web address] Left lower quadrant [...] of the left-sided pain is detected. POS: [id number] Edited by: Iliana Alegre on 11/28/2017 3:59 [...] source of the left-sidedpain is detected. POS: [id number] Edited by: Iliana Alegre on 11/28/2017 3:59 PM us Hope Guillermo PERDOMO IMG US PELVIS Final Result documented in this encounter Visit Diagnoses Diagnosis Left lower quadrant pain Abdominal pain, left lower quadrant Left lower quadrant pain Abdominal pain, left lower quadrant documented in this encounter Care Teams Electrician Second Relationship Specialty Start Date End Date Donna Lizarraga MD [address] [place] [address] [email or web address] PCP - General 08/19/17 04/20/21 Xochitl Camargo MD [facility] [address] PCP - General Internal Medicine 04/21/21 Curt Bansk MD [address] [place] [address] [email or web address] Historical LMR Provider 08/24/17 11/11/21 Antonella Hinds NP [address] [place] [address] Historical LMR Provider 08/24/17 11/11/21 Arlette Gil MD [address] [place] [address] Historical LMR Provider 08/24/17 2 Suma Mcdonnell MD [address] [place] [address] Historical LMR Provider 08/24/17 2 Radha Campbell FNP [address] [place] [address] [email or web address] Historical LMR Provider 08/24/17 11/11/21 Donna Lizarraga MD [address] [place] [address] [email or web address] Insurance Assigned Provider 03/07/19 08/15/19 documented as of this encounter Additional Source Comments The information contained in this document represents components of the legal health record. It is not the complete legal health record.[facility]
--- OUTSIDE RECORDS SUMMARY | 2025-07-22 13:11 | XMS_ITS | Clinical Summary ---
Author Organization [facility] Address [address] [facility] [address] [place] [address] Phone Care Team Providers Care Agriculture Inspector Name Role Phone Xochitl Camargo MD Primary Care Provider Allergies Active Allergy Reactions Criticality Noted Date [...] LEVEL 11/30/2018 11/30/2017 PAP SMEAR 01/18/2019 01/19/2016 MAMMOGRAM 2024 01/19/2011 INFLUENZA VACCINE (#1) 2025 0, 07/21/2019 COVID-19 VACCINE (3 2024-2 6 season) 2025 02/04/2021, 01/14/2021 Adult Td,Tdap Booster 07/22/2029 07/22/2019 SMOKING STATUS [...] EST) SODIUM 139 133 - 146 mmol/L [facility] CHLORIDE 103 96 - 108 mmol/L [facility] POTASSIUM 3.8 3.3 - 5.1 mmol/L [facility] CO2 24 21 - 35 mmol/L [facility] BUN 11 6 - 19 mg/dL [facility] CREATININE 0.60 0.5 - 1.5 mg/dL [facility] GLUCOSE 86 70 - 99 mg/dL [facility] CALCIUM 8.5 8.4 - 10.3 mg/dL [facility] EGFR >60 >60 mL/min/1.7 3m2 [facility] Comment:Abnormal if <60. If patient is -Portuguese, multiply the result by 1.21. ANION GAP 16 10 - 20 mmol/L [facility] Blood 11/30/2017 12:0 2 PM EST 11/30/2017 12:12 PM EST us Agatha Wan PA-C LAB BLOOD ORDERABLES Fi nal Result [facility] [address] [place] [address] from Last 3 Months or Most Recently Relevant to Health Maintenance Insurance [address] [place] [address] [place] [address] [place] [address] [address] [address] [address] [place] [address] [employer] Care Teams Agriculture Inspector Relationship Specialty Start Date End Date Xochitl Camargo MD [address] [facility] [place] [address] PCP - General Internal Medicine 04/21/21 Additional Source Comments The information contained in this document represents components of the legal health record. It is not the complete legal health record.[facility]
--- OUTSIDE RECORDS SUMMARY | 2025-07-22 13:11 | XMS_ITS | Encounter Summary ---
Author Organization [facility] Address [address] [facility] [address] [place] [address] Phone Care Team Providers Care Key Punch Teacher Name Role Phone Donna Lizarraga MD Primary Care Provider + Curt Banks MD Unavailable + Antonella Hinds NP Unavailable [phone] Arlette Gil MD Unavailable Suma Mcdonnell MD Unavailable [phone] Radha Campbell RESEARCH ASSOCIATE MOLECULAR BIOLOGY Unavailable Donna Lizarraga MD Unavailable Xochitl Camargo MD Primary Care Provider Encounter Details Date Type Department Care Team (Late st Contact Info) Description 11/30/2017 Procedure Pass [facility], Ct Scan - [address] [address] Social History Tobacco Use Types Packs/Day Years [...] on filedocumented in this encounter Care Teams Key Punch Teacher Relationship Specialty Start Date End Date Donna Lizarraga MD [address] [place] [address] PCP - General 08/19/17 04/20/21 Xochitl Camargo MD [facility] [place] [address] PCP - General Internal Medicine 04/21/21 Curt Banks MD [address] [place] [address] [email or web address] Historical LMR Provider 08/24/17 11/11/21 Antonella Hinds, KEY PUNCH TEACHER [address] [place] [address] [email or web address] Historical LMR Provider 08/24/17 11/11/21 Arlette Gil MD [address] [place] [address] Historical LMR Provider 08/24/17 2 Suma Mcdonnell MD [address] [place] [address] Historical LMR Provider 08/24/17 2 Radha Campbell FNP [address] [place] [address] Historical LMR Provider 08/24/17 11/11/21 Donna Lizarraga MD [address] [place] [address] [email or web address] Insurance Assigned Provider 03/07/19 08/15/19 documented as of this encounter Additional Source Comments The information contained in this document represents components of the legal health record. It is not the complete legal health record.[facility]
== END 2025-07-22 12:10 | disposition home or self-care (01) ==
LOC: HO.HOS 11:02
PROVIDERS: PCP Internal Medicine; Visit Provider Orthopaedic Surgery
DX: Z98.890 Other specified postprocedural states (principal)
CPT/HCPCS: 99024

== ENCOUNTER 2025-09-10 09:02 | Outpatient (AMB) | payer OTHER, SELFPAY ==
--- NOTE | 2025-09-10 09:05 | A.OFFPC_ITS ---
Vital Signs 09/10/25 09:06 Height 5 ft 2 in Weight 243 lb BMI 44.4 BP 132/80 Blood Pressure Location Lt brachial Position Sitting Pulse 90 Pulse Source Pulse Oximeter Pulse Oximetry (%) 98 Intake Visit Reasons: Abdominal pain and bloating Allergies banana Allergy (Mild, Verified 09/10/25 09:06) Anaphylaxis lisinopril Allergy (Unknown, Verified 09/10/25 09:06) unknown atenolol Allergy (Verified 09/10/25 09:06) Dizziness avocado Allergy (Verified 09/10/25 09:06) Stomach Upset codeine Allergy (Verified 09/10/25 09:06) Vomiting fish derived Allergy (Verified 09/10/25 09:06) Anaphylaxis kiwi Allergy (Verified 09/10/25 09:06) Rash Latex, Natural Rubber Allergy (Verified 09/10/25 09:06) Rash penicillin G Allergy (Verified 09/10/25 09:06) Hallucinations shellfish derived Allergy (Verified 09/10/25 09:06) Anaphylaxis Sulfa (Sulfonamide Antibiotics) Allergy (Verified 09/10/25 09:06) Unknown tree and shrub pollen Allergy (Verified 09/10/25 09:06) Watery Eye morphine Adverse Reaction (Verified 09/10/25 09:06) Nausea and Vomiting Medication List - Last Reconciled 09/10/25 by Xochitl Camargo MD buspirone 10 mg PO TID 90 days coenzyme Q10 (Co Q-10) 20 mg PO ONCE epinephrine (EpiPen) 0.3 mg (0.3 mL) IM Q10M PRN 90 days escitalopram oxalate 10 mg PO QAM gabapentin 300 mg PO BEDTIME Lactobacillus acidophilus (Probiotic) PO DAILY lurasidone 40 mg PO QAM meclizine 25 mg PO DAILY PRN montelukast 10 mg PO DAILY 90 days multivitamin (Daily Multi-Vitamin tablet) 1 tab PO DAILY propranolol 10 mg PO BID PRN spironolactone 25 mg PO BID 90 days sumatriptan succinate (Imitrex) 50 mg PO ONCE PRN 30 days verapamil 40 mg PO BID 90 days Tobacco use date assessed: 02/05/25 Dental Screening Dental Screen Date: 06/30/25 HPI Abdominal pain and bloating HPI Details History of Present Illness The patient is a 47-year-old female presenting for a follow-up visit to address intermittent abdominal pain, discuss weight gain, and for medication review. Abdominal Pain and GERD: - The patient has experienced intermitte nt abdominal pain for a few years, which has recently become more frequent. - The pain is located in the left upper quadrant, under the ribs, and can radiate downwards. - A CT scan during an ER visit several y ears ago revealed jejunal inflammation, for which she was given omeprazole. - She has been taking exts-wyp-rzpgtow o meprazole on an as-needed basis. - Associated symptoms include severe ref lux and early satiety. - She reports that acidic foods worsen t he reflux, but she has not identified a clear food trigger for the pain. Anxiety and Depression: - The patient is under the care of a psy chiatrist for anxiety and depression. - Her psychiatrist recently prescribed p ropranolol 10 mg for breakthrough anxiety. - She was hesitant to take it due to con cern from a pharmacist about its interaction with verapamil. - Her anxiety symptoms include palpitati ons and tremors. Weight Gain: - The patient expresses significant conc favio about being overweight and continues to gain weight despite exercising and eating very little. - She takes medications known to cause w eight gain, including gabapentin and Latuda. - She is interested in a referral to a w eight loss specialist but is not necessarily seeking surgery. Medications: - Omeprazole, vfbm-wlr-jncscvd as needed for abdominal pain - Propranolol 10 mg for breakthrough anx iety - Verapamil for migraines - Spironolactone for blood pressure - Gabapentin at night for restless legs - Latuda - Lexapro Social History: - Diet: Patient reports eating little, t rying to cut out fatty and acidic foods. - Substance Use: Denies soda consumption . - Exercise: Patient reports she is exerc ising. - Weight Management: Patient is actively watching her food intake and exercising but continues to gain weight. Problem List - LUQ discomfort - Gastroesophageal reflux disease - Anxiety - Depression - Weight gain - Migraine - Restless legs syndrome - Hypertension Plan - Prescribed pantoprazole 40 mg to be ta lin daily on an empty stomach for three months for suspected acid-related inflammation and reflux. - Approved the use of propranolol 10 mg as prescribed by her psychiatrist for breakthrough anxiety, with instructions that it can be taken up to two times a day. - Advised the patient to monitor her blo od pressure at home while taking propranolol. - Will place a referral to a bariatric/w eight loss clinic and provided the contact number for the patient to follow up. - Provided dietary counseling, including avoiding food four to five hours before bedtime, no soda, and avoiding acidic and fatty foods like tomato, pizza, and spaghetti. - Scheduled a follow-up appointment in [facility] to assess response to medication. Review of Systems - General: No fever no chills - Neurological: No headaches no dizziness - Ear nose throat: No sore throat no hearing difficulty no ear pain - Cardiovascular: No syncope, no chest pain, no palpitations - Gastrointestinal: No vomiting or diarrhea - Endocrine: No polyuria polydipsia no heat intolerance - Genitourinary: No dysuria , no blood in urine Physical Exam General: No acute distress HEENT: No acute findings Neck: Supple Respiratory system: Able to talk in full sentences, no audible wheeze Cardiovascular: S1-S2 regular in rate and rhythm, blood pressure 132/80, pulse 90 Gastrointestinal: Mild abdominal pain, particularly in the left upper quadrant,BS + no guarding Extremities: No new findings SWATCH CLERK: Alert awake oriented x3 motor intact Skin: Normal turgor PFSH Medical History Vertigo Hypertension, essential Morbid obesity due to excess calories Medullary sponge kidney SLAP (superior labrum from anterior to posterior) tear IBS (irritable bowel syndrome) Anxiety, generalized Surgical History Hx of shoulder surgery History of wisdom tooth extraction Family History Father No problems noted. Mother No problems noted. Brother No problems noted. Sister No problems noted. 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 Cognitive needs: No Hearing needs: No Vision needs: Yes (contacts) Questionnaire Thrive Questionnaire Date Thrive assessed: 02/05/25 I am a: Patient What is your living situation today?: I have a steady place to live Within the past 12 months, did the food you bought not last and you didn't have the money to get more?: Never true Within the past 12 months, did you worry whether your food would run out before you got money to buy more?: Never true Do you have trouble paying for medicines?: No Do you have trouble getting transportation to medical appointments?: No Do you have trouble paying your heating and electricity bill?: No Do you have trouble taking care of your child, family member or friend?: No Do you have trouble with day-to-day activities such as bathing, preparing meals, shopping, managing finances, etc.?: Yes Are you currently unemployed and looking for a job?: No Are you interested in more education?: No Please select the resources that you would like help with: None Currently or been in a relationship where the following occur: No concerns reported THRIVE Score: 0 YELENA-7 AMB Questionnaire YELENA-7 Date YELENA - 7 assessed: 02/05/25 Source: Developed by Drs. Dev Wylie, Asia Max, Bernard Cornelius and colleagues, with an educational angela from [employer]. Physical exam (Primary Care) Vital Signs: Last Vital Signs Pulse 90 09/10/25 09:06 BP 132/80 09/10/25 09:06 Pulse Ox 98 09/10/25 09:06 BMI result Body Mass Index 44.4 Tobacco/Smoking Status: Tobacco use Status Tobacco use date assessed 02/05/25 09/10/25 09:06 Patient Tobacco Use Status Never used Tobacco 09/10/25 09:06 e-Cigarette/Vaping Use Never Used 09/10/25 09:06 Thrive Assessment: Date of Thrive Assessment Date Thrive assessed 02/05/25 09/10/25 09:06 Currently or been in a relationship where the following occur: No concerns reported Coding Level of Care Code Est Pt Level 4 (20721) Diagnoses Left upper quadrant abdominal tenderness with rebound tenderness R10.822 Presence of rebound: present Morbid obesity due to excess calories E66.01 Gastroesophageal reflux disease without esophagitis K21.9 Esophagitis presence: without esophagitis Hypertension, essential I10 Recurrent major depressive disorder, in full remission F33.42 Active/Remission status: in full remission Generalized anxiety disorder with panic attacks F41.1; F41.0 Assessment & Plan Assessment & Plan (1) LUQ abdominal tenderness: Code(s): R10.812 - Left upper quadrant abdominal tenderness Category: Medical Qualifiers: Presence of rebound: present Qualified Code(s): R10.822 - Left upper quadrant rebound abdominal tenderness (2) Morbid obesity due to excess calories: Comment: If your BMI is between 25 and 29.9, you are overweight. If your BMI is 30 or greater, you are obese. ___ Being obese is a problem, because it increases the risks of many different health problems. It can also make it hard for you to move, breathe, and do other things that people who are at a healthy weight can do easily. Plus, being obese can be hard emotionally. ___ What are the health risks of being obese? Being obese increases a persons risk of developing many health problems. Here are just a few examples: __ Diabetes High blood pressure, High cholesterol, Heart disease (including heart attacks) Stroke, Sleep apnea (a disorder in which you stop breathing for short periods while asleep) Asthma, Cancer __ Does being obese shorten a persons life? Yes. Studies show that people who are obese younger than people who are a healthy weight. They also show that the risk of goes up the heavier a person is. The degree of increased risk depends on how long the person has been obese, and on what other medical problems he or she has. , Reduce your carbohydrate intake and choose carbs that are complex. Remember as a general rule of thumb, avoid highly processed foods. If it's white and soft, it's probably been stripped of its nutritional value. Change white bread to whole wheat bread, white rice to brown rice, white potatoes to sweet potatoes, white pasta to whole wheat pasta. Monitor portion sizes too: protein should be no bigger than your fist. Limit your red meat intake to only once or twice a wk. Eat more white meat but make sure to avoid creamy sauces etc. Broiling, baking or grilling is best. Increase dark, green leafy vegetables and fruits. Code(s): E66.01 - Morbid (severe) obesity due to excess calories Category: Medical (3) Acid reflux: Code(s): K21.9 - Gastro-esophageal reflux disease without esophagitis Category: Medical Qualifiers: Esophagitis presence: without esophagitis Qualified Code(s): K21.9 - Gastro-esophageal reflux disease without esophagitis (4) Hypertension, essential: Code(s): I10 - Essential (primary) hypertension Category: Medical (5) Major depression, recurrent: Code(s): F33.9 - Major depressive disorder, recurrent, unspecified Category: Medical Qualifiers: Active/Remission status: in full remission Qualified Code(s): F33.42 - Major depressive disorder, recurrent, in full remission (6) Generalized anxiety disorder with panic attacks: Code(s): F41.1 - Generalized anxiety disorder; F41.0 - Panic disorder [episodic paroxysmal anxiety] Category: Medical Plan Abdominal Pain and GERD: - The patient has experienced intermittent abdominal pain for a few years, which has recently become more frequent. - The pain is located in the left upper quadrant, under the ribs, and can radiate downwards. - A CT scan during an ER visit several years ago revealed jejunal inflammation, for which she was given omeprazole. - She has been taking upwu-gag-aaobttu omeprazole on an as-needed basis. - Associated symptoms include severe reflux and early satiety. - She reports that acidic foods worsen the reflux, but she has not identified a clear food trigger for the pain. Anxiety and Depression: - The patient is under the care of a psychiatrist for anxiety and depression. - Her psychiatrist recently prescribed propranolol 10 mg for breakthrough anxiety. - She was hesitant to take it due to concern from a pharmacist about its interaction with verapamil. - Her anxiety symptoms include palpitations and tremors. Weight Gain: - The patient expresses significant concern about being overweight and continues to gain weight despite exercising and eating very little. - She takes medications known to cause weight gain, including gabapentin and Latuda. - She is interested in a referral to a weight loss specialist but is not necessarily seeking surgery. Medications: - Omeprazole, gilq-myl-sgczqgt as needed for abdominal pain - Propranolol 10 mg for breakthrough anxiety - Verapamil for migraines - Spironolactone for blood pressure - Gabapentin at night for restless legs - Latuda - Lexapro Social History: - Diet: Patient reports eating little, trying to cut out fatty and acidic foods. - Substance Use: Denies soda consumption. - Exercise: Patient reports she is exercising. - Weight Management: Patient is actively watching her food intake and exercising but continues to gain weight. Problem List - LUQ discomfort - Gastroesophageal reflux disease - Anxiety - Depression - Weight gain - Migraine - Restless legs syndrome - Hypertension Plan - Prescribed pantoprazole 40 mg to be taken daily on an empty stomach for three months for suspected acid-related inflammation and reflux. - Approved the use of propranolol 10 mg as prescribed by her psychiatrist for breakthrough anxiety, with instructions that it can be taken up to two times a day. - Advised the patient to monitor her blood pressure at home while taking propra nolol. - Will place a referral to a bariatric/weight loss clinic and provided the contact number for the patient to follow up. - Provided dietary counseling, including avoiding food four to five hours before bedtime, no soda, and avoiding acidic and fatty foods like tomato, pizza, and spaghetti. - Scheduled a follow-up appointment in October to assess response to medication. Orders: Referrals Bariatric Surgery Referral E66.01 - Morbid (severe) obesity due to excess calories Medications: New pantoprazole 40 mg PO DAILY 90 tabs 0RF
[2025-09-10 09:06] VITALS: BP 132/80; PULSE 90; O2SAT 98; BMI 44.4
--- OUTSIDE RECORDS SUMMARY | 2025-09-10 10:04 | XMS_ITS | Patient Health Record ---
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) Active confirmed Problem Acquired hammer toe of right foot (90971373284269 05) Other hammer toe(s) (acquired), right foot (M20.41) Active confirmed Problem Acquired hammer toe of left foot (68953923504901 03) Other hammer toe(s) (acquired), left foot (M20.42) Active confirmed Problem Neuropathy (942609645) Neuropathy (G62.9) Active confirmed Problem Plantar nerve lesion (016255624) Lesion of plantar nerve, 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
--- OUTSIDE RECORDS SUMMARY | 2025-09-10 10:04 | XMS_ITS | Clinical Summary ---
Author Organization [facility] Address [address] [facility] [address] [place] [address] Phone Care Team Providers Care Tractor Trailer Operator Name Role Phone Xochitl Camargo MD Primary Care Provider [phone] Allergies Active Allergy Reactions Criticality Noted Date [...] Date/Time Associated Diagnosis Comments BASIC METABOLIC PANEL (BMP) STAT 11/30/2017 12:02 PM EST from Last 3 Months or Most Recently Relevant to Health Maintenance Results * Basic metabolic panel (11/30/2017 12:02 PM EST) SODIUM 139 133 - 146 mmol/L [facility] CHLORIDE 103 96 - 108 mmol/L [facility] POTASSIUM 3.8 3.3 - 5.1 mmol/L [facility] CO2 24 21 - 35 mmol/L [facility] BUN 11 6 - 19 mg/dL [facility] CREATININE 0.60 0.5 - 1.5 mg/dL [facility] GLUCOSE 86 70 - 99 mg/dL [facility] CALCIUM 8.5 8.4 - 10.3 mg/dL [facility] EGFR >60 >60 mL/min/1.7 3m2 [facility] Comment:Abnormal if <60. If patient is -German, multiply the result by 1.21. ANION GAP 16 10 - 20 mmol/L [facility] Blood 11/30/2017 12:0 2 PM EST 11/30/2017 12:12 PM EST us Agatha Wan PA-C LAB BLOOD BKR ORDERABLE S Final Result [address] [address] from Last 3 Months or Most Recently Relevant to Health Maintenance [place] [address] [place] [address] [place] [address] [place] [address] [place] [address] [place] [address] [place] [address] [address] [place] [address] [place] [address] [place] [address] [employer] [facility] [place] [address] [place] [address] [employer] [facility] [employer] Care Teams Tractor Trailer Operator Relationship Specialty Start Date End Date Xochitl Camargo MD [facility] [place] [address] PCP - General Internal Medicine 04/21/21 Additional Source Comments The information contained in this document represents components of the legal health record. It is not the complete legal health record.[facility]
--- OUTSIDE RECORDS SUMMARY | 2025-09-10 10:04 | XMS_ITS | Encounter Summary ---
Author Organization [facility] Address [address] [facility] [address] [place] [address] Phone Care Team Providers Care Welfare Supervisor Name Role Phone Donna Lizarraga MD Primary Care Provider + Curt Banks MD Unavailable + Antonella Hinds NP Unavailable [phone] Arlette Gil MD Unavailable Suma Mcdonnell MD Unavailable [phone] Radha Campbell DETECTIVE [employer] Unavailable Donna Lizarraga MD Unavailable [phone] Xochitl Camargo MD Primary Care Provider [phone] Encounter Details Date Type Department Care Team (Late st Contact Info) Description 11/30/2017 Procedure Pass [facility], Ct Scan - [address] [address] Social History Tobacco Use Types Packs/Day Years [...] on filedocumented in this encounter Care Teams Welfare Supervisor Relationship Specialty Start Date End Date Donna Lizarraga MD [address] [place] [address] PCP - General 08/19/17 04/20/21 Xochitl Camargo MD [facility] [place] [address] PCP - General Internal Medicine 04/21/21 Curt Banks MD [address] [place] [address] [email or web address] Historical LMR Provider 08/24/17 11/11/21 Antonella Hinds, POULTRY SEXER [address] [place] [address] [email or web address] Historical LMR Provider 08/24/17 11/11/21 Arlette Gil MD [address] [place] [address] Historical LMR Provider 08/24/17 2 Suma Mcdonnell MD [address] [place] [address] Historical LMR Provider 08/24/17 2 Radha Campbell FNP [address] [place] [address] Historical LMR Provider 08/24/17 11/11/21 Donna Lizarraga MD [address] [place] [address] [email or web address] Insurance Assigned Provider 03/07/19 08/15/19 documented as of this encounter Additional Source Comments The information contained in this document represents components of the legal health record. It is not the complete legal health record.[facility]
--- OUTSIDE RECORDS SUMMARY | 2025-09-10 10:04 | XMS_ITS | Encounter Summary ---
Author Organization [facility] Address [address] [facility] [address] [place] [address] Phone Care Team Providers Care Senior Business Development Manager Name Role Phone Donna Lizarraga MD Primary Care Provider + Curt Banks MD Unavailable + Antonella Hinds NP Unavailable [phone] Arlette Gil MD Unavailable Suma Mcdonnell MD Unavailable [phone] Radha Campbell DIRECT CARE SPECIALIST Unavailable [phone] Donna Lizarraga MD Unavailable Xochitl Camargo MD Primary Care Provider Encounter Details Date Type Department Care Team (Late st Contact Info) Description 11/26/2017 Ancillary Orders Virtual Department [address] [place] [address] Magalys Li PA-C [address] [place] [address] [email or web address] Left [...] of the left-sided pain is detected. POS: [id number] Edited by: Iliana Alegre on 11/28/2017 3:59 [...] source of the left-sidedpain is detected. POS: [id number] Edited by: Iliana Alegre on 11/28/2017 3:59 PM us Hope Guillermo PERDOMO IMG US PELVIS Final Result documented in this encounter Visit Diagnoses Diagnosis Left lower quadrant pain Abdominal pain, left lower quadrant Left lower quadrant pain Abdominal pain, left lower quadrant documented in this encounter Care Teams Senior Business Development Manager Relationship Specialty Start Date End Date Donna Lizarraga MD [address] [place] [address] [email or web address] PCP - General 08/19/17 04/20/21 Xochitl Camargo MD [facility] [place] [address] PCP - General Internal Medicine 04/21/21 Curt Banks MD [address] [place] [address] [email or web address] Historical LMR Provider 08/24/17 11/11/21 Antonella Hinds NP [address] [place] [address] Historical LMR Provider 08/24/17 11/11/21 Arlette Gil MD [address] [place] [address] Historical LMR Provider 08/24/17 2 Suma Mcdonnell MD [address] [place] [address] Historical LMR Provider 08/24/17 2 Radha Campbell FNP [address] [place] [address] [email or web address] Historical LMR Provider 08/24/17 11/11/21 Donna Lizarraga MD [address] [place] [address] [email or web address] Insurance Assigned Provider 03/07/19 08/15/19 documented as of this encounter Additional Source Comments The information contained in this document represents components of the legal health record. It is not the complete legal health record.[facility]
== END 2025-09-10 09:34 | disposition home or self-care (01) ==
LOC: HO.HMCC 09:03
PROVIDERS: PCP Internal Medicine; Visit Provider Internal Medicine
DX: R10.822 Left upper quadrant rebound abdominal tenderness (principal); E66.01 Morbid (severe) obesity due to excess calories; K21.9 Gastro-esophageal reflux disease without esophagitis; Z68.41 Body mass index [BMI] 40.0-44.9, adult; I10 Essential (primary) hypertension; F33.42 Major depressive disorder, recurrent, in full remission; F41.1 Generalized anxiety disorder; F41.0 Panic disorder [episodic paroxysmal anxiety]

== ENCOUNTER 2025-10-22 10:47 | Outpatient (AMB) | payer OTHER, SELFPAY ==
--- NOTE | 2025-10-22 10:52 | MHC.OFFVIS ---
Vital Signs 10/22/25 10:56 Height 5 ft 2 in Weight 243 lb BMI 44.4 Intake Visit Reasons: OV-Left RTC repair w patch 04/28/25 Intake Note: Sary is a 39 year old female who presents today for a follow up of left rotator cuff repair with patch, performed by Dr. Salcedo on 04/28/25. Today patient reports that she is not doing so well, stating constant pain for the past month. Denies injury. Complaints of limited ROM. States that she has been out of PT for about 2-3 months. Allergies banana Allergy (Mild, Verified 10/22/25 10:56) Anaphylaxis lisinopril Allergy (Unknown, Verified 10/22/25 10:56) unknown atenolol Allergy (Verified 10/22/25 10:56) Dizziness avocado Allergy (Verified 10/22/25 10:56) Stomach Upset codeine Allergy (Verified 10/22/25 10:56) Vomiting fish derived Allergy (Verified 10/22/25 10:56) Anaphylaxis kiwi Allergy (Verified 10/22/25 10:56) Rash Latex, Natural Rubber Allergy (Verified 10/22/25 10:56) Rash penicillin G Allergy (Verified 10/22/25 10:56) Hallucinations shellfish derived Allergy (Verified 10/22/25 10:56) Anaphylaxis Sulfa (Sulfonamide Antibiotics) Allergy (Verified 10/22/25 10:56) Unknown tree and shrub pollen Allergy (Verified 10/22/25 10:56) Watery Eye morphine Adverse Reaction (Verified 10/22/25 10:56) Nausea and Vomiting HPI Comments Details: History of Present Illness The patient is a 39 year old female presenting with worsening left shoulder pain and stiffness. She is s/p LT shoulder RTC repair with Dr Salcedo 04/28/2025. She was seen in July and was doing well until about one month ago, when she awoke with sudden onset of symptoms, describing her shoulder as feeling like it was put on too tight. The symptoms have progressed to the point where she requires assistance from her to get dressed and from coworkers to take off her coat. Her pain is localized to the anterior shoulder, near a prior biceps tendon surgery scar, and the posterior shoulder, with radiation down to the elbow. She does not feel weak, but any movement causes pain. The pain is also affecting her sleep. 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 She has a history of a Left shoulder capsular plication with sub pectoral biceps tenodesis 07/03/[address] Salcedo. 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 - Functional Status: The patient reports difficulty with activities of daily living, requiring assistance with dressing. [facility] Medical History Vertigo Hypertension, essential Morbid obesity due to excess calories Medullary sponge kidney SLAP (superior labrum from anterior to posterior) tear IBS (irritable bowel syndrome) Anxiety, generalized Surgical History Hx of shoulder surgery History of wisdom tooth extraction Family History Father No problems noted. Mother No problems noted. Brother No problems noted. Sister No problems noted. 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 - Pain is localized to the anterior and posterior shoulder and travels down to the elbow. - Denies weakness, but notes that all movement causes pain. - Constitutional: Reports sleep disturbance due to pain. Physical Exam Exam Exam: Physical Exam - Musculoskeletal - Shoulder: Active forward elevation is limited to 100. - Active external rotation to 80 which is significantly painful. - Active internal rotation is limited to back pocket - Passive external rotation is noted to be present but painful. - Tenderness is elicited with passive motion in the posterior aspect of the shoulder, with no tenderness noted in the subacromial area. Vital Signs: BMI result Body Mass Index 44.4 Assessment & Plan Assessment & Plan (1) Rotator cuff tear, left: Code(s): M75.102 - Unspecified rotator cuff tear or rupture of left shoulder, not specified as traumatic Category: Medical Plan Plan The patient's presentation with hslwj-wj-[id number] shoulder pain and stiffness is suggestive of inflammation of the joint capsule, or adhesive capsulitis. While her motion is limited and painful, it is not a completely frozen shoulder as she retains some motion. The plan includes an intra-articular injection at the hospital to target inflammation within the joint capsule itself, as a subacromial injection is deemed less likely to be effective. In conjunction with the injection, she will be referred for aggressive physical therapy to work on range of motion. She is advised to continue her work limitations, avoiding lifting and straining activities. Manipulation under anesthesia was mentioned as a possibility if her condition worsens or does not improve within 6-12 weeks after these initial interventions. A follow-up visit is scheduled in eight weeks. Consent Patient was informed and verbally consented to the use of an ambient scribe for clinic note documentation during this visit. Coding Level of Care Code Est Pt Level 3 (40375) Add On Problem Visit Only Diagnoses Rotator cuff tear, left M75.102
[2025-10-22 10:56] VITALS: BMI 44.4
--- OUTSIDE RECORDS SUMMARY | 2025-10-22 12:34 | XMS_ITS | Encounter Summary ---
Author Organization [facility] Address [address] [facility] [address] [place] [address] Phone Care Team Providers Care Manager Of Maintenance Name Role Phone Donna Lizarraga MD Primary Care Provider + Curt Banks MD Unavailable + Antonella Hinds NP Unavailable [phone] Arlette Gil MD Unavailable Suma Mcdonnell MD Unavailable [phone] Radha Campbell WIRE TWISTER Unavailable Donna Lizarraga MD Unavailable Xochitl Camargo MD Primary Care Provider [phone] Encounter Details Date Type Department Care Team (Late st Contact Info) Description 11/30/2017 Procedure Pass [facility], Ct Scan - [address] [address] Social History Tobacco Use Types Packs/Day Years [...] on filedocumented in this encounter Care Teams Manager Of Maintenance Relationship Specialty Start Date End Date Donna Lizarraga MD [address] [place] [phone] PCP - General 08/19/17 04/20/21 Xochitl Camargo MD [facility] [place] [id number] PCP - General Internal Medicine 04/21/21 Curt Banks MD [address] [place] [id number] [email or web address] Historical LMR Provider 08/24/17 11/11/21 Antonella Hinds, TUNNEL ELASTIC OPERATOR [employer] [address] [place] [address] [email or web address] Historical LMR Provider 08/24/17 11/11/21 Arlette Gil MD [address] [place] [address] Historical LMR Provider 08/24/17 2 Suma Mcdonnell MD [address] [place] [address] Historical LMR Provider 08/24/17 2 Radha Campbell FNP [address] [place] [address] Historical LMR Provider 08/24/17 11/11/21 Donna Lizarraga MD [address] [place] [address] [email or web address] Insurance Assigned Provider 03/07/19 08/15/19 documented as of this encounter Additional Source Comments The information contained in this document represents components of the legal health record. It is not the complete legal health record.[facility]
--- OUTSIDE RECORDS SUMMARY | 2025-10-22 12:34 | XMS_ITS | Clinical Summary ---
Author Organization [facility] Address [address] [facility] [address] [place] [phone] Phone Care Team Providers Care Branch Lead Name Role Phone Xochitl Camargo MD Primary Care Provider [phone] Allergies Active Allergy Reactions Criticality Noted Date [...] EST) SODIUM 139 133 - 146 mmol/L [facility] CHLORIDE 103 96 - 108 mmol/L [facility] POTASSIUM 3.8 3.3 - 5.1 mmol/L [facility] CO2 24 21 - 35 mmol/L [facility] BUN 11 6 - 19 mg/dL [facility] CREATININE 0.60 0.5 - 1.5 mg/dL [facility] GLUCOSE 86 70 - 99 mg/dL [facility] CALCIUM 8.5 8.4 - 10.3 mg/dL [facility] EGFR >60 >60 mL/min/1.7 3m2 [facility] Comment:Abnormal if <60. If patient is -[place], multiply the result by 1.21. ANION GAP 16 10 - 20 mmol/L [facility] Blood 11/30/2017 12:0 2 PM EST 11/30/2017 12:12 PM EST us Agatha Wan PA-C LAB BLOOD BKR ORDERABLE S Final Result [address] [address] from Last 3 Months or Most Recently Relevant to Health Maintenance [place] [address] [place] [address] [place] [address] [place] [address] [place] [address] [place] [address] [place] [address] [place] [address] [facility] [place] [address] [place] [address] [facility] ACO WORKERS COMPENSATION Care Teams Branch Lead Relationship Specialty Start Date End Date Xochitl Camargo MD [facility] [place] [address] PCP - General Internal Medicine 04/21/21 Additional Source Comments The information contained in this document represents components of the legal health record. It is not the complete legal health record.[facility]
--- OUTSIDE RECORDS SUMMARY | 2025-10-22 12:34 | XMS_ITS | Encounter Summary ---
Author Organization [facility] Address [address] [facility] [address] [place] [address] Phone Care Team Providers Care Open Hearth Stockyard Supervisor Name Role Phone Donna Lizarraga MD Primary Care Provider + Curt Banks MD Unavailable + Antonella Hinds NP Unavailable [phone] Arlette Gil MD Unavailable Suma Mcdonnell MD Unavailable [phone] Radha Campbell VOLUNTEER FIRE FIGHTER Unavailable Donna Lizarraga MD Unavailable [phone] Xochitl Camargo MD Primary Care Provider Encounter Details Date Type Department Care Team (Late st Contact Info) Description 11/26/2017 Ancillary Orders Virtual Department [address] [place] [address] Magalys Li PA-C [address] [place] [address] [facility] [place] [address] [email or web address] Left lower quadrant pain Social History Tobacco [...] of the left-sided pain is detected. POS: [id number] Edited by: Iliana Alerge on 11/28/2017 3:59 PM Narrative 11/28/2017 4:41 [...] source of the left-sidedpain is detected. POS: [id number] Edited by: Iliana Alegre on 11/28/2017 3:59 PM us Hope Guillermo PERDOMO IMG US PELVIS Final Result documented in this encounter Visit Diagnoses Diagnosis Left lower quadrant pain Abdominal pain, left lower quadrant Left lower quadrant pain Abdominal pain, left lower quadrant documented in this encounter Care Teams Open Hearth Stockyard Supervisor Relationship Specialty Start Date End Date Donna Lizarraga MD [address] [place] [address] [email or web address] PCP - General 08/19/17 04/20/21 Xochitl Camargo MD [address] [facility] [place] [address] PCP - General Internal Medicine 04/21/21 Curt Banks MD [address] [place] [address] [email or web address] Historical LMR Provider 08/24/17 11/11/21 Antonella Hinds NP [address] [place] [address] Historical LMR Provider 08/24/17 11/11/21 Arlette Gil MD [facility] [place] [address] Historical LMR Provider 08/24/17 2 Sum[facility]cd[facility]nell [facility] [place] [address] Historical LMR Provider 08/24/17 2 Radha Campbell FNP [address] [place] [address] [email or web address] Historical LMR Provider 08/24/17 11/11/21 Donna Lizarraga MD [address] [place] [address] [email or web address] Insurance Assigned Provider 03/07/19 08/15/19 documented as of this encounter Additional Source Comments The information contained in this document represents components of the legal health record. It is not the complete legal health record.[facility]
--- OUTSIDE RECORDS SUMMARY | 2025-10-22 12:35 | XMS_ITS | Patient Health Record ---
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) Active confirmed Problem Acquired hammer toe of right foot (73558496944939 05) Other hammer toe(s) (acquired), right foot (M20.41) Active confirmed Problem Acquired hammer toe of left foot (80485228074654 03) Other hammer toe(s) (acquired), left foot (M20.42) Active confirmed Problem Neuropathy (873551470) Neuropathy (G62.9) Active confirmed Problem Plantar nerve lesion (770126293) Lesion of plantar nerve, 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
== END 2025-10-22 11:11 | disposition home or self-care (01) ==
LOC: HO.HOS 10:48
PROVIDERS: PCP Internal Medicine; Visit Provider Physician Assistant
DX: M75.102 Unspecified rotator cuff tear or rupture of left shoulder, not specified as traumatic (principal)
CPT/HCPCS: 99213